=== PATIENT | female | born 1995 | race Caucasian/White ===

== ENCOUNTER 2023-06-14 10:07 | Emergency (ER) | payer BC, SELFPAY ==
[2023-06-14 10:12] VITALS: BP 150/89; PULSE 113; RESP 22; TEMP 37.1; O2SAT 98; BMI 34.3
[2023-06-14 10:15] VITALS: BP 150/89; O2SAT 96
--- NOTE | 2023-06-14 10:22 | XR_ITS ---
The [address] [address] Patient Name: FRIEDA SOLIS MRN: [id number] date: 1995 Sex: F Assigned Patient Location: ER Current Patient Location: ED.MAIN Accession/Order Number: [id number] Exam Date: 06/14/2023 10:45 Report Date: 06/14/2023 11:00 At the request of: SAMANTHA GIRALDO Procedure: XR chest 2V EXAM: XR chest 2V HISTORY: . sob . COMPARISON: None. TECHNIQUE: Frontal and lateral chest FINDINGS: Heart and vascularity are unremarkable. Lungs are free of focal infiltrates. No acute bony abnormality is appreciated. XR/XR chest 2V IMPRESSION: No acute heart or lung disease identified. Electronically authenticated by: BROOKS LARSEN Date: 06/14/2023 11:00
--- NOTE | 2023-06-14 10:23 | PC.NURSE ---
bilat upper and lower lobes lung sounds clear with pt coughing with deep breathing and with poor effort.
[2023-06-14 10:24] VITALS: O2SAT 98
[2023-06-14 10:37] VITALS: O2SAT 98
[2023-06-14] MEDS: ALBUTEROL SULFATE 2.5 MG/3 ML VIAL NEB IH (10:37)
--- NOTE | 2023-06-14 10:53 | ED.GENADUL1 ---
HPI - General Adult General Chief complaint: Upper Respiratory Infection Stated complaint: SHORTNESS OF BREATH/ COUGH Time Seen by Provider: 06/14/23 10:22 Source: patient Mode of arrival: walk-in History of Present Illness HPI narrative: Patient is a 27-year-old female who is presenting to the Emergency Room with chief complaint of one week of cough, congestion, flulike symptoms and shortness of breath. Patient will have intermittent episodes where she feels like she cannot catch her breath, some mild anxiety associated with this as well. Patient does have a history of childhood asthma. Patient thought that she outgrew, then several years ago she started having flulike symptoms, upper respiratory symptoms, and felt like it triggered her asthma at that time as well. She has no inhalers at home. Patient has no recent traveling. Patient does have 3 small children at home, Under the age of 4. she is concerned about her being sick and therefore he causing him to be sick. No sinus pressure, no chest pain, abdominal pain, nausea vomiting, no other acute complaints. . All systems are negative except as noted/marked. All systems reviewed and otherwise negative. . Nurses note and vital signs reviewed and patient is not hypoxic. General: The patient appears well and in no apparent distress. Patient is resting comfortably on cart. Patient is not toxic, lethargic, or listless. When patient starts talking, she does slightly get anxious and her heart rate will increase slightly. Skin: Warm, dry, no pallor noted. There is no rash noted. No petechiae, purpura. Head: Normocephalic, atraumatic; No tenderness to palpation to bilateral frontal or maxillary sinuses. Eye: Normal conjunctiva, no drainage, EOMI. PERRL Ears, Nose, Mouth, and Throat: oral mucosa is moist. Nares patent. Mouth without vesicles. Patient's bilateral tympanic membrane shows no erythema, perforation or bulging. Cardiovascular: Regular Rate and Rhythm, no murmur, gallop, rub Respiratory: Patient is in no distress, no accessory muscle use, lungs are clear to auscultation, no wheezing, rales or rhonchi Back: non-tender, no CVA tenderness bilaterally to percussion. No CT LS midline pain GI: soft, no tenderness to palpation, no masses appreciated. No rebound, guarding, or rigidity noted. No flank pain bilateral, No distention Musculoskeletal: Patient has full range of motion of all of the extremities, no motor, sensory, or focal neurological deficits Neurological: A&O x3, normal speech Psychiatric: Cooperative Related Data Previous Rx's Medication Instructions Recorded albuterol sulfate 90 mcg/actuation 2 inh inhalation Q4H PRN shortness 06/14/23 breath activated powder inhaler of breath or wheezing #1 ea yydcfscihyfzegs-lbpzhrmvsbqlojj-FH 10 ml PO Q6H PRN cold symptoms 06/14/23 2 mg-30 mg-10 mg/5 mL oral syrup #200 mL (Bromfed DM) Allergies Allergy/AdvReac Type Severity Reaction Status Date / Time No Known Drug Allergies Allergy Verified 06/14/23 10:16 [facility] Medical History (Updated 06/14/23 @ 10:58 by Wilfrid Cain MD) Asthma ?J45.909 - Unspecified asthma, uncomplicated (ICD-10) Exam Constitutional Vital Signs, click to edit/add: Last Vital Signs Temp 98.8 F 06/14/23 10:12 Pulse 113 H 06/14/23 10:12 Resp 22 06/14/23 10:12 BP 143/84 H 06/14/23 11:08 Pulse Ox 95 06/14/23 11:08 O2 Del Method Room Air 06/14/23 10:37 Course Vital Signs Vital signs: Vital Signs Temperature 98.8 F 06/14/23 10:12 Pulse Rate 113 H 06/14/23 10:12 Respiratory Rate 22 06/14/23 10:12 Blood Pressure 150/89 H 06/14/23 10:12 Pulse Oximetry 98 06/14/23 10:12 Oxygen Delivery Method Room Air 06/14/23 10:12 Temperature 98.8 F 06/14/23 10:12 Pulse Rate 113 H 06/14/23 10:12 Respiratory Rate 22 06/14/23 10:12 Blood Pressure 143/84 H 06/14/23 11:08 Pulse Oximetry 95 06/14/23 11:08 Oxygen Delivery Method Room Air 06/14/23 10:37 Medical Decision Making MDM Narrative Medical decision making narrative: Patient was given one breathing treatment. X-ray ankle and are negative. Patient be sent home with prescription for a bit her inhaler and Bromfed cough medication. Patient needs to start using etgc-vdq-riapbcm medication to help treat her symptoms. Patient is to use DayQuil, NyQuil, Flonase. Patient is to increase fluids. Patient will follow-up with PCP. Patient was given a copy of her x-ray report. No questions at discharge Lab Data Labs: Lab Results 06/14/23 Range/Units 10:42 SARS-CoV-2 (PCR) Negative (NEGATIVE) Discharge Plan Discharge Chief Complaint: Upper Respiratory Infection Clinical Impression: Upper respiratory infection Patient Disposition: Home, Self-Care Condition: Fair Prescriptions / Home Meds: New albuterol sulfate 90 mcg/actuation aerosol powdr breath activated 2 inh inhalation Q4H PRN (Reason: shortness of breath or wheezing) Qty: 1 0RF gxmdxbtzhkyrrnw-phfclcvup-JX [Bromfed DM] 2-30-10 mg/5 mL syrup 10 ml PO Q6H PRN (Reason: cold symptoms) Qty: 200 0RF Instructions: Asthma (ED), Upper Respiratory Infection (ED) Additional Instructions: Using mdfy-pyt-zlwwqgb DayQuil, NyQuil and Flonase. Alternate, Motrin as needed for aches or pains. Increase fluids at home. Uses inhaler as needed every 4 hours to help with shortness of breath or cough and congestion. If you start producing productive sputum, that is good and your inhaler is breaking down some mucous plugs potentially. Stand Alone Forms: Portal Instructions Referrals: Brian Mendoza MD [Primary Care Provider] - 1 week
[2023-06-14 11:08] VITALS: BP 143/84; O2SAT 95
[2023-06-14 11:24] LABS: SARS-CoV-2 Ag NEGATIVE (NEGATIVE)
[2023-06-14 14:23] LABS: SARS-CoV-2 NAA NOT DETECTED (NOT DETECTE)
== END 2023-06-14 11:42 | disposition home or self-care (01) ==
PROVIDERS: Emergency Provider Emergency Medicine; PCP Family Medicine
DX: J06.9 Acute upper respiratory infection, unspecified (principal); Z20.822 Contact with and (suspected) exposure to COVID-19
CPT/HCPCS: 71046; 87635; 87811; 94640; 99284; U0003

== ENCOUNTER 2023-06-24 12:21 | Outpatient (OUT) | payer BC, SELFPAY ==
[2023-06-24 12:51] LABS: Basophils Absolute Auto 0.1 10^3/uL (0.0-0.1); Basophils Percent Auto 0.6 % (0.2-2.0); Eosinophils Absolute Auto 0.6 10^3/uL (0.0-0.7); Hematocrit 42.6 % (36.0-48.0); Hemoglobin 14.2 g/dL (12.0-16.0); Immature Granulocytes Abs Auto 0.03 10^3/uL (0.00-0.03); Immature Granulocytes Pct Auto 0.2 % (0.0-0.5); Lymphocytes Absolute Auto 2.8 10^3/uL (1.2-3.8); Lymphocytes Percent Auto 20.1 % (20.5-60.0); Mean Corpuscular HGB Conc 33.3 g/dL (29.9-35.2); Mean Corpuscular Hemoglobin 28.7 pg (26.7-34.0); Mean Corpuscular Volume 86.2 fL (81.0-99.0); Mean Platelet Volume 8.6 fL (9.5-13.5); Monocytes Absolute Auto 0.6 10^3/uL (0.3-0.8); Neutrophils Percent Auto 71.1 % (43.0-75.0); Platelet Count 453 10^3/uL (150-450); Red Blood Count 4.94 10^6/uL (4.20-5.40); Red Cell Distribution Width 13.4 % (11.0-15.0); White Blood Count 14.1 10^3/uL (4.0-11.0)
[2023-06-24 13:12] LABS: Erythrocyte Sedimentation Rate 51 mm/hr (<=20)
[2023-06-24 13:19] LABS: Alanine Aminotransferase 26 U/L (14-59); Albumin Globulin Ratio 0.8; Albumin Level 3.6 g/dL (3.4-5.0); Alkaline Phosphatase 84 U/L (46-116); Aspartate Amino Transferase 13 U/L (15-37); BUN Creatinine Ratio 12.3; Bilirubin Direct 0.1 mg/dL (0.0-0.2); Bilirubin Total 0.3 mg/dL (0.2-1.0); C Reactive Protein 0.5 mg/dL (<=1.0); Calcium 8.9 mg/dL (8.5-10.1); Carbon Dioxide 28.6 mmol/L (21.0-32.0); Chloride 102 mmol/L (98-107); Estimated GFR (African America >60 (>=60); Estimated GFR (Non-African Ame >60 (>=60); Globulin 4.8 g/dL; Glucose 109 mg/dL (74-106); Potassium 3.6 mmol/L (3.5-5.1); Sodium 140 mmol/L (136-145); Total Protein 8.4 g/dL (6.4-8.2)
== END 2023-06-24 12:22 | disposition home or self-care (01) ==
PROVIDERS: PCP Family Medicine; Visit Provider Family Medicine
DX: R59.0 Localized enlarged lymph nodes (principal)
CPT/HCPCS: 36415; 80048; 80076; 85025; 85652; 86140

== ENCOUNTER 2023-06-28 16:35 | Outpatient (OUT) | payer BC, SELFPAY ==
--- NOTE | 2023-06-28 | US_ITS ---
The [address] [address] Patient Name: FLYNN SOLIS MRN: [id number] date: 1995 Sex: F Assigned Patient Location: US Current Patient Location: US Accession/Order Number: [id number] Exam Date: 06/28/2023 16:45 Report Date: 06/29/2023 07:30 At the request of: VLADIMIR JACOBS Procedure: US soft tissue head and neck EXAM: US soft tissue head and neck HISTORY: CERVICAL LYMPHADENOPATHY R59.0 COMPARISON: None. TECHNIQUE: Grayscale and color ultrasound FINDINGS: 3 oval masses are identified in the left neck corresponding to the patient's palpable abnormalities. All 3 lesions demonstrate peripheral hypoechoic echogenicity with central hyperechogenic hypervascularity. These lesions measure 2.1 x 1.5 x 0.9 cm, 1.4 x 1.0 x 0.5 cm and 0.8 x 0.8 x 0.4 cm. US/US soft tissue head and neck IMPRESSION: 3 focal lesions corresponding to the patient's palpable abnormality which appear to be normal size lymph nodes Electronically authenticated by: BROOKS LO Date: 06/29/2023 07:30
--- NOTE | 2023-06-28 | US_ITS ---
The [place] [id number] Patient Name: FLYNN SOLIS MRN: [facility]:[id number] date: 1995 Sex: F Assigned Patient Location: US Current Patient Location: Accession/Order Number: [id number] Exam Date: 06/28/2023 16:45 Report Date: 06/29/2023 07:19 At the request of: VLADIMIR JACOBS Procedure: US extremity nonvascular RT EXAM: US extremity nonvascular RT HISTORY: AXILLARY LYMPHAENOPATHY R59.0 COMPARISON: None. TECHNIQUE: Grayscale and color ultrasound FINDINGS: Ultrasound of the right axilla demonstrates no focal abnormality Ultrasound of the right proximal forearm demonstrates no focal abnormality Ultrasound of the right posterior mid upper arm demonstrates a focal 0.5 x 0.3 x 0.3 cm area of hyperechogenicity isolated vascular to the surrounding tissues possibly a lipoma US/US extremity nonvascular RT IMPRESSION: 5 mm hyperechogenic lesion right posterior mid upper arm possibly a lipoma Electronically authenticated by: BROOKS LO Date: 06/29/2023 07:19
--- NOTE | 2023-06-28 | US_ITS ---
The [place] [id number] Patient Name: FLYNN SOLIS MRN: [id number] date: 1995 Sex: F Assigned Patient Location: US Current Patient Location: US Accession/Order Number: [id number] Exam Date: 06/28/2023 16:45 Report Date: 06/29/2023 07:23 At the request of: VLADIMIR JACOBS Procedure: US extremity nonvascular LT EXAMINATION: US extremity nonvascular LT HISTORY: AXILLARY LYMPHAENOPATHY R59.0 COMPARISON: No relevant comparison available. FINDINGS: Ultrasound of the left axilla demonstrates a 2.0 x 2.1 x 0.8 cm oval lesion with peripheral hypoechogenicity and central hyperechogenic and hypervascularity consistent with a normal size lymph node On the left posterior mid arm is a hyperechogenic 4 mm lesion. On the left proximal medial forearm hyperechogenic lesion measuring 5 mm. On the left proximal medial forearm is a 4 mm hypoechogenic lesion US/US extremity nonvascular LT IMPRESSION: Stable normal-sized left axillary lymph node 3 focal hyperechogenic lesions of the left arm possibly lipomas Electronically authenticated by: BROOKS LO Date: 06/29/2023 07:23
== END 2023-06-28 16:36 | disposition home or self-care (01) ==
LOC: US 16:35
PROVIDERS: PCP Family Medicine; Visit Provider Family Medicine
DX: R59.0 Localized enlarged lymph nodes (principal)
CPT/HCPCS: 76536; 76882

== ENCOUNTER 2024-06-13 11:27 | Outpatient (OUT) | payer BC, SELFPAY ==
[2024-06-13 12:05] LABS: Basophils Absolute Auto 0.1 10^3/uL (0.0-0.1); Basophils Percent Auto 0.6 % (0.2-2.0); Eosinophils Absolute Auto 0.2 10^3/uL (0.0-0.7); Eosinophils Percent Auto 2.4 % (0.9-7.0); Hematocrit 42.4 % (36.0-48.0); Hemoglobin 14.7 g/dL (12.0-16.0); Immature Granulocytes Abs Auto 0.02 10^3/uL (0.00-0.03); Immature Granulocytes Pct Auto 0.2 % (0.0-0.5); Lymphocytes Absolute Auto 1.8 10^3/uL (1.2-3.8); Lymphocytes Percent Auto 18.2 % (20.5-60.0); Mean Corpuscular HGB Conc 34.7 g/dL (29.9-35.2); Mean Corpuscular Hemoglobin 29.7 pg (26.7-34.0); Mean Corpuscular Volume 85.7 fL (81.0-99.0); Mean Platelet Volume 8.8 fL (9.5-13.5); Monocytes Absolute Auto 0.4 10^3/uL (0.3-0.8); Neutrophils Absolute Auto 7.3 10^3/uL (1.4-6.5); Neutrophils Percent Auto 74.6 % (43.0-75.0); Platelet Count 386 10^3/uL (150-450); Red Blood Count 4.95 10^6/uL (4.20-5.40); Red Cell Distribution Width 13.2 % (11.0-15.0); White Blood Count 9.8 10^3/uL (4.0-11.0)
[2024-06-13 12:18] LABS: Erythrocyte Sedimentation Rate 68 mm/hr (<=20)
[2024-06-13 12:23] LABS: Estimated Average Glucose 97 mg/dL
[2024-06-13 12:39] LABS: Anion Gap 12.9; BUN Creatinine Ratio 11.1; C Reactive Protein 0.85 mg/dL (<=0.50); Calcium 9.3 mg/dL (8.5-10.1); Carbon Dioxide 25.6 mmol/L (21.0-32.0); Chloride 102 mmol/L (98-107); Estimated GFR (African America >60 (>=60); Estimated GFR (Non-African Ame >60 (>=60); Free T3 2.93 pg/mL (2.18-3.98); Glucose 110 mg/dL (74-106); Potassium 3.5 mmol/L (3.5-5.1); Sodium 137 mmol/L (136-145); Thyroid Stimulating Hormone 1.445 uIU/mL (0.358-3.740)
[2024-06-13 12:55] LABS: Free T4 0.97 ng/dL (0.76-1.46)
--- NOTE | 2024-06-13 13:03 | US_ITS ---
[address] [address] Patient Name: FLYNN SOLIS MRN: [id number] date: 1995 Sex: F Assigned Patient Location: LAB Current Patient Location: LAB Accession/Order Number: [id number] Exam Date: 06/13/2024 13:04 Report Date: 06/13/2024 13:49 At the request of: VLADIMIR JACOBS Procedure: US thyroid EXAMINATION: US thyroid HISTORY: Thyromegaly E01.0 COMPARISON: No relevant comparison available. TECHNIQUE: Sonographic images of the thyroid gland were obtained. FINDINGS: The right thyroid lobe is normal in size, contour and homogeneous echotexture measuring 4.7 x 1.5 x 1.4 cm. No focal nodule The thyroid isthmus measures 2 mm. No focal nodule The left thyroid lobe is normal in size, contour and homogeneous echotexture measuring 4.6 x 1.3 x 1.3 cm. No focal nodule US/US thyroid IMPRESSION: Normal thyroid gland TI-RADS: TI-RADS 1: Normal thyroid gland. No focal lesion. Electronically authenticated by: BROOKS LO Date: 06/13/2024 13:49
[2024-06-14 06:10] LABS: Rheumatoid Factor (RF) <10.0 IU/mL (<14.0)
[2024-06-14 08:13] LABS: Insulin 82.5 uIU/mL (2.6-24.9)
[2024-06-14 09:28] LABS: Alanine Aminotransferase 27 U/L (14-59); Albumin Globulin Ratio 0.8; Albumin Level 3.7 g/dL (3.4-5.0); Alkaline Phosphatase 74 U/L (46-116); Aspartate Amino Transferase 14 U/L (15-37); Bilirubin Direct 0.1 mg/dL (0.0-0.2); Bilirubin Total 0.4 mg/dL (0.2-1.0); Globulin 4.5 g/dL; Total Protein 8.2 g/dL (6.4-8.2)
[2024-06-14 16:12] LABS: Thyroglobulin Antibody <1.0 IU/mL (0.0-0.9); Thyroid Peroxidase (TPO) Ab <9 IU/mL (0-34)
[2024-06-15 08:14] LABS: Thyroid Stim Immunoglobulin <0.10 IU/L (0.00-0.55)
== END 2024-06-13 11:28 | disposition home or self-care (01) ==
PROVIDERS: PCP Family Medicine; Visit Provider Family Medicine
DX: R53.83 Other fatigue (principal); L65.9 Nonscarring hair loss, unspecified; E66.9 Obesity, unspecified; M25.50 Pain in unspecified joint; E28.2 Polycystic ovarian syndrome; E01.0 Iodine-deficiency related diffuse (endemic) goiter
CPT/HCPCS: 36415; 76536; 80048; 80076; 83036; 83525; 84439; 84443; 84445; 84481; 85025; 85652; 86140; 86376; 86431; 86800

== ENCOUNTER 2024-06-16 20:46 | Observation (INO) | payer BC, SELFPAY ==
--- OUTSIDE RECORDS SUMMARY | 2024-06-16 20:51 | XMS_ITS | CCD ---
Author Organization [facility] Care Team Providers Care Journeyman Carpenter Name Role Phone GABBIE Lopez Attending Provider REYNALDO, DR BRIAN Akins Primary Care Unavailable GWENDOLYN, SB Tsai Admitting Unavailable GWENDOLYN, SB Tsai Attending Unavailable ALLIE, DR PATRICIA Espinoza Consulting Unavailable HIGHLANDER, SB Tsai Consulting Unavailable NADERER, DR BRIAN Akins Consulting Unavailable NADERER, DR BRIAN Akins Attending Unavailable NADEREAlexis, DR BRIAN Akins Admitting Unavailable NADERER, DR BRIAN Akins Primary Care Unavailable NADERER, DR BRIAN Akins Primary Care Unavailable NADERER, DR BRIAN Akins Consulting Unavailable NADERER, DR BRIAN Akins Attending Unavailable NADERER, DR BRIAN Akins Admitting Unavailable [facility] Consulting Unavailable NADERER, DR BRIAN Akins Primary Care Unavailable GWENDOLYN, SB Tsai Admitting Unavailable GWENDOLYN, SB Tsai Attending Unavailable Brian Jacobs MD Primary Care Provider BRIAN JACOBS Attending Unavailable Problems Active Problems Problem Classification Problem Date Documented Da te Episodic/Chronic Malaise and fatigue (5 sources) Fatigue; Translations: [Other fatigue] Onset: 06-13-2024 06-13-2024 Episodic Neoplasms of unspecified nature or uncertain behavior (3 sources) Thrombocytosis; Translations: [Thrombocythemia] Onset: 06-13-2024 06-13-2024 Episodic Other acquired deformities (1 source) Contracture, left ankle; Translations: [CONTRACTURE LEFT ANKLE] Onset: 04-24-2022 Chronic Other endocrine disorders (5 sources) Polycystic ovary syndrome; Translations: [Polycystic ovarian syndrome] Onset: 06-13-2024 06-13-2024 Chronic Other non-traumatic joint disorders (5 sources) Joint pain; Translations: [Pain in unspecified joint] Onset: 06-13-2024 06-13-2024 Episodic Other nutritional; endocrine; and metabolic disorders (5 sources) Body mass index 30+ - obesity; Translations: [Obesity, unspecified] Onset: 06-13-2024 06-13-2024 Chronic Other skin disorders (5 sources) Loss of hair; Translations: [Nonscarring hair loss, unspecified] Onset: 06-13-2024 06-13-2024 Episodic Thyroid disorders (5 sources) Goiter; Translations: [Iodine-deficiency related diffuse (endemic) goiter] Onset: 06-13-2024 06-13-2024 Chronic Past or Other Problems Problem Classification Problem Date Documented Date Episodic/Chronic Other connective tissue disease (5 sources) Pain in left foot; Translations: [PAIN IN LEFT FOOT] Onset: 03-02-2022 Episodic Other connective tissue disease (4 sources) Plantar fascial fibromatosis; Translations: [PLANTAR FASCIAL FIBROMATOSIS] Onset: 04-20-2022 Episodic Other connective tissue disease (1 source) Peroneal tendinitis, left leg; Translations: [PERONEAL TENDINITIS LEFT LEG] Onset: 04-20-2022 Episodic Other nervous system disorders (1 source) Other abnormalities of gait and mobility; Translations: [OTHER ABNORMALITIES GAIT AND MOBILITY] Onset: 04-24-2022 Episodic Other nervous system disorders (1 source) Unspecified abnormalities of gait and mobility; Translations: [UNS ABNORMALITIES GAIT AND MOBILITY] Onset: 04-24-2022 Episodic Results Test Name Value Interpretation Reference Range Facility ALL CBC WITH AUTO DIFFon BASOPHILS ABSOLUTE AUTO 0.1 [facility] Basophils/100 WBC (Bld) 0.6 % 0.2 - 2.0 % [facility] Eosinophils/100 WBC (Bld) 2.4 % 0.9 - 7.0 % [facility] Erythrocyte distribution width (RBC) [Ratio] 13.2 % 11.0 - 15.0 % [facility] Hematocrit (Bld) [Volume fraction] 42.4 % 36.0 - 48.0 [facility] [Mass/Vol] 14.7 g/dL 12.0 - 16.0 g/dL [facility] IMMATURE GRANULOCYTES ABS AUTO 0.02 [facility] Immature granulocytes/100 WBC (Bld) 0.2 % 0.0 - 0.5 % [facility] Interpretation and review of laboratory results Abnormal [facility] LYMPHOCYTES ABSOLUTE AUTO 1.8 [facility] Lymphocytes/100 WBC (Bld) 18.2 % Low 20.5 - 60.0 % [facility] MCH (RBC) [Entitic mass] 29.7 pg 26.7 - 34.0 pg [facility] MCHC (RBC) [Mass/Vol] 34.7 g/dL 29.9 - 35.2 g/dL [facility] MCV (RBC) [Entitic vol] 85.7 fL 81.0 - 99.0 fL [facility] MONOCYTES ABSOLUTE AUTO 0.4 [facility] Monocytes/100 WBC (Bld) 4.0 % 1.7 - 12.0 % [facility] NEUTROPHILS ABSOLUTE AUTO 7.3 High [facility] Neutrophils/100 WBC (Bld) 74.6 % 43.0 - 75.0 % [facility] Platelet mean volume (Bld) [Entitic vol] 8.8 fL Low 9.5 - 13.5 fL [facility] EO # 0.2 [facility] PLT 386 [facility] RBC 4.95 [facility] WBC 9.8 [facility] XR FOOT GUANAKITO MIN 3 VIEWSon XR FOOT GUANAKITO MIN 3 VIEWS EXAMINATION: XR FOOT GUANAKITO MIN 3 VIEWS HISTORY: Pain in both feet COMPARISON: XR foot left 03/02/2022 FINDINGS: RIGHT FINDINGS: BONES: No significant arthropathy or acute abnormality. SOFT TISSUES: No visible soft tissue swelling. OTHER: Negative. LEFT FINDINGS: BONES: No significant arthropathy or acute abnormality. SOFT TISSUES: No visible soft tissue swelling. OTHER: Negative. IMPRESSION: RIGHT CONCLUSION: Normal examination. LEFT CONCLUSION: Normal examination. Electronically authenticated by: PATRICIA KELLEY Date: 2022-12-15 12:37 Normal [facility] CBC AUTO DIFFon 03-02-2022 BASO # 0.1 103/ul Normal 0.0-0.1 [facility] Comment on above: Performed By: #### C BC #### [facility] [address] [address] [address] Mike Nails Basophils/100 WBC (Bld) 0.7 % Normal 0.2-2.0 [facility] Comment on above: Performed By: #### C BC #### [facility] [address] [place] [address] Dr. Mike Nails EO # 0.6 103/ul Normal 0.0-0.7 [facility] Comment on above: Performed By: #### C BC #### [facility] [address] [place] [address] Dr. Mike Nails Eosinophils/100 WBC (Bld) 5.7 % Normal 0.9-7.0 [facility] Comment on above: Performed By: #### C BC #### [facility] [address] [place] [address] Dr. Mike Nails Erythrocyte distribution width (RBC) [Ratio] 13.2 % Normal 11.0-15.0 [facility] Comment on above: Performed By: #### C BC #### [facility] [address] [place] [address] Dr. Mike Nails Hematocrit (Bld) [Volume fraction] 41.6 % Normal 36.0-48.0 [facility] Comment on above: Performed By: #### C BC #### [facility] [address] [place] [address] Dr. Mike Nails Hemoglobin (Bld) [Mass/Vol] 13.7 g/dL Normal 12.0-16.0 [facility] Comment on above: Performed By: #### C BC #### [facility] [address] [place] [address] Dr. Mike Nails IG # 0.02 10e3/ul Normal 0.00-0.03 [facility] Comment on above: Performed By: #### C BC #### [facility] [address] [place] [address] Dr. Mike Nails IG % 0.2 % Normal 0.0-0.5 [facility] Comment on above: Performed By: #### C BC #### [facility] [address] [place] [address] Dr. Mike Nails LYMPH # 2.6 103/ul Normal 1.2-3.8 [facility] Comment on above: Performed By: #### C BC #### [facility] [address] [place] [address] Dr. Mike Nails Lymphocytes/100 WBC (Bld) 26.3 % Normal 20.5-60.0 [facility] Comment on above: Performed By: #### C BC #### [facility] [address] [place] [address] Dr. Mike Nails MANUAL DIFF REQ NO Normal [facility] Comment on above: Performed By: #### C BC #### [facility] [address] [place] [address] Dr. Mike Nails MCH (RBC) [Entitic mass] 28.7 pg Normal 26.7-34.0 [facility] Comment on above: Performed By: #### C BC #### [facility] [address] [place] [address] Dr. Mike Nails MCHC (RBC) [Mass/Vol] 32.9 g/dL Normal 29.9-35.2 [facility] Comment on above: Performed By: #### C BC #### [facility] [address] [place] [address] Dr. Mike Nails MCV (RBC) [Entitic vol] 87.0 fL Normal 81.0-99.0 [facility] Comment on above: Performed By: #### C BC #### [facility] [address] [place] [address] Dr. Mike Nails MONO # 0.5 103/ul Normal 0.3-0.8 [facility] Comment on above: Performed By: #### C BC #### [facility] [address] [place] [address] Dr. Mike Nails Monocytes/100 WBC (Bld) 5.5 % Normal 1.7-12.0 [facility] Comment on above: Performed By: #### C BC #### [facility] [address] [place] [address] Dr. Mike Nails NEUT # 6.0 103/ul Normal 1.4-6.5 [facility] Comment on above: Performed By: #### C BC #### [facility] [address] [address] [address] Mike Nails Neutrophils/100 WBC (Bld) 61.6 % Normal 43.0-75.0 [facility] Comment on above: Performed By: #### C BC #### [facility] [address] [place] [address] Dr. Mike Nails Platelet mean volume (Bld) [Entitic vol] 8.7 fL Critically low 9.5-13.5 [facility] Comment on above: Performed By: #### C BC #### [facility] [address] [address] [address] Mike Nails PLT 369 103/ul Normal 150-450 [facility] Comment on above: Performed By: #### C BC #### [facility] [address] [place] [address] Dr. Mike Nails RBC 4.78 106/ul Normal 4.20-5.40 [facility] Comment on above: Performed By: #### C BC #### [facility] [address] [address] [address] Mike Nails WBC 9.7 103/ul Normal 4.0-11.0 [facility] Comment on above: Performed By: #### C BC #### [facility] [address] [place] [address] Dr. Mike Nails GLYCOHEMOGLOBIN A1Con 2021 ADA RECOMMENDATION SEE BELOW Normal [facility] Comment on above: Result Comment: ADA RECOMMENDED LIMIT 4.0 - 6.0 ADA THERAPEUTIC TARGET < 7.0 ACTION SUGGESTED > 7.0 Performed By: #### A 1C #### [facility] [address] [place] [address] Dr. Mike Nails Glucose [Mass/Vol] 105 mg/dL Normal [facility] Comment on above: Performed By: #### A 1C #### [facility] [address] [place] [address] Dr. Mike Nails HbA1c (Bld) [Mass fraction] 5.3 % Normal 4.5-6.2 [facility] Comment on above: Performed By: #### A 1C #### [facility] [address] [address] [address] Mike Nails LIPID PROFILEon 03-02-2022 CHOL-HDL RATIO NORM SEE BELOW Normal [place] Comment on above: Result Comment: 3.3 - 4.4 LOW RISK 4.4 - 7.1 AVERAGE RISK 7.1 - 11.0 MODERATE RISK >11.0 HIGH RISK Performed By: #### B MP, LIPID, TSH, LIVER #### [facility] [address] [address] [address] Mike Nails Cholesterol [Mass/Vol] 198 mg/dL Normal <=200 [facility] Comment on above: Performed By: #### B MP, LIPID, TSH, LIVER #### [facility] [address] [address] [address] Mike Nails Cholesterol in HDL [Mass/Vol] 48 mg/dL Normal 40-60 [facility] Comment on above: Performed By: #### B MP, LIPID, TSH, LIVER #### [facility] [address] [address] [address] Mike Nails Cholesterol in LDL [Mass/Vol] 136.6 mg/dL Normal [facility] Comment on above: Performed By: #### B MP, LIPID, TSH, LIVER #### [facility] [address] [address] [address] Mike Nails Cholesterol.total/Cho lesterol in HDL [Mass ratio] 4.1 {ratio} Normal [facility] Comment on above: Performed By: #### B MP, LIPID, TSH, LIVER #### [facility] [address] [place] [address] Dr. Mike Nails HDL NORMAL > or = 60 mg/dl - LOW CARDIOVASCULAR RISK <40 mg/dl - HIGH CARDIOVASCULAR RISK Normal [facility] Comment on above: Performed By: #### B MP, LIPID, TSH, LIVER #### [facility] [address] [place] [address] Dr. Mike Nails LDL CALC NORMAL SEE BELOW Normal [facility] Comment on above: Result Comment: <100 mg/dl OPTIMAL 100 - 129 mg/dl NEAR OR ABOVE OPTIMAL 130 - 159 mg/dl BORDERLINE HIGH 160 - 189 mg/dl HIGH >190 mg/dl VERY HIGH Performed By: #### B MP, LIPID, TSH, LIVER #### [facility] [address] [address] [address] Mike Nails Triglyceride [Mass/Vol] 67 mg/dL Normal <=150 [facility] Comment on above: Performed By: #### B MP, LIPID, TSH, LIVER #### [facility] [address] [address] [address] Mike Nails VLDL CALC 13.4 mg/dL Normal [facility] Comment on above: Performed By: #### B MP, LIPID, TSH, LIVER #### [facility] [address] [place] [address] Dr. Mike Nails LIVER PROFILEon 03-02-2022 Albumin [Mass/Vol] 3.7 g/dL Normal 3.4-5.0 [facility] Comment on above: Performed By: #### B MP, LIPID, TSH, LIVER #### [facility] [address] [place] [address] Dr. Mike Nails Albumin/Globulin [Mass ratio] 0.8 {ratio} Normal [facility] Comment on above: Performed By: #### B MP, LIPID, TSH, LIVER #### [facility] [address] [place] [address] Dr. Mike Nails ALP [Catalytic activity/Vol] 87 U/L Normal 46-116 [facility] Comment on above: Performed By: #### B MP, LIPID, TSH, LIVER #### [facility] [address] [place] [address] Dr. Mike Nails ALT [Catalytic activity/Vol] 9 U/L Critically low 14-59 [facility] Comment on above: Performed By: #### B MP, LIPID, TSH, LIVER #### [facility] [address] [place] [address] Dr. Mike Nails AST [Catalytic activity/Vol] 17 U/L Normal 15-37 [facility] Comment on above: Performed By: #### B MP, LIPID, TSH, LIVER #### [facility] [address] [place] [address] Dr. Mike Nails BILI, CONJUGATED 0.1 mg/dL Normal 0.0-0.2 [facility] Comment on above: Performed By: #### B MP, LIPID, TSH, LIVER #### [facility] [address] [place] [address] Dr. Mike Nails Bilirubin [Mass/Vol] 0.4 mg/dL Normal 0.2-1.0 [facility] Comment on above: Performed By: #### B MP, LIPID, TSH, LIVER #### [facility] [address] [place] [address] Dr. Mike Nails Globulin (S) [Mass/Vol] 4.9 g/dL Normal [facility] Comment on above: Performed By: #### B MP, LIPID, TSH, LIVER #### [facility] [address] [place] [address] Dr. Mike Nails Protein [Mass/Vol] 8.6 g/dL Critically high 6.4-8.2 [facility] Comment on above: Performed By: #### B MP, LIPID, TSH, LIVER #### [facility] [address] [place] [address] Dr. Mike Nails PROF CHEM 8 (BAS METB)on Anion gap [Moles/Vol] 11.4 mmol/L [facility] Comment on above: Performed By: #### B MP, LIPID, TSH, LIVER #### [facility] [address] [place] [address] Dr. Mike Nails Calcium [Mass/Vol] 9.2 mg/dL Normal 8.5-10.1 [facility] Comment on above: Performed By: #### B MP, LIPID, TSH, LIVER #### [facility] [address] [place] [address] Dr. Mike Nails Chloride [Moles/Vol] 104 mmol/L Normal 98-107 [facility] Comment on above: Performed By: #### B MP, LIPID, TSH, LIVER #### [facility] [address] [place] [address] Dr. Mike Nails CO2 [Moles/Vol] 28.7 mmol/L Normal 21.0-32.0 [facility] Comment on above: Performed By: #### B MP, LIPID, TSH, LIVER #### [facility] [address] [place] [address] Dr. Mike Nails Creatinine [Mass/Vol] 0.80 mg/dL Normal 0.55-1.02 [facility] Comment on above: Performed By: #### B MP, LIPID, TSH, LIVER #### [facility] [address] [address] [address] Mike Nails EGFR-AF TRISTANIAN >60 Normal >=60 [facility] Comment on above: Performed By: #### B MP, LIPID, TSH, LIVER #### [facility] [address] [place] [address] Dr. Mike Nails EGFR-NON AF TRISTANIAN >60 Normal >=60 [facility] Comment on above: Performed By: #### B MP, LIPID, TSH, LIVER #### [facility] [address] [place] [address] Dr. Mike Nails Glucose [Mass/Vol] 88 mg/dL Normal 74-106 [facility] Comment on above: Performed By: #### B MP, LIPID, TSH, LIVER #### [facility] [address] [place] [address] Dr. Mike Nails Potassium [Moles/Vol] 4.1 mmol/L Normal 3.5-5.1 [facility] Comment on above: Performed By: #### B MP, LIPID, TSH, LIVER #### [facility] [address] [place] [address] Dr. Mike Nails Sodium [Moles/Vol] 140 mmol/L Normal 136-145 [facility] Comment on above: Performed By: #### B MP, LIPID, TSH, LIVER #### [facility] [address] [place] [address] Dr. Mike Nails Urea nitrogen [Mass/Vol] 15.0 mg/dL Normal 7.0-18.0 [facility] Comment on above: Performed By: #### B MP, LIPID, TSH, LIVER #### [facility] [address] [place], [place] [address] Dr. Mike Nails Urea nitrogen/Creatinine [Mass ratio] 18.8 mg/mg Normal [facility] Comment on above: Performed By: #### B MP, LIPID, TSH, LIVER #### [facility] [address] [place], [place] [address] Dr. Mike Nails TSHon 03-02-2022 TSH 1.489 uIU/mL Normal 0.358-3.740 [facility] Comment on above: Performed By: #### B MP, LIPID, TSH, LIVER #### [facility] [address] [place], [place] [address] Dr. Mike Nails XR FOOT LT MIN 3 VIEWSon XR FOOT LT MIN 3 VIEWS EXAM: XR FOOT LT MIN 3 VIEWS CLINICAL INDICATION: Pain in left foot; no known injury, swelling started during ; pain and swelling persistent 4 months COMPARISON: None TECHNIQUE: The right foot is imaged in 3 projections. FINDINGS: There is no fracture, malalignment or osseous destruction. Mild joint space narrowing is noted at the first MTP joint. An accessory navicular bone is noted. An additional sub-2 mm body adjacent to the navicular bone appears chronic. Mild soft tissue swelling is noted about the foot. IMPRESSION: No acute osseous abnormality. Early first MTP joint space narrowing. Electronically authenticated by: RHODA CARPENTER Date: 2022-03-02 15:24 Normal [facility] Vital Signs Date Time Vital Sign Value Performing Clinician Faci lity 06-13-2024 [id number] Body height 162.6 cm Brian Jacobs MD Work Phone: [facility] 06-13-2024 10:36-0400 Body mass index (BMI) [Ratio] 33.64 kg/m2 Brian Jacobs MD Work Phone: [facility] 06-13-2024 10:36-040 Body temperature 97.5 [degF] Brian Jacobs MD Work Phone: [facility] 06-13-2024 10:36-040 Body weight 88.91 kg Brian Jacobs MD Work Phone: [facility] 06-13-2024 10:36-0400 Diastolic blood pressure 80 mm[Hg] Brian Jacobs MD Work Phone: [facility] 06-13-2024 10:36-0400 Heart rate 91 /min Brian Jacobs MD Work Phone: [facility] 06-13-2024 10:36-0400 Respiratory rate 20 /min Brian Jacobs MD Work Phone: [facility] 06-13-2024 10:36-0400 SaO2% (BldA) [Mass fraction] 98 % Brian Jacobs MD Work Phone: [facility] 06-13-2024 10:36-0400 Systolic blood pressure 124 mm[Hg] Brian Jacobs MD Work Phone: [facility] Encounters Encounter Date Encounter Type Care Provider Facility Start: 06-13-2024 End: 06-13-2024 Bamboo flowsheet Brian Jacobs MD Work Phone: [facility] Start: 06-13-2024 End: 06-13-2024 Bamboo flowsheet Brian Jacobs MD Work Phone: [facility] Start: 06-13-2024 End: 06-13-2024 [facility] Result Encounter Brian Jacobs MD Work Phone: [facility] External Department Unsolicited Start: 06-13-2024 End: 06-13-2024 Office outpatient visit 25 minutes Brian Jacobs MD Work Phone: [facility] Comment on above: Fatigue, unspecified type (Primary Dx); Hair loss; Arthralgia, unspecified joint; PCOS (polycystic ovarian syndrome); Obesity (BMI 30-39.9); Thyromegaly (CMS/HCC) Start: 06-13-2024 End: 06-13-2024 ambulatory BRIAN JACOBS Not Available Start: 12-15-2022 End: 12-16-[address] BRIAN JACOBS Facility:[facility] Start: 04-20-2022 End: 05-02-[address] BRIAN JACOBS Facility:[facility] Start: 04-07-2022 End: 04-07-2022 Patient encounter procedure DPMark Sb Lopez Work Phone: [facility] [place] [facility] Start: 03-04-2022 Encounter for genera l adult medical examination without abnormal findings DR BRIAN JACOBS [facility] Start: 03-02-2022 End: 03-03-2022 Encounter for general adult medical examination without abnormal findings DR BRIAN JACOBS Facility:[facility] Start: 03-02-2022 End: 03-03-[address] BRIAN JACOBS Facility:[facility] Procedures Date Procedure Procedure Detail Performing Clinician Start: 06-13-2024 ALL CBC WITH AUTO DIFF Brian Jacobs MD Work Phone: Plan of Treatment Date Care Activity Detail Author Start: 06-13-2024 End: 06-13-2025 PEBBLES BY IFA W/REFLEX ([facility]) PEBBLES BY IFA W/REFLEX ([facility]) Lab Routine Arthralgia, unspecified joint Expected: 06/13/2024 (Approximate), Expires: 06/13/2025 [facility] Comment on above: Expected: 06/13/2024 (Approximate), Expires: 06/13/2025 Start: 06-13-2024 End: 06-13-2025 Basic metabolic 1998 panel - Serum or Plasma Basic metabolic panel Lab Routine PCOS (polycystic ovarian syndrome) Expected: 06/13/2024 (Approximate), Expires: 06/13/2025 [facility] Comment on above: Expected: 06/13/2024 (Approximate), Expires: 06/13/2025 Start: 06-13-2024 End: 06-13-2025 C reactive protein [Mass/volume] in Serum or Plasma C-reactive protein Lab Routine Arthralgia, unspecified joint Expected: 06/13/2024 (Approximate), Expires: 06/13/2025 [facility] Comment on above: Expected: 06/13/2024 (Approximate), Expires: 06/13/2025 Start: 06-13-2024 End: 06-13-2025 CBC W Auto Differential panel - Blood CBC and differential Lab Routine Arthralgia, unspecified joint PCOS (polycystic ovarian syndrome) Expected: 06/13/2024 (Approximate), Expires: 06/13/2025 [facility] Comment on above: Expected: 06/13/2024 (Approximate), Expires: 06/13/2025 Start: 06-13-2024 End: 06-13-2025 Erythrocyte sedimentation rate Sedimentation rate, automated Lab Routine Arthralgia, unspecified joint Expected: 06/13/2024 (Approximate), Expires: 06/13/2025 [facility] Comment on above: Expected: 06/13/2024 (Approximate), Expires: 06/13/2025 Start: 06-13-2024 End: 06-13-2025 Hemoglobin A1c/Hemoglobin.total in Blood Hemoglobin A1c Lab Routine PCOS (polycystic ovarian syndrome) Expected: 06/13/2024 (Approximate), Expires: 06/13/2025 [facility] Comment on above: Expected: 06/13/2024 (Approximate), Expires: 06/13/2025 Start: 06-13-2024 End: 06-13-2025 Insulin, fasting Insulin, fasting Lab Routine PCOS (polycystic ovarian syndrome) Expected: 06/13/2024 (Approximate), Expires: 06/13/2025 [facility] Comment on above: Expected: 06/13/2024 (Approximate), Expires: 06/13/2025 Start: 06-13-2024 End: 06-13-2025 Rheumatoid factor [Units/volume] in Serum or Plasma Rheumatoid factor Lab Routine Arthralgia, unspecified joint Expected: 06/13/2024 (Approximate), Expires: 06/13/2025 [facility] Comment on above: Expected: 06/13/2024 (Approximate), Expires: 06/13/2025 Start: 06-13-2024 End: 06-13-2025 Thyroglobulin Thyroglobulin Lab Routine Fatigue, unspecified type Hair loss Expected: 06/13/2024 (Approximate), Expires: 06/13/2025 [facility] Comment on above: Expected: 06/13/2024 (Approximate), Expires: 06/13/2025 Start: 06-13-2024 End: 06-13-2025 Thyroid peroxidase antibody Thyroid peroxidase antibody Lab Routine Fatigue, unspecified type Hair loss Expected: 06/13/2024 (Approximate), Expires: 06/13/2025 [facility] Comment on above: Expected: 06/13/2024 (Approximate), Expires: 06/13/2025 Start: 06-13-2024 End: 06-13-2025 Thyroid stimulating immunoglobulin Thyroid stimulating immunoglobulin Lab Routine Fatigue, unspecified type Hair loss Expected: 06/13/2024 (Approximate), Expires: 06/13/2025 [facility] Comment on above: Expected: 06/13/2024 (Approximate), Expires: 06/13/2025 Start: 06-13-2024 End: 06-13-2025 Thyrotropin [Units/volume] in Serum or Plasma TSH Lab Routine Fatigue, unspecified type Hair loss Obesity (BMI 30-39.9) Expected: 06/13/2024 (Approximate), Expires: 06/13/2025 [facility] Work Phone: Comment on above: Expected: 06/13/2024 (Approximate), Expires: 06/13/2025 Start: 06-13-2024 End: 06-13-2025 Thyroxine (T4) free [Mass/volume] in Serum or Plasma T4, free Lab Routine Fatigue, unspecified type Hair loss Expected: 06/13/2024 (Approximate), Expires: 06/13/2025 [facility] Comment on above: Expected: 06/13/2024 (Approximate), Expires: 06/13/2025 Start: 06-13-2024 End: 06-13-2025 Triiodothyronine (T3) Free [Mass/volume] in Serum or Plasma T3, free Lab Routine Fatigue, unspecified type Hair loss Expected: 06/13/2024 (Approximate), Expires: 06/13/2025 [facility] Comment on above: Expected: 06/13/2024 (Approximate), Expires: 06/13/2025 Start: 06-13-2024 End: 06-13-2025 US Thyroid gland US thyroid Imaging Routine Thyromegaly (CMS/HCC) Expected: 06/13/2024, Expires: 06/13/2025 [facility] Comment on above: Expected: 06/13/2024 , Expires: 06/13/2025 Start: 06-13-2024 End: 06-13-2024 Patient encounter procedure 06/13/2024 10:30 AM EDT Office Visit [facility] [address] [place] [id number] Brian Jacobs MD [address] [place] [address] Arrived [facility] Comment on above: Arrived Payers Date Payer Category Payer Unknown BCBS BCBS [id number] 2020-Present [phone] [address] [place] [address] [id number] 1994 Unknown [id number] 1994 Unknown [id number] 1994 Unknown [id number] 1994 Unknown [id number] 1994 Unknown [id number] 1959 Unknown [id number] Social History Date Type Detail Facility Tobacco smoking status NHIS Unknown if ever smoked [facility] Work Phone: Start: 1995 Sex Assigned At Female [facility] Tobacco smoking status NHIS Tobacco smoking consumption unknown [facility] Start: 1995 Sex assigned at Not on file [facility] Start: 06-13-2024 Gender identity Not on file [facility] Start: 06-13-2024 Tobacco smoking status NHIS Never smoked tobacco [facility] Start: 06-13-2024 Tobacco use and exposure Smokeless tobacco non-user [facility] Start: 06-13-2024 History of Social function [facility] History of Present illness Narrative 06-13-2024 Brian Jacobs MD - 06/13/2024 11:13 AM Willian Jacobs MD - 06/13/2024 11:13 AM Willian Jacobs MD - 06/13/2024 11:12 AM Willian Jacobs MD - 06/13/2024 10:30 AM EDT Note Date & Type Note Facility 06-13-2024 History of Presen t illness Narrative Associated Problem(s): Arthralgia Pain in multiple joints and check labs for autoimmune disease. Associated Problem(s): Thyromegaly (CMS/HCC) Thyroid feels enlarged on left and check US. Associated Problem(s): Fatigue Signs of low thyroid and check labs and antibodies. Images from the original note were not included. Subjective Patient ID: Samantha Malhotra is a 28 y.o. female who presents for Follow-up (Would like to be tested for hoshimoto's and possible for RA) and Back Pain. Concerned of Ifeanyi's disease or problems with thyroid. History of PCOS and periods very irregular. Noticed hair loss and thinning. Severe fatigue and no energy. At times feels like thyroid too low and other times feels overactive. Weight down 21 pounds in past year but exercising and trying to lose weight. Concerned of stiffness and joint pain. Pain in neck, back, hips, and shoulders. Very stiff and sore in am and if sit prolonged. Symptoms worse with activity. Goes to chiropractor few days a week which helps but then pain returns. Concerned of autoimmune disease. Review of Systems Respiratory: Negative for cough, shortness of breath and wheezing. Cardiovascular: Negative for chest pain and palpitations. Gastrointestinal: Negative for abdominal pain, diarrhea, nausea and vomiting. Genitourinary: Negative for dysuria. Objective Physical Exam Constitutional: General: She is not in acute distress. Appearance: Normal appearance. HENT: Head: Normocephalic. Right Ear: Tympanic membrane normal. Left Ear: Tympanic membrane normal. Eyes: Extraocular Movements: Extraocular movements intact. Pupils: Pupils are equal, round, and reactive to light. Neck: Comments: Left thyromegaly Cardiovascular: Rate and Rhythm: Normal rate and regular rhythm. Heart sounds: No murmur heard. No friction rub. No gallop. Pulmonary: Effort: Pulmonary effort is normal. Breath sounds: Normal breath sounds. No wheezing, rhonchi or rales. Abdominal: General: Bowel sounds are normal. There is no distension. Palpations: Abdomen is soft. Tenderness: There is no abdominal tenderness. There is no guarding or rebound. Musculoskeletal: Cervical back: Neck supple. Right lower leg: No edema. Left lower leg: No edema. Neurological: Mental Status: She is alert. Assessment/Plan Problem List Items Addressed This Visit PCOS (polycystic ovarian syndrome) Relevant Orders CBC and differential Basic metabolic panel Insulin, fasting Hemoglobin A1c Obesity (BMI 30-39.9) Relevant Orders TSH Hair loss Relevant Orders TSH T4, free T3, free Thyroglobulin Thyroid peroxidase antibody Thyroid stimulating immunoglobulin Fatigue - Primary Signs of low thyroid and check labs and antibodies. Relevant Orders TSH T4, free T3, free Thyroglobulin Thyroid peroxidase antibody Thyroid stimulating immunoglobulin Arthralgia Pain in multiple joints and check labs for autoimmune disease. Relevant Orders Sedimentation rate, automated C-reactive protein PEBBLES BY IFA W/REFLEX ([place]) Rheumatoid factor CBC and differential Thyromegaly (CMS/HCC) Thyroid feels enlarged on left and check US. Relevant Orders US thyroid documented in this encounter [facility] Evaluation note Note Date & Type Note Facility [facility] Evaluation note Note Date & Type Note Facility Evaluation note Diagnosis Fatigue, unspecified type- Primary Hair loss Unspecified alopecia Arthralgia, unspecified joint PCOS (polycystic ovarian syndrome) Polycystic ovaries Obesity (BMI 30-39.9) Thyromegaly (CMS/HCC) Goiter, unspecified documented in this encounter [facility] Chief Complaint and Reason for Visit Chief Complaint M79.672 Advance Directives No Advanced Directives Records Found Advance Directive Response Recorded Date/ Time Advance Directives No April 13 5:13pm Summary Purpose Family History No Family History Records FoundNo Family History Records Found Additional Source Comments Care Teams (unrecognized sec tion and content) Team Status: Inactive Member Role Status Dates Sb Lopez DPM MS Attending Provider Active Journeyman Carpenter Relationship Specialty Start Date End Date Brian Jacobs MD [address] [place] [id number] PCP - General Family Medicine 06/13/24 Journeyman Carpenter Relationship Specialty Start Date End Date Brian Jacobs MD [address] [place] [address] PCP - General Family Medicine 06/13/24 Journeyman Carpenter Relationship Specialty Start Date End Date Brian Jacobs MD [address] [place] [address] PCP - General Family Medicine 06/13/24 Goals (unrecognized section and content) Goals may be documented in a n alternate section INFORMATION SOURCE (unrecogn ized section and content) DATE CREATED AUTHOR 12/17/2022 [facility] DATE CREATED AUTHOR AUTHOR'S ORGANIZ ATION 06/14/2024 [facility] Reason for Visit (unrecogniz ed section and content) Reason Comments Follow-up Would like to be jasmin al for hoshimoto's and possible for RA Back Pain FOR RECORDS PERTAINING TO PATIENTS WHO ARE OR HAVE BEEN ENROLLED IN A CHEMICAL DEPENDENCY/SUBSTANCEABUSE PROGRAM, SOME INFORMATION MAY BE OMITTED. This clinical summary was aggregated from multiple sources. Caution should be exercised in using it in the provision of clinical care. This summary normalizes information from multiple sources, and as a consequence, information in this document may materially change the coding, format and clinical context of patient data. In addition, data may be omitted in some cases. CLINICAL DECISIONS SHOULD BE BASED ON THE PRIMARY CLINICAL RECORDS. [facility] [email or web address] [facility]. provides no warranty or guarantee of the accuracy or completeness of information in this document.
[2024-06-16 20:57] VITALS: BP 133/96; PULSE 77; TEMP 36.8; O2SAT 100; BMI 33.1
--- NOTE | 2024-06-16 21:16 | ED.ABDPAIN1 ---
Documented by User: Patenriqueta Birdon 06/16/24 21:57 HPI - Abdominal Pain General Chief Complaint: Abdominal Pain Stated Complaint: abdominal pain, vomiting, chills, not Time Seen by Provider: 06/16/24 21:08 Source: patient and family Mode of arrival: Wheelchair Limitations: no limitations History of Present Illness HPI narrative: 28 year old female presents to the ED for low abd pain, N/V. Onset was early this morning. Denies fever, chills, diarrhea, urinary sx. Denies flank pain. States her last 2-3 menses have been very light, irregular. Denies previous abd surgery. States she last had something to eat/drink around 1400 today. Related Data Previous Rx's ?Medication ?Instructions ?Recorded albuterol sulfate 90 mcg/actuation 2 inh inhalation Q4H PRN shortness 06/14/23 breath activated powder inhaler of breath or wheezing #1 ea oiccajdltpqlelu-wijjbxrnogwbqll-QA 10 ml PO Q6H PRN cold symptoms 06/14/23 2 mg-30 mg-10 mg/5 mL oral syrup #200 mL (Bromfed DM) Allergies Allergy/AdvReac Type Severity Reaction Status Date / Time No Known Drug Allergies Allergy Verified 06/16/24 20:57 Review of Systems ROS Constitutional Denies: fever or chills Ears, nose, mouth, and throat Denies: throat pain Cardiovascular Denies: chest pain Respiratory Denies: shortness of breath or cough Gastrointestinal Reports: abdominal pain, nausea and vomiting; Denies: diarrhea Genitourinary Denies: painful urination, urinary frequency or urinary urgency Musculoskeletal Denies: back pain or neck pain Integumentary/Breast Denies: rash Neurological Denies: headache PFSH PFSH Medical History (Updated 06/16/24 @ 23:54 by Edin Kaplan MD) Asthma ?J45.909 - Unspecified asthma, uncomplicated (ICD-10) Exam Constitutional Vital Signs, click to edit/add: Last Vital Signs Temp 98.3 F 06/16/24 20:57 Pulse 77 06/16/24 20:57 Resp 16 06/16/24 20:57 BP 133/96 H 06/16/24 20:57 Pulse Ox 100 06/16/24 20:57 O2 Del Method Room Air 06/16/24 20:57 Common normals: oriented x3 General appearance: cooperative HENMT Throat: posterior oropharynx normal Eye Common normals: conjunctivae normal and no scleral icterus Neck & C-Spine Common normals: supple GI Common normals: Normal to inspection, nondistended, normoactive bowel sounds present and soft to palpation Palpation: tender Details: LLQ, RLQ, LUQ and RUQ Neuro Common normals: oriented x3 Sensorium/orientation: awake and alert Speech: speech normal Course Vital Signs Vital signs: Vital Signs Temperature 98.3 F 06/16/24 20:57 Pulse Rate 77 06/16/24 20:57 Respiratory Rate 16 06/16/24 20:57 Blood Pressure 133/96 H 06/16/24 20:57 Pulse Oximetry 100 06/16/24 20:57 Oxygen Delivery Method Room Air 06/16/24 20:57 Temperature 98.3 F 06/16/24 20:57 Pulse Rate 77 06/16/24 20:57 Respiratory Rate 16 06/16/24 20:57 Blood Pressure 133/96 H 06/16/24 20:57 Pulse Oximetry 100 06/16/24 20:57 Oxygen Delivery Method Room Air 06/16/24 20:57 MDM - Abdominal Pain MDM Narrative Medical decision making narrative: WBC count was 28.6. Imaging and additional laboratory studies were pending. Care was resumed to Dr. Kaplan. See his dictation for further evaluation and treatment. Differential Diagnosis Differential diagnosis: Likely abdominal pain, acute appendicitis, diverticulitis and small bowel obstruction Medical Records Attestation: I reviewed the patient's medical records. Lab Data Attestation: I reviewed the patient's lab results. Labs: Lab Results 06/16/24 06/16/24 06/16/24 Range/Units 21:35 22:30 23:04 WBC 28.6 H (4.0-11.0) 10^3/uL RBC 5.17 (4.20-5.40) 10^6/uL Hgb 15.3 (12.0-16.0) g/dL Hct 44.4 (36.0-48.0) % MCV 85.9 (81.0-99.0) fL MCH 29.6 (26.7-34.0) pg MCHC 34.5 (29.9-35.2) g/dL RDW 13.0 (11.0-15.0) % Plt Count 400 (150-450) 10^3/uL MPV 9.0 L (9.5-13.5) fL Seg Neuts % (Manual) 94.0 H (43.0-75.0) Band Neutrophils % 2.0 (0-5) % Lymphocytes % (Manual) 1.0 L (20.5-60.0) % Atypical Lymphs % (Man) 2.0 % Monocytes % (Manual) 2.0 (1.7-12.0) % Eosinophils % (Manual) 0.0 L (0.9-7.0) % Basophils % (Manual) 0.0 L (0.2-2.0) % Neutrophils # (Manual) 26.88 H (1.4-6.5) 10^3/uL Band Neutrophils # 0.6 H (0.0-0.3) 10^3/uL Lymphocytes # (Manual) 0.28 L (1.20-3.80) 10^3/uL Abs Atypical Lymphs Man 0.57 Monocytes # (Manual) 0.57 (0.30-0.80) 10^3/uL Eosinophils # (Manual) 0.00 (0.00-0.70) 10^3/uL Basophils # (Manual) 0.00 (0.00-0.10) 10^3/uL Sodium 131 L (136-145) mmol/L Potassium 4.0 (3.5-5.1) mmol/L Chloride 97 L (98-107) mmol/L Carbon Dioxide 22.1 (21.0-32.0) mmol/L Anion Gap 15.9 BUN 11.0 (7.0-18.0) mg/dL Creatinine 0.77 (0.55-1.02) mg/dL Est GFR ( Amer) >60 (>=60 mL/min/1.73m^2) Est GFR (Non-Af Amer) >60 (>=60 mL/min/1.73m^2) BUN/Creatinine Ratio 14.3 Glucose 131 H (74-106) mg/dL Lactate 0.8 (0.4-2.0) mmol/L Calcium 9.9 (8.5-10.1) mg/dL Total Bilirubin 0.6 (0.2-1.0) mg/dL AST 14 L (15-37) U/L ALT 21 (14-59) U/L Alkaline Phosphatase 81 (46-116) U/L Total Protein 9.1 H (6.4-8.2) g/dL Albumin 4.1 (3.4-5.0) g/dL Globulin 5.0 g/dL Albumin/Globulin Ratio 0.8 Lipase 22.0 (16.0-77.0) U/L HCG, Quant <1 mIU/mL Urine Color Yellow (YELLOW) Urine Clarity Clear (CLEAR) Urine pH 7.0 (5.0-9.0) Ur Specific [place] 1.015 (1.005-1.025) Urine Protein 30 A (NEG/TRACE) mg/dL Urine Glucose (UA) Negative (NEGATIVE) mg/dL Urine Ketones >=80 A (NEGATIVE) mg/dL Urine Occult Blood Negative (NEGATIVE) Urine Nitrite Negative (NEGATIVE) Urine Bilirubin Negative (NEGATIVE) Urine Urobilinogen 0.2 (0.2-1.0) EU/dL Ur Leukocyte Esterase Negative (NEGATIVE) Urine RBC 0-2 (0-2) #/HPF Urine WBC 2-5 A (NONE SEEN) #/HPF Ur Squamous Epith Cells Moderate A (NONE/RARE) #/LPF Urine Crystals None seen (None Seen) #/HPF Urine Bacteria Moderate A (NONE SEEN) #/HPF Urine Casts None seen (NONE SEEN) #/LPF Urine Mucus None seen (NONE SEEN) Ur Culture Indicated? Yes Imaging Data CT scan - abdomen: Radiologist's impression: ITS Impressions Abdomen/Pelvis CT 06/16/24 21:42 IMPRESSION: CT OF THE ABDOMEN AND PELVIS WITH CONTRAST: 06/16/2024 10:45 PM EDT CLINICAL HISTORY: Abdominal pain. COMPARISONS: None. TECHNIQUE: Thin section axial CT images were obtained from the lung bases to the pubis symphysis. This CT exam was performed using one or more of the following dose reduction techniques: Automated exposure control, adjustment of the mA and/or kV according to patient size, or use of iterative reconstruction technique. Thin section coronal and sagittal images were reconstructed from the axial data set. All images were reviewed and interpreted. CONTRAST: Intravenous contrast was administered. Type and amount is documented at the local institution. FINDINGS: LUNG BASES: No consolidation or pleural fluid. LIVER: Normal. GALLBLADDER: Lithiasis with multiple dependent small layering calcified gallstones. No CT evidence of cholecystitis. BILIARY TREE: No ductal dilatation. PANCREAS: Normal. SPLEEN: Normal. ADRENALS: Normal. KIDNEYS: Normal, without urolithiasis or hydronephrosis. URINARY BLADDER: Grossly unremarkable. PELVIC STRUCTURES: Unremarkable for age. Simple appearing right ovarian follicles largest 2.5 cm. These are pathologic in simple, largest with attenuation values less than 20 Hounsfield units concordant with simple follicular cyst.. BOWEL: No evidence of obstruction, gross mass, or inflammatory change. There is no significant diverticulosis. There is no evidence of diverticulitis. APPENDIX: Acute nonruptured appendicitis. There is an obstructing appendicolith at origin of appendix from cecum measuring 7 mm causing obstruction at the orifice with dilated fluid filled distal appendix with some wall thickening and trace periappendiceal stranding. Appendix dilated up to 11 mm with uniform wall thickening and enhancement. No evidence of rupture this time. No free air or abscess or adjacent ascites. Recommend surgical assessment. LYMPH NODES: No pathologically enlarged lymph nodes identified. PERITONEUM: No intraperitoneal free air. No free intraperitoneal fluid. MESENTERY: Unremarkable. RETROPERITONEUM: The retroperitoneum is unremarkable. AORTA: Normal in caliber. BODY WALL: No body wall mass. OSSEOUS STRUCTURES: No destructive osseous lesion or displaced fracture. IMPRESSION: 1. ACUTE NONRUPTURED APPENDICITIS at this time, with associated 7 mm obstructing appendicolith at its origin from cecum. Recommend surgical assessment. 2. Incidental cholelithiasis. Electronically authenticated by: BRUNO ORTA Date: 06/16/2024 23:18 Discharge Plan Discharge Chief Complaint: Abdominal Pain Clinical Impression: Abdominal pain, Acute appendicitis Patient Disposition: Admitted as Observation Prescriptions / Home Meds: No Action albuterol sulfate 90 mcg/actuation aerosol powdr breath activated 2 inh inhalation Q4H PRN (Reason: shortness of breath or wheezing) Qty: 1 0RF wdhdrebwimnrfyx-oegrsikzw-EZ [Bromfed DM] 2-30-10 mg/5 mL syrup 10 ml PO Q6H PRN (Reason: cold symptoms) Qty: 200 0RF Print Language: Trinidadian Referrals: Brian Mendoza MD [Primary Care Provider] - 1 week Documented by User: Edin Kaplan MD 06/16/24 23:54 HPI - Abdominal Pain General Chief Complaint: Abdominal Pain Stated Complaint: abdominal pain, vomiting, chills, not Time Seen by Provider: 06/16/24 21:08 Related Data Previous Rx's ?Medication ?Instructions ?Recorded albuterol sulfate 90 mcg/actuation 2 inh inhalation Q4H PRN shortness 06/14/23 breath activated powder inhaler of breath or wheezing #1 ea tthgtcrusmtgvgh-iircvkjgetqmrni-SK 10 ml PO Q6H PRN cold symptoms 06/14/23 2 mg-30 mg-10 mg/5 mL oral syrup #200 mL (Bromfed DM) Allergies Allergy/AdvReac Type Severity Reaction Status Date / Time No Known Drug Allergies Allergy Verified 06/16/24 20:57 PFSH PFSH Medical History (Updated 06/16/24 @ 23:54 by Edin Kaplan MD) Asthma ?J45.909 - Unspecified asthma, uncomplicated (ICD-10) Exam Constitutional Vital Signs, click to edit/add: Last Vital Signs Temp 98.3 F 06/16/24 20:57 Pulse 77 06/16/24 20:57 Resp 16 06/16/24 20:57 BP 133/96 H 06/16/24 20:57 Pulse Ox 100 06/16/24 20:57 O2 Del Method Room Air 06/16/24 20:57 Course Vital Signs Vital signs: Vital Signs Temperature 98.3 F 06/16/24 20:57 Pulse Rate 77 06/16/24 20:57 Respiratory Rate 16 06/16/24 20:57 Blood Pressure 133/96 H 06/16/24 20:57 Pulse Oximetry 100 06/16/24 20:57 Oxygen Delivery Method Room Air 06/16/24 20:57 Temperature 98.3 F 06/16/24 20:57 Pulse Rate 77 06/16/24 20:57 Respiratory Rate 16 06/16/24 20:57 Blood Pressure 133/96 H 06/16/24 20:57 Pulse Oximetry 100 06/16/24 20:57 Oxygen Delivery Method Room Air 06/16/24 20:57 MDM - Abdominal Pain MDM Narrative Medical decision making narrative: WBC count was 28.6. Imaging and additional laboratory studies were pending. Care was resumed to Dr. Kaplan. See his dictation for further evaluation and treatment. CT demonstrates acute appendicitis . Discussed with Dr Lemus and he would like her admitted to hospitalist service for surgery in AM zosyn ordered. Hospitalist paged. Lab Data Labs: Lab Results 06/16/24 06/16/24 06/16/24 Range/Units 21:35 22:30 23:04 WBC 28.6 H (4.0-11.0) 10^3/uL RBC 5.17 (4.20-5.40) 10^6/uL Hgb 15.3 (12.0-16.0) g/dL Hct 44.4 (36.0-48.0) % MCV 85.9 (81.0-99.0) fL MCH 29.6 (26.7-34.0) pg MCHC 34.5 (29.9-35.2) g/dL RDW 13.0 (11.0-15.0) % Plt Count 400 (150-450) 10^3/uL MPV 9.0 L (9.5-13.5) fL Seg Neuts % (Manual) 94.0 H (43.0-75.0) Band Neutrophils % 2.0 (0-5) % Lymphocytes % (Manual) 1.0 L (20.5-60.0) % Atypical Lymphs % (Man) 2.0 % Monocytes % (Manual) 2.0 (1.7-12.0) % Eosinophils % (Manual) 0.0 L (0.9-7.0) % Basophils % (Manual) 0.0 L (0.2-2.0) % Neutrophils # (Manual) 26.88 H (1.4-6.5) 10^3/uL Band Neutrophils # 0.6 H (0.0-0.3) 10^3/uL Lymphocytes # (Manual) 0.28 L (1.20-3.80) 10^3/uL Abs Atypical Lymphs Man 0.57 Monocytes # (Manual) 0.57 (0.30-0.80) 10^3/uL Eosinophils # (Manual) 0.00 (0.00-0.70) 10^3/uL Basophils # (Manual) 0.00 (0.00-0.10) 10^3/uL Sodium 131 L (136-145) mmol/L Potassium 4.0 (3.5-5.1) mmol/L Chloride 97 L (98-107) mmol/L Carbon Dioxide 22.1 (21.0-32.0) mmol/L Anion Gap 15.9 BUN 11.0 (7.0-18.0) mg/dL Creatinine 0.77 (0.55-1.02) mg/dL Est GFR ( Amer) >60 (>=60 mL/min/1.73m^2) Est GFR (Non-Af Amer) >60 (>=60 mL/min/1.73m^2) BUN/Creatinine Ratio 14.3 Glucose 131 H (74-106) mg/dL Lactate 0.8 (0.4-2.0) mmol/L Calcium 9.9 (8.5-10.1) mg/dL Total Bilirubin 0.6 (0.2-1.0) mg/dL AST 14 L (15-37) U/L ALT 21 (14-59) U/L Alkaline Phosphatase 81 (46-116) U/L Total Protein 9.1 H (6.4-8.2) g/dL Albumin 4.1 (3.4-5.0) g/dL Globulin 5.0 g/dL Albumin/Globulin Ratio 0.8 Lipase 22.0 (16.0-77.0) U/L HCG, Quant <1 mIU/mL Urine Color Yellow (YELLOW) Urine Clarity Clear (CLEAR) Urine pH 7.0 (5.0-9.0) Ur Specific [place] 1.015 (1.005-1.025) Urine Protein 30 A (NEG/TRACE) mg/dL Urine Glucose (UA) Negative (NEGATIVE) mg/dL Urine Ketones >=80 A (NEGATIVE) mg/dL Urine Occult Blood Negative (NEGATIVE) Urine Nitrite Negative (NEGATIVE) Urine Bilirubin Negative (NEGATIVE) Urine Urobilinogen 0.2 (0.2-1.0) EU/dL Ur Leukocyte Esterase Negative (NEGATIVE) Urine RBC 0-2 (0-2) #/HPF Urine WBC 2-5 A (NONE SEEN) #/HPF Ur Squamous Epith Cells Moderate A (NONE/RARE) #/LPF Urine Crystals None seen (None Seen) #/HPF Urine Bacteria Moderate A (NONE SEEN) #/HPF Urine Casts None seen (NONE SEEN) #/LPF Urine Mucus None seen (NONE SEEN) Ur Culture Indicated? Yes Imaging Data CT scan - abdomen: Radiologist's impression: ITS Impressions Abdomen/Pelvis CT 06/16/24 21:42 IMPRESSION: CT OF THE ABDOMEN AND PELVIS WITH CONTRAST: 06/16/2024 10:45 PM EDT CLINICAL HISTORY: Abdominal pain. COMPARISONS: None. TECHNIQUE: Thin section axial CT images were obtained from the lung bases to the pubis symphysis. This CT exam was performed using one or more of the following dose reduction techniques: Automated exposure control, adjustment of the mA and/or kV according to patient size, or use of iterative reconstruction technique. Thin section coronal and sagittal images were reconstructed from the axial data set. All images were reviewed and interpreted. CONTRAST: Intravenous contrast was administered. Type and amount is documented at the local institution. FINDINGS: LUNG BASES: No consolidation or pleural fluid. LIVER: Normal. GALLBLADDER: Lithiasis with multiple dependent small layering calcified gallstones. No CT evidence of cholecystitis. BILIARY TREE: No ductal dilatation. PANCREAS: Normal. SPLEEN: Normal. ADRENALS: Normal. KIDNEYS: Normal, without urolithiasis or hydronephrosis. URINARY BLADDER: Grossly unremarkable. PELVIC STRUCTURES: Unremarkable for age. Simple appearing right ovarian follicles largest 2.5 cm. These are pathologic in simple, largest with attenuation values less than 20 Hounsfield units concordant with simple follicular cyst.. BOWEL: No evidence of obstruction, gross mass, or inflammatory change. There is no significant diverticulosis. There is no evidence of diverticulitis. APPENDIX: Acute nonruptured appendicitis. There is an obstructing appendicolith at origin of appendix from cecum measuring 7 mm causing obstruction at the orifice with dilated fluid filled distal appendix with some wall thickening and trace periappendiceal stranding. Appendix dilated up to 11 mm with uniform wall thickening and enhancement. No evidence of rupture this time. No free air or abscess or adjacent ascites. Recommend surgical assessment. LYMPH NODES: No pathologically enlarged lymph nodes identified. PERITONEUM: No intraperitoneal free air. No free intraperitoneal fluid. MESENTERY: Unremarkable. RETROPERITONEUM: The retroperitoneum is unremarkable. AORTA: Normal in caliber. BODY WALL: No body wall mass. OSSEOUS STRUCTURES: No destructive osseous lesion or displaced fracture. IMPRESSION: 1. ACUTE NONRUPTURED APPENDICITIS at this time, with associated 7 mm obstructing appendicolith at its origin from cecum. Recommend surgical assessment. 2. Incidental cholelithiasis. Electronically authenticated by: BRUNO ORTA Date: 06/16/2024 23:18 Discharge Plan Discharge Chief Complaint: Abdominal Pain Clinical Impression: Abdominal pain, Acute appendicitis Patient Disposition: Admitted as Observation Prescriptions / Home Meds: No Action albuterol sulfate 90 mcg/actuation aerosol powdr breath activated 2 inh inhalation Q4H PRN (Reason: shortness of breath or wheezing) Qty: 1 0RF uchuosoxvonpxtj-rvjwyzwdm-TR [Bromfed DM] 2-30-10 mg/5 mL syrup 10 ml PO Q6H PRN (Reason: cold symptoms) Qty: 200 0RF Print Language: Trinidadian Referrals: Brian Mendoza MD [Primary Care Provider] - 1 week
[2024-06-16 21:41] LABS: Hematocrit 44.4 % (36.0-48.0); Hemoglobin 15.3 g/dL (12.0-16.0); Mean Corpuscular HGB Conc 34.5 g/dL (29.9-35.2); Mean Corpuscular Hemoglobin 29.6 pg (26.7-34.0); Mean Corpuscular Volume 85.9 fL (81.0-99.0); Platelet Count 400 10^3/uL (150-450); Red Blood Count 5.17 10^6/uL (4.20-5.40); White Blood Count 28.6 10^3/uL (4.0-11.0)
--- NOTE | 2024-06-16 21:42 | CT_ITS ---
The [address] [address] Patient Name: FLYNN SOLIS MRN: [facility] [place]:[id number] date: 1995 Sex: F Assigned Patient Location: ER Current Patient Location: ER Accession/Order Number: [id number] Exam Date: 06/16/2024 22:45 Report Date: 06/16/2024 23:18 At the request of: TROY CIFUENTES Procedure: CT abdomen pelvis w con EXAM: CT abdomen pelvis w con HISTORY: Low abd pain COMPARISON: None. TECHNIQUE: FINDINGS: CT/CT abdomen pelvis w con IMPRESSION: CT OF THE ABDOMEN AND PELVIS WITH CONTRAST: 06/16/2024 10:45 PM EDT CLINICAL HISTORY: Abdominal pain. COMPARISONS: None. TECHNIQUE: Thin section axial CT images were obtained from the lung bases to the pubis symphysis. This CT exam was performed using one or more of the following dose reduction techniques: Automated exposure control, adjustment of the mA and/or kV according to patient size, or use of iterative reconstruction technique. Thin section coronal and sagittal images were reconstructed from the axial data set. All images were reviewed and interpreted. CONTRAST: Intravenous contrast was administered. Type and amount is documented at the local institution. FINDINGS: LUNG BASES: No consolidation or pleural fluid. LIVER: Normal. GALLBLADDER: Lithiasis with multiple dependent small layering calcified gallstones. No CT evidence of cholecystitis. BILIARY TREE: No ductal dilatation. PANCREAS: Normal. SPLEEN: Normal. ADRENALS: Normal. KIDNEYS: Normal, without urolithiasis or hydronephrosis. URINARY BLADDER: Grossly unremarkable. PELVIC STRUCTURES: Unremarkable for age. Simple appearing right ovarian follicles largest 2.5 cm. These are pathologic in simple, largest with attenuation values less than 20 Hounsfield units concordant with simple follicular cyst.. BOWEL: No evidence of obstruction, gross mass, or inflammatory change. There is no significant diverticulosis. There is no evidence of diverticulitis. APPENDIX: Acute nonruptured appendicitis. There is an obstructing appendicolith at origin of appendix from cecum measuring 7 mm causing obstruction at the orifice with dilated fluid filled distal appendix with some wall thickening and trace periappendiceal stranding. Appendix dilated up to 11 mm with uniform wall thickening and enhancement. No evidence of rupture this time. No free air or abscess or adjacent ascites. Recommend surgical assessment. LYMPH NODES: No pathologically enlarged lymph nodes identified. PERITONEUM: No intraperitoneal free air. No free intraperitoneal fluid. MESENTERY: Unremarkable. RETROPERITONEUM: The retroperitoneum is unremarkable. AORTA: Normal in caliber. BODY WALL: No body wall mass. OSSEOUS STRUCTURES: No destructive osseous lesion or displaced fracture. IMPRESSION: 1. ACUTE NONRUPTURED APPENDICITIS at this time, with associated 7 mm obstructing appendicolith at its origin from cecum. Recommend surgical assessment. 2. Incidental cholelithiasis. Electronically authenticated by: BRUNO ORTA Date: 06/16/2024 23:18
[2024-06-16 22:00] LABS: Alanine Aminotransferase 21 U/L (14-59); Albumin Globulin Ratio 0.8; Albumin Level 4.1 g/dL (3.4-5.0); Alkaline Phosphatase 81 U/L (46-116); Anion Gap 15.9; Aspartate Amino Transferase 14 U/L (15-37); BUN Creatinine Ratio 14.3; Bilirubin Total 0.6 mg/dL (0.2-1.0); Calcium 9.9 mg/dL (8.5-10.1); Carbon Dioxide 22.1 mmol/L (21.0-32.0); Chloride 97 mmol/L (98-107); Estimated GFR (African America >60 (>=60 mL/min/1.73m^2); Estimated GFR (Non-African Ame >60 (>=60 mL/min/1.73m^2); Glucose 131 mg/dL (74-106); Sodium 131 mmol/L (136-145); Total Protein 9.1 g/dL (6.4-8.2)
[2024-06-16] MEDS: 0.9 % SODIUM CHLORIDE 1,000 ML 1000 ML IV (22:01)
[2024-06-16 22:07] LABS: HCG Quantitative <1 mIU/mL
[2024-06-16 22:15] LABS: Atypical Lymphocytes Abs Man 0.57; Band Neutrophils Absolute 0.6 10^3/uL (0.0-0.3); Lymphocytes Absolute Manual 0.28 10^3/uL (1.20-3.80); Monocytes Absolute Manual 0.57 10^3/uL (0.30-0.80); Segmented Neut Absolute Manual 26.88 10^3/uL (1.4-6.5)
[2024-06-16 22:52] LABS: Lactate/Lactic Acid 0.8 mmol/L (0.4-2.0)
[2024-06-16] MEDS: ONDANSETRON PF 4 MG/2 ML VIAL IV (22:55)
[2024-06-16 23:09] LABS: Bilirubin Urine NEGATIVE (NEGATIVE); Blood Urine NEGATIVE (NEGATIVE); Clarity Urine CLEAR (CLEAR); Color Urine YELLOW (YELLOW); Glucose Urine UA NEGATIVE (NEGATIVE); Ketones Urine >=80 mg/dL (NEGATIVE); Leukocyte Esterase Urine NEGATIVE (NEGATIVE); Nitrite Urine NEGATIVE (NEGATIVE); Protein Urine 30 mg/dL (NEG/TRACE); Specific Gravity Urine 1.015 (1.005-1.025); Urobilinogen Urine 0.2 EU/dL (0.2-1.0)
[2024-06-16 23:11] LABS: Urine Microscopic Indicated YES
[2024-06-16 23:19] LABS: Bacteria Urine MODERATE #/HPF (NONE SEEN); Cast Seen? NONE SEEN #/LPF (NONE SEEN); Crystals Seen? None Seen #/HPF (None Seen); Mucus Urine NONE SEEN (NONE SEEN); RBC Urine 0-2 #/HPF (0-2); Squamous Epithelial Cell Urine MODERATE #/LPF (NONE/RARE); Urine Culture Indicated YES
[2024-06-16] MEDS: MORPHINE SULFATE 4 MG/ML VIAL IV (23:38)
[2024-06-16] MEDS: PIPERACILLIN SODIUM/TAZOBACTAM 3.375 GM in 0.9 % SODIUM CHLORIDE 50 ML IV (23:38)
[2024-06-17] VITALS (21 sets, daily range): BP systolic 120–146; BP diastolic 55–95; PULSE 80–118; TEMP 36.4–36.9; O2SAT 93–98; BMI 35.5
--- OUTSIDE RECORDS SUMMARY | 2024-06-17 00:43 | XMS_ITS | CCD ---
Author Organization [facility] Care Team Providers Care Occupational Health Technician Name Role Phone GABBIE Lopez Attending Provider [...] Unavailable Brian Jacobs MD Primary Care Provider [phone] BRIAN JACOBS Attending Unavailable Problems Active Problems [...] WITH AUTO DIFFon BASOPHILS ABSOLUTE AUTO 0.1 [facility] Basophils/100 WBC (Bld) 0.6 % 0.2 - 2.0 % [facility] Eosinophils/100 WBC (Bld) 2.4 % 0.9 - 7.0 % [facility] Erythrocyte distribution width (RBC) [Ratio] 13.2 % 11.0 - 15.0 % [facility] Hematocrit (Bld) [Volume fraction] 42.4 % 36.0 - 48.0 % [facility] Hemoglobin (Bld) [Mass/Vol] 14.7 g/dL 12.0 - 16.0 g/dL [facility] IMMATURE GRANULOCYTES ABS AUTO 0.02 [facility] Immature granulocytes/100 WBC (Bld) 0.2 % 0.0 - 0.5 % [facility] Interpretation and review of laboratory results Abnormal [facility] LYMPHOCYTES ABSOLUTE AUTO 1.8 [facility] Lymphocytes/100 WBC (Bld) 18.2 % Low 20.5 - 60.0 % [facility] MCH (RBC) [Entitic mass] 29.7 pg 26.7 - 34.0 pg [facility] MCHC (RBC) [Mass/Vol] 34.7 g/dL 29.9 - 35.2 g/dL [facility] MCV (RBC) [Entitic vol] 85.7 fL 81.0 - 99.0 fL [facility] MONOCYTES ABSOLUTE AUTO 0.4 [facility] Monocytes/100 WBC (Bld) 4.0 % 1.7 - 12.0 % [facility] NEUTROPHILS ABSOLUTE AUTO 7.3 High [facility] Neutrophils/100 WBC (Bld) 74.6 % 43.0 - 75.0 % [facility] Platelet mean volume (Bld) [Entitic vol] 8.8 fL Low 9.5 - 13.5 fL [facility] EO # 0.2 [facility] PLT 386 [facility] RBC 4.95 [facility] WBC 9.8 [facility] XR [...] PATRICIA KELLEY Date: 2022-12-15 12:37 Normal [facility] CBC AUTO DIFFon 03-02-2022 BASO # 0.1 103/ul Normal 0.0-0.1 [facility] Comment on above: Performed By: #### C BC #### [facility] [address] [address] [address] Mike Nails Basophils/100 WBC (Bld) 0.7 % Normal 0.2-2.0 [facility] Comment on above: Performed By: #### C BC #### [facility] [address] [place] [address] Dr. Mike Nails EO # 0.6 103/ul Normal 0.0-0.7 [facility] Comment on above: Performed By: #### C BC #### [facility] [address] [place] [address] Dr. Mike Nails Eosinophils/100 WBC (Bld) 5.7 % Normal 0.9-7.0 [facility] Comment on above: Performed By: #### C BC #### [facility] [address] [place] [address] Dr. Mike Nails Erythrocyte distribution width (RBC) [Ratio] 13.2 % Normal 11.0-15.0 [facility] Comment on above: Performed By: #### C BC #### [facility] [address] [place] [address] Dr. Mike Nails Hematocrit (Bld) [Volume fraction] 41.6 % Normal 36.0-48.0 [facility] Comment on above: Performed By: #### C BC #### [facility] [address] [place] [address] Dr. Mike Nails Hemoglobin (Bld) [Mass/Vol] 13.7 g/dL Normal 12.0-16.0 [facility] Comment on above: Performed By: #### C BC #### [facility] [address] [place] [address] Dr. Mike Nails IG # 0.02 10e3/ul Normal 0.00-0.03 [facility] Comment on above: Performed By: #### C BC #### [facility] [address] [place] [address] Dr. Mike Nails IG % 0.2 % Normal 0.0-0.5 [facility] Comment on above: Performed By: #### C BC #### [facility] [address] [place] [address] Dr. Mike Nails LYMPH # 2.6 103/ul Normal 1.2-3.8 [facility] Comment on above: Performed By: #### C BC #### [facility] [address] [place] [address] Dr. Mike Nails Lymphocytes/100 WBC (Bld) 26.3 % Normal 20.5-60.0 [facility] Comment on above: Performed By: #### C BC #### [facility] [address] [place] [address] Dr. Mike Nails MANUAL DIFF REQ NO Normal [facility] Comment on above: Performed By: #### C BC #### [facility] [address] [place] [address] Dr. Mike Nails MCH (RBC) [Entitic mass] 28.7 pg Normal 26.7-34.0 [facility] Comment on above: Performed By: #### C BC #### [facility] [address] [place] [address] Dr. Mike Nails MCHC (RBC) [Mass/Vol] 32.9 g/dL Normal 29.9-35.2 [facility] Comment on above: Performed By: #### C BC #### [facility] [address] [place] [address] Dr. Mike Nails MCV (RBC) [Entitic vol] 87.0 fL Normal 81.0-99.0 [facility] Comment on above: Performed By: #### C BC #### [facility] [address] [place] [address] Dr. Mike Nails MONO # 0.5 103/ul Normal 0.3-0.8 [facility] Comment on above: Performed By: #### C BC #### [facility] [address] [place] [address] Dr. Mike Nails Monocytes/100 WBC (Bld) 5.5 % Normal 1.7-12.0 [facility] Comment on above: Performed By: #### C BC #### [facility] [address] [place] [address] Dr. Mike Nails NEUT # 6.0 103/ul Normal 1.4-6.5 [facility] Comment on above: Performed By: #### C BC #### [facility] [address] [address] [address] Mike Nails Neutrophils/100 WBC (Bld) 61.6 % Normal 43.0-75.0 [facility] Comment on above: Performed By: #### C BC #### [facility] [address] [place] [address] Dr. Mike Nails Platelet mean volume (Bld) [Entitic vol] 8.7 fL Critically low 9.5-13.5 [facility] Comment on above: Performed By: #### C BC #### [facility] [address] [address] [address] Mike Nails PLT 369 103/ul Normal 150-450 [facility] Comment on above: Performed By: #### C BC #### [facility] [address] [place] [address] Dr. Mike Nails RBC 4.78 106/ul Normal 4.20-5.40 [facility] Comment on above: Performed By: #### C BC #### [facility] [address] [address] [address] Mike Nails WBC 9.7 103/ul Normal 4.0-11.0 [facility] Comment on above: Performed By: #### C BC #### [facility] [address] [place] [address] Dr. Mike Nails GLYCOHEMOGLOBIN A1Con 2021 ADA RECOMMENDATION SEE BELOW Normal [facility] [place] [facility] Comment on above: Result Comment: ADA RECOMMENDED LIMIT 4.0 - 6.0 ADA THERAPEUTIC TARGET < 7.0 ACTION SUGGESTED > 7.0 Performed By: #### A 1C #### [facility] [address] [place] [address] Dr. Mike Nails Glucose [Mass/Vol] 105 mg/dL Normal [facility] Comment on above: Performed By: #### A 1C #### [facility] [address] [place] [address] Dr. Mike Nails HbA1c (Bld) [Mass fraction] 5.3 % Normal 4.5-6.2 [facility] Comment on above: Performed By: #### A 1C #### [facility] [address] [address] [address] Mike Nails LIPID PROFILEon 03-02-2022 CHOL-HDL RATIO NORM SEE BELOW Normal [facility] Comment on above: Result Comment: 3.3 - 4.4 LOW RISK 4.4 - 7.1 AVERAGE RISK 7.1 - 11.0 MODERATE RISK >11.0 HIGH RISK Performed By: #### B MP, LIPID, TSH, LIVER #### [facility] [address] [address] [address] Mike Nails Cholesterol [Mass/Vol] 198 mg/dL Normal <=200 [facility] Comment on above: Performed By: #### B MP, LIPID, TSH, LIVER #### [facility] [address] [address] [address] Mike Nails Cholesterol in HDL [Mass/Vol] 48 mg/dL Normal 40-60 [facility] Comment on above: Performed By: #### B MP, LIPID, TSH, LIVER #### [facility] [address] [address] [address] Mike Nails Cholesterol in LDL [Mass/Vol] 136.6 mg/dL Normal [facility] Comment on above: Performed By: #### B MP, LIPID, TSH, LIVER #### [facility] [address] [address] [address] Mkie Nails Cholesterol.total/Cho lesterol in HDL [Mass ratio] 4.1 {ratio} Normal [facility] Comment on above: Performed By: #### B MP, LIPID, TSH, LIVER #### [facility] [address] [place] [address] Dr. Mike Nails HDL NORMAL > or = 60 mg/dl - LOW CARDIOVASCULAR RISK <40 mg/dl - HIGH CARDIOVASCULAR RISK Normal [facility] Comment on above: Performed By: #### B MP, LIPID, TSH, LIVER #### [facility] [address] [place] [address] Dr. Mike Nails LDL CALC NORMAL SEE BELOW Normal [facility] Comment on above: Result Comment: <100 mg/dl OPTIMAL 100 - 129 mg/dl NEAR OR ABOVE OPTIMAL 130 - 159 mg/dl BORDERLINE HIGH 160 - 189 mg/dl HIGH >190 mg/dl VERY HIGH Performed By: #### B MP, LIPID, TSH, LIVER #### [facility] [address] [address] [address] Mike Nails Triglyceride [Mass/Vol] 67 mg/dL Normal <=150 [facility] Comment on above: Performed By: #### B MP, LIPID, TSH, LIVER #### [facility] [address] [address] [address] Mike Nails VLDL CALC 13.4 mg/dL Normal [facility] Comment on above: Performed By: #### B MP, LIPID, TSH, LIVER #### [facility] [address] [place] [address] Dr. Mike Nails LIVER PROFILEon 03-02-2022 Albumin [Mass/Vol] 3.7 g/dL Normal 3.4-5.0 [facility] [place] [facility] Comment on above: Performed By: #### B MP, LIPID, TSH, LIVER #### [facility] [address] [place] [address] Dr. Mike Nails Albumin/Globulin [Mass ratio] 0.8 {ratio} Normal [facility] Comment on above: Performed By: #### B MP, LIPID, TSH, LIVER #### [facility] [address] [place] [address] Dr. Mike Nails ALP [Catalytic activity/Vol] 87 U/L Normal 46-116 [facility] Comment on above: Performed By: #### B MP, LIPID, TSH, LIVER #### [facility] [address] [place] [address] Dr. Mike Nails ALT [Catalytic activity/Vol] 9 U/L Critically low 14-59 [facility] Comment on above: Performed By: #### B MP, LIPID, TSH, LIVER #### [facility] [address] [place] [address] Dr. Mike Nails AST [Catalytic activity/Vol] 17 U/L Normal 15-37 [facility] Comment on above: Performed By: #### B MP, LIPID, TSH, LIVER #### [facility] [address] [place] [address] Dr. Mike Nails BILI, CONJUGATED 0.1 mg/dL Normal 0.0-0.2 [facility] Comment on above: Performed By: #### B MP, LIPID, TSH, LIVER #### [facility] [address] [place] [address] Dr. Mike Nails Bilirubin [Mass/Vol] 0.4 mg/dL Normal 0.2-1.0 [facility] Comment on above: Performed By: #### B MP, LIPID, TSH, LIVER #### [facility] [address] [place] [address] Dr. Mike Nails Globulin (S) [Mass/Vol] 4.9 g/dL Normal [facility] Comment on above: Performed By: #### B MP, LIPID, TSH, LIVER #### [facility] [address] [place] [address] Dr. Mike Nails Protein [Mass/Vol] 8.6 g/dL Critically high 6.4-8.2 [facility] Comment on above: Performed By: #### B MP, LIPID, TSH, LIVER #### [facility] [address] [place] [address] Dr. Mike Nails PROF CHEM 8 (BAS METB)on Anion gap [Moles/Vol] 11.4 mmol/L Normal [facility] Comment on above: Performed By: #### B MP, LIPID, TSH, LIVER #### [facility] [address] [place] [address] Dr. Mike Nails Calcium [Mass/Vol] 9.2 mg/dL Normal 8.5-10.1 [facility] [place] [facility] Comment on above: Performed By: #### B MP, LIPID, TSH, LIVER #### [facility] [address] [place] [address] Dr. Mike Nails Chloride [Moles/Vol] 104 mmol/L Normal 98-107 [facility] Comment on above: Performed By: #### B MP, LIPID, TSH, LIVER #### [facility] [address] [place] [address] Dr. Mike Nails CO2 [Moles/Vol] 28.7 mmol/L Normal 21.0-32.0 [facility] Comment on above: Performed By: #### B MP, LIPID, TSH, LIVER #### [facility] [address] [place] [address] Dr. Mike Nails Creatinine [Mass/Vol] 0.80 mg/dL Normal 0.55-1.02 [facility] Comment on above: Performed By: #### B MP, LIPID, TSH, LIVER #### [facility] [address] [address] [address] Mike Nails EGFR-AF INDONESIAN >60 Normal >=[address] [facility] Comment on above: Performed By: #### B MP, LIPID, TSH, LIVER #### [facility] [address] [place] [address] Dr. Mike Nails EGFR-NON AF INDONESIAN >60 Normal >=60 [facility] Comment on above: Performed By: #### B MP, LIPID, TSH, LIVER #### [facility] [address] [place] [address] Dr. Mike Nails Glucose [Mass/Vol] 88 mg/dL Normal 74-106 [facility] [place] [facility] Comment on above: Performed By: #### B MP, LIPID, TSH, LIVER #### [facility] [address] [place] [address] Dr. Mike Nails Potassium [Moles/Vol] 4.1 mmol/L Normal 3.5-5.1 [facility] Comment on above: Performed By: #### B MP, LIPID, TSH, LIVER #### [facility] [address] [place] [address] Dr. Mike Nails Sodium [Moles/Vol] 140 mmol/L Normal 136-145 [facility] Comment on above: Performed By: #### B MP, LIPID, TSH, LIVER #### [facility] [address] [place] [address] Dr. Mike Nails Urea nitrogen [Mass/Vol] 15.0 mg/dL Normal 7.0-18.0 [facility] Comment on above: Performed By: #### B MP, LIPID, TSH, LIVER #### [facility] [address] [place], [place] [address] Dr. Mike Nails Urea nitrogen/Creatinine [Mass ratio] 18.8 mg/mg Normal [facility] Comment on above: Performed By: #### B MP, LIPID, TSH, LIVER #### [facility] [address] [place], [place] [address] Dr. Mike Nails TSHon 03-02-2022 TSH 1.489 uIU/mL Normal 0.358-3.740 [facility] Comment on above: Performed By: #### B MP, LIPID, TSH, LIVER #### [facility] [address] [place], [place] [address] Dr. Mike Nails XR FOOT LT MIN [...] by: RHODA CARPENTER Date: 2022-03-02 15:24 Normal [facility] Vital Signs Date Time Vital Sign Value Performing Clinician Faci lity 06-13-2024 10:36040 Body height 162.6 cm Brian Jacobs MD Work Phone: [facility] 06-13-2024 10:36-0400 Body mass index (BMI) [Ratio] 33.64 kg/m2 Brian Jacobs MD Work Phone: [facility] 06-13-2024 10:36-040 Body temperature 97.5 [degF] Brian Jacobs MD Work Phone: [facility] 06-13-2024 10:36-040 Body weight 88.91 kg Brian Jacobs MD Work Phone: [facility] 06-13-2024 10:36-0400 Diastolic blood pressure 80 mm[Hg] Brian Jacobs MD Work Phone: [facility] 06-13-2024 10:36-0400 Heart rate 91 /min Brian Jacobs MD Work Phone: [facility] 06-13-2024 10:36-0400 Respiratory rate 20 /min Brian Jacobs MD Work Phone: [facility] 06-13-2024 10:36-0400 SaO2% (BldA) [Mass fraction] 98 % Brian Jacobs MD Work Phone: [facility] 06-13-2024 10:36-0400 Systolic blood pressure 124 mm[Hg] Brian Jacobs MD Work Phone: [facility] Encounters Encounter Date Encounter Type Care Provider Facility Start: 06-13-2024 End: 06-13-2024 Bamboo flowsheet Brian Jacobs MD Work Phone: [facility] Start: 06-13-2024 End: 06-13-2024 Bamboo flowsheet Brian Jacobs MD Work Phone: [facility] Start: 06-13-2024 End: 06-13-2024 [facility] Result Encounter Brian Jacobs MD Work Phone: [facility] External Department Unsolicited Start: 06-13-2024 End: 06-13-2024 [...] encounter procedure DPMark Sb Lopez Work Phone: [facility] Start: 03-04-2022 Encounter for genera l adult medical examination without abnormal findings DR BRIAN JACOBS [facility] Start: 03-02-2022 End: 03-03-2022 Encounter for general [...] unspecified joint Expected: 06/13/2024 (Approximate), Expires: 06/13/2025 [facility] Comment on above: Expected: 06/13/2024 (Approximate), Expires: 06/13/2025 Start: 06-13-2024 End: 06-13-2025 Basic metabolic 1998 panel - Serum or Plasma Basic metabolic panel Lab Routine PCOS (polycystic ovarian syndrome) Expected: 06/13/2024 (Approximate), Expires: 06/13/2025 [facility] Comment on above: Expected: 06/13/2024 (Approximate), Expires: 06/13/2025 Start: 06-13-2024 End: 06-13-2025 C reactive protein [Mass/volume] in Serum or Plasma C-reactive protein Lab Routine Arthralgia, unspecified joint Expected: 06/13/2024 (Approximate), Expires: 06/13/2025 [facility] Comment on above: Expected: 06/13/2024 (Approximate), Expires: 06/13/2025 Start: 06-13-2024 End: 06-13-2025 CBC W Auto Differential panel - Blood CBC and differential Lab Routine Arthralgia, unspecified joint PCOS (polycystic ovarian syndrome) Expected: 06/13/2024 (Approximate), Expires: 06/13/2025 [facility] Comment on above: Expected: 06/13/2024 (Approximate), Expires: 06/13/2025 Start: 06-13-2024 End: 06-13-2025 Erythrocyte sedimentation rate Sedimentation rate, automated Lab Routine Arthralgia, unspecified joint Expected: 06/13/2024 (Approximate), Expires: 06/13/2025 [facility] Comment on above: Expected: 06/13/2024 (Approximate), Expires: 06/13/2025 Start: 06-13-2024 End: 06-13-2025 Hemoglobin A1c/Hemoglobin.total in Blood Hemoglobin A1c Lab Routine PCOS (polycystic ovarian syndrome) Expected: 06/13/2024 (Approximate), Expires: 06/13/2025 [facility] Comment on above: Expected: 06/13/2024 (Approximate), Expires: 06/13/2025 Start: 06-13-2024 End: 06-13-2025 Insulin, fasting Insulin, fasting Lab Routine PCOS (polycystic ovarian syndrome) Expected: 06/13/2024 (Approximate), Expires: 06/13/2025 [facility] Comment on above: Expected: 06/13/2024 (Approximate), Expires: 06/13/2025 Start: 06-13-2024 End: 06-13-2025 Rheumatoid factor [Units/volume] in Serum or Plasma Rheumatoid factor Lab Routine Arthralgia, unspecified joint Expected: 06/13/2024 (Approximate), Expires: 06/13/2025 [facility] Comment on above: Expected: 06/13/2024 (Approximate), Expires: 06/13/2025 Start: 06-13-2024 End: 06-13-2025 Thyroglobulin Thyroglobulin Lab Routine Fatigue, unspecified type Hair loss Expected: 06/13/2024 (Approximate), Expires: 06/13/2025 [facility] Comment on above: Expected: 06/13/2024 (Approximate), Expires: 06/13/2025 Start: 06-13-2024 End: 06-13-2025 Thyroid peroxidase antibody Thyroid peroxidase antibody Lab Routine Fatigue, unspecified type Hair loss Expected: 06/13/2024 (Approximate), Expires: 06/13/2025 [facility] Comment on above: Expected: 06/13/2024 (Approximate), Expires: 06/13/2025 Start: 06-13-2024 End: 06-13-2025 Thyroid stimulating immunoglobulin Thyroid stimulating immunoglobulin Lab Routine Fatigue, unspecified type Hair loss Expected: 06/13/2024 (Approximate), Expires: 06/13/2025 [facility] Comment on above: Expected: 06/13/2024 (Approximate), Expires: 06/13/2025 Start: 06-13-2024 End: 06-13-2025 Thyrotropin [Units/volume] in Serum or Plasma TSH Lab Routine Fatigue, unspecified type Hair loss Obesity (BMI 30-39.9) Expected: 06/13/2024 (Approximate), Expires: 06/13/2025 [facility] Work Phone: Comment on above: Expected: 06/13/2024 (Approximate), Expires: 06/13/2025 Start: 06-13-2024 End: 06-13-2025 Thyroxine (T4) free [Mass/volume] in Serum or Plasma T4, free Lab Routine Fatigue, unspecified type Hair loss Expected: 06/13/2024 (Approximate), Expires: 06/13/2025 [facility] Comment on above: Expected: 06/13/2024 (Approximate), Expires: 06/13/2025 Start: 06-13-2024 End: 06-13-2025 Triiodothyronine (T3) Free [Mass/volume] in Serum or Plasma T3, free Lab Routine Fatigue, unspecified type Hair loss Expected: 06/13/2024 (Approximate), Expires: 06/13/2025 [facility] Comment on above: Expected: 06/13/2024 (Approximate), Expires: 06/13/2025 Start: 06-13-2024 End: 06-13-2025 US Thyroid gland US thyroid Imaging Routine Thyromegaly (CMS/HCC) Expected: 06/13/2024, Expires: 06/13/2025 [facility] Comment on above: Expected: 06/13/2024 , Expires: 06/13/2025 Start: 06-13-2024 End: 06-13-2024 Patient encounter procedure 06/13/2024 10:30 AM EDT Office Visit [facility] [address] [place] [id number] Brian Jacobs MD [address] [place] [address] Arrived [facility] Comment on above: Arrived Payers Date Payer Category Payer Unknown BCBS BCBS [id number] [id number] 2020-Present [phone] [address] [place] [address] [id number] 1994 Unknown [id number] 1994 Unknown [id number] 1994 Unknown [id number] 1994 Unknown [id number] 1994 Unknown [id number] 1959 Unknown [id number] Social History Date Type Detail Facility Tobacco smoking status NHIS Unknown if ever smoked [facility] Work Phone: Start: 1995 Sex Assigned At Female F [facility] Tobacco smoking status NHIS Tobacco smoking consumption [...] Note Facility Evaluation note [facility]: Evaluation note Note Date [...] Sb Lopez DPM MS Attending Provider Active Occupational Health Technician Relationship Specialty Start Date End Date Brian Jacobs MD [address] [place] [phone] PCP - General Family Medicine 06/13/24 Occupational Health Technician Relationship Specialty Start Date End Date Brian Jacobs MD [address] [place] [address] PCP - General Family Medicine 06/13/24 Occupational Health Technician Relationship Specialty Start Date End Date Brian Jacobs MD [address] [place] [address] PCP - General Family Medicine 06/13/24 Goals (unrecognized section and content) Goals may be documented in a n alternate section INFORMATION SOURCE (unrecogn ized section and content) DATE CREATED AUTHOR 12/17/2022 [facility] DATE CREATED AUTHOR AUTHOR'S ORGANIZ ATION 06/14/2024 [facility] EPIC Reason for Visit [...] BE BASED ON THE PRIMARY CLINICAL RECORDS. [facility] [employer] [facility]. provides no warranty or guarantee of the accuracy or completeness of information in this document.
[2024-06-17] MEDS: 0.9 % SODIUM CHLORIDE 1,000 ML 125 ML IV (01:00)
[2024-06-17] MEDS: ONDANSETRON PF 4 MG/2 ML VIAL IV ×2 (01:02→05:20)
[2024-06-17] MEDS: ACETAMINOPHEN 1,000 MG/100 ML PREMIX 400 MG IV (01:39)
[2024-06-17] MEDS: MORPHINE SULFATE 4 MG/ML VIAL IV ×2 (04:50→08:50)
[2024-06-17] MEDS: PIPERACILLIN SODIUM/TAZOBACTAM 3.375 GM in 0.9 % SODIUM CHLORIDE 50 ML IV (06:20)
[2024-06-17 06:42] LABS: Basophils Percent Auto 0.2 % (0.2-2.0); Hematocrit 39.5 % (36.0-48.0); Hemoglobin 13.7 g/dL (12.0-16.0); Immature Granulocytes Abs Auto 0.11 10^3/uL (0.00-0.03); Immature Granulocytes Pct Auto 0.5 % (0.0-0.5); Lymphocytes Absolute Auto 1.5 10^3/uL (1.2-3.8); Lymphocytes Percent Auto 6.3 % (20.5-60.0); Mean Corpuscular HGB Conc 34.7 g/dL (29.9-35.2); Mean Corpuscular Hemoglobin 29.8 pg (26.7-34.0); Mean Corpuscular Volume 85.9 fL (81.0-99.0); Mean Platelet Volume 9.3 fL (9.5-13.5); Monocytes Absolute Auto 0.9 10^3/uL (0.3-0.8); Monocytes Percent Auto 3.9 % (1.7-12.0); Neutrophils Absolute Auto 21.6 10^3/uL (1.4-6.5); Neutrophils Percent Auto 89.1 % (43.0-75.0); Platelet Count 360 10^3/uL (150-450); Red Cell Distribution Width 13.2 % (11.0-15.0); White Blood Count 24.2 10^3/uL (4.0-11.0)
--- NOTE | 2024-06-17 06:51 | PC.NURSE ---
Nursing note for shift: 0043-patient arrived to room from ER. Admission completed. 0102-patient given zofran at this time for nausea. 0115-Vera Barros updated on increased pain. new orders received. 0450-morphine given to patient for pain as ordered. 0455-Vera Barros notified that patient has increased nausea. new order received. 0625-Dr. Lemus called in to discuss time for surgeery. 0630-patient prepped for surgery
[2024-06-17 06:55] LABS: Alanine Aminotransferase 18 U/L (14-59); Albumin Globulin Ratio 0.7; Albumin Level 3.1 g/dL (3.4-5.0); Alkaline Phosphatase 66 U/L (46-116); Anion Gap 16.2; Aspartate Amino Transferase 11 U/L (15-37); BUN Creatinine Ratio 10.8; Bilirubin Total 0.6 mg/dL (0.2-1.0); Calcium 8.1 mg/dL (8.5-10.1); Carbon Dioxide 22.1 mmol/L (21.0-32.0); Chloride 100 mmol/L (98-107); Estimated GFR (African America >60 (>=60 mL/min/1.73m^2); Estimated GFR (Non-African Ame >60 (>=60 mL/min/1.73m^2); Globulin 4.2 g/dL; Glucose 117 mg/dL (74-106); Potassium 3.3 mmol/L (3.5-5.1); Sodium 135 mmol/L (136-145); Total Protein 7.3 g/dL (6.4-8.2)
--- NOTE | 2024-06-17 07:19 | P.GSHP_ITS ---
History of Present Illness History of Present Illness Chief complaint: appendicitis Narrative: 28yo F presented with 1 day onset abdominal pain associated with nausea and decreased appetite. Pain predominately in RLQ area. Some fevers, denies chills. Denies SOB or chest pain. Denies having pain like this before. Denies any previous abdominal surgery. Discussed plan of laparoscopic appendectomy and associated risks. Pt agreed to proceed. at bedside and questions answered. Review of Systems ROS Status of ROS 10 or more systems reviewed and unremark able except as noted in history and below [facility] Medical History (Updated 06/17/24 @ 00:50 by Allison Cope) History of ovarian cyst ?Z87.42 - Personal history of other diseases of the female genital tract (ICD-10) Asthma ?J45.909 - Unspecified asthma, uncomplicated (ICD-10) Family History (Updated 06/17/24 @ 00:53 by Allison Cope) Other Family history of CHF (congestive heart failure) Family history of cancer Family history of diabetes mellitus Family history of hypertension Social History (Updated 06/17/24 @ 00:52 by Allison Cope) Within the past year, how often did you have a drink containing alcohol: never Within the past year, how many standard drinks containing alcohol did you have on a typical day: 1 or 2 Within the past year, how often did you have six or more drinks on one occasion: never Total score: 0 Score interpretation: A score less than 3 is consistent with normal alcohol consumption. 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 Highest level of school completed/degree received: high school graduate Are you now , , , , never or living with a partner: In a typical week, how many times do you talk on the telephone with family, friends, or neighbors: 3 or more times per week How often do you get together with friends or relatives: 3 or more times per w [place] How often do you attend congregational or confucianism services: never Little interest or pleasure in doing things: not at all Feeling down, depressed, or hopeless: not at all Feel stressed/tense/nervous/anxious/difficulty sleeping: not at all Do you think of yourself as: straight/heterosexual Gender Identity: female Meds Home Medications and Allergies Home Medications ?Medication ?Instructions ?Recorded ?Confirmed ?Type albuterol sulfate 90 mcg/actuation 2 inh inhalation Q4H PRN shortness 06/14/23 Rx breath activated powder inhaler of breath or wheezing #1 ea gefmlahewlylwdm-gaqdudkaajsgewo-RQ 10 ml PO Q6H PRN cold symptoms 06/14/23 Rx 2 mg-30 mg-10 mg/5 mL oral syrup #200 mL (Bromfed DM) Allergies Allergy/AdvReac Type Severity Reaction Status Date / Time No Known Drug Allergies Allergy Verified 06/16/24 20:57 Exam Narrative Exam Narrative: General: awake, alert, mild distress Head: normocephalic, atraumatic Neck: supple, no tracheal deviation Heart: RRR Lungs: equal chest rise and fall, non labored breathing Abdomen: soft, + rlq tenderness, no rebound, mild guarding Extremities: no lesions, grossly normal Skin: intact, no cyanosis Psychological: no apparent speech or mood disorder, appropriate for encounter Constitutional Vital Signs, click to edit/add: Last Vital Signs Temp 98.1 F 06/17/24 04:00 Pulse 97 H 06/17/24 04:00 Resp 20 06/17/24 04:00 BP 138/94 H 06/17/24 04:00 Pulse Ox 98 06/17/24 04:00 O2 Del Method Room Air 06/17/24 04:00 Assessment and Plan Assessment and Plan (1) Acute appendicitis: Assessment and Plan: 1. Plan for laparoscopic appendectomy, consent obtained, RN witnessed 2. Cont IV abx and IVF 3. Post op recs to follow
--- NOTE | 2024-06-17 07:24 | W.PM.PROCNOT ---
Date of procedure: 06/17/24 Pre-op diagnosis: acute appendicitis Post-op diagnosis: other (acute appendicitis with purulent fluid/ abscess at time of surgery ) Procedure: Procedure laparoscopic Appendectomy The patient was taken to Operating Room, identified as the correct patient and the procedure verified as Appendectomy. A Time Out was held and the above information confirmed. The patient was placed in the supine position and general anesthesia was induced, along with placement of EPC cuffs, and a Lucio catheter. The abdomen was prepped and draped in a sterile fashion. One centimeter left of the umbilicus an incision was made and the peritoneal cavity was accessed using the optiview technique via a 5mm port. The pneumoperitoneum was then established to steady pressure of 15 mmHg. Upon entrance with camera, no bowel injury was noted.? An additional 5 mm cannula was then placed in the supra pubic region of the abdomen and a 12 mm port in the LLQ under direct vision. A careful evaluation of the entire abdomen was carried out. The patient was placed in Trendelenburg and left lateral rotation. The small intestines were retracted in the cephalad and left lateral direction away from the pelvis and right lower quadrant. The patient was found to have an enlarged and inflamed appendix that was extending into the pelvis with associated opaque fluid/ abscess consistent with wound class 4. The appendix was carefully dissected. A window was made in the mesoappendix at the base of the appendix. A endo ligasure device was used to divide mesoappendix. The appendix was divided at its base using an endo-HIGINIO stapler. Minimal to no appendiceal stump was left in place. There was no evidence of bleeding, leakage, or complication after division of the appendix. Suction was also performed of the abdominal opaque fluid.?The appendix was placed in an endocatch bag and removed via the 12mm port site. The 12mm port site was closed using 0 Vicryl at the level of the fascia using a suture passer technique. All trocars were removed under direct vision while evacuating the pneumoperitoneum. No bleeding was noted. The port skin sites were closed using 4-0 monocryl followed by skin glue. Instrument, sponge, and needle counts were correct at the conclusion of the case. Patient tolerated the procedure well without any complications.? Patient was extubated and was transferred to PACU in stable condition.? Anesthesia: GETA Surgeon: Trevor Lemus Estimated blood loss (mL): 3 Pathology: other (appendix ) Condition: stable Disposition: PACU
[2024-06-17] MEDS: BUPIVACAINE HCL 0.5% PF 50 MG/10 ML VIAL 20 ML INJ (07:55)
[2024-06-17] MEDS: LACTATED RINGER'S SOLUTION 1,000 ML 50 ML IV (08:27)
--- NOTE | 2024-06-17 08:28 | P.PN_ITS ---
Exam Constitutional Vital Signs, click to edit/add: Last Vital Signs Temp 98.1 F 06/17/24 04:00 Pulse 97 H 06/17/24 04:00 Resp 20 06/17/24 04:00 BP 138/94 H 06/17/24 04:00 Pulse Ox 98 06/17/24 04:00 O2 Del Method Room Air 06/17/24 04:00 Progress Note: Objective Labs Labs: Short CBC 06/16/24 06/17/24 Range/Units 21:35 06:07 WBC 28.6 H 24.2 H (4.0-11.0) 10^3/uL Hgb 15.3 13.7 (12.0-16.0) g/dL Hct 44.4 39.5 (36.0-48.0) % Plt Count 400 360 (150-450) 10^3/uL BMP 06/16/24 06/17/24 21:35 06:07 Sodium 131 L 135 L Potassium 4.0 3.3 L Chloride 97 L 100 Carbon Dioxide 22.1 22.1 BUN 11.0 7.0 Creatinine 0.77 0.65 Glucose 131 H 117 H Calcium 9.9 8.1 L Liver Function 06/16/24 06/17/24 Range/Units 21:35 06:07 Total Bilirubin 0.6 0.6 (0.2-1.0) mg/dL AST 14 L 11 L (15-37) U/L ALT 21 18 (14-59) U/L Alkaline Phosphatase 81 66 (46-116) U/L Albumin 4.1 3.1 L (3.4-5.0) g/dL Urine 06/16/24 Range/Units 23:04 Urine Color Yellow (YELLOW) Urine Clarity Clear (CLEAR) Urine pH 7.0 (5.0-9.0) Ur Specific [place] 1.015 (1.005-1.025) Urine Protein 30 A (NEG/TRACE) mg/dL Urine Glucose (UA) Negative (NEGATIVE) mg/dL Progress Note: A&P Assessment and Plan (1) Acute appendicitis: Assessment and Plan: Ok for patient to be discharged later today 06/17 if tolerating PO intake and pain controlled. Updated patient's Discharge scripts for patient have been sent and on file Follow up in office in 10-14 days
[2024-06-17] MEDS: OXYCODONE HCL/ACETAMINOPHEN 5MG/325MG 1 TAB PO (13:26)
--- NOTE | 2024-06-17 16:09 | P.HP_ITS ---
HPI H&P: HPI History of Present Illness Chief complaint: appendicitis Narrative: 28 y/o female to ER with abdominal pain. Sudden onset earlier in day and across lower abdomen. Pain intensified and difficult to function. Developed nausea and emesis and to ER. WBC 28.6 and recently was normal on 06/13. CT showed acute appendicitis and admitted. General surgery consulted and started zosyn. To OR for lap appy this am and doing well postoperatively. Mild postop pain but tolerable with medication. No nausea and able to advance diet. Afebrile. Opioid HPI Opioid Management Most Recent Pain and Opioid Data: Last Pain Scale 5 06/17/24 13:41 Last Pain Assessment 06/17/24 13:41 Last MAR Pain Assessment 06/17/24 13:26 Last ORT Total Score 1 06/17/24 00:50 Last ORT Risk Category Low Risk 06/17/24 00:50 Review of Systems ROS Constitutional Denies: fever, chills or fatigue Cardiovascular Denies: chest pain, palpitations or edema Respiratory Denies: shortness of breath, cough or wheezing Gastrointestinal Reports: abdominal pain, nausea and vomiting; Denies: diarrhea Genitourinary Denies: painful urination [facility] Medical History (Updated 06/17/24 @ 10:16 by Brian Mendoza MD) Insulin resistance ?E88.819 - Insulin resistance, unspecified (ICD-10) Upper respiratory infection ?J06.9 - Acute upper respiratory infection, unspecified (ICD-10) History of ovarian cyst ?Z87.42 - Personal history of other diseases of the female genital tract (ICD-10) Asthma ?J45.909 - Unspecified asthma, uncomplicated (ICD-10) Family History (Updated 06/17/24 @ 00:53 by Allison Cope) Other Family history of CHF (congestive heart failure) Family history of cancer Family history of diabetes mellitus Family history of hypertension Social History (Updated 06/17/24 @ 00:52 by Allison Cope) Within the past year, how often did you have a drink containing alcohol: never Within the past year, how many standard drinks containing alcohol did you have on a typical day: 1 or 2 Within the past year, how often did you have six or more drinks on one occasion: never Total score: 0 Score interpretation: A score less than 3 is consistent with normal alcohol consumption. 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 Highest level of school completed/degree received: high school graduate Are you now , , , , never or living with a partner: In a typical week, how many times do you talk on the telephone with family, fri ends, or neighbors: 3 or more times per week How often do you get together with friends or relatives: 3 or more times per week How often do you attend yarsanism or latter day services: never Little interest or pleasure in doing things: not at all Feeling down, depressed, or hopeless: not at all Feel stressed/tense/nervous/anxious/difficulty sleeping: not at all Do you think of yourself as: straight/heterosexual Gender Identity: female Meds Home Medications and Allergies Home Medications ?Medication ?Instructions ?Recorded ?Confirmed ?Type cyclobenzaprine 10 mg tablet 10 mg PO TID muscle tightness #20 06/17/24 Rx tabs docusate sodium 100 mg capsule 100 mg PO BID 10 days #20 caps 06/17/24 Rx (Colace) ondansetron 4 mg disintegrating 4 mg PO Q8H 5 days #15 tabs 06/17/24 Rx tablet oxycodone-acetaminophen 5 mg-325 1 tab PO Q4H PRN abd pain 3 days 06/17/24 Rx mg tablet (Percocet) #10 tabs Allergies Allergy/AdvReac Type Severity Reaction Status Date / Time No Known Drug Allergies Allergy Verified 06/16/24 20:57 Exam Constitutional Vital Signs, click to edit/add: Last Vital Signs Temp 98.2 F 06/17/24 13:41 Pulse 109 H 06/17/24 13:41 Resp 18 06/17/24 13:41 BP 146/63 H 06/17/24 10:18 Pulse Ox 95 06/17/24 13:41 O2 Del Method Room Air 06/17/24 13:41 Documenting provider has reviewed patient's vital signs: yes Common normals: no apparent distress, oriented x3 and alert HENMT Common normals: normocephalic Eye Common normals: PERRL and EOMs intact bilaterally Respiratory Common normals: normal respiratory effort and clear to auscultation bilaterally Cardio Common normals: regular rate, regular rhythm, no gallops, no murmurs and no rub GI Auscultation: normoactive bowel sounds Palpation: soft and tender (Appropriately tender); no guarding Extremity Common normals: no pedal edema Results Labs Labs: Short CBC 06/16/24 06/17/24 Range/Units 21:35 06:07 WBC 28.6 H 24.2 H (4.0-11.0) 10^3/uL Hgb 15.3 13.7 (12.0-16.0) g/dL Hct 44.4 39.5 (36.0-48.0) % Plt Count 400 360 (150-450) 10^3/uL BMP 06/16/24 06/17/24 21:35 06:07 Sodium 131 L 135 L Potassium 4.0 3.3 L Chloride 97 L 100 Carbon Dioxide 22.1 22.1 BUN 11.0 7.0 Creatinine 0.77 0.65 Glucose 131 H 117 H Calcium 9.9 8.1 L Liver Function 06/16/24 06/17/24 Range/Units 21:35 06:07 Total Bilirubin 0.6 0.6 (0.2-1.0) mg/dL AST 14 L 11 L (15-37) U/L ALT 21 18 (14-59) U/L Alkaline Phosphatase 81 66 (46-116) U/L Albumin 4.1 3.1 L (3.4-5.0) g/dL Urine 06/16/24 Range/Units 23:04 Urine Color Yellow (YELLOW) Urine Clarity Clear (CLEAR) Urine pH 7.0 (5.0-9.0) Ur Specific [place] 1.015 (1.005-1.025) Urine Protein 30 A (NEG/TRACE) mg/dL Urine Glucose (UA) Negative (NEGATIVE) mg/dL Assessment and Plan Assessment and Plan (1) Acute appendicitis: (2) Abdominal pain: Plan Doing well after surgery and pain controlled. Able to advance diet and tolerated well. Discharge home. Follow up with surgeon in 1-2 weeks.
--- NOTE | 2024-06-19 14:50 | CM.DCFOLLOWU ---
1st attempt 06/19/24, no answer
--- NOTE | 2024-06-20 14:10 | CM.DCFOLLOWU ---
2nd attempt 06/20/24, no answer
--- NOTE | 2024-06-21 10:49 | CM.DCFOLLOWU ---
Person spoke with:patient How are you feeling?well How is your pain?still some pain, but is manageable Did you understand your discharge instructions?yes Do you have any questions about your discharge instructions?no Were you given any prescriptions at discharge? yes Were you able to get your prescriptions filled?yes Do you understand how to take your medications as ordered?yes Do you have any questions about your follow up appointment and do you plan to keep your follow up appointment? no questions, follow up scheduled for 06/26/24 Is there anything else that you would like to discuss?no Questions/Comments/Concerns/Other:none
== END 2024-06-17 15:10 | disposition home or self-care (01) ==
LOC: ER 23:54 → MS 06-17 00:41
PROVIDERS: Nurse Practitioner Family; Registered Nurse; Surgery; Admitting Provider Internal Medicine; Emergency Provider Internal Medicine; PCP Family Medicine; Visit Provider Internal Medicine
PROC: (CPT 840; principal; 2024-06-17 07:15)
DX: K35.80 Unspecified acute appendicitis (principal); R10.9 Unspecified abdominal pain
CPT/HCPCS: 44970; 36415; 74177; 80053; 81001; 83605; 83690; 84702; 85007; 85025; 85027; 87086; 88304; 96361; 96365; 96367; 96375; 96376; 99285; G0378; J0131; J0330; J0665; J1100; J2270; J2405; J2543; J2704; J3010; Q9967

== ENCOUNTER 2024-07-10 10:57 | Outpatient (OUT) | payer BC, SELFPAY ==
--- NOTE | 2024-07-10 11:00 | US_ITS ---
The [address] [address] Patient Name: FLYNN SOLIS MRN: [id number] date: 1995 Sex: F Assigned Patient Location: [place] Current Patient Location: [place] Accession/Order Number: [id number] Exam Date: 07/10/2024 11:01 Report Date: 07/11/2024 13:34 At the request of: VLADIMIR JACOBS Procedure: US pelvis w/ transvaginal EXAMINATION: US pelvis w/ transvaginal HISTORY: Polycystic Ovarian Syndrome E28.2 COMPARISON: No relevant comparison available. TECHNIQUE: Transabdominal and/or transvaginal sonographic examination was performed as indicated by examination type. FINDINGS: UTERUS: Normal size and appearance. Uterus size: 9.7 x 4.2 x 5.4 cm ENDOMETRIUM: Normal homogeneous appearance. Endometrial thickness: 11 mm RIGHT OVARY: Resolution of previously seen large cyst. Duplex Doppler demonstrates normal waveform and flow; resistive index 0.6. Ovary size: 4.1 x 3.2 x 1.9 cm LEFT OVARY: Contains several benign-appearing cysts/follicles, largest is 2.0 cm. Duplex Doppler demonstrates normal waveform and flow; resistive index 0.4. Ovary size: 2.2 x 1.7 x 2.1 cm CUL-DE-SAC: Unremarkable. No significant free fluid. BLADDER: Unremarkable. OTHER: None. US/US pelvis w/ transvaginal IMPRESSION: 1. No findings to suggest polycystic ovarian syndrome. Electronically authenticated by: PATRICIA KELLEY Date: 07/11/2024 13:34
--- OUTSIDE RECORDS SUMMARY | 2024-07-10 11:06 | XMS_ITS | CCD ---
Author Organization [facility] Care Team Providers Care Special Librarian Name Role Phone GABBIE Lopez Attending Provider [phone] REYNALDO, DR BRIAN Akins Primary Care Unavailable GWENDOLYN, SB Tsai Admitting Unavailable GWENDOLYN, SB Tsai Attending Unavailable ALLIE, DR PATRICIA Espinoza Consulting Unavailable GAELANDER, SB Tsai Consulting Unavailable ANIKETERER, DR BRIAN Akins Consulting Unavailable ANIKETEREAlexis, DR BRIAN Akins Attending Unavailable REYNALDO, DR BRIAN Akins Admitting Unavailable ANIKETERER, DR BRIAN Akins Primary Care Unavailable ANIKETERER, DR BRIAN Akins Primary Care Unavailable NADERER, DR BRIAN Akins Consulting Unavailable NADERER, DR BRIAN Akins Attending Unavailable NADERER, DR BRIAN Akins Admitting Unavailable Schnexavier, Rhoda Consulting Unavailable ANIKETEREAlexis, DR BRIAN Akins Primary Care Unavailable GWENDOLYN, SB Tsai Admitting Unavailable GWENDOLYN, SB Tsai Attending Unavailable Brian Jacobs MD Primary Care Provider [phone] Shaikh Greene Attending Unavailable Shaikh Greene Admitting Unavailable MD Donovan Greene Attending Provider BRIAN JACOBS Attending Unavailable HOLLI LEMUS Attending Unavailable Medications Current Medications Medication Drug Class(es) Dates Sig (Normalized) Sig (Original) aspirin 81 mg delayed release oral tablet (2 sources) Platelet Aggregation Inhibitor, Nonsteroidal Anti-inflammatory Drug take 1 tablet by mouth once daily aspirin 81 MG EC tablet Take 81 mg by mouth Daily Active 24 hr metFORMIN hydrochloride 500 mg extended release oral tablet (2 sources) Biguanide Start: 07-06-2024 take 1 tablet by mouth every twenty-four hours at mealtime metFORMIN XR (Glucophage-XR) 500 MG 24 hr tablet Indications: Insulin resistance , PCOS (polycystic ovarian syndrome) Take 1 tablet (500 mg) by mouth in the evening. Take with meals Do not crush, chew, or split. 30 tablet 5 07/06/2024 Active Start: 07-06-2024 take 1 tablet by tootie th every twenty-four hours at mealtime metFORMIN XR (Glucophage-XR) 500 MG 24 hr tablet Indications: Insulin resistance , PCOS (polycystic ovarian syndrome) Take 1 tablet (500 mg) by mouth in the evening. Take with meals Do not crush, chew, or split. 30 tablet 5 07/06/2024 Active Problems Active Problems Problem Classification Problem Date Documented Da te Episodic/Chronic Malaise and fatigue (12 sources) Fatigue; Translations: [Other fatigue] Onset: 06-13-2024 06-13-2024 Episodic Other acquired deformities (1 source) Contracture, left ankle; Translations: [CONTRACTURE LEFT ANKLE] Onset: 04-24-2022 Chronic Other endocrine disorders (14 sources) Polycystic ovary syndrome; Translations: [Polycystic ovarian syndrome] Onset: 06-13-2024 06-13-2024 Chronic Other non-traumatic joint disorders (12 sources) Joint pain; Translations: [Pain in unspecified joint] Onset: 06-13-2024 06-13-2024 Episodic Other nutritional; endocrine; and metabolic disorders (12 sources) Body mass index 30+ - obesity; Translations: [Obesity, unspecified] Onset: 06-13-2024 06-13-2024 Chronic Other nutritional; endocrine; and metabolic disorders (9 sources) Insulin resistance; Translations: [Insulin resistance] Onset: 06-15-2024 06-15-2024 Chronic Other skin disorders (12 sources) Loss of hair; Translations: [Nonscarring hair loss, unspecified] Onset: 06-13-2024 06-13-2024 Episodic Past or Other Problems Problem Classification Problem Date Documented Date Episodic/Chronic Neoplasms of unspecified nature or uncertain behavior (10 sources) Thrombocytosis; Translations: [Thrombocythemia] Onset: 06-13-2024 Resolved: 07-06-2024 06-13-2024 Episodic Other connective tissue disease (5 sources) Pain [...] ABNORMALITIES GAIT AND MOBILITY] Onset: 04-24-2022 Episodic Thyroid disorders (12 sources) Goiter; Translations: [Iodine-deficiency related diffuse (endemic) goiter] Onset: 06-13-2024 Resolved: 07-06-2024 06-13-2024 Chronic Results Test Name Value Interpretation Reference Range Facility URINE CULTURE, ROUTINEon Bacteria identified [facility] (U) Urine Culture, Routine [facility] Bacteria identified [facility] (U) Mixed urogenital cynthia [facility] Bacteria identified [facility] (U) Less than 10,000 colonies/mL [facility] Bacteria identified [facility] (U) Performed at: [facility] Bacteria identified [facility] (U) [address] [place] [address] [id number] [facility] Bacteria identified [facility] (U) Parcel Post Weigher: David Dietz PhD, Phone: [phone] [facility] Jose Raul 06-17-2024 L Specimen: [id number] Received: 06/19/24 Status: DELROY Gray Num: [id number] Spec Type: Surgical Subm Dr: Holli Lemus DO Tissues: A Appendix - Other than Incidental (APPENDIX) Procedures: HE/2, Gross/Micro L3 Age/ Patient Sex Location Account Attending Physician Samantha Solis Y 28/ LABELL [id number] Shaikh Jc MD SPEC NUM: [id number] RECD: 06/19/24 STATUS: DELROY GRAY NUM: [id number] KATE: 06/17/[address]: Holli Lemus DO ENTERED: 06/19/[address]: Gaby Aponte MD SPEC TYPE: Surgical DEPT: [facility] ENTERED BY: [id number] RECV BY: [id number] ORDERED: HE/2, Gross/Micro L3 ORDERED: ROBB, Gross/Micro L3 Pathological Diagnosis Appendix, appendectomy: Acute appendicitis. Clinical Information Appendicitis Gross Description The specimen is received in formalin with the patient's name and appendix and consists of a gardiner-brown vermiform appendix measuring 10.5 x 1.2 x 1.2 cm. There is a staple line across the proximal margin. The proximal margin is inked black. The serosal surface is covered with purulent debris and a mesoappendix measuring 5.0 x 1.5 x 1.0 cm. Specimen is serially sectioned revealing a lumen measuring 1.1 cm in diameter. The lumen is filled with purulent debris. Commercial Loan Administrator sections are submitted as follows: A1 proximal margin and cross-section A2 distal tip bisected CPT Codes 95949 Specimen: [id number] Received: 06/19/24 Status: DELROY Gray Num: [id number] Spec Type: Surgical Subm Dr: Holli Lemus, DO Tissues: A Appendix - Other than Incidental (APPENDIX) Procedures: ROBB/Marla, Gross/Micro L3 Patient: Samantha Solis [id number] (Continued) Signed (signatur e on file) Dario Alejo MD 06/20/24 1517 Normal [facility] ALL CBC WITH AUTO DIFFon BASOPHILS ABSOLUTE AUTO 0.1 [facility] Basophils/100 WBC (Bld) 0.6 % 0.2 - 2.0 % [facility] Eosinophils/100 WBC (Bld) 2.4 % 0.9 - 7.0 % [facility] Erythrocyte distribution width (RBC) [Ratio] 13.2 % 11.0 - 15.0 % [facility] Hematocrit (Bld) [Volume fraction] 42.4 % 36.0 - 48.0 % [facility] ([facility] [Mass/Vol] 14.7 g/dL 12.0 - 16.0 g/dL [facility] IMMATURE GRANULOCYTES ABS AUTO 0.02 [facility] Immature granulocytes/100 WBC (Bld) 0.2 % 0.0 - 0.5 % [facility] Interpretation and review of laboratory results Abnormal [facility] LYMPHOCYTES ABSOLUTE AUTO 1.8 [facility] Lymphocytes/100 WBC (Bld) 18.2 % Low 20.5 - 60.0 % [facility] MCH (RBC) [Entitic mass] 29.7 pg 26.7 - 34.0 pg [facility] MCHC (RBC) [Mass/Vol] 34.7 g/dL 29.9 - 35.2 g/dL [facility] MCV (RBC) [Entitic vol] 85.7 fL 81.0 - 99.0 fL [facility] MONOCYTES ABSOLUTE AUTO 0.4 [facility] Monocytes/100 WBC (Bld) 4.0 % 1.7 - 12.0 % [facility] NEUTROPHILS ABSOLUTE AUTO 7.3 High [facility] Neutrophils/100 WBC (Bld) 74.6 % 43.0 - 75.0 % [facility] Platelet mean volume (Bld) [Entitic vol] 8.8 fL Low 9.5 - 13.5 fL [facility] EO # 0.2 [facility] PLT 386 [facility] RBC 4.95 [facility] WBC 9.8 [facility] XR FOOT [place] MIN 3 [...] PATRICIA KELLEY Date: 2022-12-15 12:37 Normal [facility] CBC AUTO DIFFon 03-02-2022 BASO # 0.1 103/ul Normal 0.0-0.1 [facility] Comment on above: Performed By: #### C BC #### [facility] [address] [place] [address] Dr. Mike Nails Basophils/100 WBC (Bld) 0.7 % Normal 0.2-2.0 [facility] Comment on above: Performed By: #### C BC #### [facility] [address] [place] [address] Dr. Mike Nails EO # 0.6 103/ul Normal 0.0-0.7 [facility] Comment on above: Performed By: #### C BC #### [facility] [address] [address] [address] Mike Nails Eosinophils/100 WBC (Bld) 5.7 % Normal 0.9-7.0 [facility] Comment on above: Performed By: #### C BC #### [facility] [address] [address] [address] Mike Nails Erythrocyte distribution width (RBC) [Ratio] 13.2 % Normal 11.0-15.0 [facility] Comment on above: Performed By: #### C BC #### [facility] [address] [place] [address] Dr. Mike Nails Hematocrit (Bld) [Volume fraction] 41.6 % Normal 36.0-48.0 [facility] Comment on above: Performed By: #### C BC #### [facility] [address] [place] [address] Dr. Mike Nails Hemoglobin (Bld) [Mass/Vol] 13.7 g/dL Normal 12.0-16.0 [facility] Comment on above: Performed By: #### C BC #### [facility] [address] [place] [address] Dr. Mike Nails IG # 0.02 10e3/ul Normal 0.00-0.03 [facility] Comment on above: Performed By: #### C BC #### [facility] [address] [place] [address] Dr. Mike Nails IG % 0.2 % Normal 0.0-0.5 [facility] Comment on above: Performed By: #### C BC #### [facility] [address] [place] [address] Dr. Mike Nails LYMPH # 2.6 103/ul Normal 1.2-3.8 [facility] Comment on above: Performed By: #### C BC #### [facility] [address] [place] [address] Dr. Mike Nails Lymphocytes/100 WBC (Bld) 26.3 % Normal 20.5-60.0 [facility] Comment on above: Performed By: #### C BC #### [facility] [address] [place] [address] Dr. Mike Nails MANUAL DIFF REQ NO Normal [facility] Comment on above: Performed By: #### C BC #### [facility] [address] [place] [address] Dr. Mike Nails MCH (RBC) [Entitic mass] 28.7 pg Normal 26.7-34.0 [facility] Comment on above: Performed By: #### C BC #### [facility] [address] [place] [address] Dr. Mike Nails MCHC (RBC) [Mass/Vol] 32.9 g/dL Normal 29.9-35.2 [facility] Comment on above: Performed By: #### C BC #### [facility] [address] [place] [address] Dr. Mike Nails MCV (RBC) [Entitic vol] 87.0 fL Normal 81.0-99.0 [facility] Comment on above: Performed By: #### C BC #### [facility] [address] [place] [address] Dr. Mike Nails MONO # 0.5 103/ul Normal 0.3-0.8 [facility] Comment on above: Performed By: #### C BC #### [facility] [address] [place] [address] Dr. Mike Nails Monocytes/100 WBC (Bld) 5.5 % Normal 1.7-12.0 [facility] Comment on above: Performed By: #### C BC #### [facility] [address] [place] [address] Dr. Mike Nails NEUT # 6.0 103/ul Normal 1.4-6.5 [facility] Comment on above: Performed By: #### C BC #### [facility] [address] [place] [address] Dr. Mike Nails Neutrophils/100 WBC (Bld) 61.6 % Normal 43.0-75.0 [facility] Comment on above: Performed By: #### C BC #### [facility] [address] [place] [address] Dr. Mike Nails Platelet mean volume (Bld) [Entitic vol] 8.7 fL Critically low 9.5-13.5 [facility] Comment on above: Performed By: #### C BC #### [facility] [address] [place] [address] Dr. Mike Nails PLT 369 103/ul Normal 150-450 [facility] Comment on above: Performed By: #### C BC #### [facility] [address] [place] [address] Dr. Mike Nails RBC 4.78 106/ul Normal 4.20-5.40 [facility] Comment on above: Performed By: #### C BC #### [facility] [address] [place] [address] Dr. Mike Nails WBC 9.7 103/ul Normal 4.0-11.0 [facility] Comment on above: Performed By: #### C BC #### [facility] [address] [place] [address] Dr. Mike Nails GLYCOHEMOGLOBIN A1Con 2021 ADA RECOMMENDATION SEE BELOW Normal [facility] Comment on above: Result Comment: ADA RECOMMENDED LIMIT 4.0 - 6.0 ADA THERAPEUTIC TARGET < 7.0 ACTION SUGGESTED > 7.0 Performed By: #### A 1C #### [facility] [address] [place] [address] Dr. Mike Nails Glucose [Mass/Vol] 105 mg/dL Normal [facility] Comment on above: Performed By: #### A 1C #### [facility] [address] [place] [address] Dr. Mike Nails HbA1c (Bld) [Mass fraction] 5.3 % Normal 4.5-6.2 [facility] Comment on above: Performed By: #### A 1C #### [facility] [address] [place] [address] Dr. Mike Nails LIPID PROFILEon 03-02-2022 CHOL-HDL RATIO NORM SEE BELOW Normal [facility] Comment on above: Result Comment: 3.3 - 4.4 LOW RISK 4.4 - 7.1 AVERAGE RISK 7.1 - 11.0 MODERATE RISK >11.0 HIGH RISK Performed By: #### B MP, LIPID, TSH, LIVER #### [facility] [address] [place] [address] Dr. Mike Nails Cholesterol [Mass/Vol] 198 mg/dL Normal <=200 [facility] Comment on above: Performed By: #### B MP, LIPID, TSH, LIVER #### [facility] [address] [address] [address] Mike Nails Cholesterol in HDL [Mass/Vol] 48 mg/dL Normal 40-60 [facility] Comment on above: Performed By: #### B MP, LIPID, TSH, LIVER #### [facility] [address] [address] [address] Mike Nails Cholesterol in LDL [Mass/Vol] 136.6 mg/dL Normal [facility] Comment on above: Performed By: #### B MP, LIPID, TSH, LIVER #### [facility] [address] [address] [address] Mike Nails Cholesterol.total/Cho lesterol in HDL [Mass ratio] 4.1 {ratio} Normal [facility] Comment on above: Performed By: #### B MP, LIPID, TSH, LIVER #### [facility] [address] [address] [address] Mike Nails HDL NORMAL > or = 60 mg/dl - LOW CARDIOVASCULAR RISK <40 mg/dl - HIGH CARDIOVASCULAR RISK Normal [facility] Comment on above: Performed By: #### B MP, LIPID, TSH, LIVER #### [facility] [address] [address] [address] Mike Nails LDL CALC NORMAL SEE BELOW Normal [facility] Comment on above: Result Comment: <100 mg/dl OPTIMAL 100 - 129 mg/dl NEAR OR ABOVE OPTIMAL 130 - 159 mg/dl BORDERLINE HIGH 160 - 189 mg/dl HIGH >190 mg/dl VERY HIGH Performed By: #### B MP, LIPID, TSH, LIVER #### [facility] [address] [address] [address] Mike Nails Triglyceride [Mass/Vol] 67 mg/dL Normal <=150 [facility] Comment on above: Performed By: #### B MP, LIPID, TSH, LIVER #### [facility] [address] [address] [address] Mike Nails VLDL CALC 13.4 mg/dL Normal [facility] Comment on above: Performed By: #### B MP, LIPID, TSH, LIVER #### [facility] [address] [address] [address] Mike Nails LIVER PROFILEon 03-02-2022 Albumin [Mass/Vol] 3.7 g/dL Normal 3.4-5.0 [facility] Comment on above: Performed By: #### B MP, LIPID, TSH, LIVER #### [facility] [address] [place] [address] Dr. Mike Nails Albumin/Globulin [Mass ratio] 0.8 {ratio} Normal [facility] Comment on above: Performed By: #### B MP, LIPID, TSH, LIVER #### [facility] [address] [place] [address] Dr. Mike Nails ALP [Catalytic activity/Vol] 87 U/L Normal 46-116 [facility] Comment on above: Performed By: #### B MP, LIPID, TSH, LIVER #### [facility] [address] [place] [address] Dr. Mike Nails ALT [Catalytic activity/Vol] 9 U/L Critically low 14-59 [facility] Comment on above: Performed By: #### B MP, LIPID, TSH, LIVER #### [facility] [address] [place] [address] Dr. Mike Nails AST [Catalytic activity/Vol] 17 U/L Normal 15-37 [facility] Comment on above: Performed By: #### B MP, LIPID, TSH, LIVER #### [facility] [address] [place] [address] Dr. Mike Nails BILI, CONJUGATED 0.1 mg/dL Normal 0.0-0.2 [facility] Comment on above: Performed By: #### B MP, LIPID, TSH, LIVER #### [facility] [address] [place] [address] Dr. Mike Nails Bilirubin [Mass/Vol] 0.4 mg/dL Normal 0.2-1.0 [facility] Comment on above: Performed By: #### B MP, LIPID, TSH, LIVER #### [facility] [address] [place] [address] Dr. Mike Nails Globulin (S) [Mass/Vol] 4.9 g/dL Normal [facility] Comment on above: Performed By: #### B MP, LIPID, TSH, LIVER #### [facility] [address] [place] [address] Dr. Mike Nails Protein [Mass/Vol] 8.6 g/dL Critically high 6.4-8.2 [facility] Comment on above: Performed By: #### B MP, LIPID, TSH, LIVER #### [facility] [address] [place] [address] Dr. Mike Nails PROF CHEM 8 (BAS METB)on Anion gap [Moles/Vol] 11.4 mmol/L Normal [facility] Comment on above: Performed By: #### B MP, LIPID, TSH, LIVER #### [facility] [address] [place] [address] Dr. Mike Nails Calcium [Mass/Vol] 9.2 mg/dL Normal 8.5-10.1 [facility] Comment on above: Performed By: #### B MP, LIPID, TSH, LIVER #### [facility] [address] [place] [address] Dr. Mike Nails Chloride [Moles/Vol] 104 mmol/L Normal 98-107 [facility] Comment on above: Performed By: #### B MP, LIPID, TSH, LIVER #### [facility] [address] [place] [address] Dr. Mike Nails CO2 [Moles/Vol] 28.7 mmol/L Normal 21.0-32.0 [facility] Comment on above: Performed By: #### B MP, LIPID, TSH, LIVER #### [facility] [address] [place] [address] Dr. Mike Nails Creatinine [Mass/Vol] 0.80 mg/dL Normal 0.55-1.02 [facility] Comment on above: Performed By: #### B MP, LIPID, TSH, LIVER #### [facility] [address] [place] [address] Dr. Mike Nails EGFR-AF SPANISH >60 Normal >=60 [facility] Comment on above: Performed By: #### B MP, LIPID, TSH, LIVER #### [facility] [address] [address] [address] Mike Nails EGFR-NON AF SPANISH >60 Normal >=60 [facility] Comment on above: Performed By: #### B MP, LIPID, TSH, LIVER #### [facility] [address] [place] [address] Dr. Mike Nails Glucose [Mass/Vol] 88 mg/dL Normal 74-106 [facility] Comment on above: Performed By: #### B MP, LIPID, TSH, LIVER #### [facility] [address] [place] [address] Dr. Mike Nails Potassium [Moles/Vol] 4.1 mmol/L Normal 3.5-5.1 [facility] Comment on above: Performed By: #### B MP, LIPID, TSH, LIVER #### [facility] [address] [place] [address] Dr. Mike Nails Sodium [Moles/Vol] 140 mmol/L Normal 136-145 [facility] Comment on above: Performed By: #### B MP, LIPID, TSH, LIVER #### [facility] [address] [place] [address] Dr. Mike Nails Urea nitrogen [Mass/Vol] 15.0 mg/dL Normal 7.0-18.0 [facility] Comment on above: Performed By: #### B MP, LIPID, TSH, LIVER #### [facility] [address] [place] [address] Dr. Mike Nails Urea nitrogen/Creatinine [Mass ratio] 18.8 mg/mg Normal [facility] Comment on above: Performed By: #### B MP, LIPID, TSH, LIVER #### [facility] [address] [place] [address] Dr. Mike Nails TSHon 03-02-2022 TSH 1.489 uIU/mL Normal 0.358-3.740 [facility] Comment on above: Performed By: #### B MP, LIPID, TSH, LIVER #### [facility] [address] [address] [address] Mike Nails XR FOOT LT MIN [...] by: RHODA CARPENTER Date: 2022-03-02 15:24 Normal [facility] Vital Signs Date Time Vital Sign Value Performing Clinician Faci akilay 07-06-2024 11:22-0400 Body height 162.6 cm Brian Jacobs MD Work Phone: [facility] 07-06-2024 11:22-0400 Body mass index (BMI) [Ratio] 33.3 kg/m2 Brian Jacobs MD Work Phone: [facility] 07-06-2024 11:22-0400 Body temperature 96.4 [degF] Brian Jacobs MD Work Phone: [facility] 07-06-2024 11:22-0400 Body weight 88 kg Brian Jacobs MD Work Phone: [facility] 07-06-2024 11:22-0400 Diastolic blood pressure 76 mm[Hg] Brian Jacobs MD Work Phone: [facility] 07-06-2024 11:22-0400 Heart rate 96 /min Brian Jacobs MD Work Phone: [facility] 07-06-2024 11:22-0400 Respiratory rate 20 /min Brian Jacobs MD Work Phone: [facility] 07-06-2024 11:22-0400 SaO2% (BldA) [Mass fraction] 98 % Brian Jacobs MD Work Phone: [facility] 07-06-2024 11:22-0400 Systolic blood pressure 130 mm[Hg] Brian Jacobs MD Work Phone: [facility] 06-26-2024 10:06-0400 Diastolic blood pressure 72 mm[Hg] Holli Lemus DO Work Phone: [facility] 06-26-2024 10:06-0400 Systolic blood pressure 108 mm[Hg] Holli Lemus DO Work Phone: [facility] 06-13-2024 10:36-0400 Body height 162.6 cm Brian Jacobs MD Work Phone: [facility] 06-13-2024 10:36-0400 Body mass index (BMI) [Ratio] 33.64 kg/m2 Brian Jacobs MD Work Phone: [facility] 06-13-2024 10:36-0400 Body temperature 97.5 [degF] Brian Jacobs MD Work Phone: [facility] 06-13-2024 10:36-0400 Body weight 88.91 kg Brian Jacobs MD Work Phone: [facility] 06-13-2024 10:36-0400 Diastolic blood pressure 80 mm[Hg] Brian Jacobs MD Work Phone: [facility] 06-13-2024 10:36-0400 Heart rate 91 /min Brian Jacobs MD Work Phone: [facility] 06-13-2024 10:36-0400 Respiratory rate 20 /min Brian Jacobs MD Work Phone: [facility] 06-13-2024 10:36-0400 SaO2% (BldA) [Mass fraction] 98 % Brian Jacobs MD Work Phone: [facility] 06-13-2024 10:36-0400 Systolic blood pressure 124 mm[Hg] Brian Jacobs MD Work Phone: [facility] Encounters Encounter Date Encounter Type Care Provider Facility Start: 07-06-2024 End: 07-06-2024 Bamboo flowsheet Brian Jacobs MD Work Phone: [facility] Start: 07-06-2024 End: 07-06-2024 Bamboo flowsheet Brian Jacobs MD Work Phone: [facility] Start: 07-06-2024 End: 07-06-2024 Office outpatient visit 25 minutes Brian Jacobs MD Work Phone: [facility] Comment on above: Insulin resistance ( Primary Dx); PCOS (polycystic ovarian syndrome) Start: 06-26-2024 End: 06-26-2024 Bamboo flowsheet Holli Lemus DO Work Phone: [facility] Start: 06-26-2024 End: 06-26-2024 Bamboo flowsheet Holli Lemus DO Work Phone: [facility] Start: 06-26-2024 End: 06-26-2024 Postop follow up visit related to original px Holli Lemus DO Work Phone: [facility] Comment on above: S/P appendectomy (Pr imary Dx) Start: 06-26-2024 End: 06-26-2024 ambulatory HOLLI LEMUS Not Available Start: 06-17-2024 End: 06-17-2024 ambulatory Shaikh Jc Facility:[facility] Start: 06-17-2024 End: 06-17-2024 Departed Referred MD Shaikh Greene Work Phone: [facility] Start: 06-16-2024 End: 06-19-2024 Clinis[facility] Result Encounter Generic External Data Provider [facility] Unsolicited Start: 06-16-2024 End: 06-19-2024 Clinisync Result Encounter Generic External Data Provider [facility] Unsolicited Start: 06-13-2024 End: 06-13-2024 Bamboo flowsheet Brian Jacobs MD Work Phone: [facility] Start: 06-13-2024 End: 06-13-2024 Bamboo flowsheet Brian Jacobs MD Work Phone: [facility] Start: 06-13-2024 End: 06-13-2024 Clinisync Result Encounter Brian Jacobs MD Work Phone: [facility] Unsolicited Start: 06-13-2024 End: 06-13-2024 [...] Start: 04-07-2022 End: 04-07-2022 Patient encounter procedure DPM Sb Lopez Work Phone: [facility] Start: 03-04-2022 Encounter for genera l adult medical examination without abnormal findings DR BRIAN JACOBS [facility] Start: 03-02-2022 End: 03-03-2022 Encounter for general adult medical examination without abnormal findings DR BRIAN JACOBS Facility:[facility] Start: 03-02-2022 End: 03-03-[address] BRIAN JACOBS Facility:[facility] Procedures Date Procedure Procedure Detail Performing Clinician Start: 06-16-2024 Bacteria identified in Urine by Culture Generic External Data Provider Start: 06-13-2024 ALL CBC WITH AUTO DIFF Brian Jacobs MD Work Phone: History of appendectomy S/P appendectomy Holli Lemus DO Work Phone: Plan of Treatment Date Care Activity Detail Author Start: 07-06-2024 End: 07-06-2025 US Pelvis US Pelvis w/ TV Imaging Routine PCOS (polycystic ovarian syndrome) Expected: 07/06/2024, Expires: 07/06/2025 [facility] Work Phone: Comment on above: Expected: 07/06/2024 , Expires: 07/06/2025 Start: 07-06-2024 End: 07-06-2024 Patient encounter procedure 07/06/2024 11:15 AM EDT Office Visit [facility] [address] [place] [phone] Brian Jacobs MD [address] [place] [phone] Arrived [facility] Comment on above: Arrived Start: 06-26-2024 End: 06-26-2024 Patient encounter procedure 06/26/2024 10:00 AM EDT Office Visit [facility] [address] [place] [phone] Holli Lemus DO [address] [place] [address] Arrived [facility] Comment on above: Arrived Start: 06-13-2024 End: 06-13-2025 PEBBLES BY IFA W/REFLEX ([facility]) PEBBLES BY IFA W/REFLEX ([facility]) Lab Routine Arthralgia, unspecified joint Expected: 06/13/2024 (Approximate), Expires: 06/13/2025 [facility] Comment on above: Expected: 06/13/2024 (Approximate), Expires: 06/13/2025 Start: 06-13-2024 End: 06-13-2025 Basic metabolic 1998 panel - Serum or Plasma Basic metabolic panel Lab Routine PCOS (polycystic ovarian syndrome) Expected: 06/13/2024 (Approximate), Expires: 06/13/2025 [facility] Comment on above: Expected: 06/13/2024 (Approximate), Expires: 06/13/2025 Start: 06-13-2024 End: 06-13-2025 C reactive protein [Mass/volume] in Serum or Plasma C-reactive protein Lab Routine Arthralgia, unspecified joint Expected: 06/13/2024 (Approximate), Expires: 06/13/2025 [facility] Comment on above: Expected: 06/13/2024 (Approximate), Expires: 06/13/2025 Start: 06-13-2024 End: 06-13-2025 CBC W Auto Differential panel - Blood CBC and differential Lab Routine Arthralgia, unspecified joint PCOS (polycystic ovarian syndrome) Expected: 06/13/2024 (Approximate), Expires: 06/13/2025 [facility] Comment on above: Expected: 06/13/2024 (Approximate), Expires: 06/13/2025 Start: 06-13-2024 End: 06-13-2025 Erythrocyte sedimentation rate Sedimentation rate, automated Lab Routine Arthralgia, unspecified joint Expected: 06/13/2024 (Approximate), Expires: 06/13/2025 [facility] Comment on above: Expected: 06/13/2024 (Approximate), Expires: 06/13/2025 Start: 06-13-2024 End: 06-13-2025 Hemoglobin A1c/Hemoglobin.total in Blood Hemoglobin A1c Lab Routine PCOS (polycystic ovarian syndrome) Expected: 06/13/2024 (Approximate), Expires: 06/13/2025 [facility] Comment on above: Expected: 06/13/2024 (Approximate), Expires: 06/13/2025 Start: 06-13-2024 End: 06-13-2025 Insulin, fasting Insulin, fasting Lab Routine PCOS (polycystic ovarian syndrome) Expected: 06/13/2024 (Approximate), Expires: 06/13/2025 [facility] Comment on above: Expected: 06/13/2024 (Approximate), Expires: 06/13/2025 Start: 06-13-2024 End: 06-13-2025 Rheumatoid factor [Units/volume] in Serum or Plasma Rheumatoid factor Lab Routine Arthralgia, unspecified joint Expected: 06/13/2024 (Approximate), Expires: 06/13/2025 [facility] Comment on above: Expected: 06/13/2024 (Approximate), Expires: 06/13/2025 Start: 06-13-2024 End: 06-13-2025 Thyroglobulin Thyroglobulin Lab Routine Fatigue, unspecified type Hair loss Expected: 06/13/2024 (Approximate), Expires: 06/13/2025 [facility] Comment on above: Expected: 06/13/2024 (Approximate), Expires: 06/13/2025 Start: 06-13-2024 End: 06-13-2025 Thyroid peroxidase antibody Thyroid peroxidase antibody Lab Routine Fatigue, unspecified type Hair loss Expected: 06/13/2024 (Approximate), Expires: 06/13/2025 [facility] Comment on above: Expected: 06/13/2024 (Approximate), Expires: 06/13/2025 Start: 06-13-2024 End: 06-13-2025 Thyroid stimulating immunoglobulin Thyroid stimulating immunoglobulin Lab Routine Fatigue, unspecified type Hair loss Expected: 06/13/2024 (Approximate), Expires: 06/13/2025 [facility] Comment on above: Expected: 06/13/2024 (Approximate), Expires: 06/13/2025 Start: 06-13-2024 End: 06-13-2025 Thyrotropin [Units/volume] in Serum or Plasma TSH Lab Routine Fatigue, unspecified type Hair loss Obesity (BMI 30-39.9) Expected: 06/13/2024 (Approximate), Expires: 06/13/2025 [facility] Work Phone: Comment on above: Expected: 06/13/2024 (Approximate), Expires: 06/13/2025 Start: 06-13-2024 End: 06-13-2025 Thyroxine (T4) free [Mass/volume] in Serum or Plasma T4, free Lab Routine Fatigue, unspecified type Hair loss Expected: 06/13/2024 (Approximate), Expires: 06/13/2025 [facility] Comment on above: Expected: 06/13/2024 (Approximate), Expires: 06/13/2025 Start: 06-13-2024 End: 06-13-2025 Triiodothyronine (T3) Free [Mass/volume] in Serum or Plasma T3, free Lab Routine Fatigue, unspecified type Hair loss Expected: 06/13/2024 (Approximate), Expires: 06/13/2025 [facility] Comment on above: Expected: 06/13/2024 (Approximate), Expires: 06/13/2025 Start: 06-13-2024 End: 06-13-2025 US Thyroid gland US thyroid Imaging Routine Thyromegaly ([facility]/H[facility]) Expected: 06/13/2024, Expires: 06/13/2025 [facility] Comment on above: Expected: 06/13/2024 , Expires: 06/13/2025 Start: 06-13-2024 End: 06-13-2024 Patient encounter procedure 06/13/2024 10:30 AM EDT [facility] [address] [place] [address] Brian Jacobs MD [address] [place] [phone] Arrived [facility] Comment on above: Arrived Start: 05-14-2024 Influenza vaccination Influenza Vacc ine (#1) [facility] Payers Date Payer Category Payer Self-pay 2020 [employer]BS [id number] 2020 Unknown BCBS BCBS [id number] 2020-Present [phone] [address] [place] [address] [id number] 1994 Unknown [id number] [id number] 1994 Unknown [id number] [id number] 1994 Unknown [id number] [id number] 1994 Unknown [id number] [id number] 1994 Unknown [id number] [id number] 1994 Unknown [id number] [id number] 1959 Unknown [id number] Unknown [id number] Social History Date Type Detail Facility Tobacco smoking status AZIS Unknown if ever smoked [facility] Work Phone: Start: 1995 Sex Assigned At Female F [facility] Tobacco smoking status AZIS Tobacco smoking consumption unknown [facility] Start: 1995 Sex assigned at Not on file [facility] Start: 06-13-2024 End: 07-06-2024 Gender identity Not on file [facility] Start: 06-13-2024 Tobacco smoking status NHIS Never smoked tobacco [facility] Start: 06-13-2024 Tobacco use and exposure Smokeless tobacco non-user [facility] Start: 06-13-2024 End: 07-06-2024 History of Social function [facility] Start: 06-26-2024 Gender identity Identifies as female gender (finding) [facility] History of Present illness Narrative 07-06-2024 Brian Jacobs MD - 07/06/2024 12:31 PM Willian Jacobs MD - 07/06/2024 12:31 PM EDTMchip Jacobs MD - 07/06/2024 11:15 AM EDT Note Date & Type Note Facility 07-06-2024 History of Presen t illness Narrative Associated Problem(s): PCOS (polycystic ovarian syndrome) Start metformin and check US. Associated Problem(s): Insulin resistance Labs showed insulin resistance and start metformin. Repeat labs next visit. Images from the original note were not included. Subjective Patient ID: Samantha Solis is a 28 y.o. female who presents for Follow-up ([facility] ). Follow up labs. Last visit patient concerned of abnormal thyroid. Labs for thyroid function and antibodies normal. US thyroid normal. Labs showed elevated insulin level and insulin resistance. Reports history of PCOS and prior metformin before getting . Notice if fast for long periods will feel shaky. Trying to eat healthy. Remains active and exercises several days a week. Review of Systems Respiratory: Negative for cough, [...] are equal, round, and reactive to light. Cardiovascular: Rate and Rhythm: Normal rate and [...] Addressed This Visit PCOS (polycystic ovarian syndrome) Start metformin and check US. Relevant Medications metFORMIN XR (Glucophage-XR) 500 MG 24 hr tablet Other Relevant Orders US Pelvis w/ TV Insulin resistance - Primary Labs showed insulin resistance and start metformin. Repeat labs next visit. Relevant Medications metFORMIN XR (Glucophage-XR) 500 MG 24 hr tablet documented in this encounter [facility] History of Present illness Narrative 06-26-2024 Holliolga Lemus, DO - 06/26/2024 10:00 AM EDT Note Date & Type Note Facility 06-26-2024 History of Presen t illness Narrative General Surgery H&P Samantha Solis 1995 Samantha Solis is a 28 y.o. female presents with chief complaint of Post-op (Patient presents post op lap appy 06/17/24 . Patients pain is mostly subsided . She feels jittery and has labored breathing at times. Also has brain fog, stumbling over words. Lowest incision is tender. Little oozing of lowest incision which is clear. Path benign. Doing ok postoperatively. Denies fevers, chills, or sweats. Denies nausea or vomiting. Tolerating diet and having regular bowel function. Minimal to No pain currently. She had an US of her thyroid shortly before her appendicitis and was told it was inflamed. She plans to follow up with her PCP on this. SUBJECTIVE: MEDICATIONS: ALLERGIES No current outpatient medications No Known Allergies PAST MEDICAL HISTORY: SOCIAL HISTORY SURGICAL HISTORY: No past medical history on file. Social History Tobacco Use Smoking status: Never Smokeless tobacco: Never Past Surgical History: Procedure Laterality Date APPENDECTOMY 06/17/2024 No family history on file. No Known Allergies Past Surgical History: Procedure Laterality Date APPENDECTOMY 06/17/2024 Tobacco Use: Low Risk (06/13/2024) Patient History Smoking Tobacco Use: Never Smokeless Tobacco Use: Never Passive Exposure: Not on file Alcohol Use: Not on file Depression: Not on file Physical Activity: Not on file REVIEW OF SYMPTOMS: Review of Systems All other systems reviewed and are negative. 10 systems were reviewed. Positives noted above. Remainder are negative per CMS guidelines OBJECTIVE: Visit Vitals Smoking Status Never Physical Exam Vitals reviewed. General: AAOx3, NAD Head: atraumatic normocephalic Neck: trachea midline. No masses or lymphadenopathy Heart: Regular rate and rhythm Lungs: equal chest rise and fall, non labored breathing Abdomen: soft, nontender, and non distended, incisions c/d/i Ext: motor 5/5 all extremities with no gross deformities Psych: alert and oriented, behavior appropriate ASSESSMENT AND PLAN: Assessment/Plan Diagnoses and all orders for this visit: S/P appendectomy Path benign Patient doing relatively well. Encouraged her to follow up with her PCP for the breathing concerns and the jitters, given she had an abnormal thyroid scan recently. Instructed to continue daily washing of incisions and no swimming/bathing until 14 days past procedure or until incisions fully healed. No lifting more then 12-15lbs until 21 days after procedure. Ok to return to work with lifting restrictions mentioned above. Follow up as needed. Thank you, K Abrahan Lemus DO documented in this encounter [facility] History of Present illness Narrative [...] were not included. Subjective Patient ID: Samantha Solis is a 28 y.o. female who presents [...] Note Facility Evaluation note [facility]: Evaluation note Note Date & Type Note Facility Evaluation note Diagnosis Fatigue, unspecified type- Primary Hair loss Unspecified alopecia Arthralgia, unspecified joint PCOS (polycystic ovarian syndrome) Polycystic ovaries Obesity (BMI 30-39.9) Thyromegaly (CMS/HCC) Goiter, unspecified documented in this encounter [facility] Evaluation note Note Date & Type Note Facility Evaluation note Diagnosis Fatigue, unspecified type- Primary Hair loss Unspecified alopecia Arthralgia, unspecified joint PCOS (polycystic ovarian syndrome) Polycystic ovaries Obesity (BMI 30-39.9) Thyromegaly (CMS/HCC) Goiter, unspecified S/P appendectomy- Primary Other postprocedural status documented in this encounter [facility] Evaluation note Note Date & Type Note Facility Evaluation note Diagnosis Fatigue, unspecified type- Primary Hair loss Unspecified alopecia Arthralgia, unspecified joint PCOS (polycystic ovarian syndrome) Polycystic ovaries Obesity (BMI 30-39.9) Thyromegaly (CMS/HCC) Goiter, unspecified Insulin resistance- Primary Other abnormal glucose PCOS (polycystic ovarian syndrome) Polycystic ovaries documented in this encounter [facility] Chief Complaint and Reason for Visit Chief Complaint M79.672 Chief Complaint Unknown Advance Directives Advance Directive Response Recorded Date/ Time Advance Directives No April 13 5:13pm Summary Purpose Family History No Family History Records FoundNo Family History Records FoundNo Family History Records Found Additional Source Comments Care Teams (unrecognized sec tion and content) Team Status: Inactive Member Role Status Dates Sb Lopez DPM MS Attending Provider Active Special Librarian Relationship Specialty Start Date End Date Brian Jacobs MD [address] [place] [phone] PCP - General Family Medicine 06/13/24 Special Librarian Relationship Specialty Start Date End Date Brian Jacobs MD [address] [place] [phone] PCP - General Family Medicine 06/13/24 Special Librarian Relationship Specialty Start Date End Date Brian Jacobs MD [address] [place] [phone] PCP - General Family Medicine 06/13/24 Special Librarian Relationship Specialty Start Date End Date Brian Jacobs MD [address] [place] [phone] PCP - General Family Medicine 06/13/24 Team Status: Inactive Member Role Status Dates Shaikh Jc MD Attending Provider Active Sta rt: June 17, 2024 End: June 17, 2024 Special Librarian Relationship Specialty Start Date End Date Brian Jacobs MD [address] [place] [phone] PCP - General Family Medicine 06/13/24 Special Librarian Relationship Specialty Start Date End Date Brian Jacobs MD [address] [place] [phone] PCP - General Family Medicine 06/13/24 Special Librarian Relationship Specialty Start Date End Date Brian Jacobs MD [address] [place] [phone] PCP - General Family Medicine 06/13/24 Goals (unrecognized section and content) Goals may be documented in a n alternate sectionGoals may be documented in an alternate section INFORMATION SOURCE (unrecogn ized section and content) DATE CREATED AUTHOR 12/17/2022 [facility] DATE CREATED AUTHOR AUTHOR'S ORGANIZ ATION 06/22/2024 [facility] DATE CREATED AUTHOR AUTHOR'S ORGANIZ ATION 06/27/2024 [facility] EPIC Reason for Visit (unrecogniz ed section and content) Reason Comments Follow-up Would like to be jasmin al for hoshimoto's and possible for RA Back Pain Reason Comments Post-op Patient presents pos t op lap appy 06/17/24 . Patients pain is mostly subsided . She feels jittery and has labored breathing. Also has brain fog, stumbling over words. Lowest incision is tender. Little oozing of lowest incision which is clear. Reason Comments Follow-up [facility] FOR RECORDS PERTAINING TO PATIENTS WHO ARE [...] BE BASED ON THE PRIMARY CLINICAL RECORDS. [employer] provides no warranty or guarantee of the accuracy or completeness of information in this document.
== END 2024-07-10 10:58 | disposition home or self-care (01) ==
LOC: US 10:57
PROVIDERS: PCP Family Medicine; Visit Provider Family Medicine
DX: E28.2 Polycystic ovarian syndrome (principal); M25.50 Pain in unspecified joint
CPT/HCPCS: 36415; 76830; 76856; 86038

== ENCOUNTER 2024-07-10 12:05 | Outpatient (OUT) | payer BC, SELFPAY ==
--- OUTSIDE RECORDS SUMMARY | 2024-07-10 12:24 | XMS_ITS | CCD ---
Author Organization [facility] Care Team Providers Care Robotics Application Engineer Name Role Phone GABBIE Lopez Attending Provider [phone] REYNALDO, DR BRIAN Akins Primary Care Unavailable [...] Unavailable Brian Jacobs MD Primary Care Provider Shaikh Greene Attending Unavailable Shaikh Greene Admitting [...] Bacteria identified Cx Nom (U) Mixed urogenital cnythia [facility] Bacteria identified Cx Nom (U) Less than 10,000 colonies/mL [facility] Bacteria identified Cx Nom (U) Performed at: [facility] Bacteria identified Cx Nom (U) [address] [place] [address] [phone] [facility] Bacteria identified Cx Nom (U) Chief Telephone Operator: David Dietz PhD, Phone: [phone] [facility] Healthcar e Jose Raul 06-17-2024 L Specimen: [id number] Received: 06/19/24 Status: DELROY Gray Num: [id number] Spec Type: Surgical Subm Dr: Holli Lemus DO Tissues: A Appendix - Other than Incidental (APPENDIX) Procedures: HE/2, Gross/Micro L3 Age/ Patient Sex Location Account Attending Physician Samantha Solis Y 28/ LABELL [id number] Shaikh Jc MD SPEC NUM: [id number] RECD: 06/19/24 STATUS: DELROY GRAY NUM: [id number] KATE: 06/17/[address]: Holli Lemus DO ENTERED: 06/19/[address]: Gaby Aponte MD SPEC TYPE: Surgical DEPT: [facility] ENTERED BY: [id number] RECV BY: [id number] ORDERED: HE/2, Gross/Micro L3 ORDERED: ROBB, Gross/Micro [...] The lumen is filled with purulent debris. [facility] Worker sections are submitted as follows: A1 proximal margin and cross-section A2 distal tip bisected CPT Codes 11048 Specimen: [id number] Received: 06/19/24 Status: DELROY Gray Num: [id number] Spec Type: Surgical Subm Dr: Holli Lemus, DO Tissues: A Appendix - Other than Incidental (APPENDIX) Procedures: ROBB/Marla, Gross/Micro L3 Patient: Samantha Solis [id number] (Continued) Signed (signatur e on file) Dario Alejo MD 06/20/24 1517 Normal [facility] ALL CBC WITH AUTO DIFFon BASOPHILS ABSOLUTE AUTO 0.1 [facility] Basophils/100 WBC (Bld) 0.6 % 0.2 - 2.0 % [facility] Eosinophils/100 WBC (Bld) 2.4 % 0.9 - 7.0 % [facility] Erythrocyte distribution width (RBC) [Ratio] 13.2 % 11.0 - 15.0 % [facility] Hematocrit (Bld) [Volume fraction] 42.4 % 36.0 - 48.0 % [facility] [Mass/Vol] 14.7 g/dL 12.0 - 16.0 g/dL [facility] IMMATURE GRANULOCYTES ABS AUTO 0.02 [facility] Immature granulocytes/100 WBC (Bld) 0.2 % 0.0 - 0.5 % [facility] Interpretation and review of laboratory results Abnormal [facility] LYMPHOCYTES ABSOLUTE AUTO 1.8 [facility] Lymphocytes/100 WBC (Bld) 18.2 % Low 20.5 - 60.0 % [facility] MCH (RBC) [Entitic mass] 29.7 pg 26.7 - 34.0 pg [facility] MCHC (RBC) [Mass/Vol] 34.7 g/dL 29.9 - 35.2 g/dL [facility] MCV (RBC) [Entitic vol] 85.7 fL 81.0 - 99.0 fL [facility] MONOCYTES ABSOLUTE AUTO 0.4 [facility] Monocytes/100 WBC (Bld) 4.0 % 1.7 - [...] PATRICIA KELLEY Date: 2022-12-15 12:37 Normal [facility] CBC AUTO DIFFon 03-02-2022 BASO # 0.1 103/ul Normal 0.0-0.1 [facility] Comment on above: Performed By: #### C BC #### [facility] [address] [place] [address] Dr. Mike Nails Basophils/100 WBC (Bld) 0.7 % Normal 0.2-2.0 [facility] Comment on above: Performed By: #### C BC #### [facility] [address] [place] [address] Dr. Mike Nails EO # 0.6 103/ul Normal 0.0-0.7 [facility] Comment on above: Performed By: #### C BC #### [facility] [address] [address] [address] Mike Nails Eosinophils/100 WBC (Bld) 5.7 % Normal 0.9-7.0 [facility] Comment on above: Performed By: #### C BC #### [facility] [address] [address] [address] Mike Nails Erythrocyte distribution width (RBC) [Ratio] 13.2 % Normal 11.0-15.0 [facility] Comment on above: Performed By: #### C BC #### [facility] [address] [place] [address] Dr. Mike Nails Hematocrit (Bld) [Volume fraction] 41.6 % Normal 36.0-48.0 [facility] Comment on above: Performed By: #### C BC #### [facility] [address] [place] [address] Dr. Mike Nails Hemoglobin (Bld) [Mass/Vol] 13.7 g/dL Normal 12.0-16.0 [facility] Comment on above: Performed By: #### C BC #### [facility] [address] [place] [address] Dr. Mike Nails IG # 0.02 10e3/ul Normal 0.00-0.03 [facility] Comment on above: Performed By: #### C BC #### [facility] [address] [place] [address] Dr. Mike Nails IG % 0.2 % Normal 0.0-0.5 [facility] Comment on above: Performed By: #### C BC #### [facility] [address] [place] [address] Dr. Mike Nails LYMPH # 2.6 103/ul Normal 1.2-3.8 [facility] Comment on above: Performed By: #### C BC #### [facility] [address] [place] [address] Dr. Mike Nails Lymphocytes/100 WBC (Bld) 26.3 % Normal 20.5-60.0 [facility] Comment on above: Performed By: #### C BC #### [facility] [address] [place] [address] Dr. Mike Nails MANUAL DIFF REQ NO Normal [facility] Comment on above: Performed By: #### C BC #### [facility] [address] [place] [address] Dr. Mike Nails MCH (RBC) [Entitic mass] 28.7 pg Normal 26.7-34.0 [facility] Comment on above: Performed By: #### C BC #### [facility] [address] [place] [address] Dr. Mike Nails MCHC (RBC) [Mass/Vol] 32.9 g/dL Normal 29.9-35.2 [facility] Comment on above: Performed By: #### C BC #### [facility] [address] [place] [address] Dr. Mike Nails MCV (RBC) [Entitic vol] 87.0 fL Normal 81.0-99.0 [facility] Comment on above: Performed By: #### C BC #### [facility] [address] [place] [address] Dr. Mike Nails MONO # 0.5 103/ul Normal 0.3-0.8 [facility] Comment on above: Performed By: #### C BC #### [facility] [address] [place] [address] Dr. Mike Nails Monocytes/100 WBC (Bld) 5.5 % Normal 1.7-12.0 [facility] Comment on above: Performed By: #### C BC #### [facility] [address] [place] [address] Dr. Mike Nails NEUT # 6.0 103/ul Normal 1.4-6.5 [facility] Comment on above: Performed By: #### C BC #### [facility] [address] [place] [address] Dr. Mike Nails Neutrophils/100 WBC (Bld) 61.6 % Normal 43.0-75.0 [facility] Comment on above: Performed By: #### C BC #### [facility] [address] [place] [address] Dr. Mike Nails Platelet mean volume (Bld) [Entitic vol] 8.7 fL Critically low 9.5-13.5 [facility] Comment on above: Performed By: #### C BC #### [facility] [address] [place] [address] Dr. Mike Nails PLT 369 103/ul Normal 150-450 [facility] Comment on above: Performed By: #### C BC #### [facility] [address] [place] [address] Dr. Mike Nails RBC 4.78 106/ul Normal 4.20-5.40 [facility] Comment on above: Performed By: #### C BC #### [facility] [address] [place] [address] Dr. Mike Nails WBC 9.7 103/ul Normal 4.0-11.0 [facility] Comment on above: Performed By: #### C BC #### [facility] [address] [place] [address] Dr. Mike Nails GLYCOHEMOGLOBIN A1Con 2021 ADA RECOMMENDATION SEE BELOW Normal [facility] Comment on above: Result Comment: ADA RECOMMENDED LIMIT 4.0 - 6.0 ADA THERAPEUTIC TARGET < 7.0 ACTION SUGGESTED > 7.0 Performed By: #### A 1C #### [facility] [address] [place] [address] Dr. Mike Nails Glucose [Mass/Vol] 105 mg/dL Normal [facility] Comment on above: Performed By: #### A 1C #### [facility] [address] [place] [address] Dr. Mike Nails HbA1c (Bld) [Mass fraction] 5.3 % Normal 4.5-6.2 [facility] Comment on above: Performed By: #### A 1C #### [facility] [address] [place] [address] Dr. Mike Nails LIPID PROFILEon 03-02-2022 CHOL-HDL RATIO NORM SEE BELOW Normal [facility] Comment on above: Result Comment: 3.3 - 4.4 LOW RISK 4.4 - 7.1 AVERAGE RISK 7.1 - 11.0 MODERATE RISK >11.0 HIGH RISK Performed By: #### B MP, LIPID, TSH, LIVER #### [facility] [address] [place] [address] Dr. Mike Nails Cholesterol [Mass/Vol] 198 mg/dL Normal <=200 [facility] Comment on above: Performed By: #### B MP, LIPID, TSH, LIVER #### [facility] [address] [address] [address] Mike Nails Cholesterol in HDL [Mass/Vol] 48 mg/dL Normal 40-60 [facility] Comment on above: Performed By: #### B MP, LIPID, TSH, LIVER #### [facility] [address] [address] [address] Mike Nails Cholesterol in LDL [Mass/Vol] 136.6 mg/dL Normal [facility] Comment on above: Performed By: #### B MP, LIPID, TSH, LIVER #### [facility] [address] [address] [address] Mike Nails Cholesterol.total/Cho lesterol in HDL [Mass ratio] 4.1 {ratio} Normal [facility] Comment on above: Performed By: #### B MP, LIPID, TSH, LIVER #### [facility] [address] [address] [address] Mike Nails HDL NORMAL > or = 60 mg/dl - LOW CARDIOVASCULAR RISK <40 mg/dl - HIGH CARDIOVASCULAR RISK Normal [facility] Comment on above: Performed By: #### B MP, LIPID, TSH, LIVER #### [facility] [address] [address] [address] Mike Nails LDL CALC NORMAL SEE BELOW Normal [facility] Comment on above: Result Comment: <100 mg/dl OPTIMAL 100 - 129 mg/dl NEAR OR ABOVE OPTIMAL 130 - 159 mg/dl BORDERLINE HIGH 160 - 189 mg/dl HIGH >190 mg/dl VERY HIGH Performed By: #### B MP, LIPID, TSH, LIVER #### [facility] [address] [address] [address] Mike Nails Triglyceride [Mass/Vol] 67 mg/dL Normal <=150 [facility] Comment on above: Performed By: #### B MP, LIPID, TSH, LIVER #### [facility] [address] [address] [address] Mike Nails VLDL CALC 13.4 mg/dL Normal [facility] Comment on above: Performed By: #### B MP, LIPID, TSH, LIVER #### [facility] [address] [address] [address] Mike Nails LIVER PROFILEon 03-02-2022 Albumin [Mass/Vol] 3.7 g/dL Normal 3.4-5.0 [facility] Comment on above: Performed By: #### B MP, LIPID, TSH, LIVER #### [facility] [address] [place] [address] Dr. Mike Nails Albumin/Globulin [Mass ratio] 0.8 {ratio} Normal [facility] Comment on above: Performed By: #### B MP, LIPID, TSH, LIVER #### [facility] [address] [place] [address] Dr. Mike Nails ALP [Catalytic activity/Vol] 87 U/L Normal 46-116 [facility] Comment on above: Performed By: #### B MP, LIPID, TSH, LIVER #### [facility] [address] [place] [address] Dr. Mike Nails ALT [Catalytic activity/Vol] 9 U/L Critically low 14-59 [facility] Comment on above: Performed By: #### B MP, LIPID, TSH, LIVER #### [facility] [address] [place] [address] Dr. Mike Nails AST [Catalytic activity/Vol] 17 U/L Normal 15-37 [facility] Comment on above: Performed By: #### B MP, LIPID, TSH, LIVER #### [facility] [address] [place] [address] Dr. Mike Nails BILI, CONJUGATED 0.1 mg/dL Normal 0.0-0.2 [facility] Comment on above: Performed By: #### B MP, LIPID, TSH, LIVER #### [facility] [address] [place] [address] Dr. Mike aNils Bilirubin [Mass/Vol] 0.4 mg/dL Normal 0.2-1.0 [facility] Comment on above: Performed By: #### B MP, LIPID, TSH, LIVER #### [facility] [address] [place] [address] Dr. Mike Nails Globulin (S) [Mass/Vol] 4.9 g/dL Normal [facility] Comment on above: Performed By: #### B MP, LIPID, TSH, LIVER #### [facility] [address] [place] [address] Dr. Mike Nails Protein [Mass/Vol] 8.6 g/dL Critically high 6.4-8.2 [facility] Comment on above: Performed By: #### B MP, LIPID, TSH, LIVER #### [facility] [address] [place] [address] Dr. Mike Nails PROF CHEM 8 (BAS METB)on Anion gap [Moles/Vol] 11.4 mmol/L Normal [facility] Comment on above: Performed By: #### B MP, LIPID, TSH, LIVER #### [facility] [address] [place] [address] Dr. Mike Nails Calcium [Mass/Vol] 9.2 mg/dL Normal 8.5-10.1 [facility] Comment on above: Performed By: #### B MP, LIPID, TSH, LIVER #### [facility] [address] [place] [address] Dr. Mike Nails Chloride [Moles/Vol] 104 mmol/L Normal 98-107 [facility] Comment on above: Performed By: #### B MP, LIPID, TSH, LIVER #### [facility] [address] [place] [address] Dr. Mike Nails CO2 [Moles/Vol] 28.7 mmol/L Normal 21.0-32.0 [facility] Comment on above: Performed By: #### B MP, LIPID, TSH, LIVER #### [facility] [address] [place] [address] Dr. Mike Nails Creatinine [Mass/Vol] 0.80 mg/dL Normal 0.55-1.02 [facility] Comment on above: Performed By: #### B MP, LIPID, TSH, LIVER #### [facility] [address] [place] [address] Dr. Mike Nails EGFR-AF MONGOLIAN >60 Normal >=60 [facility] Comment on above: Performed By: #### B MP, LIPID, TSH, LIVER #### [facility] [address] [address] [address] Mike Nails EGFR-NON AF MONGOLIAN >60 Normal >=60 [facility] Comment on above: Performed By: #### B MP, LIPID, TSH, LIVER #### [facility] [address] [place] [address] Dr. Mike Nails Glucose [Mass/Vol] 88 mg/dL Normal 74-106 [facility] Comment on above: Performed By: #### B MP, LIPID, TSH, LIVER #### [facility] [address] [place] [address] Dr. Mike Nails Potassium [Moles/Vol] 4.1 mmol/L Normal 3.5-5.1 [facility] Comment on above: Performed By: #### B MP, LIPID, TSH, LIVER #### [facility] [address] [place] [address] Dr. Mike Nails Sodium [Moles/Vol] 140 mmol/L Normal 136-145 [facility] Comment on above: Performed By: #### B MP, LIPID, TSH, LIVER #### [facility] [address] [place] [address] Dr. Mike Nails Urea nitrogen [Mass/Vol] 15.0 mg/dL Normal 7.0-18.0 [facility] Comment on above: Performed By: #### B MP, LIPID, TSH, LIVER #### [facility] [address] [place] [address] Dr. Mike Nails Urea nitrogen/Creatinine [Mass ratio] 18.8 mg/mg Normal [facility] Comment on above: Performed By: #### B MP, LIPID, TSH, LIVER #### [facility] [address] [place] [address] Dr. Mike Nails TSHon 03-02-2022 TSH 1.489 uIU/mL Normal 0.358-3.740 [facility] Comment on above: Performed By: #### B MP, LIPID, TSH, LIVER #### [facility] [address] [address] [address] Mike Nails XR FOOT LT MIN [...] by: RHODA CARPENTER Date: 2022-03-02 15:24 Normal [facility] Vital Signs Date Time Vital Sign Value Performing Clinician Faci [facility] 07-06-2024 11:22-0400 Body height 162.6 cm Brian Jacobs MD Work Phone: [facility] 07-06-2024 11:22-0400 Body mass index (BMI) [Ratio] 33.3 kg/m2 Brian Jacobs MD Work Phone: [facility] 07-06-2024 11:22-0400 Body temperature 96.4 [degF] Brian Jacobs MD Work Phone: [facility] 07-06-2024 11:22-0400 Body weight 88 kg Brian Jacobs MD Work Phone: [facility] 07-06-2024 11:22-0400 Diastolic blood pressure 76 mm[Hg] Brian Jacobs MD Work Phone: [facility] 07-06-2024 11:22-0400 Heart rate 96 /min Brian Jacobs MD Work Phone: [facility] 07-06-2024 11:22-0400 Respiratory rate 20 /min Brian Jacobs MD Work Phone: [facility] 07-06-2024 11:22-0400 SaO2% (BldA) [Mass fraction] 98 % Brian Jacobs MD Work Phone: [facility] 07-06-2024 11:22-0400 Systolic blood pressure 130 mm[Hg] Brian Jacobs MD Work Phone: [facility] 06-26-2024 10:06-0400 Diastolic blood pressure 72 mm[Hg] Holli Lemus DO Work Phone: [facility] 06-26-2024 10:06-0400 Systolic blood pressure 108 mm[Hg] Holli Lemus DO Work Phone: [facility] 06-13-2024 10:36-0400 Body height 162.6 cm Brian Jacobs MD Work Phone: [facility] 06-13-2024 10:36-0400 Body mass index (BMI) [Ratio] 33.64 kg/m2 Brian Jacobs MD Work Phone: [facility] 06-13-2024 10:36-0400 Body temperature 97.5 [degF] Brian Jacobs MD Work Phone: [facility] 06-13-2024 10:36-0400 Body weight 88.91 kg Brian Jacobs MD Work Phone: [facility] 06-13-2024 10:36-0400 Diastolic blood pressure 80 mm[Hg] Brian Jacobs MD Work Phone: [facility] 06-13-2024 10:36-0400 Heart rate 91 /min Brian Jacobs MD Work Phone: [facility] 06-13-2024 10:36-0400 Respiratory rate 20 /min Brian Jacobs MD Work Phone: [facility] 06-13-2024 10:36-0400 SaO2% (BldA) [Mass fraction] 98 % Brian Jacobs MD Work Phone: [facility] 06-13-2024 10:36-0400 Systolic blood pressure 124 mm[Hg] Brian Jacobs MD Work Phone: [facility] Encounters Encounter Date Encounter Type Care Provider [...] Start: 06-17-2024 End: 06-17-2024 ambulatory Shaikh Jc Facility:[facility] Start: 06-17-2024 End: 06-17-2024 Departed Referred MD Shaikh Greene Work Phone: [facility] Start: 06-16-2024 End: 06-19-2024 Clinisync Result [...] encounter procedure DPM Sb Lopez Work Phone: [facility] Start: 03-04-2022 Encounter for genera l adult medical examination without abnormal findings DR BRIAN JACOBS [facility] Start: 03-02-2022 End: 03-03-2022 Encounter for [...] Visit [facility] [address] [place] [id number] Brian Jacobs MD [address] [place] [phone] Arrived [facility] Comment on above: Arrived Start: 06-26-2024 End: 06-26-2024 Patient encounter procedure 06/26/2024 10:00 AM EDT Office Visit [facility] [address] [place] [phone] Holli Lemus DO [address] [place] [address] Arrived [facility] Comment on [...] unspecified joint Expected: 06/13/2024 (Approximate), Expires: 06/13/2025 [facility] Comment on above: Expected: 06/13/2024 (Approximate), Expires: 06/13/2025 Start: 06-13-2024 End: 06-13-2025 CBC W Auto Differential panel - Blood CBC and differential Lab Routine Arthralgia, unspecified joint PCOS (polycystic ovarian syndrome) Expected: 06/13/2024 (Approximate), Expires: 06/13/2025 [facility] Comment on above: Expected: 06/13/2024 (Approximate), Expires: 06/13/2025 Start: 06-13-2024 End: 06-13-2025 Erythrocyte sedimentation rate Sedimentation rate, automated Lab Routine Arthralgia, unspecified joint Expected: 06/13/2024 (Approximate), Expires: 06/13/2025 [facility] Comment on above: Expected: 06/13/2024 (Approximate), Expires: 06/13/2025 Start: 06-13-2024 End: 06-13-2025 Hemoglobin A1c/Hemoglobin.total in Blood Hemoglobin A1c Lab Routine PCOS (polycystic ovarian syndrome) Expected: 06/13/2024 (Approximate), Expires: 06/13/2025 [facility] Comment on above: Expected: 06/13/2024 (Approximate), Expires: 06/13/2025 Start: 06-13-2024 End: 06-13-2025 Insulin, fasting Insulin, fasting Lab Routine PCOS (polycystic ovarian syndrome) Expected: 06/13/2024 (Approximate), Expires: 06/13/2025 [facility] Comment on above: Expected: 06/13/2024 (Approximate), Expires: 06/13/2025 Start: 06-13-2024 End: 06-13-2025 Rheumatoid factor [Units/volume] in Serum or Plasma Rheumatoid factor Lab Routine Arthralgia, unspecified joint Expected: 06/13/2024 (Approximate), Expires: 06/13/2025 [facility] Comment on above: Expected: 06/13/2024 (Approximate), Expires: 06/13/2025 Start: 06-13-2024 End: 06-13-2025 Thyroglobulin Thyroglobulin Lab Routine Fatigue, unspecified type Hair loss Expected: 06/13/2024 (Approximate), Expires: 06/13/2025 [facility] Comment on above: Expected: 06/13/2024 (Approximate), Expires: 06/13/2025 Start: 06-13-2024 End: 06-13-2025 Thyroid peroxidase antibody Thyroid peroxidase antibody Lab Routine Fatigue, unspecified type Hair loss Expected: 06/13/2024 (Approximate), Expires: 06/13/2025 [facility] Comment on above: Expected: 06/13/2024 (Approximate), Expires: 06/13/2025 Start: 06-13-2024 End: 06-13-2025 Thyroid stimulating immunoglobulin Thyroid stimulating immunoglobulin Lab Routine Fatigue, unspecified type Hair loss Expected: 06/13/2024 (Approximate), Expires: 06/13/2025 [facility] Comment on above: Expected: 06/13/2024 (Approximate), Expires: 06/13/2025 Start: 06-13-2024 End: 06-13-2025 Thyrotropin [Units/volume] in Serum or Plasma TSH Lab Routine Fatigue, unspecified type Hair loss Obesity (BMI 30-39.9) Expected: 06/13/2024 (Approximate), Expires: 06/13/2025 [facility] Work Phone: Comment on above: Expected: 06/13/2024 (Approximate), Expires: 06/13/2025 Start: 06-13-2024 End: 06-13-2025 Thyroxine (T4) free [Mass/volume] in Serum or Plasma T4, free Lab Routine Fatigue, unspecified type Hair loss Expected: 06/13/2024 (Approximate), Expires: 06/13/2025 [facility] Comment on above: Expected: 06/13/2024 (Approximate), Expires: 06/13/2025 Start: 06-13-2024 End: 06-13-2025 Triiodothyronine (T3) Free [Mass/volume] in Serum or Plasma T3, free Lab Routine Fatigue, unspecified type Hair loss Expected: 06/13/2024 (Approximate), Expires: 06/13/2025 [facility] Comment on above: Expected: 06/13/2024 (Approximate), Expires: 06/13/2025 Start: 06-13-2024 End: 06-13-2025 US Thyroid gland US thyroid Imaging Routine Thyromegaly ([facility]) Expected: 06/13/2024, Expires: 06/13/2025 [facility] Comment on above: Expected: 06/13/2024 , Expires: 06/13/2025 Start: 06-13-2024 End: 06-13-2024 Patient encounter procedure 06/13/2024 10:30 AM EDT [facility] [address] [place] [address] Brian Jacobs MD [address] [place] [phone] Arrived [facility] Comment on above: Arrived Start: 05-14-2024 Influenza vaccination Influenza Vacc ine (#1) [facility] Payers Date Payer Category Payer Self-pay 2020 [employer] [id number] 2020 Unknown [employer]BS BCBS xxxxxx [id number] 2020-Present [phone] [address] [place] [address] [id number] 1994 Unknown [id number] 1994 Unknown [id number] 1994 Unknown [id number] 1994 Unknown [id number] 1994 Unknown [id number] 1994 Unknown [id number] 1959 Unknown [id number] Unknown [id number] Social History Date Type Detail Facility Tobacco smoking status PAIS Unknown if ever smoked [facility] Work Phone: Start: 1995 Sex Assigned At Female [facility] Tobacco smoking status PAIS Tobacco smoking consumption unknown [facility] Start: [...] Note Facility Evaluation note [facility]: Evaluation note Note Date [...] Sb Lopez DPM MS Attending Provider Active Robotics Application Engineer Relationship Specialty Start Date End Date Brian Jacobs MD [address] [place] [phone] PCP - General Family Medicine 06/13/24 Robotics Application Engineer Relationship Specialty Start Date End Date Brian Jacobs MD [address] [place] [phone] PCP - General Family Medicine 06/13/24 Robotics Application Engineer Relationship Specialty Start Date End Date Brian Jacobs MD [address] [place] [phone] PCP - General Family Medicine 06/13/24 Robotics Application Engineer Relationship Specialty Start Date End Date Brian Jacobs MD [address] [place] [phone] PCP - General Family Medicine 06/13/24 Team Status: Inactive Member Role Status Dates Shaikh Jc MD Attending Provider Active Sta rt: June 17, 2024 End: June 17, 2024 Robotics Application Engineer Relationship Specialty Start Date End Date Brian Jacobs MD [address] [place] [phone] PCP - General Family Medicine 06/13/24 [employer]otics Application Engineer Relationship Specialty Start Date End Date Brian Jacobs MD [address] [place] [phone] PCP - General Family Medicine 06/13/24 Robotics Application Engineer Relationship Specialty Start Date End Date Brian Jacobs MD [address] [place] [phone] PCP - General Family Medicine 06/13/24 Goals (unrecognized section and content) Goals may be documented in a n alternate sectionGoals may be documented in an alternate section INFORMATION SOURCE (unrecogn ized section and content) DATE CREATED AUTHOR 12/17/2022 [facility] DATE CREATED AUTHOR AUTHOR'S ORGANIZ ATION 06/22/2024 [facility] DATE CREATED AUTHOR AUTHOR'S ORGANIZ ATION 06/27/2024 [facility] EPIC Reason for Visit [...] BE BASED ON THE PRIMARY CLINICAL RECORDS. [employer] provides no warranty or guarantee of the accuracy or completeness of information in this document.
== END 2024-07-10 12:06 | disposition home or self-care (01) ==
LOC: LAB 12:06
PROVIDERS: PCP Family Medicine; Visit Provider Family Medicine
DX: M25.50 Pain in unspecified joint (principal)
CPT/HCPCS: 36415; 86038

== ENCOUNTER 2024-08-04 20:37 | Emergency (ER) | payer BC, SELFPAY ==
[2024-08-04 20:40] VITALS: BP 148/90; PULSE 88; TEMP 36.9; O2SAT 99; BMI 33.5
--- OUTSIDE RECORDS SUMMARY | 2024-08-04 20:41 | XMS_ITS | CCD ---
Author Organization [facility] Care Team Providers Care Medical Representative Name Role Phone GABBIE Lopez Attending Provider [...] BRIAN Akins Primary Care Unavailable NADERER, DR BRAIN Akins Consulting Unavailable NADERER, DR BRIAN Akins [...] aspirin 81 mg delayed release oral tablet (4 sources) Platelet Aggregation Inhibitor, Nonsteroidal Anti-inflammatory Drug take 1 tablet by mouth once daily aspirin 81 MG EC tablet Take 81 mg by mouth Daily Active 24 hr metFORMIN hydrochloride 500 mg extended release oral tablet (4 sources) Biguanide Start: 07-06-2024 take 1 tablet by mouth every twenty-four hours at mealtime metFORMIN XR (Glucophage-XR) 500 MG 24 hr tablet Indications: Insulin resistance , PCOS (polycystic ovarian syndrome) Take 1 tablet (500 mg) by mouth in the evening. Take with meals Do not crush, chew, or split. 30 tablet 5 07/06/2024 Active Problems Active Problems Problem Classification Problem Date Documented Date Episodic/Chronic Immunizations and screening for infectious disease (3 sources) Anti-nuclear factor positive; Translations: [Other specified abnormal immunological findings in serum] Onset: 07-12-2024 07-12-2024 Episodic Malaise and fatigue (14 sources) Fatigue; Translations: [Other fatigue] Onset: 06-13-2024 06-13-2024 Episodic Other acquired deformities (1 source) Contracture, left ankle; Translations: [CONTRACTURE LEFT ANKLE] Onset: 04-24-2022 Chronic Other endocrine disorders (16 sources) Polycystic ovary syndrome; Translations: [Polycystic ovarian syndrome] Onset: 06-13-2024 06-13-2024 Chronic Other non-traumatic joint disorders (16 sources) Joint pain; Translations: [Pain in unspecified joint] Onset: 06-13-2024 06-13-2024 Episodic Other nutritional; endocrine; and metabolic disorders (14 sources) Body mass index 30+ - obesity; Translations: [Obesity, unspecified] Onset: 06-13-2024 06-13-2024 Chronic Other nutritional; endocrine; and metabolic disorders (11 sources) Insulin resistance; Translations: [Insulin resistance] Onset: 06-15-2024 06-15-2024 Chronic Other skin disorders (14 sources) Loss of hair; Translations: [Nonscarring hair loss, unspecified] Onset: 06-13-2024 06-13-2024 Episodic Past or Other Problems Problem Classification Problem Date Documented Date Episodic/Chronic Neoplasms of unspecified nature or uncertain behavior (12 sources) Thrombocytosis; Translations: [Thrombocythemia] Onset: 06-13-2024 Resolved: [...] AND MOBILITY] Onset: 04-24-2022 Episodic Thyroid disorders (14 sources) Goiter; Translations: [Iodine-deficiency related diffuse (endemic) goiter] Onset: 06-13-2024 Resolved: 07-06-2024 06-13-2024 Chronic Results Test Name Value Interpretation Reference Range Facility ANTINUCLEAR ANTIBODIES, IFAo n 07-12-2024 ANTINUCLEAR ANTIBODIES, IFA Positive Abnormal . [facility] Comment on above: Negative <1:80 Borderline 1:80 Positive >1:80 CENTRIOLE PATTERN TNP . [facility] CENTROMERE PATTERN TNP . [facility] HOMOGENEOUS PATTERN TNP . [facility] Interpretation and review of laboratory results Abnormal [facility] MIDBODY PATTERN TNP . [facility] NOTE: Comment . [facility] Comment on above: Pattern Potential Di sease Association Homogeneous Systemic Lupus Erythematosus, Drug Induced Systemic Lupus Erythematosus, Chronic Autoimmune hepatitis, Juvenile Idiopathic Arthritis Speckled Sjogren Syndrome, Systemic Lupus Erythematosus, Subacute Cutaneous Lupus, Lupus, Congenital Heart Block, Mixed Connective Tissue Disease, Scleroderma-diffuse, Scleroderma-Autoimmune Myositis Overlap Syndrome, Systemic Lupus Heydsevogvjno-Csofvqgtitd-Qqdomgrvvi Myositis Overlap Syndrome, Systemic Autoimmune Rheumatic Disease, Undifferentiated Connective Tissue Disease Nucleolar Systemic Sclerosis, Scleroderma-Autoimmune Myositis Overlap Syndrome, Sjogren Syndrome, Raynaud phenomenon, Pulmonary Arterial Hypertension, Systemic Autoimmune Rheumatic Disease, Cancer Centromere Scleroderma-CREST, Limited Cutaneous SSc, Raynaud's Phenomenon, Primary Biliary Cholangitis Nuclear Dot Primary Biliary Cholangitis Nuclear Primary Biliary Cholangitis, Autoimmune Membrane Hepatitis/Liver disease, Systemic Autoimmune Rheumatic Disease, Autoimmune Cytopenias, Linear Scleroderma, Antiphospholipid Syndrome Performed at: [address] [id number] Waterproof Bag Sewer: David Dietz PhD, Phone: [phone] NUCLEAR DOT PATTERN TNP . [facility] NUCLEAR MEMBRANE PATTERN TNP . [facility] NUCLEOLAR PATTERN TNP . [facility] PCNA PATTERN TNP . [facility] SPECKLED PATTERN >1:1280 Abnormal . [facility] Comment on above: ICAP nomenclature: A C-2,4,5,29 SPINDLE APPARATUS PATTERN TNP . [facility] URINE CULTURE, ROUTINEon Bacteria identified Cx Nom (U) Urine Culture, Routine [facility] Bacteria identified Cx Nom (U) Mixed urogenital cynthia [facility] Bacteria identified Cx Nom (U) Less than 10,000 colonies/mL [facility] Bacteria identified Cx Nom (U) Performed at: [facility] Bacteria identified Cx Nom (U) [address], [place] [id number] [facility] Bacteria identified Cx Nom (U) Waterproof Bag Sewer: David Dietz PhD, Phone: [phone] [facility] L Specimen: [id number] Received: 06/19/24 Status: DELROY Gray Num: [id number] Spec Type: Surgical Subm Dr: Holli Lemus DO Tissues: A Appendix - Other than Incidental (APPENDIX) Procedures: HE/2, Gross/Micro L3 Age/ Patient Sex Location Account Attending Physician RoscoeSamantha Y 28/F LABELL [id number] Shaikh Jc MD SPEC NUM: [id number] RECD: 06/19/24 STATUS: DELROY GRAY NUM: [id number] KATE: 06/17/[address]: Holli Lemus DO ENTERED: 06/19/[address]: Gaby Aponte MD SPEC TYPE: Surgical DEPT: [facility] ENTERED BY: [id number] RECV BY: [id number] ORDERED: HE/2, Gross/Micro L3 ORDERED: HE/2, Gross/Micro L3 Pathological Diagnosis Appendix, appendectomy: Acute [...] The lumen is filled with purulent debris. 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 sections are submitted as follows: A1 proximal margin and cross-section A2 distal tip bisected CPT Codes 53905 -------- -------- Specimen: [id number] Received: 06/19/24 Status: DELROY Gray Num: [id number] Spec Type: Surgical Subm Dr: Holli Lemus DO Tissues: A Appendix - Other than Incidental (APPENDIX) Procedures: HE/2, Gross/Micro L3 -------- Patient: Samantha Solis [id number] (Continued) -------- Signed (signature on file) Dario Alejo MD 06/20/24 1905 Normal [facility] ALL CBC WITH AUTO DIFFon BASOPHILS ABSOLUTE AUTO 0.1 [facility] Basophils/100 WBC (Bld) 0.6 % 0.2 - 2.0 % [facility] Eosinophils/100 WBC (Bld) 2.4 % 0.9 - 7.0 % [facility] Erythrocyte distribution width (RBC) [Ratio] 13.2 % 11.0 - 15.0 % [facility] Hematocrit (Bld) [Volume fraction] 42.4 % 36.0 - 48.0 % [facility] Hemoglobin (Bld) [Mass/Vol] 14.7 g/dL 12.0 - 16.0 g/dL [facility] IMMATURE GRANULOCYTES ABS AUTO 0.02 [facility] Immature granulocytes/100 WBC (Bld) 0.2 % 0.0 - 0.5 % [facility] Interpretation and review of laboratory results Abnormal [facility] LYMPHOCYTES ABSOLUTE AUTO 1.8 [facility] Lymphocytes/100 WBC (Bld) 18.2 % Low 20.5 - 60.0 % [facility] MCH (RBC) [Entitic mass] 29.7 pg 26.7 - 34.0 pg [facility] MCHC (RBC) [Mass/Vol] 34.7 g/dL 29.9 - 35.2 g/dL [facility] MCV (RBC) [Entitic vol] 85.7 fL 81.0 - 99.0 fL [facility] MONOCYTES ABSOLUTE AUTO 0.4 [facility] Monocytes/100 WBC (Bld) 4.0 % 1.7 - 12.0 % [facility] NEUTROPHILS ABSOLUTE AUTO 7.3 High [facility] Neutrophils/100 WBC (Bld) 74.6 % 43.0 - 75.0 % [facility] Platelet mean volume (Bld) [Entitic vol] 8.8 fL Low 9.5 - 13.5 fL [facility] EO # 0.2 [facility] TB PLT 386 [facility] RBC 4.95 [facility] WBC 9.8 [facility] XR FOOT GUAANKITO MIN 3 VIEWSon XR FOOT GUANAKITO MIN [...] by: PATRICIA KELLEY Date: 2022-12-15 12:37 Normal [facility] CBC AUTO DIFFon 03-02-2022 BASO # 0.1 103/ul Normal 0.0-0.1 [facility] Comment on above: Performed By: #### C BC #### [facility] [address] [place] [address] Dr. Mike Nails Basophils/100 WBC (Bld) 0.7 % Normal 0.2-2.0 [facility] Comment on above: Performed By: #### C BC #### [facility] [address] [place] [address] Dr. Mike Nails EO # 0.6 103/ul Normal 0.0-0.7 [facility] Comment on above: Performed By: #### C BC #### [facility] [address] [place] [address] Dr. Mike Nails Eosinophils/100 WBC (Bld) 5.7 % Normal 0.9-7.0 [facility] Comment on above: Performed By: #### C BC #### [facility] [address] [place] [address] Dr. Mike Nails Erythrocyte distribution width (RBC) [Ratio] 13.2 % Normal 11.0-15.0 [facility] Comment on above: Performed By: #### C BC #### [facility] [address] [place] [address] Dr. Mike Nails Hematocrit (Bld) [Volume fraction] 41.6 % Normal 36.0-48.0 [facility] Comment on above: Performed By: #### C BC #### [facility] [address] [place] [address] Dr. Mike Nails Hemoglobin (Bld) [Mass/Vol] 13.7 g/dL Normal 12.0-16.0 [facility] Comment on above: Performed By: #### C BC #### [facility] [address] [place] [address] Dr. Mike Nails IG # 0.02 10e3/ul Normal 0.00-0.03 [facility] Comment on above: Performed By: #### C BC #### [facility] [address] [place] [address] Dr. Mike Nails IG % 0.2 % Normal 0.0-0.5 [facility] Comment on above: Performed By: #### C BC #### [facility] [address] [place] [address] Dr. Mike Nalis LYMPH # 2.6 103/ul Normal 1.2-3.8 [facility] Comment on above: Performed By: #### C BC #### [facility] [address] [place] [address] Dr. Mike Nails Lymphocytes/100 WBC (Bld) 26.3 % Normal 20.5-60.0 [facility] Comment on above: Performed By: #### C BC #### [facility] [address] [place] [address] Dr. Mike Nails MANUAL DIFF REQ NO Normal [facility] Comment on above: Performed By: #### C BC #### [facility] [address] [place] [address] Dr. Mike Nails MCH (RBC) [Entitic mass] 28.7 pg Normal 26.7-34.0 [facility] Comment on above: Performed By: #### C BC #### [facility] [address] [place] [address] Dr. Mike Nails MCHC (RBC) [Mass/Vol] 32.9 g/dL Normal 29.9-35.2 [facility] Comment on above: Performed By: #### C BC #### [facility] [address] [place] [address] Dr. Mike Nails MCV (RBC) [Entitic vol] 87.0 fL Normal 81.0-99.0 [facility] Comment on above: Performed By: #### C BC #### [facility] [address] [place] [address] Dr. Mike Nails MONO # 0.5 103/ul Normal 0.3-0.8 [facility] Comment on above: Performed By: #### C BC #### [facility] [address] [place] [address] Dr. Mike Nails Monocytes/100 WBC (Bld) 5.5 % Normal 1.7-12.0 [facility] Comment on above: Performed By: #### C BC #### [facility] [address] [place] [address] Dr. Mike Nails NEUT # 6.0 103/ul Normal 1.4-6.5 [facility] Comment on above: Performed By: #### C BC #### [facility] [address] [place] [address] Dr. Mike Nails Neutrophils/100 WBC (Bld) 61.6 % Normal 43.0-75.0 [facility] Comment on above: Performed By: #### C BC #### [facility] [address] [place] [address] Dr. Mike Nails Platelet mean volume (Bld) [Entitic vol] 8.7 fL Critically low 9.5-13.5 [facility] Comment on above: Performed By: #### C BC #### [facility] [address] [place] [address] Dr. Mike Nails PLT 369 103/ul Normal 150-450 [facility] Comment on above: Performed By: #### C BC #### [facility] [address] [place] [address] Dr. Mike Nails RBC 4.78 106/ul Normal 4.20-5.40 [facility] Comment on above: Performed By: #### C BC #### [facility] [address] [place] [address] Dr. Mike Nails WBC 9.7 103/ul Normal 4.0-11.0 [facility] Comment on above: Performed By: #### C BC #### [facility] [address] [place] [address] Dr. Mike Nails GLYCOHEMOGLOBIN A1Con 2021 ADA RECOMMENDATION SEE BELOW Normal [facility] Comment on above: Result Comment: ADA RECOMMENDED LIMIT 4.0 - 6.0 ADA THERAPEUTIC TARGET < 7.0 ACTION SUGGESTED > 7.0 Performed By: #### A 1C #### [facility] [address] [place] [address] Dr. Mike Nails Glucose [Mass/Vol] 105 mg/dL Normal [facility] Comment on above: Performed By: #### A 1C #### [facility] [address] [address] [address] Mike Nails HbA1c (Bld) [Mass fraction] 5.3 % Normal 4.5-6.2 [facility] Comment on above: Performed By: #### A 1C #### [facility] [address] [place] [address] Dr. Mike Nails LIPID PROFILEon 03-02-2022 CHOL-HDL RATIO NORM SEE BELOW Normal [facility] Comment on above: Result Comment: 3.3 - 4.4 LOW RISK 4.4 - 7.1 AVERAGE RISK 7.1 - 11.0 MODERATE RISK >11.0 HIGH RISK Performed By: #### B MP, LIPID, TSH, LIVER #### [facility] [address] [place] [address] Dr. Mike Nails Cholesterol [Mass/Vol] 198 mg/dL Normal <=200 [facility] Comment on above: Performed By: #### B MP, LIPID, TSH, LIVER #### [facility] [address] [address] [address] Mike Nails Cholesterol in HDL [Mass/Vol] 48 mg/dL Normal 40-60 [facility] Comment on above: Performed By: #### B MP, LIPID, TSH, LIVER #### [facility] [address] [place] [address] Dr. Mike Nails Cholesterol in LDL [Mass/Vol] 136.6 mg/dL Normal [facility] Comment on above: Performed By: #### B MP, LIPID, TSH, LIVER #### [facility] [address] [address] [address] Mike Nails Cholesterol.total/Ch olesterol in HDL [Mass ratio] 4.1 {ratio} Normal [facility] Comment on above: Performed By: #### B MP, LIPID, TSH, LIVER #### [facility] [address] [address] [address] Mike Nails HDL NORMAL > or = 60 mg/dl - LO W CARDIOVASCULAR RISK <40 mg/dl - HIGH CARDIOVASCULAR RISK Normal [facility] Comment on above: Performed By: #### B MP, LIPID, TSH, LIVER #### [facility] [address] [address] [address] Mike Nails LDL CALC NORMAL SEE BELOW Normal [facility] Comment on above: Result Comment: <100 mg/dl OPTIMAL 100 - 129 mg/dl NEAR OR ABOVE OPTIMAL 130 - 159 mg/dl BORDERLINE HIGH 160 - 189 mg/dl HIGH >190 mg/dl VERY HIGH Performed By: #### B MP, LIPID, TSH, LIVER #### [facility] [address] [address] [address] Mike Nails Triglyceride [Mass/Vol] 67 mg/dL Normal <=150 [facility] Comment on above: Performed By: #### B MP, LIPID, TSH, LIVER #### [facility] [address] [address] [address] Mike Nails VLDL CALC 13.4 mg/dL Normal [facility] Comment on above: Performed By: #### B MP, LIPID, TSH, LIVER #### [facility] [address] [address] [address] Mike Nails LIVER PROFILEon 03-02-2022 Albumin [Mass/Vol] 3.7 g/dL Normal 3.4-5.0 [facility] Comment on above: Performed By: #### B MP, LIPID, TSH, LIVER #### [facility] [address] [address] [address] Mike Nails Albumin/Globulin [Mass ratio] 0.8 {ratio} Normal [facility] Comment on above: Performed By: #### B MP, LIPID, TSH, LIVER #### [facility] [address] [address] [address] Mike Nails ALP [Catalytic activity/Vol] 87 U/L Normal 46-116 [facility] Comment on above: Performed By: #### B MP, LIPID, TSH, LIVER #### [facility] [address] [address] [address] Mike Nails ALT [Catalytic activity/Vol] 9 U/L Critically low 14-59 [facility] Comment on above: Performed By: #### B MP, LIPID, TSH, LIVER #### [facility] [address] [place] [address] Dr. Mike Nails AST [Catalytic activity/Vol] 17 U/L Normal 15-37 [facility] Comment on above: Performed By: #### B MP, LIPID, TSH, LIVER #### [facility] [address] [place] [address] Dr. Mike Nails BILI, CONJUGATED 0.1 mg/dL Normal 0.0-0.2 [facility] Comment on above: Performed By: #### B MP, LIPID, TSH, LIVER #### [facility] [address] [place] [address] Dr. Mike Nails Bilirubin [Mass/Vol] 0.4 mg/dL Normal 0.2-1.0 [facility] Comment on above: Performed By: #### B MP, LIPID, TSH, LIVER #### [facility] [address] [place] [address] Dr. Mike Nails Globulin (S) [Mass/Vol] 4.9 g/dL Normal [facility] Comment on above: Performed By: #### B MP, LIPID, TSH, LIVER #### [facility] [address] [place] [address] Dr. Mike Nails Protein [Mass/Vol] 8.6 g/dL Critically high 6.4-8.2 [facility] Comment on above: Performed By: #### B MP, LIPID, TSH, LIVER #### [facility] [address] [place] [address] Dr. Mike Nails PROF CHEM 8 (BAS METB)on Anion gap [Moles/Vol] 11.4 mmol/L Normal [facility] Comment on above: Performed By: #### B MP, LIPID, TSH, LIVER #### [facility] [address] [place] [address] Dr. Mike Nails Calcium [Mass/Vol] 9.2 mg/dL Normal 8.5-10.1 [facility] Comment on above: Performed By: #### B MP, LIPID, TSH, LIVER #### [facility] [address] [address] [address] Mike Nails Chloride [Moles/Vol] 104 mmol/L Normal 98-107 [facility] Comment on above: Performed By: #### B MP, LIPID, TSH, LIVER #### [facility] [address] [address] [address] Mike Nails CO2 [Moles/Vol] 28.7 mmol/L Normal 21.0-32.0 [facility] Comment on above: Performed By: #### B MP, LIPID, TSH, LIVER #### [facility] [address] [address] [address] Mike Nails Creatinine [Mass/Vol] 0.80 mg/dL Normal 0.55-1.02 [facility] Comment on above: Performed By: #### B MP, LIPID, TSH, LIVER #### [facility] [address] [place] [address] Dr. Mike Nails EGFR-AF NIUEAN >60 Normal >=60 [facility] Comment on above: Performed By: #### B MP, LIPID, TSH, LIVER #### [facility] [address] [address] [address] Mike Nails EGFR-NON AF NIUEAN >60 Normal >=60 [facility] Comment on above: Performed By: #### B MP, LIPID, TSH, LIVER #### [facility] [address] [address] [address] Mike Nails Glucose [Mass/Vol] 88 mg/dL Normal 74-[address] [facility] Comment on above: Performed By: #### B MP, LIPID, TSH, LIVER #### [facility] [address] [address] [address] Mike Nails Potassium [Moles/Vol] 4.1 mmol/L Normal 3.5-5.1 [facility] Comment on above: Performed By: #### B MP, LIPID, TSH, LIVER #### [facility] [address] [address] [address] Mike Nails Sodium [Moles/Vol] 140 mmol/L Normal 136-[address] [facility] Comment on above: Performed By: #### B MP, LIPID, TSH, LIVER #### [facility] [address] [place], [place] [address] Dr. Mike Nails Urea nitrogen [Mass/Vol] 15.0 mg/dL Normal 7.0-18.0 [facility] Comment on above: Performed By: #### B MP, LIPID, TSH, LIVER #### [facility] [address] [id number] [address] Mike Nails Urea nitrogen/Creatinine [Mass ratio] 18.8 mg/mg Normal [facility] Comment on above: Performed By: #### B MP, LIPID, TSH, LIVER #### [facility] [address] [place], [place] [id number] Dr. Mike Nails TSHon 03-02-2022 TSH 1.489 uIU/mL Normal 0.358-3.740 [facility] Comment on above: Performed By: #### B MP, LIPID, TSH, LIVER #### [facility] [address] [place] [address] Dr. Mike Nails XR FOOT LT MIN [...] Date Time Vital Sign Value Performing Clinician Jaja wolff 07-06-2024 11:22-0400 Body height 162.6 cm Brian Jacobs MD Work Phone: [facility] 07-06-2024 11:22-0400 Body mass index (BMI) [Ratio] 33.3 kg/m2 Brian Jacobs MD Work Phone: [facility] 07-06-2024 11:22-0400 Body temperature 96.4 [degF] Brian Jacobs MD Work Phone: [facility] 07-06-2024 11:22-0400 Body weight 88 kg Brian Jacobs MD Work Phone: [facility] 07-06-2024 11:22-0400 Diastolic blood pressure 76 mm[Hg] Brian Jacobs MD Work Phone: [facility] 07-06-2024 11:22-0400 Heart rate 96 /min Brian Jacobs MD Work Phone: [facility] 07-06-2024 11:22-0400 Respiratory rate 20 /min Brian Jacobs MD Work Phone: [facility] 07-06-2024 11:22-0400 SaO2% (BldA) [Mass fraction] 98 % Brian Jacobs MD Work Phone: [facility] 07-06-2024 11:22-0400 Systolic blood pressure 130 mm[Hg] Brian Jacobs MD Work Phone: [facility] 06-26-2024 10:06-0400 Diastolic blood pressure 72 mm[Hg] Holliolga Lemus DO Work Phone: [facility] 06-26-2024 10:06-0400 Systolic blood pressure 108 mm[Hg] Holli Allan DO Work Phone: [facility] 06-13-2024 10:36-0400 Body height 162.6 cm Brian Jacobs MD Work Phone: [facility] 06-13-2024 10:36-0400 Body mass index (BMI) [Ratio] 33.64 kg/m2 Brian Jacobs MD Work Phone: [facility] 06-13-2024 10:36-0400 Body temperature 97.5 [degF] Brian Jacobs MD Work Phone: [facility] 06-13-2024 10:36-0400 Body weight 88.91 kg Brian Jacobs MD Work Phone: [facility] 06-13-2024 10:36-0400 Diastolic blood pressure 80 mm[Hg] Brian Jacobs MD Work Phone: [facility] 06-13-2024 10:36-0400 Heart rate 91 /min Brian Jacobs MD Work Phone: [facility] 06-13-2024 10:36-0400 Respiratory rate 20 /min Brian Jacobs MD Work Phone: [facility] 06-13-2024 10:36-0400 SaO2% (BldA) [Mass fraction] 98 % Brian Jacobs MD Work Phone: [facility] 06-13-2024 10:36-0400 Systolic blood pressure 124 mm[Hg] Brian Jacobs MD Work Phone: [facility] Healthcare Encounters Encounter Date Encounter Type Care Provider Facility Start: 07-12-2024 End: 07-12-2024 Orders Only Brian Jacobs MD Work Phone: [facility] Comment on above: Positive PEBBLES (antinu clear antibody) (Primary Dx); Arthralgia, unspecified joint Start: 07-10-2024 End: 07-12-2024 Clinisync Result Encounter Brian Jacobs MD Work Phone: [facility] External Department Unsolicited Start: 07-10-2024 End: 07-12-2024 Clinisync Result Encounter Brian Jacobs MD Work Phone: [facility] External Department Unsolicited Start: 07-06-2024 End: 07-06-2024 Bamboo flowsheet Brian [...] Start: 06-17-2024 End: 06-17-2024 ambulatory Shaikh Jc Facility:[facility] Start: 06-17-2024 End: 06-17-2024 Departed Referred MD Shaikh Greene Work Phone: [facility] Start: 06-16-2024 End: 06-19-2024 Clinisync Result [...] 25 minutes Brian Jacobs MD Work Phone: [facility] Comment on above: Fatigue, unspecified type (Primary Dx); Hair loss; Arthralgia, unspecified joint; PCOS (polycystic ovarian syndrome); Obesity (BMI 30-39.9); Thyromegaly (CMS/HCC) Start: 06-13-2024 End: 06-13-2024 ambulatory BRIAN JACOBS Not Available Start: 12-15-2022 End: 12-16-[address] BRIAN JACBOS Facility:[facility] Start: 04-20-2022 End: 05-02-[address] BRIAN JACOBS Facility:[facility] Start: 04-07-2022 End: 04-07-2022 Patient encounter procedure DPM Sb Lopez Work Phone: [facility] Start: 03-04-2022 Encounter for genera l adult medical examination without abnormal findings DR BRIAN JACOBS [facility] Start: 03-02-2022 End: 03-03-2022 Encounter for general adult medical examination without abnormal findings DR BRIAN JACOBS Facility:[facility] Start: 03-02-2022 End: 03-03-[address] BRIAN JACOBS Facility:[facility] Procedures Date Procedure Procedure Detail Performing Clinician Start: 07-10-2024 ANTINUCLEAR ANTIBODI ES, IFA Brian Jacobs MD Work Phone: Start: 06-16-2024 Bacteria identified in Urine by Culture Generic External Data Provider Start: 06-13-2024 ALL CBC WITH AUTO DIFF Brian Jacobs MD Work Phone: History of appendectomy S/P appendectomy Holli Lemus DO Work Phone: Plan of Treatment Date Care Activity Detail Author Start: 07-06-2024 End: 07-06-2025 US Pelvis US Pelvis w/ TV Imaging Routine PCOS (polycystic ovarian syndrome) Expected: 07/06/2024, Expires: 07/06/2025 [facility] Healthcare Work Phone: Comment on above: Expected: 07/06/2024 , Expires: 07/06/2025 Start: 07-06-2024 End: 07-06-2024 Patient encounter procedure 07/06/2024 11:15 AM EDT Office Visit [facility] [address] [place] [address] Brian Jacobs MD [address] [place] [address] Arrived [facility] Comment on above: Arrived Start: 06-26-2024 End: 06-26-2024 Patient encounter procedure 06/26/2024 10:00 AM EDT Office Visit [facility] [address] [place] [phone] Holli Lemus DO [address] [place] [address] Arrived [facility] Comment on [...] ovarian syndrome) Expected: 06/13/2024 (Approximate), Expires: 06/13/2025 [facility] Healthcare Comment on above: Expected: 06/13/2024 (Approximate), Expires: 06/13/2025 Start: 06-13-2024 End: 06-13-2025 Erythrocyte sedimentation rate Sedimentation rate, automated Lab Routine Arthralgia, unspecified joint Expected: 06/13/2024 (Approximate), Expires: 06/13/2025 [facility] Healthcare Comment on above: Expected: 06/13/2024 (Approximate), Expires: 06/13/2025 Start: 06-13-2024 End: 06-13-2025 Hemoglobin A1c/Hemoglobin.total in Blood Hemoglobin A1c Lab Routine PCOS (polycystic ovarian syndrome) Expected: 06/13/2024 (Approximate), Expires: 06/13/2025 [facility] Healthcare Comment on above: Expected: 06/13/2024 (Approximate), Expires: 06/13/2025 Start: 06-13-2024 End: 06-13-2025 Insulin, fasting Insulin, fasting Lab Routine PCOS (polycystic ovarian syndrome) Expected: 06/13/2024 (Approximate), Expires: 06/13/2025 [facility] Healthcare Comment on above: Expected: 06/13/2024 (Approximate), Expires: 06/13/2025 Start: 06-13-2024 End: 06-13-2025 Rheumatoid factor [Units/volume] in Serum or Plasma Rheumatoid factor Lab Routine Arthralgia, unspecified joint Expected: 06/13/2024 (Approximate), Expires: 06/13/2025 [facility] Healthcare Comment on above: Expected: 06/13/2024 (Approximate), Expires: 06/13/2025 Start: 06-13-2024 End: 06-13-2025 Thyroglobulin Thyroglobulin Lab Routine Fatigue, unspecified type Hair loss Expected: 06/13/2024 (Approximate), Expires: 06/13/2025 [facility] Comment on above: Expected: 06/13/2024 (Approximate), Expires: 06/13/2025 Start: 06-13-2024 End: 06-13-2025 Thyroid peroxidase antibody Thyroid peroxidase antibody Lab Routine Fatigue, unspecified type Hair loss Expected: 06/13/2024 (Approximate), Expires: 06/13/2025 [facility] Comment on above: Expected: 06/13/2024 (Approximate), Expires: 06/13/2025 Start: 06-13-2024 End: 06-13-2025 Thyroid stimulating immunoglobulin Thyroid stimulating immunoglobulin Lab Routine Fatigue, unspecified type Hair loss Expected: 06/13/2024 (Approximate), Expires: 06/13/2025 [facility] Comment on above: Expected: 06/13/2024 (Approximate), Expires: 06/13/2025 Start: 06-13-2024 End: 06-13-2025 Thyrotropin [Units/volume] in Serum or Plasma TSH Lab Routine Fatigue, unspecified type Hair loss Obesity (BMI 30-39.9) Expected: 06/13/2024 (Approximate), Expires: 06/13/2025 [facility] Work Phone: Comment on above: Expected: 06/13/2024 (Approximate), Expires: 06/13/2025 Start: 06-13-2024 End: 06-13-2025 Thyroxine (T4) free [Mass/volume] in Serum or Plasma T4, free Lab Routine Fatigue, unspecified type Hair loss Expected: 06/13/2024 (Approximate), Expires: 06/13/2025 [facility] Comment on above: Expected: 06/13/2024 (Approximate), Expires: 06/13/2025 Start: 06-13-2024 End: 06-13-2025 Triiodothyronine (T3) Free [Mass/volume] in Serum or Plasma T3, free Lab Routine Fatigue, unspecified type Hair loss Expected: 06/13/2024 (Approximate), Expires: 06/13/2025 [facility] Comment on above: Expected: 06/13/2024 (Approximate), Expires: 06/13/2025 Start: 06-13-2024 End: 06-13-2025 US Thyroid gland US thyroid Imaging Routine Thyromegaly (CMS/HCC) Expected: 06/13/2024, Expires: 06/13/2025 [facility] Comment on above: Expected: 06/13/2024 , Expires: 06/13/2025 Start: 06-13-2024 End: 06-13-2024 Patient encounter procedure 06/13/2024 10:30 AM EDT Office Visit [facility] [address] [place] [address] Brian Jacobs MD [address] [place] [phone] Arrived [facility] Comment on above: Arrived Start: 05-14-2024 Influenza vaccination Influenza Vacc ine (#1) [facility] Payers Date Payer Category Payer Self-pay 2020 [facility] [employer] [id number] 2020 Unknown [employer] BCBS xxxxxx [id number] 2020-Present [phone] [address] [place] [address] [id number] 1994 Unknown [id number] [id number] 1994 Unknown [id number] [id number] 1994 Unknown [id number] [id number] 1994 Unknown [id number] [id number] 1994 Unknown [id number] [id number] 1994 Unknown [id number] [id number] 1959 Unknown [id number] Unknown [id number] [id number] Social History Date Type Detail Facility Tobacco smoking status IDIS Unknown if ever smoked [facility] Work Phone: Start: 1995 Sex Assigned At Female F [facility] Tobacco smoking status IDIS Tobacco smoking consumption unknown [facility] Start: 1995 Sex assigned at Not on file [facility] Start: 06-13-2024 End: 07-06-2024 Gender identity Not on file [facility] Start: 06-13-2024 Tobacco smoking status IDIS Never smoked tobacco [facility] Start: 06-13-2024 Tobacco use and exposure Smokeless tobacco non-user [facility] Start: 06-13-2024 End: 07-06-2024 History of Social function [facility] Start: 06-26-2024 Gender identity Identifies as female gender (finding) [facility] History of Present illness Narrative 07-06-2024 Brian Jacobs MD - 07/06/2024 12:31 PM Willian Jacobs MD - 07/06/2024 12:31 PM Willian Jacobs MD - 07/06/2024 11:15 AM EDT [...] Healthcare History of Present illness Narrative 06-26-2024 Holli Lemus DO - 06/26/2024 10:00 AM EDT Note [...] above. Follow up as needed. Thank you, Bea Lemus DO documented in this encounter [facility] [...] Facility Evaluation [facility] Work Phone: Evaluation note Note Date [...] ovaries documented in this encounter [facility] Evaluation note Note Date & Type Note Facility Evaluation note Diagnosis Fatigue, unspecified type- Primary Hair loss Unspecified alopecia Arthralgia, unspecified joint PCOS (polycystic ovarian syndrome) Polycystic ovaries Obesity (BMI 30-39.9) Thyromegaly (CMS/HCC) Goiter, unspecified Insulin resistance- Primary Other abnormal glucose PCOS (polycystic ovarian syndrome) Polycystic ovaries Positive PEBBLES (antinuclear antibody)- Primary Other and unspecified nonspecific immunological findings Arthralgia, unspecified joint documented in this encounter [facility] Chief Complaint and Reason for Visit Chief Complaint M79.672 Chief Complaint Unknown Advance Directives Advance Directive Response Recorded Date/ Time Advance Directives No April 13, 5:13pm Summary Purpose Family History No Family History Records FoundNo Family History Records FoundNo Family History Records Found Additional Source Comments Care Teams (unrecognized sec tion and content) Team Status: Inactive Member Role Status Dates Sb Lopez DPM MS Attending Provider Active Medical Representative Relationship Specialty Start Date End Date Brian Jacobs MD [address] [place] [phone] PCP - General Family Medicine 06/13/24 Medical Representative Relationship Specialty Start Date End Date Brian Jacobs MD [address] [place] [address] PCP - General Family Medicine 06/13/24 Medical Representative Relationship Specialty Start Date End Date Brian Jacobs MD [address] [place] [address] PCP - General Family Medicine 06/13/24 Medical Representative Relationship Specialty Start Date End Date Brian Jacobs MD [address] [place] [phone] PCP - General Family Medicine 06/13/24 Team Status: Inactive Member Role Status Dates Shaikh Jc MD Attending Provider Active Sta rt: June 17, 2024 End: June 17, 2024 Medical Representative Relationship Specialty Start Date End Date Brian Jacobs MD [address] [place] [phone] PCP - General Family Medicine 06/13/24 Medical Representative Relationship Specialty Start Date End Date Brian Jacobs MD [address] [place] [phone] PCP - General Family Medicine 06/13/24 Medical Representative Relationship Specialty Start Date End Date Brian Jacobs MD [address] [place] [phone] PCP - General [facility] Medicine 06/13/24 Medical Representative Relationship Specialty Start Date End Date Brian Jacobs MD [address] [place] [address] PCP - General [facility] Medicine 06/13/24 Medical Representative Relationship Specialty Start Date End Date Brian Jacobs MD [address] [place] [address] PCP - General [facility] 06/13/24 Goals (unrecognized section and content) Goals may be documented in a n alternate sectionGoals may be documented in an alternate section INFORMATION SOURCE (unrecogn ized section and content) DATE CREATED AUTHOR 12/17/2022 [facility] DATE CREATED AUTHOR AUTHOR'S ORGANIZ ATION 06/22/2024 [facility] DATE CREATED AUTHOR AUTHOR'S ORGANIZ ATION 06/27/2024 [facility] EPIC Reason for Visit [...] BE BASED ON THE PRIMARY CLINICAL RECORDS. [facility] provides no warranty or guarantee of the accuracy or completeness of information in this document.
--- NOTE | 2024-08-04 20:51 | XR_ITS ---
[address] [address] Patient Name: FLYNN SOLIS MRN: [id number] date: 1995 Sex: F Assigned Patient Location: ER Current Patient Location: ER Accession/Order Number: [id number] Exam Date: 08/04/2024 21:30 Report Date: 08/04/2024 23:26 At the request of: RILEY CANO Procedure: XR chest 1V PORTABLE CHEST X-RAY. INDICATION: Right upper quadrant pain. COMPARISON: None. TECHNIQUE: Single AP portable chest radiograph. FINDINGS: TUBES AND LINES: None. LUNGS: Lungs are clear. PLEURA: No effusions or pneumothorax. HEART AND MEDIASTINUM: Within normal limits for portable technique. OSSEOUS STRUCTURES: No acute abnormality. XR/XR chest 1V IMPRESSION: No acute findings. Electronically authenticated by: HILLARY AGUIRRE Date: 08/04/2024 23:26
--- NOTE | 2024-08-04 20:52 | ED_ITS ---
Documented by User: UGO Weber 08/04/24 21:30 HPI HPI - General Adult General Chief complaint: Abdominal Pain Stated complaint: ABDOMINAL PAIN/RIB PAIN R SIDE Time Seen by Provider: 08/04/24 20:39 Source: patient Mode of arrival: walk-in History of Present Illness HPI narrative: 28-year-old female presents to the ER for evaluation of recurrent abdominal pain. Patient feels she may have a problem with her gallbladder. States for the past month after she eats foods she has been getting pain in her abdomen, nausea and radiation of symptoms to her right scapular region. She denies any fevers or chills. She has been very picky recently on what she eats to try and avoid symptoms and had some cheese cake 2 bites around 230 today with onset of pain shortly after. Patient states pain was 10 out of 10 at home and is now down to about a 3. Mild nausea. Patient notes today was one of the worst episodes of the symptoms but they have been happening on and off for the past several weeks. Pertinent history was recent appendectomy last month. patient had CT of the abdomen performed on 06/16/2024 noted for acute appendicitis. Incidentally there was gallstones noted as well on that study. She also recently underwent a ultrasound of her pelvis on 07/10/2024 No findings to suggest polycystic ovarian syndrome. Patient had resolution of previous large cyst on the right ovary that was noted on CAT scan. Location: Reports abdomen Radiation: Reports back Severity: moderate Quality: Reports aching Pain Consistency: Reports colicky Exacerbating factors: Reports eating Associated symptoms: Reports denies other symptoms; Denies cough, diaphoresis, fever/chills, loss of appetite or rash Related Data Home Medications ?Medication ?Instructions ?Recorded ?Confirmed metformin 500 mg tablet,extended 500 mg PO DAILY 08/04/24 08/04/24 release 24 hr Allergies Allergy/AdvReac Type Severity Reaction Status Date / Time No Known Drug Allergies Allergy Verified 06/16/24 20:57 Opioid HPI Opioid Management Most Recent Opioid Data: Last Pain Scale 0 08/04/24 23:05 08/04/24 Last ED Pain Assessment 08/04/24 23:05 Last ORT Total Score 1 06/17/24 00:50 06/17/24 Last ORT Risk Category Low Risk 06/17/24 00:50 06/17/24 Review of Systems ROS Constitutional Denies: fever or chills Eyes Denies: change in vision or blurry vision Ears, nose, mouth, and throat Denies: throat pain, neck pain or throat swelling Cardiovascular Denies: chest pain or palpitations Gastrointestinal Reports: abdominal pain and nausea; Denies: vomiting, coffee grounds in vomit or diarrhea Genitourinary Denies: painful urination, urinary frequency or urinary urgency Musculoskeletal Reports: back pain (Back when abdominal pain symptoms start) Integumentary/Breast Denies: rash, itching, redness or skin pain Neurological Denies: headache or numbness in extremities Psychiatric Denies: anxiety, mood swings or panic attacks Hematologic/Lymphatic Denies: easy bruising PFSH [facility] Medical History (Updated 08/05/24 @ 00:02 by Edin Kaplan MD) Insulin resistance ?E88.819 - Insulin resistance, unspecified (ICD-10) Upper respiratory infection ?J06.9 - Acute upper respiratory infection, unspecified (ICD-10) History of ovarian cyst ?Z87.42 - Personal history of other diseases of the female genital tract ( ICD-10) Asthma ?J45.909 - Unspecified asthma, uncomplicated (ICD-10) Surgical History (Updated 08/04/24 @ 20:46 by Nadja Garcia) Hx of appendectomy ?Z90.49 - Acquired absence of other specified parts of digestive tract (ICD- 10) Family History (Updated 06/17/24 @ 00:53 by Allison Cope) Other Family history of CHF (congestive heart failure) Family history of cancer Family history of diabetes mellitus Family history of hypertension Social History (Updated 06/17/24 @ 00:52 by Allison Cope) Within the past year, how often did you have a drink containing alcohol: never Within the past year, how many standard drinks containing alcohol did you have on a typical day: 1 or 2 Within the past year, how often did you have six or more drinks on one occasion: never Total score: 0 Score interpretation: A score less than 3 is consistent with normal alcohol consumption. 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 Highest level of school completed/degree received: high school graduate Are you now , , , , never or living with a partner: In a typical week, how many times do you talk on the telephone with family, friends, or neighbors: 3 or more times per week How often do you get together with friends or relatives: 3 or more times per week How often do you attend roman catholic or sikhism services: never Little interest or pleasure in doing things: not at all Feeling down, depressed, or hopeless: not at all Feel stressed/tense/nervous/anxious/difficulty sleeping: not at all Do you think of yourself as: straight/heterosexual Gender Identity: female Exam Narrative Exam Narrative: Nurses notes and vital signs reviewed and patient is not hypoxic. General: The patient appears well and in no apparent distress. Patient is resting comfortably on cart. Skin: Warm, dry, no pallor noted.no evidence of zoster like rash. Head: Normocephalic, atraumatic Neck: Supple, trachea mid-line, no tenderness, no lymphadenopathy Eye: Pupils are equal, round and reactive to light, EOMI Ears, Nose, Mouth, and Throat: external Exam is unremarkable Cardiovascular: Regular Rate and Rhythm Respiratory: Patient is in no distress, no accessory muscle use, lungs are clear to auscultation, no wheezing, rales or rhonchi. Chest Wall: no tenderness Back: non-tender, no CVA tenderness Musculoskeletal: normal ROM, no tenderness, no swelling GI: Normal bowel sounds, tenderness noted in the right upper quadrant and right lower quadrant or equal pain. Prior portal scars appear well-healed without palpable hernia., no masses appreciated. No rebound, guarding, or rigidity noted, mild [place], but equally tender at mcburney's Neurological: A&O x4 Psychiatric: Cooperative Constitutional Vital Signs, click to edit/add: Last Vital Signs Temp 98.4 F 08/04/24 20:40 Pulse 88 08/04/24 20:40 Resp 18 08/04/24 20:40 BP 148/90 H 08/04/24 20:40 Pulse Ox 99 08/04/24 20:40 O2 Del Method Room Air 08/04/24 20:40 Course Vital Signs Vital signs: Vital Signs Temperature 98.4 F 08/04/24 20:40 Pulse Rate 88 08/04/24 20:40 Respiratory Rate 18 08/04/24 20:40 Blood Pressure 148/90 H 08/04/24 20:40 Pulse Oximetry 99 08/04/24 20:40 Oxygen Delivery Method Room Air 08/04/24 20:40 Temperature 98.4 F 08/04/24 20:40 Pulse Rate 88 08/04/24 20:40 Respiratory Rate 18 08/04/24 20:40 Blood Pressure 148/90 H 08/04/24 20:40 Pulse Oximetry 99 08/04/24 20:40 Oxygen Delivery Method Room Air 08/04/24 20:40 Medical Decision Making MDM Narrative Medical decision making narrative: Reviewed previous CT of the abdomen and pelvis along with ultrasound performed in the month of June. Discussed clinical exam and symptoms concerning for biliary colic. Labs will be performed as ultrasound is not readily available in house. She has had no fever. Medicated with 30 mg IV Toradol and 4 mg IV Zofran. Discussed slightly elevated white blood cell count, patient's abdominal pain, favors biliary colic but she has equally tender right lower quadrant abdominal tenderness. Patient notes symptoms over the past 3 weeks and she is a little bit over a month and a half out from her appendectomy. Patient agreeable to CT of the abdomen and pelvis with risks and benefits discussed given pain location in her abdomen. r/o cholecysitis, as this was worse pain to date since surgery and eval for possible complication with appendectomy which seems less likely. She is aware that she may need an ultrasound at a later date for further evaluation but that the ultrasound would not evaluate the pain in the right lower quadrant as readily. Patient agreeable to CT study with radiation risk discussed. case discussed with Dr. Kaplan at sign out Lab Data Labs: Lab Results 08/04/24 08/04/24 Range/Units 21:00 21:15 WBC 11.5 H (4.0-11.0) 10^3/uL RBC 4.69 (4.20-5.40) 10^6/uL Hgb 14.1 (12.0-16.0) g/dL Hct 40.5 (36.0-48.0) % MCV 86.4 (81.0-99.0) fL MCH 30.1 (26.7-34.0) pg MCHC 34.8 (29.9-35.2) g/dL RDW 12.6 (11.0-15.0) % Plt Count 395 (150-450) 10^3/uL MPV 9.1 L (9.5-13.5) fL Neut % (Auto) 68.1 (43.0-75.0) % Lymph % (Auto) 22.4 (20.5-60.0) % [place] % (Auto) 5.1 (1.7-12.0) % Eos % (Auto) 3.4 (0.9-7.0) % Baso % (Auto) 0.7 (0.2-2.0) % Neut # (Auto) 7.9 H (1.4-6.5) 10^3/uL Lymph # (Auto) 2.6 (1.2-3.8) 10^3/uL [place] # (Auto) 0.6 (0.3-0.8) 10^3/uL Eos # (Auto) 0.4 (0.0-0.7) 10^3/uL Baso # (Auto) 0.1 (0.0-0.1) 10^3/uL Abs Immat Gran (auto) 0.03 (0.00-0.03) 10^3/uL Imm/Tot Granulo (auto) 0.3 (0.0-0.5) % Sodium 138 (136-145) mmol/L Potassium 3.9 (3.5-5.1) mmol/L Chloride 102 (98-107) mmol/L Carbon Dioxide 25.0 (21.0-32.0) mmol/L Anion Gap 14.9 BUN 12.0 (7.0-18.0) mg/dL Creatinine 0.80 (0.55-1.02) mg/dL Est GFR ( Amer) >60 (>=60 mL/min/1.73m^2) Est GFR (Non-Af Amer) >60 (>=60 mL/min/1.73m^2) BUN/Creatinine Ratio 15.0 Glucose 93 (74-106) mg/dL Calcium 9.2 (8.5-10.1) mg/dL Total Bilirubin 0.2 (0.2-1.0) mg/dL AST 49 H (15-37) U/L ALT 44 (14-59) U/L Alkaline Phosphatase 93 (46-116) U/L Total Protein 7.9 (6.4-8.2) g/dL Albumin 3.4 (3.4-5.0) g/dL Globulin 4.5 g/dL Albumin/Globulin Ratio 0.8 Amylase 74 (25-115) U/L Lipase 32.0 (16.0-77.0) U/L Serum HCG, Qual Negative (NEGATIVE) Urine Color Lt. yellow (YELLOW) Urine Clarity Clear (CLEAR) Urine pH 6.0 (5.0-9.0) Ur Specific [place] 1.015 (1.005-1.025) Urine Protein Negative (NEG/TRACE) mg/dL Urine Glucose (UA) Negative (NEGATIVE) mg/dL Urine Ketones Negative (NEGATIVE) mg/dL Urine Occult Blood Negative (NEGATIVE) Urine Nitrite Negative (NEGATIVE) Urine Bilirubin Negative (NEGATIVE) Urine Urobilinogen 0.2 (0.2-1.0) EU/dL Ur Leukocyte Esterase Negative (NEGATIVE) Imaging Data Abdominal x-ray: Radiologist's impression: ITS Impressions Chest X-Ray 08/04/24 20:51 IMPRESSION: No acute findings. Electronically authenticated by: HILLARY AGUIRRE Date: 08/04/2024 23:26 Abdomen/Pelvis CT 08/04/24 21:19 IMPRESSION: 1. Cholelithiasis and choledocholithiasis. Consider further evaluation with a right upper quadrant ultrasound examination as clinically indicated. 2. Stable enlarged portacaval lymph node. 3. The appendix is not seen and could be surgically absent. Electronically authenticated by: Bea MAX Date: 08/04/2024 23:47 Discharge Plan Discharge Chief Complaint: Abdominal Pain Clinical Impression: Right upper quadrant abdominal pain, Choledocholithiasis Patient Disposition: Home, Self-Care Prescriptions / Home Meds: No Action metformin 500 mg tablet extended release 24 hr 500 mg PO DAILY Print Language: Bahraini Instructions: Biliary Colic (ED), Gallstones (ED) Additional Instructions: bland diet. contact Dr Andrade as discussed. return if pain recurs Referrals: Brian Mendoza MD [Primary Care Provider] - 1 week Documented by User: Edin Kaplan MD 08/05/24 00:04 HPI HPI - General Adult General Chief complaint: Abdominal Pain Stated complaint: ABDOMINAL PAIN/RIB PAIN R SIDE Time Seen by Provider: 08/04/24 20:39 Related Data Home Medications ?Medication ?Instructions ?Recorded ?Confirmed metformin 500 mg tablet,extended 500 mg PO DAILY 08/04/24 08/04/24 release 24 hr Allergies Allergy/AdvReac Type Severity Reaction Status Date / Time No Known Drug Allergies Allergy Verified 06/16/24 20:57 Opioid HPI Opioid Management Most Recent Opioid Data: Last Pain Scale 0 08/04/24 23:05 08/04/24 Last ED Pain Assessment 08/04/24 23:05 Last ORT Total Score 1 06/17/24 00:50 06/17/24 Last ORT Risk Category Low Risk 06/17/24 00:50 06/17/24 PFSH PFSH Medical History (Updated 08/05/24 @ 00:02 by Edin Kaplan MD) Insulin resistance ?E88.819 - Insulin resistance, unspecified (ICD-10) Upper respiratory infection ?J06.9 - Acute upper respiratory infection, unspecified (ICD-10) History of ovarian cyst ?Z87.42 - Personal history of other diseases of the female genital tract (ICD-10) Asthma ?J45.909 - Unspecified asthma, uncomplicated (ICD-10) Surgical History (Updated 08/04/24 @ 20:46 by Nadja Garcia) Hx of appendectomy ?Z90.49 - Acquired absence of other specified parts of digestive tract (ICD-1 0) Family History (Updated 06/17/24 @ 00:53 by Allison Cope) Other Family history of CHF (congestive heart failure) Family history of cancer Family history of diabetes mellitus Family history of hypertension Social History (Updated 06/17/24 @ 00:52 by Allison Cope) Within the past year, how often did you have a drink containing alcohol: never Within the past year, how many standard drinks containing alcohol did you have on a typical day: 1 or 2 Within the past year, how often did you have six or more drinks on one occasion: never Total score: 0 Score interpretation: A score less than 3 is consistent with normal alcohol consumption. 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 Highest level of school completed/degree received: high school graduate Are you now , , , , never or living with a partner: In a typical week, how many times do you talk on the telephone with family, friends, or neighbors: 3 or more times per week How often do you get together with friends or relatives: 3 or more times per week How often do you attend roman catholic or sikhism services: never Little interest or pleasure in doing things: not at all Feeling down, depressed, or hopeless: not at all Feel stressed/tense/nervous/anxious/difficulty sleeping: not at all Do you think of yourself as: straight/heterosexual Gender Identity: female Exam Constitutional Vital Signs, click to edit/add: Last Vital Signs Temp 98.4 F 08/04/24 20:40 Pulse 88 08/04/24 20:40 Resp 18 08/04/24 20:40 BP 148/90 H 08/04/24 20:40 Pulse Ox 99 08/04/24 20:40 O2 Del Method Room Air 08/04/24 20:40 Course Vital Signs Vital signs: Vital Signs Temperature 98.4 F 08/04/24 20:40 Pulse Rate 88 08/04/24 20:40 Respiratory Rate 18 08/04/24 20:40 Blood Pressure 148/90 H 08/04/24 20:40 Pulse Oximetry 99 08/04/24 20:40 Oxygen Delivery Method Room Air 08/04/24 20:40 Temperature 98.4 F 08/04/24 20:40 Pulse Rate 88 08/04/24 20:40 Respiratory Rate 18 08/04/24 20:40 Blood Pressure 148/90 H 08/04/24 20:40 Pulse Oximetry 99 08/04/24 20:40 Oxygen Delivery Method Room Air 08/04/24 20:40 Medical Decision Making MDM Narrative Medical decision making narrative: Reviewed previous CT of the abdomen and pelvis along with ultrasound performed in the month of June. Discussed clinical exam and symptoms concerning for biliary colic. Labs will be performed as ultrasound is not readily available in house. She has had no fever. Medicated with 30 mg IV Toradol and 4 mg IV Zofran. Discussed slightly elevated white blood cell count, patient's abdominal pain, favors biliary colic but she has equally tender right lower quadrant abdominal tenderness. Patient notes symptoms over the past 3 weeks and she is a little bit over a month and a half out from her appendectomy. Patient agreeable to CT of the abdomen and pelvis with risks and benefits discussed given pain location in her abdomen. r/o cholecysitis, as this was worse pain to date since surgery and eval for possible complication with appendectomy which seems less likely. She is aware that she may need an ultrasound at a later date for further evaluation but that the ultrasound would not evaluate the pain in the right lower quadrant as readily. Patient agreeable to CT study with radiation risk discussed. case discussed with Dr. Kaplan at sign out care transferred at change of shift. CT results with cholelithiasis and choledocholithiasis. LFTs normal except for mild elevation of AST. T. bili normal. WBC WNL and patient is afebrile. Currently pain free. Advised of the diagnosis and referred to her surgeon Dr Andrade who recently removed her appendix Lab Data Labs: Lab Results 08/04/24 08/04/24 Range/Units 21:00 21:15 WBC 11.5 H (4.0-11.0) 10^3/uL RBC 4.69 (4.20-5.40) 10^6/uL Hgb 14.1 (12.0-16.0) g/dL Hct 40.5 (36.0-48.0) % MCV 86.4 (81.0-99.0) fL MCH 30.1 (26.7-34.0) pg MCHC 34.8 (29.9-35.2) g/dL RDW 12.6 (11.0-15.0) % Plt Count 395 (150-450) 10^3/uL MPV 9.1 L (9.5-13.5) fL Neut % (Auto) 68.1 (43.0-75.0) % Lymph % (Auto) 22.4 (20.5-60.0) % [place] % (Auto) 5.1 (1.7-12.0) % Eos % (Auto) 3.4 (0.9-7.0) % Baso % (Auto) 0.7 (0.2-2.0) % Neut # (Auto) 7.9 H (1.4-6.5) 10^3/uL Lymph # (Auto) 2.6 (1.2-3.8) 10^3/uL [place] # (Auto) 0.6 (0.3-0.8) 10^3/uL Eos # (Auto) 0.4 (0.0-0.7) 10^3/uL Baso # (Auto) 0.1 (0.0-0.1) 10^3/uL Abs Immat Gran (auto) 0.03 (0.00-0.03) 10^3/uL Imm/Tot Granulo (auto) 0.3 (0.0-0.5) % Sodium 138 (136-145) mmol/L Potassium 3.9 (3.5-5.1) mmol/L Chloride 102 (98-107) mmol/L Carbon Dioxide 25.0 (21.0-32.0) mmol/L Anion Gap 14.9 BUN 12.0 (7.0-18.0) mg/dL Creatinine 0.80 (0.55-1.02) mg/dL Est GFR ( Amer) >60 (>=60 mL/min/1.73m^2) Est GFR (Non-Af Amer) >60 (>=60 mL/min/1.73m^2) BUN/Creatinine Ratio 15.0 Glucose 93 (74-106) mg/dL Calcium 9.2 (8.5-10.1) mg/dL Total Bilirubin 0.2 (0.2-1.0) mg/dL AST 49 H (15-37) U/L ALT 44 (14-59) U/L Alkaline Phosphatase 93 (46-116) U/L Total Protein 7.9 (6.4-8.2) g/dL Albumin 3.4 (3.4-5.0) g/dL Globulin 4.5 g/dL Albumin/Globulin Ratio 0.8 Amylase 74 (25-115) U/L Lipase 32.0 (16.0-77.0) U/L Serum HCG, Qual Negative (NEGATIVE) Urine Color Lt. yellow (YELLOW) Urine Clarity Clear (CLEAR) Urine pH 6.0 (5.0-9.0) Ur Specific [place] 1.015 (1.005-1.025) Urine Protein Negative (NEG/TRACE) mg/dL Urine Glucose (UA) Negative (NEGATIVE) mg/dL Urine Ketones Negative (NEGATIVE) mg/dL Urine Occult Blood Negative (NEGATIVE) Urine Nitrite Negative (NEGATIVE) Urine Bilirubin Negative (NEGATIVE) Urine Urobilinogen 0.2 (0.2-1.0) EU/dL Ur Leukocyte Esterase Negative (NEGATIVE) Imaging Data Abdominal x-ray: Radiologist's impression: ITS Impressions Chest X-Ray 08/04/24 20:51 IMPRESSION: No acute findings. Electronically authenticated by: HILLARY AGUIRRE Date: 08/04/2024 23:26 Abdomen/Pelvis CT 08/04/24 21:19
[2024-08-04] MEDS: KETOROLAC TROMETHAMINE 30 MG/ML VIAL IVP (21:08)
[2024-08-04] MEDS: ONDANSETRON PF 4 MG/2 ML VIAL IV (21:08)
[2024-08-04 21:12] LABS: Basophils Absolute Auto 0.1 10^3/uL (0.0-0.1); Basophils Percent Auto 0.7 % (0.2-2.0); Eosinophils Absolute Auto 0.4 10^3/uL (0.0-0.7); Eosinophils Percent Auto 3.4 % (0.9-7.0); Hematocrit 40.5 % (36.0-48.0); Hemoglobin 14.1 g/dL (12.0-16.0); Immature Granulocytes Abs Auto 0.03 10^3/uL (0.00-0.03); Immature Granulocytes Pct Auto 0.3 % (0.0-0.5); Lymphocytes Absolute Auto 2.6 10^3/uL (1.2-3.8); Lymphocytes Percent Auto 22.4 % (20.5-60.0); Mean Corpuscular HGB Conc 34.8 g/dL (29.9-35.2); Mean Corpuscular Hemoglobin 30.1 pg (26.7-34.0); Mean Corpuscular Volume 86.4 fL (81.0-99.0); Mean Platelet Volume 9.1 fL (9.5-13.5); Monocytes Absolute Auto 0.6 10^3/uL (0.3-0.8); Monocytes Percent Auto 5.1 % (1.7-12.0); Neutrophils Absolute Auto 7.9 10^3/uL (1.4-6.5); Neutrophils Percent Auto 68.1 % (43.0-75.0); Platelet Count 395 10^3/uL (150-450); Red Blood Count 4.69 10^6/uL (4.20-5.40); Red Cell Distribution Width 12.6 % (11.0-15.0); White Blood Count 11.5 10^3/uL (4.0-11.0)
--- NOTE | 2024-08-04 21:19 | CT_ITS ---
The [address] [address] Patient Name: FLYNN SOLIS MRN: [facility]:[id number] date: 1995 Sex: F Assigned Patient Location: ER Current Patient Location: ER Accession/Order Number: [id number] Exam Date: 08/04/2024 21:30 Report Date: 08/04/2024 23:47 At the request of: RILEY CANO Procedure: CT abdomen pelvis w con EXAM: CT abdomen pelvis w con HISTORY: right upper and lower abdominal pain, COMPARISON: CT abdomen and pelvis examination dated 06/16/2024. TECHNIQUE: Axial CT images through the abdomen and pelvis were obtained after the intravenous administration of the contrast. Coronal and sagittal reformats were obtained. Dose reduction techniques were achieved by using automated exposure control and/or adjustment of mA and/or kV according to patient size and/or use of iterative reconstruction technique. FINDINGS: There is mild bibasilar atelectasis. Abdomen: The liver and spleen enhance homogeneously without focal lesion. There is no intra or extrahepatic biliary duct dilatation. There is cholelithiasis without evidence of acute inflammation. There is choledocholithiasis with a 0.3 cm gallstone in the region of the distal common bile duct. The pancreas, adrenal glands, kidneys, and bowel loops are unremarkable. There is a stable enlarged portal caval lymph node measuring up to 1.5 cm in short axis diameter (series 3, image 44). The appendix is not seen. There is scarring within the ventral abdominal subcutaneous tissues. Pelvis: The bladder and rectum are unremarkable. There is no iliac or inguinal lymphadenopathy. The uterus is present. The ovaries appear within normal limits by CT. Bone windows show no aggressive osseous lesions. CT/CT abdomen pelvis w con IMPRESSION: 1. Cholelithiasis and choledocholithiasis. Consider further evaluation with a right upper quadrant ultrasound examination as clinically indicated. 2. Stable enlarged portacaval lymph node. 3. The appendix is not seen and could be surgically absent. Electronically authenticated by: Bea MAX Date: 08/04/2024 23:47
[2024-08-04 21:20] LABS: Bilirubin Urine NEGATIVE (NEGATIVE); Blood Urine NEGATIVE (NEGATIVE); Clarity Urine CLEAR (CLEAR); Color Urine LT. YELLOW (YELLOW); Glucose Urine UA NEGATIVE (NEGATIVE); Ketones Urine NEGATIVE (NEGATIVE); Leukocyte Esterase Urine NEGATIVE (NEGATIVE); Nitrite Urine NEGATIVE (NEGATIVE); Protein Urine NEGATIVE (NEG/TRACE); Specific Gravity Urine 1.015 (1.005-1.025); Urine Microscopic Indicated NO; Urobilinogen Urine 0.2 EU/dL (0.2-1.0)
[2024-08-04 21:21] LABS: HCG Qualitative NEGATIVE (NEGATIVE); Internal Control Within Normal Limits
[2024-08-04 21:23] LABS: Alanine Aminotransferase 44 U/L (14-59); Albumin Globulin Ratio 0.8; Albumin Level 3.4 g/dL (3.4-5.0); Alkaline Phosphatase 93 U/L (46-116); Amylase 74 U/L (25-115); Anion Gap 14.9; Aspartate Amino Transferase 49 U/L (15-37); Bilirubin Total 0.2 mg/dL (0.2-1.0); Calcium 9.2 mg/dL (8.5-10.1); Chloride 102 mmol/L (98-107); Estimated GFR (African America >60 (>=60 mL/min/1.73m^2); Estimated GFR (Non-African Ame >60 (>=60 mL/min/1.73m^2); Globulin 4.5 g/dL; Glucose 93 mg/dL (74-106); Potassium 3.9 mmol/L (3.5-5.1); Sodium 138 mmol/L (136-145); Total Protein 7.9 g/dL (6.4-8.2)
== END 2024-08-05 00:15 | disposition home or self-care (01) ==
PROVIDERS: Personal Emergency Response Attendant; Emergency Provider Internal Medicine; PCP Family Medicine
DX: K80.50 Calculus of bile duct without cholangitis or cholecystitis without obstruction (principal); R10.11 Right upper quadrant pain
CPT/HCPCS: 36415; 71045; 74177; 80053; 81003; 82150; 83690; 84703; 85025; 96374; 96375; 99285; J1885; J2405; Q9967

== ENCOUNTER 2024-08-10 20:15 | Emergency (ER) | payer BC, SELFPAY ==
[2024-08-10 20:20] VITALS: BP 145/93; PULSE 95; TEMP 37.3; O2SAT 98; BMI 33.1
--- OUTSIDE RECORDS SUMMARY | 2024-08-10 20:24 | XMS_ITS | CCD ---
Author Organization [facility] Care Team Providers Care 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 Name Role Phone GABBIE Lopez Attending Provider [...] 07-12-2024 ANTINUCLEAR ANTIBODIES, IFA Positive Abnormal . [facility] Comment on above: Negative <1:80 Borderline 1:80 Positive >1:80 CENTRIOLE PATTERN TNP . [facility] CENTROMERE PATTERN TNP . [facility] HOMOGENEOUS PATTERN TNP . [facility] Interpretation and review of laboratory results Abnormal [facility] MIDBODY PATTERN TNP . [facility] NOTE: Comment . [facility] Comment on above: Pattern Potential Di sease Association Homogeneous Systemic Lupus Erythematosus, Drug Induced Systemic Lupus Erythematosus, Chronic Autoimmune hepatitis, Juvenile Idiopathic Arthritis Speckled Sjogren Syndrome, Systemic Lupus Erythematosus, Subacute Cutaneous Lupus, Lupus, Congenital Heart Block, Mixed Connective Tissue Disease, Scleroderma-diffuse, Scleroderma-Autoimmune Myositis Overlap Syndrome, Systemic Lupus Eeervhlayyttv-Qiqxasvizkz-Xdznfdibfs Myositis Overlap Syndrome, Systemic Autoimmune Rheumatic Disease, [...] Cytopenias, Linear Scleroderma, Antiphospholipid Syndrome Performed at: [address] [id number] Engineering Secretary: David Dietz PhD, Phone: [phone] NUCLEAR DOT PATTERN TNP . [facility] NUCLEAR MEMBRANE PATTERN TNP . [facility] NUCLEOLAR PATTERN TNP . [facility] PCNA PATTERN TNP . [facility] SPECKLED PATTERN >1:1280 Abnormal . [facility] Comment on above: ICAP nomenclature: A C-2,4,5,29 SPINDLE APPARATUS PATTERN TNP . [facility] URINE CULTURE, ROUTINEon Bacteria identified Cx Nom (U) Urine Culture, Routine [facility] Bacteria identified Cx Nom (U) Mixed urogenital cynthia [facility] Bacteria identified Cx Nom (U) Less than 10,000 colonies/mL [facility] Bacteria identified Cx Nom (U) Performed at: [facility] Bacteria identified Cx Nom (U) [address] [place], [place] [id number] [facility] Bacteria identified Cx Nom (U) Engineering Secretary: Daivd Dietz PhD, Phone: [phone] [facility]ul [facility] L Specimen: [id number] Received: 06/19/24 Status: DELROY Gray Num: [id number] Spec Type: Surgical Subm Dr: Holli Lemus DO Tissues: A Appendix - Other than Incidental (APPENDIX) Procedures: HE/2, Gross/Micro L3 Age/ Patient Sex Location Account Attending Physician RoscoeSamantha Y 28/F [place] [id number] Shaikh Jc MD SPEC NUM: [id number] RECD: 06/19/24 STATUS: DELROY GRAY NUM: [id number] KATE: 06/17/[address]: Holli Lemus DO ENTERED: 06/19/[address]: Gaby Aponte MD SPEC TYPE: Surgical DEPT: [facility] ENTERED BY: [id number] RECV BY: [id number] ORDERED: HE/2, Gross/Micro L3 ORDERED: HE/2, Gross/Micro [...] The lumen is filled with purulent debris. Supervisor Riprap Placing sections are submitted as follows: A1 proximal margin and cross-section A2 distal tip bisected CPT Codes 64753 -------- -------- Specimen: [id number] Received: 06/19/24 Status: DELROY Gray Num: [id number] Spec Type: Surgical Subm Dr: Holli Lemus DO Tissues: A Appendix - Other than Incidental (APPENDIX) Procedures: HE/2, Gross/Micro L3 -------- Patient: Samantha Solis [id number] (Continued) -------- Signed (signature on file) Dario Alejo MD 06/20/24 4523 Normal [facility] ALL CBC WITH AUTO DIFFon BASOPHILS ABSOLUTE AUTO 0.1 [facility] Basophils/100 WBC (Bld) 0.6 % 0.2 - 2.0 % [facility] Eosinophils/100 WBC (Bld) 2.4 % 0.9 - 7.0 % [facility] Erythrocyte distribution width (RBC) [Ratio] 13.2 % 11.0 - 15.0 % [facility] Hematocrit (Bld) [Volume fraction] 42.4 % 36.0 - 48.0 % [facility] Hemoglobin (Bld) [Mass/Vol] 14.7 g/dL 12.0 - 16.0 g/dL [facility] IMMATURE GRANULOCYTES ABS AUTO 0.02 [facility] Immature granulocytes/100 WBC (Bld) 0.2 % 0.0 - 0.5 % [facility] Interpretation and review of laboratory results Abnormal [facility] LYMPHOCYTES ABSOLUTE AUTO 1.8 [facility] Lymphocytes/100 WBC (Bld) 18.2 % Low 20.5 - 60.0 % [facility] MCH (RBC) [Entitic mass] 29.7 pg 26.7 - 34.0 pg [facility] MCHC (RBC) [Mass/Vol] 34.7 g/dL 29.9 - 35.2 g/dL [facility] MCV (RBC) [Entitic vol] 85.7 fL 81.0 - 99.0 fL [facility] MONOCYTES ABSOLUTE AUTO 0.4 [facility] Monocytes/100 WBC (Bld) 4.0 % 1.7 - 12.0 % [facility] NEUTROPHILS ABSOLUTE AUTO 7.3 High [facility] Neutrophils/100 WBC (Bld) 74.6 % 43.0 - 75.0 % [facility] Platelet mean volume (Bld) [Entitic vol] 8.8 fL Low 9.5 - 13.5 fL [facility] EO # 0.2 [facility] TB PLT 386 [facility] RBC 4.95 [facility] WBC 9.8 [facility] XR FOOT GUANAKITO MIN 3 VIEWSon XR [...] by: PATRICIA KELLEY Date: 2022-12-15 12:37 Normal [facility] CBC AUTO DIFFon 03-02-2022 BASO # 0.1 103/ul Normal 0.0-0.1 [facility] Comment on above: Performed By: #### C BC #### [facility] [address] [place] [address] Dr. Mike Nails Basophils/100 WBC (Bld) 0.7 % Normal 0.2-2.0 [facility] Comment on above: Performed By: #### C BC #### [facility] [address] [place] [address] Dr. Mike Nails EO # 0.6 103/ul Normal 0.0-0.7 [facility] Comment on above: Performed By: #### C BC #### [facility] [address] [place] [address] Dr. Mike Nails Eosinophils/100 WBC (Bld) 5.7 % Normal 0.9-7.0 [facility] Comment on above: Performed By: #### C BC #### [facility] [address] [place] [address] Dr. Mike Nails Erythrocyte distribution width (RBC) [Ratio] 13.2 % Normal 11.0-15.0 [facility] Comment on above: Performed By: #### C BC #### [facility] [address] [place] [address] Dr. Mike Nails Hematocrit (Bld) [Volume fraction] 41.6 % Normal 36.0-48.0 [facility] Comment on above: Performed By: #### C BC #### [facility] [address] [place] [address] Dr. Mike Nails Hemoglobin (Bld) [Mass/Vol] 13.7 g/dL Normal 12.0-16.0 [facility] Comment on above: Performed By: #### C BC #### [facility] [address] [place] [address] Dr. Mike Nails IG # 0.02 10e3/ul Normal 0.00-0.03 [facility] Comment on above: Performed By: #### C BC #### [facility] [address] [place] [address] Dr. Mike Nails IG % 0.2 % Normal 0.0-0.5 [facility] Comment on above: Performed By: #### C BC #### [facility] [address] [place] [address] Dr. Mike Nails LYMPH # 2.6 103/ul Normal 1.2-3.8 [facility] Comment on above: Performed By: #### C BC #### [facility] [address] [place] [address] Dr. Mike Nails Lymphocytes/100 WBC (Bld) 26.3 % Normal 20.5-60.0 [facility] Comment on above: Performed By: #### C BC #### [facility] [address] [place] [address] Dr. Mike Nails MANUAL DIFF REQ NO Normal [facility] Comment on above: Performed By: #### C BC #### [facility] [address] [place] [address] Dr. Mike Nails MCH (RBC) [Entitic mass] 28.7 pg Normal 26.7-34.0 [facility] Comment on above: Performed By: #### C BC #### [facility] [address] [place] [address] Dr. Mike Nails MCHC (RBC) [Mass/Vol] 32.9 g/dL Normal 29.9-35.2 [facility] Comment on above: Performed By: #### C BC #### [facility] [address] [place] [address] Dr. Mike Nails MCV (RBC) [Entitic vol] 87.0 fL Normal 81.0-99.0 [facility] Comment on above: Performed By: #### C BC #### [facility] [address] [place] [address] Dr. Mike Nails MONO # 0.5 103/ul Normal 0.3-0.8 [facility] Comment on above: Performed By: #### C BC #### [facility] [address] [place] [address] Dr. Mike Nails Monocytes/100 WBC (Bld) 5.5 % Normal 1.7-12.0 [facility] Comment on above: Performed By: #### C BC #### [facility] [address] [place] [address] Dr. Mike Nails NEUT # 6.0 103/ul Normal 1.4-6.5 [facility] Comment on above: Performed By: #### C BC #### [facility] [address] [place] [address] Dr. Mike Nails Neutrophils/100 WBC (Bld) 61.6 % Normal 43.0-75.0 [facility] Comment on above: Performed By: #### C BC #### [facility] [address] [place] [address] Dr. Mike Nails Platelet mean volume (Bld) [Entitic vol] 8.7 fL Critically low 9.5-13.5 [facility] Comment on above: Performed By: #### C BC #### [facility] [address] [place] [address] Dr. Mike Nails PLT 369 103/ul Normal 150-450 [facility] Comment on above: Performed By: #### C BC #### [facility] [address] [place] [address] Dr. Mike Nails RBC 4.78 106/ul Normal 4.20-5.40 [facility] Comment on above: Performed By: #### C BC #### [facility] [address] [place] [address] Dr. Mike Nails WBC 9.7 103/ul Normal 4.0-11.0 [facility] Comment on above: Performed By: #### C BC #### [facility] [address] [place] [address] Dr. Mike Nails GLYCOHEMOGLOBIN A1Con 2021 ADA RECOMMENDATION SEE BELOW Normal [facility] Comment on above: Result Comment: ADA RECOMMENDED LIMIT 4.0 - 6.0 ADA THERAPEUTIC TARGET < 7.0 ACTION SUGGESTED > 7.0 Performed By: #### A 1C #### [facility] [address] [place] [address] Dr. Mike Nails Glucose [Mass/Vol] 105 mg/dL Normal [facility] Comment on above: Performed By: #### A 1C #### [facility] [address] [address] [address] Mike Nails HbA1c (Bld) [Mass fraction] 5.3 % Normal 4.5-6.2 [facility] Comment on above: Performed By: #### A 1C #### [facility] [address] [place] [address] Dr. Mike Nails LIPID PROFILEon 03-02-2022 CHOL-HDL RATIO NORM SEE BELOW Normal [facility] Comment on above: Result Comment: 3.3 - 4.4 LOW RISK 4.4 - 7.1 AVERAGE RISK 7.1 - 11.0 MODERATE RISK >11.0 HIGH RISK Performed By: #### B MP, LIPID, TSH, LIVER #### [facility] [address] [place] [address] Dr. Mike Nails Cholesterol [Mass/Vol] 198 mg/dL Normal <=200 [facility] Comment on above: Performed By: #### B MP, LIPID, TSH, LIVER #### [facility] [address] [address] [address] Mike Nails Cholesterol in HDL [Mass/Vol] 48 mg/dL Normal 40-60 [facility] Comment on above: Performed By: #### B MP, LIPID, TSH, LIVER #### [facility] [address] [place] [address] Dr. Mike Nails Cholesterol in LDL [Mass/Vol] 136.6 mg/dL Normal [facility] Comment on above: Performed By: #### B MP, LIPID, TSH, LIVER #### [facility] [address] [address] [address] Mike Nails Cholesterol.total/Ch olesterol in HDL [Mass ratio] 4.1 {ratio} Normal [facility] Comment on above: Performed By: #### B MP, LIPID, TSH, LIVER #### [facility] [address] [address] [address] Mike Nails HDL NORMAL > or = 60 mg/dl - LO W CARDIOVASCULAR RISK <40 mg/dl - HIGH CARDIOVASCULAR RISK Normal [facility] Comment on above: Performed By: #### B MP, LIPID, TSH, LIVER #### [facility] [address] [address] [address] Mike Nails LDL CALC NORMAL SEE BELOW Normal [facility] Comment on above: Result Comment: <100 mg/dl OPTIMAL 100 - 129 mg/dl NEAR OR ABOVE OPTIMAL 130 - 159 mg/dl BORDERLINE HIGH 160 - 189 mg/dl HIGH >190 mg/dl VERY HIGH Performed By: #### B MP, LIPID, TSH, LIVER #### [facility] [address] [address] [address] Mike Nails Triglyceride [Mass/Vol] 67 mg/dL Normal <=150 [facility] Comment on above: Performed By: #### B MP, LIPID, TSH, LIVER #### [facility] [address] [address] [address] Mike Nails VLDL CALC 13.4 mg/dL Normal [facility] Comment on above: Performed By: #### B MP, LIPID, TSH, LIVER #### [facility] [address] [address] [address] Mike Nails LIVER PROFILEon 03-02-2022 Albumin [Mass/Vol] 3.7 g/dL Normal 3.4-5.0 [facility] Comment on above: Performed By: #### B MP, LIPID, TSH, LIVER #### [facility] [address] [address] [address] Mike Nails Albumin/Globulin [Mass ratio] 0.8 {ratio} Normal [facility] Comment on above: Performed By: #### B MP, LIPID, TSH, LIVER #### [facility] [address] [address] [address] Mike Nails ALP [Catalytic activity/Vol] 87 U/L Normal 46-116 [facility] Comment on above: Performed By: #### B MP, LIPID, TSH, LIVER #### [facility] [address] [address] [address] Mike Nails ALT [Catalytic activity/Vol] 9 U/L Critically low 14-59 [facility] Comment on above: Performed By: #### B MP, LIPID, TSH, LIVER #### [facility] [address] [place] [address] Dr. Mike Nails AST [Catalytic activity/Vol] 17 U/L Normal 15-37 [facility] Comment on above: Performed By: #### B MP, LIPID, TSH, LIVER #### [facility] [address] [place] [address] Dr. Mike Nails BILI, CONJUGATED 0.1 mg/dL Normal 0.0-0.2 [facility] Comment on above: Performed By: #### B MP, LIPID, TSH, LIVER #### [facility] [address] [place] [address] Dr. Mike Nails Bilirubin [Mass/Vol] 0.4 mg/dL Normal 0.2-1.0 [facility] Comment on above: Performed By: #### B MP, LIPID, TSH, LIVER #### [facility] [address] [place] [address] Dr. Mike Nails Globulin (S) [Mass/Vol] 4.9 g/dL Normal [facility] Comment on above: Performed By: #### B MP, LIPID, TSH, LIVER #### [facility] [address] [place] [address] Dr. Mike Nails Protein [Mass/Vol] 8.6 g/dL Critically high 6.4-8.2 [facility] Comment on above: Performed By: #### B MP, LIPID, TSH, LIVER #### [facility] [address] [place] [address] Dr. Mike Nails PROF CHEM 8 (BAS METB)on Anion gap [Moles/Vol] 11.4 mmol/L Normal [facility] Comment on above: Performed By: #### B MP, LIPID, TSH, LIVER #### [facility] [address] [place] [address] Dr. Mike Nails Calcium [Mass/Vol] 9.2 mg/dL Normal 8.5-10.1 [facility] Comment on above: Performed By: #### B MP, LIPID, TSH, LIVER #### [facility] [address] [address] [address] Mike Nails Chloride [Moles/Vol] 104 mmol/L Normal 98-107 [facility] Comment on above: Performed By: #### B MP, LIPID, TSH, LIVER #### [facility] [address] [address] [address] Mike Nails CO2 [Moles/Vol] 28.7 mmol/L Normal 21.0-32.0 [facility] Comment on above: Performed By: #### B MP, LIPID, TSH, LIVER #### [facility] [address] [address] [address] Mike Nails Creatinine [Mass/Vol] 0.80 mg/dL Normal 0.55-1.02 [facility] Comment on above: Performed By: #### B MP, LIPID, TSH, LIVER #### [facility] [address] [place] [address] Dr. Mike Nails EGFR-AF CZECH >60 Normal >=[address] [facility] Comment on above: Performed By: #### B MP, LIPID, TSH, LIVER #### [facility] [address] [address] [address] Mike Nails EGFR-NON AF CZECH >60 Normal >=60 [facility] Comment on above: Performed By: #### B MP, LIPID, TSH, LIVER #### [facility] [address] [address] [address] Mike Nails Glucose [Mass/Vol] 88 mg/dL Normal 74-106 [facility] Comment on above: Performed By: #### B MP, LIPID, TSH, LIVER #### [facility] [address] [address] [address] Mike Nails Potassium [Moles/Vol] 4.1 mmol/L Normal 3.5-5.1 [facility] Comment on above: Performed By: #### B MP, LIPID, TSH, LIVER #### [facility] [address] [address] [address] Mike Nails Sodium [Moles/Vol] 140 mmol/L Normal 136-145 [facility] Comment on above: Performed By: #### B MP, LIPID, TSH, LIVER #### [facility] [address] [place], [place] [address] Dr. Mike Nails Urea nitrogen [Mass/Vol] 15.0 mg/dL Normal 7.0-18.0 [facility] Comment on above: Performed By: #### B MP, LIPID, TSH, LIVER #### [facility] [address] [id number] [address] Mike Nails Urea nitrogen/Creatinine [Mass ratio] 18.8 mg/mg Normal [facility] Comment on above: Performed By: #### B MP, LIPID, TSH, LIVER #### [facility] [address] [place], [place] [id number] Dr. Miek Nails TSHon 03-02-2022 TSH 1.489 uIU/mL Normal 0.358-3.740 [facility] Comment on above: Performed By: #### B MP, LIPID, TSH, LIVER #### [facility] [address] [place] [address] Dr. Mike Nails XR FOOT LT MIN [...] by: RHODA CARPENTER Date: 2022-03-02 15:24 Normal [facility] Vital Signs Date Time Vital Sign Value Performing Clinician Jaja wolff 07-06-2024 11:22-0400 Body height 162.6 cm Brian Jacobs MD Work Phone: [facility] 07-06-2024 11:22-0400 Body mass index (BMI) [Ratio] 33.3 kg/m2 Brian Jacobs MD Work Phone: [facility] 07-06-2024 11:22-0400 Body temperature 96.4 [degF] Brian Jacobs MD Work Phone: [facility] 07-06-2024 11:22-0400 Body weight 88 kg Brian Jacobs MD Work Phone: [facility] 07-06-2024 11:22-0400 Diastolic blood pressure 76 mm[Hg] Brian Jacobs MD Work Phone: [facility] 07-06-2024 11:22-0400 Heart rate 96 /min Brian Jacobs MD Work Phone: [facility] 07-06-2024 11:22-0400 Respiratory rate 20 /min Brian Jacobs MD Work Phone: [facility] 07-06-2024 11:22-0400 SaO2% (BldA) [Mass fraction] 98 % Brian Jacobs MD Work Phone: [facility] 07-06-2024 11:22-0400 Systolic blood pressure 130 mm[Hg] Brian Jacobs MD Work Phone: [facility] 06-26-2024 10:06-0400 Diastolic blood pressure 72 mm[Hg] Holliolga Lemus DO Work Phone: [facility] 06-26-2024 10:06-0400 Systolic blood pressure 108 mm[Hg] Holli Allan DO Work Phone: [facility] 06-13-2024 10:36-0400 Body height 162.6 cm Brian Jacobs MD Work Phone: [facility] 06-13-2024 10:36-0400 Body mass index (BMI) [Ratio] 33.64 kg/m2 Brian Jacobs MD Work Phone: [facility] 06-13-2024 10:36-0400 Body temperature 97.5 [degF] Brian Jacobs MD Work Phone: [facility] 06-13-2024 10:36-0400 Body weight 88.91 kg Brian Jacobs MD Work Phone: [facility] 06-13-2024 10:36-0400 Diastolic blood pressure 80 mm[Hg] Brian Jacobs MD Work Phone: [facility] 06-13-2024 10:36-0400 Heart rate 91 /min Brian Jacobs MD Work Phone: [facility] 06-13-2024 10:36-0400 Respiratory rate 20 /min Brian Jacobs MD Work Phone: [facility] 06-13-2024 10:36-0400 SaO2% (BldA) [Mass fraction] 98 % Brian Jacobs MD Work Phone: [facility] 06-13-2024 10:36-0400 Systolic blood pressure 124 mm[Hg] Brian Jacobs MD Work Phone: [facility] Encounters Encounter Date Encounter Type Care Provider Facility Start: 07-12-2024 End: 07-12-2024 Orders Only Brian Jacobs MD Work Phone: [facility] Comment on above: Positive PEBBLES (antinu clear antibody) (Primary Dx); Arthralgia, unspecified joint Start: 07-10-2024 End: 07-12-2024 [facility] Result Encounter Brian Jacobs MD Work Phone: [facility] External Department Unsolicited Start: 07-10-2024 End: 07-12-2024 [facility] Result Encounter Brian Jacobs MD Work Phone: [facility] External Department Unsolicited Start: 07-06-2024 End: 07-06-2024 [...] Start: 06-17-2024 End: 06-17-2024 ambulatory Shaikh Jc Facility:[facility] Start: 06-17-2024 End: 06-17-2024 Departed Referred MD Shaikh Greene Work Phone: [facility] Start: [...] 25 minutes Brian Jacobs MD Work Phone: [facility] Comment on above: Fatigue, unspecified type (Primary Dx); Hair loss; Arthralgia, unspecified joint; PCOS (polycystic ovarian syndrome); Obesity (BMI 30-39.9); Thyromegaly (CMS/HCC) Start: 06-13-2024 End: 06-13-2024 ambulatory BRIAN JACOBS Not Available Start: 12-15-2022 End: 12-16-[address] BRIAN JACOBS Facility:[facility] Start: 04-20-2022 End: 05-02-[address] BRIAN JACOBS Facility:[facility] Start: 04-07-2022 End: 04-07-2022 Patient encounter procedure DPM Sb Lopez Work Phone: [facility] Start: 03-04-2022 Encounter for genera l adult medical examination without abnormal findings DR BRIAN JACOBS [facility] Start: 03-02-2022 End: 03-03-2022 Encounter for general [...] (polycystic ovarian syndrome) Expected: 07/06/2024, Expires: 07/06/2025 [facility] Work Phone: Comment on above: Expected: 07/06/2024 , Expires: 07/06/2025 Start: 07-06-2024 End: 07-06-2024 Patient encounter procedure 07/06/2024 11:15 AM EDT Office Visit [facility] [address] [place] [address] Brian Jacobs MD [address] [place] [address] Arrived [facility] Comment on above: Arrived Start: 06-26-2024 End: 06-26-2024 Patient encounter procedure 06/26/2024 10:00 AM EDT Office Visit [facility] [address] [place] [id number] Holli Lemus DO [address] [place] [address] Arrived [facility] Comment on [...] ovarian syndrome) Expected: 06/13/2024 (Approximate), Expires: 06/13/2025 [facility] Comment on above: Expected: 06/13/2024 (Approximate), Expires: 06/13/2025 Start: 06-13-2024 End: 06-13-2025 Erythrocyte sedimentation rate Sedimentation rate, automated Lab Routine Arthralgia, unspecified joint Expected: 06/13/2024 (Approximate), Expires: 06/13/2025 [facility] Comment on above: Expected: 06/13/2024 (Approximate), Expires: 06/13/2025 Start: 06-13-2024 End: 06-13-2025 Hemoglobin A1c/Hemoglobin.total in Blood Hemoglobin A1c Lab Routine PCOS (polycystic ovarian syndrome) Expected: 06/13/2024 (Approximate), Expires: 06/13/2025 [facility] Comment on above: Expected: 06/13/2024 (Approximate), Expires: 06/13/2025 Start: 06-13-2024 End: 06-13-2025 Insulin, fasting Insulin, fasting Lab Routine PCOS (polycystic ovarian syndrome) Expected: 06/13/2024 (Approximate), Expires: 06/13/2025 [facility] Comment on above: Expected: 06/13/2024 (Approximate), Expires: 06/13/2025 Start: 06-13-2024 End: 06-13-2025 Rheumatoid factor [Units/volume] in Serum or Plasma Rheumatoid factor Lab Routine Arthralgia, unspecified joint Expected: 06/13/2024 (Approximate), Expires: 06/13/2025 [facility] Comment on above: Expected: 06/13/2024 (Approximate), Expires: 06/13/2025 Start: 06-13-2024 End: 06-13-2025 Thyroglobulin Thyroglobulin Lab Routine Fatigue, unspecified type Hair loss Expected: 06/13/2024 (Approximate), Expires: 06/13/2025 [facility] Comment on above: Expected: 06/13/2024 (Approximate), Expires: 06/13/2025 Start: 06-13-2024 End: 06-13-2025 Thyroid peroxidase antibody Thyroid peroxidase antibody Lab Routine Fatigue, unspecified type Hair loss Expected: 06/13/2024 (Approximate), Expires: 06/13/2025 [facility] Comment on above: Expected: 06/13/2024 (Approximate), Expires: 06/13/2025 Start: 06-13-2024 End: 06-13-2025 Thyroid stimulating immunoglobulin Thyroid stimulating immunoglobulin Lab Routine Fatigue, unspecified type Hair loss Expected: 06/13/2024 (Approximate), Expires: 06/13/2025 [facility] Comment on above: Expected: 06/13/2024 (Approximate), Expires: 06/13/2025 Start: 06-13-2024 End: 06-13-2025 Thyrotropin [Units/volume] in Serum or Plasma TSH Lab Routine Fatigue, unspecified type Hair loss Obesity (BMI 30-39.9) Expected: 06/13/2024 (Approximate), Expires: 06/13/2025 [facility] Work Phone: Comment on above: Expected: 06/13/2024 (Approximate), Expires: 06/13/2025 Start: 06-13-2024 End: 06-13-2025 Thyroxine (T4) free [Mass/volume] in Serum or Plasma T4, free Lab Routine Fatigue, unspecified type Hair loss Expected: 06/13/2024 (Approximate), Expires: 06/13/2025 [facility] Comment on above: Expected: 06/13/2024 (Approximate), Expires: 06/13/2025 Start: 06-13-2024 End: 06-13-2025 Triiodothyronine (T3) Free [Mass/volume] in Serum or Plasma T3, free Lab Routine Fatigue, unspecified type Hair loss Expected: 06/13/2024 (Approximate), Expires: 06/13/2025 [facility] Comment on above: Expected: 06/13/2024 (Approximate), Expires: 06/13/2025 Start: 06-13-2024 End: 06-13-2025 US Thyroid gland US thyroid Imaging Routine Thyromegaly (CMS/HCC) Expected: 06/13/2024, Expires: 06/13/2025 [facility] Comment on above: Expected: 06/13/2024 , Expires: 06/13/2025 Start: 06-13-2024 End: 06-13-2024 Patient encounter procedure 06/13/2024 10:30 AM EDT Office Visit [facility] [address] [place] [address] Brian Jacobs MD [address] [place] [id number] Arrived [facility] Comment on above: Arrived Start: 05-14-2024 Influenza vaccination Influenza Vacc ine (#1) [facility] Payers Date Payer Category Payer Self-pay 2020 [facility] [employer] [id number] 2020 Unknown BCBS BCBS [id number] 2020-Present [phone] [address] [place] [address] [id number] 1994 Unknown [id number] [id number] 1994 Unknown [id number] [id number] 1994 Unknown [id number] [id number] 1994 Unknown [id number]. [id number] 1994 Unknown [id number]. [id number] 1994 Unknown [id number] [id number] 1959 Unknown [id number] Unknown [id number] [id number] Social History Date Type Detail Facility Tobacco smoking status DCIS Unknown if ever smoked [facility] Work Phone: Start: 1995 Sex Assigned At Female F [facility] Tobacco smoking status DCIS Tobacco smoking consumption unknown [facility] Start: 1995 Sex assigned at Not on file [facility] Start: 06-13-2024 End: 07-06-2024 Gender identity Not on file [facility] Start: 06-13-2024 Tobacco smoking status DCIS Never smoked tobacco [facility] Start: 06-13-2024 Tobacco use and exposure Smokeless tobacco non-user [facility] Start: 06-13-2024 End: 07-06-2024 History of Social function [facility] Start: 06-26-2024 Gender identity Identifies as female gender (finding) [facility] History of Present illness Narrative 07-06-2024 [...] Note Facility Evaluation note [facility]: Evaluation note Note [...] Sb Lopez DPM MS Attending Provider Active 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 Start Date End Date Brian Jacobs MD [address] [place] [phone] PCP - General Family Medicine 06/13/24 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 Start Date End Date Brian Jacobs MD [address] [place] [phone] PCP - General Family Medicine 06/13/24 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 Start Date End Date Brian Jacobs MD [address] [place] [phone] PCP - General Family Medicine 06/13/24 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 Start Date End Date Brian Jacobs MD [address] [place] [phone] PCP - General Family Medicine 06/13/24 Team Status: Inactive Member Role Status Dates Shaikh Jc MD Attending Provider Active Sta rt: June 17, 2024 End: June 17, 2024 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 Start Date End Date Brian Jacobs MD [address] [place] [phone] PCP - General Family Medicine 06/13/24 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 Start Date End Date Brian Jacobs MD [address] [place] [phone] PCP - General Family Medicine 06/13/24 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 Start Date End Date Brian Jacobs MD [address] [place] [phone] PCP - General [facility] Medicine 06/13/24 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 Start Date End Date Brian Jacobs MD [address] [place] [address] PCP - General [facility] Medicine 06/13/24 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.] BE BASED ON THE PRIMARY CLINICAL RECORDS. [facility]. provides no warranty or guarantee of the accuracy or completeness of information in this document.
[2024-08-10 20:49] LABS: Basophils Absolute Auto 0.1 10^3/uL (0.0-0.1); Basophils Percent Auto 0.7 % (0.2-2.0); Eosinophils Absolute Auto 0.3 10^3/uL (0.0-0.7); Hemoglobin 15.3 g/dL (12.0-16.0); Immature Granulocytes Abs Auto 0.02 10^3/uL (0.00-0.03); Immature Granulocytes Pct Auto 0.2 % (0.0-0.5); Lymphocytes Absolute Auto 2.4 10^3/uL (1.2-3.8); Lymphocytes Percent Auto 25.2 % (20.5-60.0); Mean Corpuscular Hemoglobin 29.7 pg (26.7-34.0); Mean Corpuscular Volume 87.4 fL (81.0-99.0); Mean Platelet Volume 9.1 fL (9.5-13.5); Monocytes Absolute Auto 0.5 10^3/uL (0.3-0.8); Neutrophils Absolute Auto 6.2 10^3/uL (1.4-6.5); Neutrophils Percent Auto 65.9 % (43.0-75.0); Platelet Count 439 10^3/uL (150-450); Red Blood Count 5.15 10^6/uL (4.20-5.40); White Blood Count 9.4 10^3/uL (4.0-11.0)
--- NOTE | 2024-08-10 20:57 | ED_ITS ---
HPI - Abdominal Pain General Chief Complaint: Abdominal Pain Stated Complaint: gallbladder/rib pain w/ swelling Time Seen by Provider: 08/10/24 20:29 Source: patient Mode of arrival: walk-in Limitations: no limitations History of Present Illness HPI narrative: This 28-year-old female presents for evaluation of severe right upper quadrant abdominal pain that radiates into her back. It is associated with nausea. She has had some degree of chills. The patient was seen here on August 04 and diagnosed with cholelithiasis with choledocholithiasis. CT scan at that time showed a stone in her distal common bile duct. The patient states she has not really been eating but had some food today after not eating for approximately 30 hours at which time she started having severe abdominal pain. She cannot get comfortable. She has not had any fever but states she has been having chills. She recently had her appendix out. She denies the possibility of . She states her abdomen feels distended like there is a bubble in her right upper quadrant. Related Data Home Medications ?Medication ?Instructions ?Recorded ?Confirmed metformin 500 mg tablet,extended 500 mg PO DAILY 08/04/24 08/04/24 release 24 hr Allergies Allergy/AdvReac Type Severity Reaction Status Date / Time No Known Drug Allergies Allergy Verified 08/10/24 20:26 Review of Systems ROS Status of ROS 10 or more systems reviewed and unremark able except as noted in history and below [facility] Medical History (Updated 08/11/24 @ 00:55 by Gena Pena MD) Insulin resistance ?E88.819 - Insulin resistance, unspecified (ICD-10) Upper respiratory infection ?J06.9 - Acute upper respiratory infection, unspecified (ICD-10) History of ovarian cyst ?Z87.42 - Personal history of other diseases of the female genital tract (ICD-10) Asthma ?J45.909 - Unspecified asthma, uncomplicated (ICD-10) Surgical History (Updated 08/04/24 @ 20:46 by Nadja Garcia) Hx of appendectomy ?Z90.49 - Acquired absence of other specified parts of digestive tract (ICD- 10) Family History (Updated 06/17/24 @ 00:53 by Allison Cope) Other Family history of CHF (congestive heart failure) Family history of cancer Family history of diabetes mellitus Family history of hypertension Social History (Updated 10/05/24 @ 00:52 by Allison Cope) Within the past year, how often did you have a drink containing alcohol: never Within the past year, how many standard drinks containing alcohol did you have on a typical day: 1 or 2 Within the past year, how often did you have six or more drinks on one occasion: never Total score: 0 Score interpretation: A score less than 3 is consistent with normal alcohol consumption. 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 Highest level of school completed/degree received: high school graduate Are you now , , , , never or living with a partner: In a typical week, how many times do you talk on the telephone with family, friends, or neighbors: 3 or more times per week How often do you get together with friends or relatives: 3 or more times per week How often do you attend anglican or restoration services: never Little interest or pleasure in doing things: not at all Feeling down, depressed, or hopeless: not at all Feel stressed/tense/nervous/anxious/difficulty sleeping: not at all Do you think of yourself as: straight/heterosexual Gender Identity: female Exam Narrative Exam Narrative: Vital signs and Nursing Notes reviewed: Patient's temperature is 99.2. Pulse is elevated at 95, blood pressure is elevated 145/93, she has not hypoxic with pulse ox of 98% on room air General: Awake, alert, oriented, extremely uncomfortable appearing female, she is arching her back, pacing around the room and has a hard time laying back on the stretcher due to abdominal pain HEENT: Normocephalic atraumatic, mucous membranes are moist and pink, eyes are clear, normal conjunctiva, vision is grossly intact, no scleral icterus Chest: Lungs are clear to auscultation with good air entry, there is no wheezing rhonchi or rales appreciated no accessory muscle use, patient is speaking in complete sentences-no chest wall tenderness to palpation CVS: Regular rate and rhythm S1-S2, no murmurs rubs or gallops, pulses are brisk and equal bilaterally ABD: Soft, distended with fullness in the right upper quadrant and tenderness in the right upper quadrant, bowel sounds are normal Extremities: Moving all extremities, no lower extremity tenderness or swelling noted, negative Homans' sign, pulses are brisk and equal bilaterally Skin: Normal in appearance without rash,pallor, petechiae or purpura Neuro: No focal deficits Constitutional Vital Signs, click to edit/add: Last Vital Signs Temp 99.2 F 08/10/24 20:20 Pulse 87 08/10/24 23:48 Resp 16 08/10/24 23:48 BP 115/80 08/10/24 23:48 Pulse Ox 97 08/10/24 23:48 O2 Del Method Room Air 08/10/24 23:48 Course Vital Signs Vital signs: Vital Signs Temperature 99.2 F 08/10/24 20:20 Pulse Rate 95 H 08/10/24 20:20 Respiratory Rate 16 08/10/24 20:20 Blood Pressure 145/93 H 08/10/24 20:20 Pulse Oximetry 98 08/10/24 20:20 Oxygen Delivery Method Room Air 08/10/24 20:20 Temperature 99.2 F 08/10/24 20:20 Pulse Rate 87 08/10/24 23:48 Respiratory Rate 16 08/10/24 23:48 Blood Pressure 115/80 08/10/24 23:48 Pulse Oximetry 97 08/10/24 23:48 Oxygen Delivery Method Room Air 08/10/24 23:48 MDM - Abdominal Pain MDM Narrative Medical decision making narrative: This 28-year-old female who was recently diagnosed with gallstones and choledocholithiasis presents for evaluation of severe abdominal pain with nausea. She has also had some degree of chills. She has barely been eating since being diagnosed with the gallstones but did have a small meal earlier today which caused her to have severe right upper quadrant abdominal pain radiating into her back with nausea. Upon arrival she was in distress, unable to get comfortable or lie down due to the pain in her abdomen. She is tender in the right upper quadrant. Her temperature was 99.2. An IV was placed and she was medicated with IV fluids, Zofran, Toradol and Dilaudid with clinical improv ement. Routine labs are reviewed. She has a normal white count and hemoglobin. She has elevated liver function test today including a total bilirubin of 2.5 which was 0.2 a week ago, her ALT AST and alkaline phosphatase are also elevated. Lipase and lactic acid were normal. Blood cultures were ordered due to her complaint of chills and temperature of 99.2. She was empirically treated with 3.375gm of Zosyn. Due to the stone in her common bile duct that was noted on the previous CT scan she will likely require an ERCP. The case was discussed with DARIEL Reis at [facility] who has agreed to see her in consult. Case was subsequently discussed with the hospitalist and she is excepted for admission. N.p.o. status was discussed with her. Case was discussed with Dr Fountain and she is accepted for admission to [facility]. Medical Records Attestation: I reviewed the patient's medical records. Medical records narrative: [address] [place] [id number] Patient Name: FLYNN SOLIS MRN: [facility]:[id number] date: 1995 Sex: F Assigned Patient Location: ER Current Patient Location: Accession/Order Number: [id number] Exam Date: 08/04/2024 21:30 Report Date: 08/04/2024 23:47 At the request of: RILEY CANO Procedure: CT abdomen pelvis w con EXAM: CT abdomen pelvis w con HISTORY: right upper and lower abdominal pain, COMPARISON: CT abdomen and pelvis examination dated 06/16/2024. TECHNIQUE: Axial CT images through the abdomen and pelvis were obtained after the intravenous administration of the contrast. Coronal and sagittal reformats were obtained. Dose reduction techniques were achieved by using automated exposure control and/or adjustment of mA and/or kV according to patient size and/or use of iterative reconstruction technique. FINDINGS: There is mild bibasilar atelectasis. Abdomen: The liver and spleen enhance homogeneously without focal lesion. There is no intra or extrahepatic biliary duct dilatation. There is cholelithiasis without evidence of acute inflammation. There is choledocholithiasis with a 0.3 cm gallstone in the region of the distal common bile duct. The pancreas, adrenal glands, kidneys, and bowel loops are unremarkable. There is a stable enlarged portal caval lymph node measuring up to 1.5 cm in short axis diameter (series 3, image 44). The appendix is not seen. There is scarring within the ventral abdominal subcutaneous tissues. Pelvis: The bladder and rectum are unremarkable. There is no iliac or inguinal lymphadenopathy. The uterus is present. The ovaries appear within normal limits by CT. Bone windows show no aggressive osseous lesions. IMPRESSION: 1. Cholelithiasis and choledocholithiasis. Consider further evaluation with a right upper quadrant ultrasound examination as clinically indicated. 2. Stable enlarged portacaval lymph node. 3. The appendix is not seen and could be surgically absent. Lab Data Labs: Lab Results 08/10/24 Range/Units 20:31 WBC 9.4 (4.0-11.0) 10^3/uL RBC 5.15 (4.20-5.40) 10^6/uL Hgb 15.3 (12.0-16.0) g/dL Hct 45.0 (36.0-48.0) % MCV 87.4 (81.0-99.0) fL MCH 29.7 (26.7-34.0) pg MCHC 34.0 (29.9-35.2) g/dL RDW 13.0 (11.0-15.0) % Plt Count 439 (150-450) 10^3/uL MPV 9.1 L (9.5-13.5) fL Neut % (Auto) 65.9 (43.0-75.0) % Lymph % (Auto) 25.2 (20.5-60.0) % [place] % (Auto) 5.0 (1.7-12.0) % Eos % (Auto) 3.0 (0.9-7.0) % Baso % (Auto) 0.7 (0.2-2.0) % Neut # (Auto) 6.2 (1.4-6.5) 10^3/uL Lymph # (Auto) 2.4 (1.2-3.8) 10^3/uL [place] # (Auto) 0.5 (0.3-0.8) 10^3/uL Eos # (Auto) 0.3 (0.0-0.7) 10^3/uL Baso # (Auto) 0.1 (0.0-0.1) 10^3/uL Abs Immat Gran (auto) 0.02 (0.00-0.03) 10^3/uL Imm/Tot Granulo (auto) 0.2 (0.0-0.5) % Sodium 138 (136-145) mmol/L Potassium 3.3 L (3.5-5.1) mmol/L Chloride 102 (98-107) mmol/L Carbon Dioxide 26.7 (21.0-32.0) mmol/L Anion Gap 12.6 BUN 9.0 (7.0-18.0) mg/dL Creatinine 0.79 (0.55-1.02) mg/dL Est GFR ( Amer) >60 (>=60 mL/min/1.73m^2) Est GFR (Non-Af Amer) >60 (>=60 mL/min/1.73m^2) BUN/Creatinine Ratio 11.4 Glucose 97 (74-106) mg/dL Lactate 1.3 (0.4-2.0) mmol/L Calcium 9.5 (8.5-10.1) mg/dL Total Bilirubin 2.5 H (0.2-1.0) mg/dL AST 165 H (15-37) U/L ALT 515 H* (14-59) U/L Alkaline Phosphatase 327 H (46-116) U/L Total Protein 8.6 H (6.4-8.2) g/dL Albumin 3.7 (3.4-5.0) g/dL Globulin 4.9 g/dL Albumin/Globulin Ratio 0.8 Lipase 37.0 (16.0-77.0) U/L Discharge Plan Discharge Chief Complaint: Abdominal Pain Clinical Impression: Choledocholithiasis, Right upper quadrant abdominal pain Patient Disposition: [facility] Time of Disposition Decision: 00:55 Discharge Location: [facility] Med Condition: Fair Prescriptions / Home Meds: No Action metformin 500 mg tablet extended release 24 hr 500 mg PO DAILY Print Language: Portuguese Referrals: Brian Mendoza MD [Primary Care Provider] - 1 week
[2024-08-10 21:04] LABS: Albumin Globulin Ratio 0.8; Albumin Level 3.7 g/dL (3.4-5.0); Alkaline Phosphatase 327 U/L (46-116); Anion Gap 12.6; Aspartate Amino Transferase 165 U/L (15-37); BUN Creatinine Ratio 11.4; Bilirubin Total 2.5 mg/dL (0.2-1.0); Calcium 9.5 mg/dL (8.5-10.1); Carbon Dioxide 26.7 mmol/L (21.0-32.0); Chloride 102 mmol/L (98-107); Estimated GFR (African America >60 (>=60 mL/min/1.73m^2); Estimated GFR (Non-African Ame >60 (>=60 mL/min/1.73m^2); Globulin 4.9 g/dL; Glucose 97 mg/dL (74-106); Potassium 3.3 mmol/L (3.5-5.1); Sodium 138 mmol/L (136-145); Total Protein 8.6 g/dL (6.4-8.2)
[2024-08-10 21:05] LABS: Alanine Aminotransferase 515 U/L (14-59)
[2024-08-10] MEDS: 0.9 % SODIUM CHLORIDE 1,000 ML 1000 ML IV (21:05)
[2024-08-10] MEDS: ONDANSETRON PF 4 MG/2 ML VIAL IV (21:06)
[2024-08-10] MEDS: HYDROMORPHONE HCL 1 MG/ML CARTRIDGE IV ×2 (21:07→23:34)
[2024-08-10 21:09] LABS: Lactate/Lactic Acid 1.3 mmol/L (0.4-2.0)
[2024-08-10] MEDS: FAMOTIDINE/PF 20 MG/2 ML VIAL IV (21:10)
[2024-08-10] MEDS: KETOROLAC TROMETHAMINE 30 MG/ML VIAL IVP (21:12)
[2024-08-10] MEDS: PIPERACILLIN SODIUM/TAZOBACTAM 3.375 GM in 0.9 % SODIUM CHLORIDE 50 ML IV (21:32)
[2024-08-10 23:48] VITALS: BP 115/80; PULSE 87; O2SAT 97
[2024-08-11] MEDS: 0.9 % SODIUM CHLORIDE 1,000 ML 125 ML IV (01:43)
[2024-08-11] MEDS: ONDANSETRON PF 4 MG/2 ML VIAL IV (02:01)
== END 2024-08-11 02:15 | disposition short-term general hospital (02) ==
PROVIDERS: Emergency Provider Emergency Medicine; PCP Family Medicine
DX: K80.50 Calculus of bile duct without cholangitis or cholecystitis without obstruction (principal); Z90.49 Acquired absence of other specified parts of digestive tract; R50.9 Fever, unspecified; R10.11 Right upper quadrant pain
CPT/HCPCS: 36415; 80053; 83605; 83690; 85025; 87040; 96365; 96375; 96376; 99285; J1171; J1885; J2405; J2543

== ENCOUNTER 2024-09-14 13:54 | Outpatient (OUT) | payer BC, SELFPAY ==
--- OUTSIDE RECORDS SUMMARY | 2024-09-14 13:59 | XMS_ITS | CCD ---
Author Organization [facility] Care Team Providers Care Special Diet Cook Name Role Phone GABBIE Lopez Attending Provider REYNALDO, DR BRIAN Akins Primary Care Unavailable GAELANDER, SB Tsai Admitting Unavailable GAELANDER, SB Tsai Attending Unavailable ZIEBER, DR PATRICIA Espinoza Consulting Unavailable HIGHLANDER, SB Tsai Consulting Unavailable NADERER, DR BRIAN Akins Consulting Unavailable NADERER, DR BRIAN Akins Attending Unavailable NADERER, DR BRIAN Akins Admitting Unavailable NADERER, DR BRIAN Akins Primary Care Unavailable NADERER, DR BRIAN Akins Primary Care Unavailable NADERER, DR BRIAN Akins Consulting Unavailable NADERER, DR BRIAN Akins Attending Unavailable NADERER, DR BRIAN Akins Admitting Unavailable SchnebleRhoda Consulting Unavailable NADERER, DR BRIAN Akins Primary Care Unavailable HIGHLANDER, SB Tsai Admitting Unavailable HIGHLANDER, SB Tsai Attending Unavailable Brian Jacobs MD Primary Care Provider [phone] MD Donvoan Greene Attending Provider [phone] BRIAN JACOBS Attending Unavailable HOLLI LEMUS Attending Unavailable JOSE FRANCISCO MEYERS Referring Unavailable HORANIKARMA Admitting Unavailable AYLAJOYCE Attending Unavailable NAWRAS, ALI Referring Unavailable AYLA, JOYCE Referring Unavailable NAWRAS, ALI Referring Unavailable NAWRAS, JULIO Referring Unavailable Shaikh Greene Attending Unavailable Shaikh Greene Admitting Unavailable Jairo Mccrary Attending Unavailable Jairo Mccrary Admitting Unavailable Medications Current Medications Medication Drug Class(es) Dates Sig (Normalized) Sig (Original) aspirin 81 mg delayed release oral tablet (4 sources) Platelet Aggregation Inhibitor, Nonsteroidal Anti-inflammatory Drug take 1 tablet by mouth once daily aspirin 81 MG EC tablet Take 81 mg by mouth Daily Active Blood Glucose Monitoring Suppl (Blood Glucose Monitor System) w/Device kit (4 sources) Start: 07-26-2024 Blood Glucose Monitoring Suppl (Blood Glucose Monitor System) w/Device kit Indications: Insulin resistance 1 each Daily 1 kit 07/26/2024 Active 24 hr metFORMIN hydrochloride 500 mg extended release oral tablet (8 sources) Biguanide Start: 07-06-2024 take 1 tablet [...] Problem Classification Problem Date Documented Date Episodic/Chronic Abdominal pain (2 sources) Unspecified abdominal pain; Translations: [Unspecified abdominal pain] Onset: 08-11-2024 Episodic Biliary tract disease (10 sources) Common bile duct calculus; Translations: [Calculus of bile duct without cholangitis or cholecystitis without obstruction] Onset: 08-11-2024 08-16-2024 Episodic Immunizations and screening for infectious disease (8 sources) Anti-nuclear factor positive; Translations: [Other specified abnormal immunological findings in serum] Onset: 07-12-2024 07-12-2024 Episodic Malaise and fatigue (18 sources) Fatigue; Translations: [Other fatigue] Onset: 06-13-2024 06-13-2024 Episodic Other acquired deformities (1 source) Contracture, left ankle; Translations: [CONTRACTURE LEFT ANKLE] Onset: 04-24-2022 Chronic Other endocrine disorders (20 sources) Polycystic ovary syndrome; Translations: [Polycystic ovarian syndrome] Onset: 06-13-2024 06-13-2024 Chronic Other non-traumatic joint disorders (20 sources) Joint pain; Translations: [Pain in unspecified joint] Onset: 06-13-2024 06-13-2024 Episodic Other nutritional; endocrine; and metabolic disorders (18 sources) Body mass index 30+ - obesity; Translations: [Obesity, unspecified] Onset: 06-13-2024 06-13-2024 Chronic Other nutritional; endocrine; and metabolic disorders (15 sources) Insulin resistance; Translations: [Insulin resistance] Onset: 06-15-2024 06-15-2024 Chronic Other skin disorders (18 sources) Loss of hair; Translations: [Nonscarring hair loss, unspecified] Onset: 06-13-2024 06-13-2024 Episodic Past or Other Problems Problem Classification Problem Date Documented Date Episodic/Chronic Neoplasms of unspecified nature or uncertain behavior (16 sources) Thrombocytosis; Translations: [Thrombocythemia] Onset: 06-13-2024 Resolved: [...] AND MOBILITY] Onset: 04-24-2022 Episodic Thyroid disorders (18 sources) Goiter; Translations: [Iodine-deficiency related diffuse (endemic) goiter] Onset: 06-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 [facility] Comment on above: Result Comment: Nega tive <1:80 Borderline 1:80 Positive >1:80 Speckled cytoplasmic fluorescence is present. The antibodies noted in this pattern may be associated with, but not restricted to, primary biliary cirrhosis (PBC), polymyositis and dermatomyositis (PM/DM), and/or systemic lupus erythematosus (SLE). Performed By: #### M ITOM2, CH50, PEBBLES, THYGLOB AB, C4, CHROMATIN, C3, TPO, SMAB #### [facility] , Note 1 Comment Normal . [facility] Comment on above: Result Comment: Hailey an Potential Disease Association Homogeneous Systemic Lupus Erythematosus, Drug Induced Systemic Lupus Erythematosus, Chronic Autoimmune hepatitis, Juvenile Idiopathic Arthritis Speckled Sjogren Syndrome, Systemic Lupus Erythematosus, Subacute Cutaneous Lupus, Lupus, Congenital Heart Block, Mixed Connective Tissue Disease, Scleroderma-diffuse, Scleroderma-Autoimmune Myositis Overlap Syndrome, Systemic Lupus Gdnsnpjcuivtr-Mqtoqgxikhw-Pbazzeotxq Myositis Overlap Syndrome, Systemic Autoimmune Rheumatic Disease, [...] Cytopenias, Linear Scleroderma, Antiphospholipid Syndrome Performed at: [facility] [employer] [id number] Fastener Sewing Machine Operator: David Dietz PhD, Phone: [phone] Performed By: #### M ITOM2, CH50, PEBBLES, THYGLOB AB, C4, CHROMATIN, C3, TPO, SMAB #### [facility] , Speckled Pattern 1 High . [facility] Comment on above: Result Comment: ICAP nomenclature: [id number] Performed By: #### M ITOM2, CH50, PEBBLES, THYGLOB AB, C4, CHROMATIN, C3, TPO, SMAB #### [facility] , Aldolaseon 08-30-2024 Aldolase 3.4 U/L Normal 3.3-10.3 [facility] Comment on above: Result Comment: Perf ormed at: [address] [id number] Fastener Sewing Machine Operator: David Dietz PhD, Phone: [phone] PERFORMED BY: [place] [address] [place] [address] [address] ENGINEERING TECHNICIAN DARIO ALEJO M.D. Performed By: #### M ITOM2, CH50, PEBBLES, THYGLOB AB, C4, CHROMATIN, C3, TPO, SMAB #### [facility] , Antithyroglobulin Abon 08-30 Antithyroglobulin Ab <1.0 Normal 0.0-0.9 [facility] Comment on above: Result Comment: Thyr oglobulin Antibody measured by [facility] Methodology It should be noted that the presence of thyroglobulin antibodies may not be pathogenic nor diagnostic, especially at very low levels. The assay dust control engineer has found that four percent of individuals without evidence of thyroid disease or autoimmunity will have positive TgAb levels up to 4 IU/mL. Performed By: #### M ITOM2, CH50, PEBBLES, THYGLOB AB, C4, CHROMATIN, C3, TPO, SMAB #### [facility] , C-Reactive Proteinon 024 C-Reactive Protein 0.6 mg/dL High 0.0-0.5 [facility] Comment on above: Performed By: #### M ITOM2, CH50, PEBBLES, THYGLOB AB, C4, CHROMATIN, C3, TPO, SMAB #### [facility] , Chromatin Antibodyon 024 Chromatin Antibody <0.2 Normal 0.0-0.9 [facility] Comment on above: Result Comment: Perf ormed at: [address] [id number] Fastener Sewing Machine Operator: David Dietz PhD, Phone: [phone] PERFORMED BY: [address] [place] [id number] PATHOLOGIST HIGHWAY ENGINEERING TECHNICIAN DARIO ALEJO M.D. Performed By: #### M ITOM2, CH50, PEBBLES, THYGLOB AB, C4, CHROMATIN, C3, TPO, SMAB #### [facility] , Coagulation Profileon 2023 aPTT Coag (Bld) [Time] 32.5 s Normal 25.1-36.5 [facility] Comment on above: Result Comment: A he matocrit value greater than 55% may lead to inaccurate results in coagulation testing. Patients having hematocrit values >55% require a special collection tube for coagulation studies. Please contact the laboratory at [phone] for redraw instructions. PERFORMED BY: [address] [place] [address] [address] ENGINEERING TECHNICIAN DARIO ALEJO M.D. Performed By: #### M ITOM2, CH50, PEBBLES, THYGLOB AB, C4, CHROMATIN, C3, TPO, SMAB #### [facility] , INR Coag (PPP) [Relative time] 1.0 {INR} Normal [facility] Comment on above: Result Comment: INR Therapeutic Range A) Pre- and Peroperative OAT started two weeks before surgery. NOT HIP SURGERY: 1.5 - 2.5 HIP SURGERY: 2 - 3 B) Primary and secondary prevention of venous THROMBOSIS: 2 - 3 C) Active venous thrombosis, pulmonary embolism and prevention of recurrent venous thrombosis: 2 - 3 D) Prevention of arterial thromboembolism including patients with mechanical heart valves: 3 - 4.5 Performed By: #### M ITOM2, CH50, PEBBLES, THYGLOB AB, C4, CHROMATIN, C3, TPO, SMAB #### [facility] , PT Coag (PPP) [Time] 11.7 s Normal 9.0-12.9 [facility] Comment on above: Result Comment: A he matocrit value greater than 55% may lead to inaccurate results in coagulation testing. Patients having hematocrit values >55% require a special collection tube for coagulation studies. Please contact the laboratory at [phone] for redraw instructions. Performed By: #### M ITOM2, CH50, PEBBLES, THYGLOB AB, C4, CHROMATIN, C3, TPO, SMAB #### [facility] , Complement C3on 08-30-2024 Complement C3 181 mg/dL High 82-167 [facility] Comment on above: Result Comment: Perf ormed at: [address] [id number] Fastener Sewing Machine Operator: David Dietz PhD, Phone: [phone] Performed By: #### M ITOM2, CH50, PEBBLES, THYGLOB AB, C4, CHROMATIN, C3, TPO, SMAB #### [facility] , Complement C4on 08-30-2024 Complement C4 34 mg/dL Normal 12-38 [facility] Comment on above: Performed By: #### M ITOM2, CH50, PEBBLES, THYGLOB AB, C4, CHROMATIN, C3, TPO, SMAB #### [facility] , Complement Total (CH50)on Complement Total (CH50) >60 Normal >41 [facility] Comment on above: Result Comment: Age Male Female 1 - 30 days Not Estab. Not Estab. 31 days - 6 months >32 >20 7 months - 17 years >39 >39 >17 years >41 >41 NOTE: The adult ( >17 years ) reference interval range is used to flag abnormals on this report. If the patient is 17 years old or younger, use the table above to determine out of range values. Performed at: - [facility] [id number] Fastener Sewing Machine Operator: David Dietz PhD, Phone: [phone] PERFORMED BY: [facility] [address] [place] [address] ENGINEERING TECHNICIAN DARIO ALEJO M.D. Performed By: #### M ITOM2, CH50, PEBBLES, THYGLOB AB, C4, CHROMATIN, C3, TPO, SMAB #### [facility] , Complete Blood Count Auto Di ffon 08-30-2024 Basophils (Bld) [#/Vol] 0.1 10*3/uL Normal 0.0-0.2 [facility] Comment on above: Performed By: #### M ITOM2, CH50, PEBBLES, THYGLOB AB, C4, CHROMATIN, C3, TPO, SMAB #### [facility] , Basophils/100 WBC (Bld) 1.1 % Normal . [facility] Comment on above: Performed By: #### M ITOM2, CH50, PEBBLES, THYGLOB AB, C4, CHROMATIN, C3, TPO, SMAB #### [facility] , Eosinophils (Bld) [#/Vol] 0.2 10*3/uL Normal 0.0-0.45 [facility] Comment on above: Performed By: #### M ITOM2, CH50, PEBBLES, THYGLOB AB, C4, CHROMATIN, C3, TPO, SMAB #### [facility] , Eosinophils/100 WBC (Bld) 2.0 % Normal . [facility] Comment on above: Performed By: #### M ITOM2, CH50, PEBBLES, THYGLOB AB, C4, CHROMATIN, C3, TPO, SMAB #### [facility] , Erythrocyte distribution width (RBC) [Ratio] 13.2 % Normal 11.9-15.3 [facility] Comment on above: Performed By: #### M ITOM2, CH50, PEBBLES, THYGLOB AB, C4, CHROMATIN, C3, TPO, SMAB #### [facility] , Hematocrit (Bld) [Volume fraction] 39.5 % Normal 34.0-46.4 [facility] Comment on above: Performed By: #### M ITOM2, CH50, PEBBLES, THYGLOB AB, C4, CHROMATIN, C3, TPO, SMAB #### [facility] , Hemoglobin (Bld) [Mass/Vol] 13.6 g/dL Normal 11.8-15.4 [facility] Comment on above: Performed By: #### M ITOM2, CH50, PEBBLES, THYGLOB AB, C4, CHROMATIN, C3, TPO, SMAB #### [facility] , Lymphocytes (Bld) [#/Vol] 2.4 10*3/uL Normal 1.00-4.8 [facility] Comment on above: Performed By: #### M ITOM2, CH50, PEBBLES, THYGLOB AB, C4, CHROMATIN, C3, TPO, SMAB #### [facility] , Lymphocytes/100 WBC (Bld) 19.1 % Normal . [facility] Comment on above: Performed By: #### M ITOM2, CH50, PEBBLES, THYGLOB AB, C4, CHROMATIN, C3, TPO, SMAB #### [facility] , MCH (RBC) [Entitic mass] 30.1 pg Normal 24.7-34.3 [facility] Comment on above: Performed By: #### M ITOM2, CH50, PEBBLES, THYGLOB AB, C4, CHROMATIN, C3, TPO, SMAB #### [facility] , MCV (RBC) [Entitic vol] 87.7 fL Normal 80-100 [facility] Comment on above: Performed By: #### M ITOM2, CH50, PEBBLES, THYGLOB AB, C4, CHROMATIN, C3, TPO, SMAB #### [facility] , Mean Corpuscular HGB Conc 34.3 g/dL Normal 32.0-35.0 [facility] Comment on above: Performed By: #### M ITOM2, CH50, PEBBLES, THYGLOB AB, C4, CHROMATIN, C3, TPO, SMAB #### [facility] , Monocytes (Bld) [#/Vol] 0.4 10*3/uL Normal 0.0-0.8 [facility] Comment on above: Performed By: #### M ITOM2, CH50, PEBBLES, THYGLOB AB, C4, CHROMATIN, C3, TPO, SMAB #### [facility] , Monocytes/100 WBC (Bld) 2.8 % Normal . [facility] Comment on above: Performed By: #### M ITOM2, CH50, PEBBLES, THYGLOB AB, C4, CHROMATIN, C3, TPO, SMAB #### [facility] , Neutrophils (Bld) [#/Vol] 9.5 10*3/uL High 1.8-7.7 [facility] Comment on above: Performed By: #### M ITOM2, CH50, PEBBLES, THYGLOB AB, C4, CHROMATIN, C3, TPO, SMAB #### [facility] , Neutrophils/100 WBC (Bld) 75.0 % Normal . [facility] Comment on above: Performed By: #### M ITOM2, CH50, PEBBLES, THYGLOB AB, C4, CHROMATIN, C3, TPO, SMAB #### [facility] , NRBC% 0.1 /100{WBC} Normal 0-0.5 [facility] Comment on above: Performed By: #### M ITOM2, CH50, PEBBLES, THYGLOB AB, C4, CHROMATIN, C3, TPO, SMAB #### [facility] , Platelet mean volume (Bld) [Entitic vol] 7.9 fL Normal 6.3-10.7 [facility] Comment on above: Performed By: #### M ITOM2, CH50, PEBBLES, THYGLOB AB, C4, CHROMATIN, C3, TPO, SMAB #### [facility] , Platelets (Bld) [#/Vol] 435 10*3/uL Normal 150-450 [facility] Comment on above: Performed By: #### M ITOM2, CH50, PEBBLES, THYGLOB AB, C4, CHROMATIN, C3, TPO, SMAB #### [facility] , RBC (Bld) [#/Vol] 4.51 10*6/uL Normal 3.60-5.00 [facility] Comment on above: Performed By: #### M ITOM2, CH50, PEBBLES, THYGLOB AB, C4, CHROMATIN, C3, TPO, SMAB #### [facility] , WBC (Bld) [#/Vol] 12.7 10*3/uL High 3.8-11.6 [facility] Comment on above: Performed By: #### M ITOM2, CH50, PEBBLES, THYGLOB AB, C4, CHROMATIN, C3, TPO, SMAB #### [facility] , Comprehensive Metabolic Pane jose raul 08-30-2024 Albumin [Mass/Vol] 4.5 g/dL Normal 3.5-5.7 [facility] Comment on above: Performed By: #### M ITOM2, CH50, PEBBLES, THYGLOB AB, C4, CHROMATIN, C3, TPO, SMAB #### [facility] , Albumin/Globulin [Mass ratio] 1.3 {ratio} Normal [facility] Comment on above: Performed By: #### M ITOM2, CH50, PEBBLES, THYGLOB AB, C4, CHROMATIN, C3, TPO, SMAB #### [facility] , ALP [Catalytic activity/Vol] 91 U/L Normal 34-104 [facility] Comment on above: Performed By: #### M ITOM2, CH50, PEBBLES, THYGLOB AB, C4, CHROMATIN, C3, TPO, SMAB #### [facility] , ALT [Catalytic activity/Vol] 20 U/L Normal 7-52 [facility] Comment on above: Performed By: #### M ITOM2, CH50, PEBBLES, THYGLOB AB, C4, CHROMATIN, C3, TPO, SMAB #### [facility] , Anion gap [Moles/Vol] 12.7 mmol/L Normal 6.0-15.0 [facility] Comment on above: Performed By: #### M ITOM2, CH50, PEBBLES, THYGLOB AB, C4, CHROMATIN, C3, TPO, SMAB #### [facility] , AST [Catalytic activity/Vol] 15 U/L Normal 13-39 [facility] Comment on above: Performed By: #### M ITOM2, CH50, PEBBLES, THYGLOB AB, C4, CHROMATIN, C3, TPO, SMAB #### [facility] , Bilirubin [Mass/Vol] 0.6 mg/dL Normal 0.3-1.0 [facility] Comment on above: Performed By: #### M ITOM2, CH50, PEBBLES, THYGLOB AB, C4, CHROMATIN, C3, TPO, SMAB #### [facility] , Calcium [Mass/Vol] 9.6 mg/dL Normal 8.6-10.3 [facility] Comment on above: Performed By: #### M ITOM2, CH50, PEBBLES, THYGLOB AB, C4, CHROMATIN, C3, TPO, SMAB #### [facility] , Chloride [Moles/Vol] 102 mmol/L Normal 98-107 [facility] Comment on above: Performed By: #### M ITOM2, CH50, PEBBLES, THYGLOB AB, C4, CHROMATIN, C3, TPO, SMAB #### [facility] , CO2 [Moles/Vol] 27.1 mmol/L Normal 21.0-31.0 [facility] Comment on above: Performed By: #### M ITOM2, CH50, PEBBLES, THYGLOB AB, C4, CHROMATIN, C3, TPO, SMAB #### [facility] , Creatinine [Mass/Vol] 0.61 mg/dL Normal 0.60-1.20 [facility] Comment on above: Performed By: #### M ITOM2, CH50, PEBBLES, THYGLOB AB, C4, CHROMATIN, C3, TPO, SMAB #### [facility] , GFR/1.73 sq M.predicted MDRD (S/P/Bld) [Vol rate/Area] mL/min/{1.73_m2} Normal [facility] Comment on above: Performed By: #### M ITOM2, CH50, PEBBLES, THYGLOB AB, C4, CHROMATIN, C3, TPO, SMAB #### [facility] , Globulin (S) [Mass/Vol] 3.5 g/dL Normal [facility] Comment on above: Performed By: #### M ITOM2, CH50, PEBBLES, THYGLOB AB, C4, CHROMATIN, C3, TPO, SMAB #### [facility] , Glucose [Mass/Vol] 102 mg/dL High 70-100 [facility] Comment on above: Result Comment: [place] Glucose Reference Range is dependent on time and content of last meal. Glucose of more than 200 mg/dL in a nonstressed, ambulatory subject supports the diagnosis of Diabetes Mellitus. ADA recommended reference range Performed By: #### M ITOM2, CH50, PEBBLES, THYGLOB AB, C4, CHROMATIN, C3, TPO, SMAB #### [facility] , Potassium [Moles/Vol] 3.8 mmol/L Normal 3.5-5.1 [facility] Comment on above: Performed By: #### M ITOM2, CH50, PEBBLES, THYGLOB AB, C4, CHROMATIN, C3, TPO, SMAB #### [facility] , Protein [Mass/Vol] 8.0 g/dL Normal 6.4-8.9 [facility] Comment on above: Performed By: #### M ITOM2, CH50, PEBBLES, THYGLOB AB, C4, CHROMATIN, C3, TPO, SMAB #### [facility] , Sodium [Moles/Vol] 138 mmol/L Normal 136-145 [facility] Comment on above: Performed By: #### M ITOM2, CH50, PEBBLES, THYGLOB AB, C4, CHROMATIN, C3, TPO, SMAB #### [facility] , Urea nitrogen [Mass/Vol] 9 mg/dL Normal 7-25 [facility] Comment on above: Performed By: #### M ITOM2, CH50, PEBBLES, THYGLOB AB, C4, CHROMATIN, C3, TPO, SMAB #### [facility] , Creatine Kinaseon 08-30-2024 CK [Catalytic activity/Vol] 40 U/L Normal 30-223 [facility] Comment on above: Result Comment: PERF ORMED BY: [place] [address] ENGINEERING TECHNICIAN DARIO ALEJO M.D. Performed By: #### I FE,URINE, SPE, RPR W RFX, KAJAL SERUM, UPE RAND, ALDOLASE #### [facility] , #### T4F, CK, CRP, CBC, TSH3, ADDONUAPLUS, CMP, ESR #### [place] [address] [place] [employer] 1 10-31-2023 Appearance (U) Clear Normal Clear [facility] Comment on above: Order Comment: Name Collection Type:: Clean-Voided Midstream Performed By: #### M ITOM2, CH50, PEBBLES, THYGLOB AB, C4, CHROMATIN, C3, TPO, SMAB #### [facility] , Bacteria,Urine None Seen Normal None Seen [facility] Comment on above: Order Comment: Name Collection Type:: Clean-Voided Midstream Result Comment: PERF ORMED BY: [place] [address] ENGINEERING TECHNICIAN DARIO ALEJO M.D. Performed By: #### M ITOM2, CH50, PEBBLES, THYGLOB AB, C4, CHROMATIN, C3, TPO, SMAB #### [facility] , Bilirubin,Urine Negative Normal Negative [facility] Comment on above: Order Comment: Name Collection Type:: Clean-Voided Midstream Performed By: #### M ITOM2, CH50, PEBBLES, THYGLOB AB, C4, CHROMATIN, C3, TPO, SMAB #### [facility] , Color (U) Light-Yellow Normal Yellow [facility] Comment on above: Order Comment: Name Collection Type:: Clean-Voided Midstream Performed By: #### M ITOM2, CH50, PEBBLES, THYGLOB AB, C4, CHROMATIN, C3, TPO, SMAB #### [facility] , Glucose Ql (U) Normal Normal Normal [facility] Comment on above: Order Comment: Name Collection Type:: Clean-Voided Midstream Performed By: #### M ITOM2, CH50, PEBBLES, THYGLOB AB, C4, CHROMATIN, C3, TPO, SMAB #### [facility] , Ketones Ql (U) Negative Normal Negative [facility] Comment on above: Order Comment: Name Collection Type:: Clean-Voided Midstream Performed By: #### M ITOM2, CH50, PEBBLES, THYGLOB AB, C4, CHROMATIN, C3, TPO, SMAB #### [facility] , Leukocyte esterase Test strip Ql (U) Negative Normal Negative [facility] Comment on above: Order Comment: Name Collection Type:: Clean-Voided Midstream Performed By: #### M ITOM2, CH50, PEBBLES, THYGLOB AB, C4, CHROMATIN, C3, TPO, SMAB #### [facility] , Nitrite,Urine Negative Normal Negative [facility] Comment on above: Order Comment: Name Collection Type:: Clean-Voided Midstream Performed By: #### M ITOM2, CH50, PEBBLES, THYGLOB AB, C4, CHROMATIN, C3, TPO, SMAB #### [facility] , Occult Blood,Urine Negative Normal Negative [facility] Comment on above: Order Comment: Name Collection Type:: Clean-Voided Midstream Performed By: #### M ITOM2, CH50, PEBBLES, THYGLOB AB, C4, CHROMATIN, C3, TPO, SMAB #### [facility] , pH (U) 5.5 [pH] Normal 5.0-9.0 [facility] Comment on above: Order Comment: Name Collection Type:: Clean-Voided Midstream Performed By: #### M ITOM2, CH50, PEBBLES, THYGLOB AB, C4, CHROMATIN, C3, TPO, SMAB #### [facility] , Protein,Urine Negative Normal Negative [facility] Comment on above: Order Comment: Name Collection Type:: Clean-Voided Midstream Performed By: #### M ITOM2, CH50, PEBBLES, THYGLOB AB, C4, CHROMATIN, C3, TPO, SMAB #### [facility] , RBC,Urine 0 [HPF] Normal 0-4 [facility] Comment on above: Order Comment: Name Collection Type:: Clean-Voided Midstream Performed By: #### M ITOM2, CH50, PEBBLES, THYGLOB AB, C4, CHROMATIN, C3, TPO, SMAB #### [facility] , Specificy [place],Urine 1.014 Normal 1.001-1.030 [facility] Comment on above: Order Comment: Name Collection Type:: Clean-Voided Midstream Performed By: #### M ITOM2, CH50, PEBBLES, THYGLOB AB, C4, CHROMATIN, C3, TPO, SMAB #### [facility] , Squamous Epithelial Cell,Urine 1 [HPF] Normal 0-2 [facility] Comment on above: Order Comment: Name Collection Type:: Clean-Voided Midstream Performed By: #### M ITOM2, CH50, PEBBLES, THYGLOB AB, C4, CHROMATIN, C3, TPO, SMAB #### [facility] , Urobilinogen,Urine Normal Normal Normal [facility] Comment on above: Order Comment: Name Collection Type:: Clean-Voided Midstream Performed By: #### M ITOM2, CH50, PEBBLES, THYGLOB AB, C4, CHROMATIN, C3, TPO, SMAB #### [facility] , WBC,Urine 3 [HPF] Normal 0-4 [facility] Comment on above: Order Comment: Name Collection Type:: Clean-Voided Midstream Performed By: #### M ITOM2, CH50, PEBBLES, THYGLOB AB, C4, CHROMATIN, C3, TPO, SMAB #### [facility] , Erythrocyte Sedimentation Ra joy 08-30-2024 ESR (Bld) [Velocity] 34 mm/h High 0-19 [facility] Comment on above: Result Comment: PERF ORMED BY: [address] [place] [address] ENGINEERING TECHNICIAN DARIO ALEJO M.D. Performed By: #### M ITOM2, CH50, PEBBLES, THYGLOB AB, C4, CHROMATIN, C3, TPO, SMAB #### [facility] , Free T4 (Free Thyroxine)on 1 10-31-2023 Free T4 [Mass/Vol] 0.88 ng/dL Normal 0.61-1.12 [facility] Comment on above: Performed By: #### M ITOM2, CH50, PEBBLES, THYGLOB AB, C4, CHROMATIN, C3, TPO, SMAB #### [facility] , Immunofixation, (KAJAL), Urine on 08-30-2024 Immunofixation, (KAJAL), Urine Comment Normal . [facility] Comment on above: Result Comment: No m onoclonality detected. Performed at: [address] [id number] Fastener Sewing Machine Operator: David Dietz PhD, Phone: [phone] Performed By: #### M ITOM2, CH50, PEBBLES, THYGLOB AB, C4, CHROMATIN, C3, TPO, SMAB #### [facility] , Immunofixation,Serumon 08-30 Immunofixation, Serum Comment Normal . [facility] Comment on above: Result Comment: No m onoclonality detected. Performed By: #### M ITOM2, CH50, PEBBLES, THYGLOB AB, C4, CHROMATIN, C3, TPO, SMAB #### [facility] , Immunoglobulin A, Serum 159 mg/dL Normal 87-352 [facility] Comment on above: Performed By: #### M ITOM2, CH50, PEBBLES, THYGLOB AB, C4, CHROMATIN, C3, TPO, SMAB #### [facility] , Immunoglobulin G 1829 mg/dL High [phone] [facility] Comment on above: Performed By: #### M ITOM2, CH50, PEBBLES, THYGLOB AB, C4, CHROMATIN, C3, TPO, SMAB #### [facility] , Immunoglobulin M, Serum 115 mg/dL Normal 26-217 [facility] Comment on above: Result Comment: Perf ormed at: - [address] [id number] Fastener Sewing Machine Operator: David Dietz PhD, Phone: [phone] Performed By: #### M ITOM2, CH50, PEBBLES, THYGLOB AB, C4, CHROMATIN, C3, TPO, SMAB #### [facility] , Lupus Anticoagulant Compon 1 10-31-2023 Dilute Prothrombin Time (dPt) 31.9 Normal 0.0-47.6 [facility] Comment on above: Performed By: #### M ITOM2, CH50, PEBBLES, THYGLOB AB, C4, CHROMATIN, C3, TPO, SMAB #### [facility] , dPT Confirm Ratio 1.04 Normal 0.00-1.34 [facility] Comment on above: Performed By: #### M ITOM2, CH50, PEBBLES, THYGLOB AB, C4, CHROMATIN, C3, TPO, SMAB #### [facility] , DRVVT Lupus 30.0 Normal 0.0-47.0 [facility] Comment on above: Performed By: #### M ITOM2, CH50, PEBBLES, THYGLOB AB, C4, CHROMATIN, C3, TPO, SMAB #### [facility] , Interpretation Comment: Normal . [facility] Comment on above: Result Comment: No l upus anticoagulant was detected. Performed at: - [address] [id number] Fastener Sewing Machine Operator: Tirso Cummings MD, Phone: [phone] PERFORMED BY: [address] [place] [address] ENGINEERING TECHNICIAN DARIO ALEJO M.D. Performed By: #### M ITOM2, CH50, PEBBLES, THYGLOB AB, C4, CHROMATIN, C3, TPO, SMAB #### [facility] , PTT-LA 33.6 Normal 0.0-43.5 [facility] Comment on above: Performed By: #### M ITOM2, CH50, PEBBLES, THYGLOB AB, C4, CHROMATIN, C3, TPO, SMAB #### [facility] , Thrombin Time 18.1 Normal 0.0-23.0 [facility] Comment on above: Performed By: #### M ITOM2, CH50, PEBBLES, THYGLOB AB, C4, CHROMATIN, C3, TPO, SMAB #### [facility] , Mitochondrial (M2) Antibodyo n 08-30-2024 Mitochondrial (M2) Antibody 122.2 High 0.0-20.0 [facility] Comment on above: Result Comment: Nega tive 0.0 - 20.0 Equivocal 20.1 - 24.9 Positive >24.9 Mitochondrial (M2) Antibodies are found in 90-96% of patients with primary biliary cirrhosis. Performed at: - [address] [id number] Fastener Sewing Machine Operator: David Dietz PhD, Phone: [phone] Performed By: #### M ITOM2, CH50, PEBBLES, THYGLOB AB, C4, CHROMATIN, C3, TPO, SMAB #### [facility] , Protein Electro, Random Urin ronda 08-30-2024 Albumin, Urine 58.3 % Normal . [facility] Comment on above: Performed By: #### M ITOM2, CH50, PEBBLES, THYGLOB AB, C4, CHROMATIN, C3, TPO, SMAB #### [facility] , Zxeug-5-Dlbpfmws, Urine 2.0 % Normal . [facility] Comment on above: Performed By: #### M ITOM2, CH50, PEBBLES, THYGLOB AB, C4, CHROMATIN, C3, TPO, SMAB #### [facility] , Trmyw-3-Upkzvpgp, Urine 6.7 % Normal . [facility] Comment on above: Performed By: #### M ITOM2, CH50, PEBBLES, THYGLOB AB, C4, CHROMATIN, C3, TPO, SMAB #### [facility] , Beta Globulin, Urine 16.4 % Normal . [facility] Comment on above: Performed By: #### M ITOM2, CH50, PEBBLES, THYGLOB AB, C4, CHROMATIN, C3, TPO, SMAB #### [facility] , Gamma Globulin, Urine 16.6 % Normal . [facility] Comment on above: Performed By: #### M ITOM2, CH50, PEBBLES, THYGLOB AB, C4, CHROMATIN, C3, TPO, SMAB #### [facility] , M-Vargas % Not Observed Normal Not Observed [facility] Comment on above: Performed By: #### M ITOM2, CH50, PEBBLES, THYGLOB AB, C4, CHROMATIN, C3, TPO, SMAB #### [facility] , Please Note: Comment Normal . [facility] Comment on above: Result Comment: Prot ein electrophoresis scan will follow via computer, mail, or deputy register of deeds delivery. Protein electrophoresis scan will follow via computer, mail, or deputy register of deeds delivery. Performed at: [address] [id number] Fastener Sewing Machine Operator: David Dietz PhD, Phone: [phone] --- 09/04/24 0792 --- Please Note: previously reported as: Comment Protein electrophoresis scan will follow via computer, mail, or deputy register of deeds delivery. PERFORMED BY: [facility] [address] [place] [address] ENGINEERING TECHNICIAN DARIO ALEJO M.D. Performed By: #### M ITOM2, CH50, PEBBLES, THYGLOB AB, C4, CHROMATIN, C3, TPO, SMAB #### [facility] , Protein (U) [Mass/Vol] 5.4 mg/dL Normal Not Estab. [facility] Comment on above: Performed By: #### M ITOM2, CH50, PEBBLES, THYGLOB AB, C4, CHROMATIN, C3, TPO, SMAB #### [facility] , Protein Electrophoresis, Ser umon 08-30-2024 Albumin [Mass/Vol] 3.9 g/dL Normal 2.9-4.4 [facility] Comment on above: Performed By: #### M ITOM2, CH50, PEBBLES, THYGLOB AB, C4, CHROMATIN, C3, TPO, SMAB #### [facility] , Albumin/Globulin [Mass ratio] 0.8 {ratio} Normal 0.7-1.7 [facility] Comment on above: Performed By: #### M ITOM2, CH50, PEBBLES, THYGLOB AB, C4, CHROMATIN, C3, TPO, SMAB #### [facility] , Tpivv-3-Wtxkzfii 0.3 g/dL Normal 0.0-0.4 [facility] Comment on above: Performed By: #### M ITOM2, CH50, PEBBLES, THYGLOB AB, C4, CHROMATIN, C3, TPO, SMAB #### [facility] , Akkll-7-Ipsqynxk 1.0 g/dL Normal 0.4-1.0 [facility] Comment on above: Performed By: #### M ITOM2, CH50, PEBBLES, THYGLOB AB, C4, CHROMATIN, C3, TPO, SMAB #### [facility] , Beta Globulin 1.4 g/dL High 0.7-1.3 [facility] Comment on above: Performed By: #### M ITOM2, CH50, PEBBLES, THYGLOB AB, C4, CHROMATIN, C3, TPO, SMAB #### [facility] , Gamma Globulin 2.0 g/dL High 0.4-1.8 [facility] Comment on above: Performed By: #### M ITOM2, CH50, PEBBLES, THYGLOB AB, C4, CHROMATIN, C3, TPO, SMAB #### [facility] , Globulin (S) [Mass/Vol] 4.7 g/dL High 2.2-3.9 [facility] Comment on above: Performed By: #### M ITOM2, CH50, PEBBLES, THYGLOB AB, C4, CHROMATIN, C3, TPO, SMAB #### [facility] , M-Vargas Not Observed Normal Not Observed [facility] Comment on above: Performed By: #### M ITOM2, CH50, PEBBLES, THYGLOB AB, C4, CHROMATIN, C3, TPO, SMAB #### [facility] , Protein [Mass/Vol] 8.6 g/dL High 6.0-8.5 [facility] Comment on above: Performed By: #### M ITOM2, CH50, PEBBLES, THYGLOB AB, C4, CHROMATIN, C3, TPO, SMAB #### [facility] , SPE-Note Comment Normal . [facility] Comment on above: Result Comment: Prot ein electrophoresis scan will follow via computer, mail, or deputy register of deeds delivery. Performed at: [address] [id number] Fastener Sewing Machine Operator: David Dietz PhD, Phone: [phone] Performed By: #### M ITOM2, CH50, PEBBLES, THYGLOB AB, C4, CHROMATIN, C3, TPO, SMAB #### [facility] , RPR w/rfx to Quant TP Abson 08-30-2024 RPR, Rfx Quant RPR Non-Reactive Normal Non Reactive [facility] Comment on above: Result Comment: Perf ormed at: [address] [id number] Fastener Sewing Machine Operator: David Dietz PhD, Phone: [phone] PERFORMED BY: [place] [address] [place] [address] ENGINEERING TECHNICIAN DARIO ALEJO M.D. Performed By: #### M ITOM2, CH50, PEBBLES, THYGLOB AB, C4, CHROMATIN, C3, TPO, SMAB #### [facility] , Smooth Muscle Antibodyon Smooth Muscle Antibody 10 Normal 0-19 [facility] Comment on above: Result Comment: Nega tive 0 - 19 Weak positive 20 - 30 Moderate to strong positive >30 Actin Antibodies are found in 52-85% of patients with autoimmune hepatitis or chronic active hepatitis and in 22% of patients with primary biliary cirrhosis. Performed By: #### M ITOM2, CH50, PEBBLES, THYGLOB AB, C4, CHROMATIN, C3, TPO, SMAB #### [facility] , Thyroid Peroxidase Antibodie son 08-30-2024 Thyroid Peroxidase Antibodies 11 [IU]/mL Normal 0-34 [facility] Comment on above: Result Comment: Perf ormed at: [address] [id number] Fastener Sewing Machine Operator: David Dietz PhD, Phone: [phone] Performed By: #### M ITOM2, CH50, PEBBLES, THYGLOB AB, C4, CHROMATIN, C3, TPO, SMAB #### [facility] , Thyroid Stimulating Hormoneo n 08-30-2024 TSH Qn 1.37 m[IU]/L Normal 0.45-5.33 [facility] Comment on above: Result Comment: PERF ORMED BY: [facility] [address] [place] [address] ENGINEERING TECHNICIAN DARIO ALEJO M.D. Performed By: #### M ITOM2, CH50, PEBBLES, THYGLOB AB, C4, CHROMATIN, C3, TPO, SMAB #### [facility] , 30on 08-12-2024 30 The patient is Moderately Stable - Low risk of patient condition declining or worsening The patient's goals for the shift include Rest, comfort The clinical goals for the shift include VSS, comfort, safety Problem: Pain - Adult Goal: Verbalizes/displays adequate comfort level or baseline comfort level Outcome: Progressing Problem: Safety - Adult Goal: Free from fall injury Outcome: Progressing Problem: Discharge Planning Goal: Discharge to home or other facility with appropriate resources Outcome: Progressing Normal [facility] COMPREHENSIVE METABOLIC PANE Jose Raul 08-12-2024 Albumin [Mass/Vol] 3.8 g/dL Normal 3.5-5.[address] [facility] Comment on above: Performed By: #### L [id number] ####[facility] ([facility])[address] [place] [address] ALP [Catalytic activity/Vol] 223 U/L High 34-104 [facility] Comment on above: Performed By: #### L [id number] ####[facility] ([facility])[address] [place] [address] ALT [Catalytic activity/Vol] 256 U/L High 7-52 [facility] Comment on above: Performed By: #### L [id number] ####[facility] ([facility])[address] [place] [address] Anion gap [Moles/Vol] 12 mmol/L Normal 7-20 [facility] Comment on above: Performed By: #### L [id number] ####[facility] ([facility])[address] [place] [address] AST [Catalytic activity/Vol] 74 U/L High 13-39 [facility] Comment on above: Performed By: #### L [id number] ####[facility] ([facility])[address] [place] [address] Bilirubin [Mass/Vol] 1.2 mg/dL High 0.3-1.0 [facility] Comment on above: Performed By: #### L [id number] ####[facility] ([facility])[address] [place] [address] Calcium [Mass/Vol] 8.5 mg/dL Low 8.6-10.[address] [facility] Comment on above: Performed By: #### L [id number] ####[facility] ([facility])[address] [place] [address] Chloride [Moles/Vol] 104 mmol/L Normal 98-107 [facility] Comment on above: Performed By: #### L [id number] ####[facility] ([facility])[address] [place] [address] CO2 [Moles/Vol] 22 mmol/L Normal 21-31 [facility] Comment on above: Performed By: #### L [id number] ####[facility] ([facility])[address] [place] [address] Creatinine [Mass/Vol] 0.51 mg/dL Low 0.60-1.20 [facility] Comment on above: Performed By: #### L [id number] ####[facility] ([facility])[address] [place] [address] GLOMERULAR FILTRATION RATE ML/MIN/1.73 SQ M.PREDICTED 129.5 mL/min/1.73m*2 Normal >60.0 [facility] Comment on above: Result Comment: The [facility]???s estimated glomerular filtration rate (eGFR) will no longer include consideration of race in its calculation. The National Kidney Foundation???s eGFR Task Force developed new recommendations for the estimation of the glomerular filtration rate in the [place] They recommend immediate implementation of the new equation refit without the race variable in all laboratories because the calculation does not include race. In addition to not including race in the calculation and reporting, it included diversity in its development, and has acceptable performance characteristics and potential consequences that do not disproportionately affect any one group of individuals. Performed By: #### L [id number] ####[facility] ([facility])[address] [place] [address] Glucose [Mass/Vol] 71 mg/dL Normal 70-[address] [facility] Comment on above: Performed By: #### L [id number] ####[facility] ([facility])[address] [place] [address] Potassium [Moles/Vol] 4.0 mmol/L Normal 3.5-5.1 [facility] Comment on above: Performed By: #### L [id number] ####[facility] ([facility])[address] [place] [address] Protein [Mass/Vol] 7.2 g/dL Normal 6.0-8.[address] [facility] Comment on above: Performed By: #### L [id number] ####[facility] ([facility])[address] [place] [address] Sodium [Moles/Vol] 134 mmol/L Low 136-[address] [facility] Comment on above: Performed By: #### L [id number] ####[facility] ([facility])[address] [place] [address] Urea nitrogen [Mass/Vol] 9 mg/dL Normal 7-25 [facility] Comment on above: Performed By: #### L [id number] ####[facility] ([facility])[address] [place] [address] UREA NITROGEN/CREATININE (MASS RATIO) IN SER/PLAS 17.6 Normal [facility] Comment on above: Performed By: #### L [id number] ####[facility] ([facility])[address] [place] [address] POCT GLUCOSE METER UNSOLICIT ED RESULTSon 08-12-2024 Glucose [Mass/Vol] 128 mg/dL High 70-[address] [facility] Comment on above: Order Comment: Waive d Testing in the ED is performed under the ED CLIA certificate #[id number]. Result Comment: msan Performed By: #### L [id number] #### [facility] ([facility]) [address] [place] [address] Glucose [Mass/Vol] 204 mg/dL High 70-[address] [facility] Comment on above: Order Comment: Waive d Testing in the ED is performed under the ED CLIA certificate #[id number]. Result Comment: elac umsky Performed By: #### L [id number] ####[facility] ([facility])[address] [place] [address] Glucose [Mass/Vol] 70 mg/dL Normal 70-[address] [facility] Comment on above: Order Comment: Waive d Testing in the ED is performed under the ED CLIA certificate #[id number]. Result Comment: [email or web address] [email or web address] Performed By: #### L [id number] #### [facility] ([facility]) [address] [place] [address] 30on 08-11-2024 30 The patient is Moderately Stable - Low risk of patient condition declining or worsening The patient's goals for the shift include Rest, comfort The clinical goals for the shift include VSS, comfort, safety Over the shift, the patient did not make progress toward the following goals. Barriers to progression include pain. Recommendations to address these barriers include frequent pain reassessments, pain medication administration as ordered. Normal [facility] C-REACTIVE PROTEINon 024 C REACTIVE PROTEIN (MG/L) IN SER/PLAS 7.5 mg/L High <=5.0 [facility] Comment on above: Result Comment: Test ing performed using a new methodology, turbidimetry. Normal ranges have been updated. Old normal range was <8 mg/L. Performed By: #### L [id number] #### [facility] ([facility]) [address] [place] [address] CBC WITH AUTO DIFFERENTIALon 08-11-2024 Erythrocyte distribution width (RBC) [Ratio] 13.2 % Normal 11.5-15.0 [facility] Comment on above: Performed By: #### L [id number] #### [facility] ([facility]) [address] [place] [address] ERYTHROCYTE MEAN CORPUSCULAR HEMOGLOBIN CONCENTRATION (G/DL) BY AUTOMATED 33.2 g/dL Normal 32.0-35.0 [facility] Comment on above: Performed By: #### L [id number] #### [facility] ([facility]) [address] [address] Hematocrit (Bld) [Volume fraction] 39.2 % Normal 36.0-48.0 [facility] Comment on above: Performed By: #### L [id number] #### [facility] ([facility]) [address] [place] [address] Hemoglobin (Bld) [Mass/Vol] 13.0 g/dL Normal 12.0-15.0 [facility] Comment on above: Performed By: #### L [id number] #### [facility] ([facility]) [address] [place] [address] IMMATURE PLATELET FRACTION % 6.2 % Normal 0.8-6.3 [facility] Comment on above: Performed By: #### L [id number] #### [facility] ([facility]) [address] [place] [address] MCH (RBC) [Entitic mass] 29.6 pg Normal 27.0-33.0 [facility] Comment on above: Performed By: #### L [id number] #### [facility] ([facility]) [address] [place] [address] MCV (RBC) [Entitic vol] 89.3 fL Normal 82.0-98.0 [facility] Comment on above: Performed By: #### L [id number] #### [facility] ([facility]) [address] [place] [address] NRBC (PER 100 WBCS) BY AUTOMATED COUNT 0.0 % Normal 0 [facility] Comment on above: Performed By: #### L [id number] #### [facility] ([facility]) [address] [place] [address] PLATELETS (10*3/UL) IN BLOOD AUTOMATED COUNT 238 10*3/uL Normal 150-400 [facility] Comment on above: Performed By: #### L [id number] #### [facility] ([facility]) [address] [place] [address] RBC (Bld) [#/Vol] 4.39 10*6/uL Normal 3.80-5.00 [facility] Comment on above: Performed By: #### L [id number] #### [facility] ([facility]) [address] [place] [address] WBC (Bld) [#/Vol] 7.82 10*3/uL Normal 4.00-10.60 [facility] Comment on above: Performed By: #### L [id number] #### [facility] ([facility]) [address] [place] [address] COMPREHENSIVE METABOLIC PANE Jose Raul 08-11-2024 Albumin [Mass/Vol] 3.9 g/dL Normal 3.5-5.[address] [facility] Comment on above: Performed By: #### L [id number] #### [facility] ([facility]) [address] [place] [address] ALP [Catalytic activity/Vol] 246 U/L High 34-104 [facility] Comment on above: Performed By: #### L [id number] #### [facility] ([facility]) [address] [place] [address] ALT [Catalytic activity/Vol] 314 U/L High 7-52 [facility] Comment on above: Performed By: #### L [id number] #### [facility] ([facility]) [address] [place] [address] Anion gap [Moles/Vol] 10 mmol/L Normal 7-20 [facility] Comment on above: Performed By: #### L [id number] #### [facility] ([facility]) [address] [place] [address] AST [Catalytic activity/Vol] 98 U/L High 13-39 [facility] Comment on above: Performed By: #### L [id number] #### [facility] [address] [place] [address] Bilirubin [Mass/Vol] 1.4 mg/dL High 0.3-1.0 [facility] Comment on above: Performed By: #### L [id number] #### [facility] [address] [place] [address] Calcium [Mass/Vol] 8.2 mg/dL Low 8.6-10.[address] [facility] Comment on above: Performed By: #### L [id number] #### [facility] ([facility]) [address] [place] [address] Chloride [Moles/Vol] 108 mmol/L High 98-107 [facility] Comment on above: Performed By: #### L [id number] #### [facility] ([facility]) [address] [place] [address] CO2 [Moles/Vol] 21 mmol/L Normal 21-31 [facility] Comment on above: Performed By: #### L [id number] #### [facility] ([facility]) [address] [place] [address] Creatinine [Mass/Vol] 0.58 mg/dL Low 0.60-1.20 [facility] Comment on above: Performed By: #### L [id number] #### [facility] ([facility]) [address] [place] [address] GLOMERULAR FILTRATION RATE ML/MIN/1.73 SQ M.PREDICTED 125.6 mL/min/1.73m*2 Normal >60.0 [facility] Comment on above: Result Comment: The [facility]???s estimated glomerular filtration rate (eGFR) will no longer include consideration of race in its calculation. The National Kidney Foundation???s eGFR Task Force developed new recommendations for the estimation of the glomerular filtration rate in the [place] They recommend immediate implementation of the new equation refit without the race variable in all laboratories because the calculation does not include race. In addition to not including race in the calculation and reporting, it included diversity in its development, and has acceptable performance characteristics and potential consequences that do not disproportionately affect any one group of individuals. Performed By: #### L [id number] #### [facility] ([facility]) [address] [place] [address] Glucose [Mass/Vol] 91 mg/dL Normal 70-[address] [facility] Comment on above: Performed By: #### L [id number] #### [facility] ([facility]) [address] [place] [address] Potassium [Moles/Vol] 4.0 mmol/L Normal 3.5-5.1 [facility] Comment on above: Performed By: #### L [id number] #### [facility] ([facility]) [address] [place] [address] Protein [Mass/Vol] 7.2 g/dL Normal 6.0-8.[address] [facility] Comment on above: Performed By: #### L [id number] #### [facility] ([facility]) [address] [place] [address] Sodium [Moles/Vol] 135 mmol/L Low 136-[address] [facility] Comment on above: Performed By: #### L [id number] #### [facility] ([facility]) [address] [place] [address] Urea nitrogen [Mass/Vol] 9 mg/dL Normal 7-25 [facility] Comment on above: Performed By: #### L [id number] #### [facility] ([facility]) [address] [place] [address] UREA NITROGEN/CREATININE (MASS RATIO) IN SER/PLAS 15.5 Normal [facility] Comment on above: Performed By: #### L [id number] #### [facility] ([facility]) [address] [place] [address] CONSULTon 08-11-2024 CONSULT -- Attestation signed by Julio Allison MD at 08/11/2024 2:26 PM The patient was seen and examined. Agree with the assessment and plan. The patient was transferred from another institution with a complaint of abdominal pain, choledocholithiasis and abnormal liver function test. She is scheduled for ERCP for common bile duct stone removal today August 11, 2024. Initial Gastroenterology/Hepat ology Consultation Note IDENTIFYING DATA PATIENT: Samantha Solis ADMIT DATE: 08/11/2024 TIME OF EVALUATION: 08/11/2024 10:53 AM Reason for Consult: choledolithiasis Admitting Physician: Joyce Aguila MD HISTORY OF PRESENT ILLNESS Samantha Solis is a 28 y.o. female who was transferred to our hospital from [facility] due to concerns of possible choledocholithiasis for possible ERCP. The patient mentioned that 1 week ago she started to complain of right upper quadrant pain associated with nausea and vomiting. The pain was exacerbated by eating and drinking. It was radiating to the right shoulder. Patient presented to [facility]. Workup there showed an elevated liver enzymes of ALT 515, total bili 2.5, alk phos 327. CTAP done and showed a 3 mm stone in the distal CBD. Therefore, the patient was transferred to us for possible ERCP. Upon my assessment: Patient was resting comfortably in bed. Afebrile and hemodynamically stable. Endorses right upper quadrant pain. Labs showed AST 98, ALT 314, alk phos 246, total bili 1.4. CBC unremarkable. GI HISTORY SUMMARY TABLE Last EGD Last colonoscopy Primary GI physician PAST MEDICAL, SURGICAL, FAMILY, and SOCIAL HISTORY Past Medical History: Past Medical History: Diagnosis Date PCOS (polycystic ovarian syndrome) Past Surgical History: Past Surgical History: Procedure Laterality Date APPENDECTOMY Family History: No family history on file. Social History: Social History Tobacco Use Smoking status: Never Smokeless tobacco: Never Vaping Use Vaping status: Never Used Substance Use Topics Alcohol use: Not Currently Drug use: Never Allergies: No Known Allergies MEDICATIONS Home Medications: Prior to Admission medications Medication Sig Start Date End Date Taking? Authorizing Provider metFORMIN, OSM, (Fortamet) 500 mg 24 hr tablet Take 500 mg by mouth daily with evening meal. Do not crush, chew, or split. Historical Provider, Current Medications: PRNs: HYDROmorphone, 0.5 mg, q6h PRN sodium chloride, 10 mL, q8h PRN REVIEW OF SYSTEMS See HPI, otherwise ROS negative as below CONSTITUTIONAL: negative HEENT: negative RESPIRATORY: negative CARDIOVASCULAR: negative GASTROINTESTINAL: as in HPI GENITOURINARY: negative OBJECTIVE DATA Vitals: BP 111/65 (BP Location: Right arm, Patient Position: Lying) Pulse 83 Temp 36.4 ???C (97.5 ???F) (Oral) Resp 16 Ht 1.626 m (5' 4 ) Wt 93.3 kg (205 lb 11 oz) LMP 07/17/2024 (Approximate) SpO2 99% BMI 35.31 kg/m??? GEN: Alert and oriented x3, NAD HEENT: Atraumatic, normocephalic CV: Regular rate and rhythm PULM: Breathing comfortably ABD: Soft, non-tender, non-distended NEURO: Moves all 4 extremities spontaneously LABS AND IMAGING CBC: Results from last 7 days Lab Units 08/11/24 0453 WBC AUTO 10*3/uL 7.82 RBC AUTO 10*6/uL 4.39 HEMOGLOBIN g/dL 13.0 HEMATOCRIT % 39.2 MCV fL 89.3 RDW % 13.2 PLATELETS AUTO 10*3/uL 238 PT/INR BMP: Results from last 7 days Lab Units 08/11/24 0453 SODIUM mmol/L 135* POTASSIUM mmol/L 4.0 CHLORIDE mmol/L 108* BUN mg/dL 9 CREATININE mg/dL 0.58* EGFR mL/min/1.73m*2 125.6 GLUCOSE mg/dL 91 LFTs: Results from last 7 days Lab Units 08/11/24 0453 BILIRUBIN TOTAL mg/dL 1.4* ALK PHOS U/L 246* AST U/L 98* ALT U/L 314* ALBUMIN g/dL 3.9 TOTAL PROTEIN g/dL 7.2 B12/Folate/Iron studies: No results found for: [id number] , FOLATE , IRON , TIBC , UIBC , IRONSAT , FERRITIN Viral Hepatitis No results found for: HEPAIGM , HAV , HEPBSAG , HEPBSAB , HEPBEAB , HEPBIGM , HEPBCAB , HEPBCOREAB , HBVNAT , HCVSCR , HEPCAB , HCVNAT , HCVPCR , HCVTMA Liver workup No results found for: PEBBLES , SMOOTHMUSCAB , CERULOPLSM , [id number] , TTGA , IGA , TSH , FREET4 , AFP Pancreatitis Lab Results Component Value Date CALCIUM 8.2 (L) 08/11/2024 IMAGING: CTAP with IV contrast. Report is in the paper chart showed 3 mm stone in the distal CBD. ASSESSMENT AND PLAN Samantha Solis is a 28 y.o. female who was transferred to our hospital from [facility] due to concerns of possible choledocholithiasis for possible ERCP. The patient mentioned that 1 week ago she started to complain of right upper quadrant pain associated with nausea and vomiting. The pain was exacerbated by ea (more content not included)... Normal [facility] CONSULT -- Attestation signed by Elena Hubbard MD at 08/11/2024 5:23 PM Patient was seen by resident staff. I reviewed with resident staff overnight events, exam and laboratory findings, assessment and management plan. Elena Hubbard MD [facility] General Surgery CONSULTATION Reason for Consult: Choledocholithiasis History of Present Illness: Samantha Solis is a 28 y.o. female with a PMH of PCOS and unspecified rheumatologic disease and PSH of appendectomy on 06/17/24 who presents as a transfer from an OSH due to choledocholithiasis and need for ERCP. General surgery consulted for cholecystectomy Patient endorses a history consistent with symptomatic cholelithiasis. Still having right upper quadrant pain. Denies any nausea, vomiting, fevers, or chills. Review of Systems Constitutional: Negative for activity change, appetite change, chills, fatigue and fever. Respiratory: Negative for cough, chest tightness, shortness of breath and stridor. Cardiovascular: Negative for chest pain, palpitations and leg swelling. Gastrointestinal: Positive for abdominal pain. Negative for abdominal distention, constipation, diarrhea, nausea and vomiting. Skin: Negative for color change, pallor and rash. Past Medical History: Diagnosis Date PCOS (polycystic ovarian syndrome) Past Surgical History: Procedure Laterality Date APPENDECTOMY No Known Allergies Current Facility-Administered Medications: HYDROmorphone (Dilaudid) injection 0.5 mg, 0.5 mg, intravenous, q6h PRN, Josh Fountain MD sodium chloride 0.9 % with KCl 20 mEq/L infusion, 80 mL/hr, intravenous, Continuous, Josh Fountain MD, Last Rate: 80 mL/hr at 08/11/24 0632, 80 mL/hr at 08/11/24 0632 Insert peripheral IV, , , Once AND Saline lock IV, , , Once AND sodium chloride flush 10 mL, 10 mL, intravenous, q8h PRN, Josh Fountain MD Social History Socioeconomic History Marital status: Spouse name: Not on file Number of children: Not on file Years of education: Not on file Highest education level: Not on file Occupational History Not on file Tobacco Use Smoking status: Never Smokeless tobacco: Never Vaping Use Vaping status: Never Used Substance and Sexual Activity Alcohol use: Not Currently Drug use: Never Sexual activity: Defer Other Topics Concern Not on file Social History Narrative Not on file Social Determinants of Health Financial Resource Strain: High Risk (08/11/2024) Overall Financial Resource Strain (CARDIA) Difficulty of Paying Living Expenses: Very hard Food Insecurity: Food Insecurity Present (08/11/2024) Hunger Vital Sign Worried About Running Out of Food in the Last Year: Often true Ran Out of Food in the Last Year: Not on file Transportation Needs: No Transportation Needs (08/11/2024) Transportation Lack of Transportation (Medical): No Lack of Transportation (Non-Medical): Not on file Physical Activity: Not on file Stress: Not on file Social Connections: Not on file Intimate Partner Violence: Unknown (08/11/2024) Humiliation, Afraid, Rape, and Kick questionnaire Fear of Current or Ex-Partner: No Emotionally Abused: Not on file Physically Abused: Not on file Sexually Abused: Not on file Housing Stability: Low Risk (08/11/2024) Housing Stability Vital Sign Unable to Pay for Housing in the Last Year: No Number of Times Moved in the Last Year: Not on file Homeless in the Last Year: No No family history on file. Physical Exam Constitutional: General: She is not in acute distress. Appearance: Normal appearance. She is obese. Cardiovascular: Rate and Rhythm: Normal rate. Pulmonary: Effort: Pulmonary effort is normal. No respiratory distress. Abdominal: General: Abdomen is flat. There is no distension. Palpations: Abdomen is soft. Tenderness: There is abdominal tenderness (RUQ). There is no guarding or rebound. Neurological: General: No focal deficit present. Mental Status: She is alert and oriented to person, place, and time. Vital Signs: Blood pressure 111/65, pulse 83, temperature 36.4 ???C (97.5 ???F), temperature source Oral, resp. rate 16, height 1.626 m (5' 4 ), weight 93.3 kg (205 lb 11 oz), last menstrual period 07/17/2024, SpO2 99%. Admission Weight: Weight: 87.7 kg (193 lb 6.4 oz) Labs: Lab Results Component Value Date WBC 7.82 08/11/2024 HGB 13.0 08/11/2024 HCT 39.2 08/11/2024 MCV 89.3 08/11/2024 PLT 238 08/11/2024 Lab Results Component Value Date CALCIUM 8.2 (L) 08/11/2024 NA 135 (L) 08/11/2024 K 4.0 08/11/2024 CO2 21 08/11/2024 CL 108 (H) 08/11/2024 BUN 9 08/11/2024 CREATININE 0.58 (L) 08/11/2024 No results found for: AMYLASE No results found for: LIPASE Lab Results Component Value Date ALT 314 (H) 08/11/2024 AST 9 (more content not included)... Normal [facility] CONSULT -- Attestation signed by Tatiana Wynn MD at 08/13/2024 11:08 AM Using the attestations below, the signing clinician agrees that I have read and verified that I have personally reviewed the documentation and ensure that the documentation accurately reflects the encounter. GC: I saw this patient on the day of the encounter, performed the power portion(s) of the service participated in the management, and confirmed the resident's documentation. Please note that I may need additional personal documentation. Rheumatology Consult Note Patient - Samantha Solis Age - 28 y.o. - 1995 Date of Admission - 08/11/2024 3:20 AM Reason for Consult Reported elevated PEBBLES History of Present Illness Samantha Solis is a 28 y.o. female admitted on 08/11/2024 as transfer from [facility] to [facility] for choledocholithiasis and need for urgent ERCP. Rheumatology was consulted for positive PEBBLES with reported titers above 1000 with speckled pattern with reported symptoms of sun exposed facial rash, myalgias, arthralgias, dry eyes, and dry mouth. CT ABD/Pelvis w/ contrast from 08/04/2024 demonstrated evidence of 0.3 cm stone in distal common bile duct otherwise without surrounding evidence of inflammation. Upon discussion with patient she reports for the past two years continuous with episodic 'flare ups' of mostly bilateral hip and lower back pain with aching sensation that can become so severe as to be debilitating. She reports pain has been presents for 2 years with flares ups lasting 1-2 weeks at a time. She additionally reports generalized pain and stiffness throughout her body, but this is worse in her back and hips. She reports morning stiffness all over her body worse in her entire without any obvious joint swelling, pain, or redness. She has tried ibuprofen in the past without relief. She reports she has been following with a chiropractor which have helped her manage her symptoms. She reports she may have some skin flushing in sun exposed areas of her skin (face, arms, legs) with prolonged sun exposure, but denies any iqra sun sensitivity orburning sensation with acute rash with sun exposure even in summer months. She additionally reports generalized myalgias. She also reports generalized hair loss and thinning since of her 3rd child 1 year ago, no bald spots. She has had 1 miscarriage at approximately 6 weeks or so, unclear timing, otherwise has had 3 term pregnancies without issue. She reportedly has had sensation of swollen lymph nodes in her arms, axilla, and neck, which reportedly were evaluated via ultrasound previously w/o concerning abnormalities reported. She denies any dry eyes, dry mouth, oral sores, trouble swallowing, joint swelling, other hair/skin/nail changes, history of blood clots, Raynaud's, skin thickening of the digits, urinary changes, fevers, or chills. Positive labs: 08/11/2024: AST 98, ALT 312, Alk Phos 246 Negative/normal labs: 08/10/2024: CBC w/ diff, CMP, and lactate otherwise wnl Imaging: CT ABD/Pelvis w/ contrast from 08/04/2024 demonstrated evidence of 0.3 cm stone in distal common bile duct otherwise without surrounding evidence of inflammation. Family History: Social: Patient works - work: Non-smoker/no alcohol use/no recreational drugs PMH: Patient has a past medical history of PCOS (polycystic ovarian syndrome). PSH: Patient has a past surgical history that includes Appendectomy. SH: Patient reports that she has never smoked. She has never used smokeless tobacco. She reports that she does not currently use alcohol. She reports that she does not use drugs. Alc/Tobacco/Drug: Patient reports that she does not currently use alcohol. reports that she has never smoked. She has never used smokeless tobacco. reports no history of drug use. Medications: Patient Current Facility-Administered Medications: HYDROmorphone (Dilaudid) injection 0.5 mg, 0.5 mg, intravenous, q6h PRN, Josh Fountain MD sodium chloride 0.9 % with KCl 20 mEq/L infusion, 80 mL/hr, intravenous, Continuous, Josh Fountain MD, Last Rate: 80 mL/hr at 08/11/24 0445, 80 mL/hr at 08/11/24 0445 Insert peripheral IV, , , Once AND Saline lock IV, , , Once AND sodium chloride flush 10 mL, 10 mL, intravenous, q8h PRN, Josh Fountain MD Allergies: Patient Patient has no known allergies. Family history: Patient family history is not on file. Review of Systems: Review of Systems Constitutional: Positive for fatigue. Negative for activity change, appetite change, chills, diaphoresis, fever and unexpected weight change. HENT: Negative for congestion, dental problem, trouble swallowing and voice change. Eyes: Negative for pain, discharge, redness and itching. (more content not included)... Normal [facility] MANUAL DIFFERENTIALon 2023 BASOPHILS (10*3/UL) IN BLOOD BY CALCULATION 0.05 10*3/uL Normal 0.00-0.20 [facility] Comment on above: Performed By: #### L [id number] ####[facility] ([facility])[address] [place] [address] BASOPHILS/100 LEUKOCYTES IN BLOOD BY AUTOMATED COUNT 0.6 % Normal 0.0-1.0 [facility] Comment on above: Performed By: #### L [id number] ####[facility] ([facility])[address] [place] [address] EOSINOPHILS (10*3/UL) IN BLOOD BY CALCULATION 0.11 10*3/uL Normal 0.00-0.50 [facility] Comment on above: Performed By: #### L [id number] ####[facility] ([facility])[address] [place] [address] EOSINOPHILS/100 LEUKOCYTES IN BLOOD BY AUTOMATED COUNT 1.4 % Normal 0.0-6.0 [facility] Comment on above: Performed By: #### L [id number] ####[facility] ([facility])[address] [place] [address] IMMATURE GRANULOCYTES (10*3/UL) IN BLOOD BY CALCULATION 0.02 10*3/uL Normal 0.00-0.20 [facility] Comment on above: Performed By: #### L [id number] ####[facility] ([facility])[address] [place] [address] IMMATURE GRANULOCYTES/100 LEUKOCYTES IN BLOOD BY AUTOMATED COUNT 0.3 % Normal 0.0-1.0 [facility] Comment on above: Performed By: #### L [id number] ####[facility] ([facility])[address] [place] [address] LYMPHOCYTES (10*3/UL) IN BLOOD BY CALCULATION 1.19 10*3/uL Low 1.20-4.00 [facility] Comment on above: Performed By: #### L [id number] ####[facility] ([facility])[address] [place] [address] LYMPHOCYTES/100 LEUKOCYTES IN BLOOD BY AUTOMATED COUNT 15.2 % Low 20.0-45.0 [facility] Comment on above: Performed By: #### L [id number] ####[facility] ([facility])[address] [place] [address] MONOCYTES (10*3/UL) IN BLOOD BY CALCUATION 0.41 10*3/uL Normal 0.10-1.00 [facility] Comment on above: Performed By: #### L [id number] ####[facility] ([facility])[address] [place] [address] MONOCYTES/100 LEUKOCYTES IN BLOOD BY AUTOMATED COUNT 5.2 % Normal 5.0-12.0 [facility] Comment on above: Performed By: #### L [id number] ####[facility] ([facility])[address] [place] [address] NEUTROPHILS (10*3/UL) IN BLOOD BY CALCULATION 6.0 10*3/uL Normal 1.6-7.6 [facility] Comment on above: Performed By: #### L [id number] ####[facility] ([facility])[address] [place] [address] NEUTROPHILS/100 LEUKOCYTES IN BLOOD BY AUTOMATED COUNT 77.3 % High 40.0-72.0 [facility] Comment on above: Performed By: #### L [id number] ####[facility] ([facility])[address] [place] [address] POCT GLUCOSE METER UNSOLICIT ED RESULTSon 08-11-2024 Glucose [Mass/Vol] 83 mg/dL Normal 70-[address] [facility] Comment on above: Order Comment: Waive d Testing in the ED is performed under the ED CLIA certificate #[id number]. Result Comment: [email or web address] Performed By: #### L [id number] #### [facility] ([facility]) [address] [place] [address] Glucose [Mass/Vol] 78 mg/dL Normal 70-[address] [facility] Comment on above: Order Comment: Waive d Testing in the ED is performed under the ED CLIA certificate #[id number]. Result Comment: [email or web address] Performed By: #### L [id number] #### [facility] ([facility]) [address] [place] [address] Glucose [Mass/Vol] 80 mg/dL Normal 70-[address] [facility] Comment on above: Order Comment: Waive d Testing in the ED is performed under the ED CLIA certificate #[id number]. Result Comment: [email or web address] Performed By: #### L [id number] #### [facility] ([facility]) [address] [place] [address] ANTINUCLEAR ANTIBODIES, IFAo n 07-12-2024 ANTINUCLEAR ANTIBODIES, IFA Positive Abnormal . [facility] Comment on above: Negative <1:80 Borderline 1:80 Positive >1:80 CENTRIOLE PATTERN TNP . [facility] CENTROMERE PATTERN TNP . [facility] HOMOGENEOUS PATTERN TNP . [facility] Interpretation and review of laboratory results Abnormal [facility] MIDBODY PATTERN TNP . [facility] NOTE: Comment . [facility] Comment on above: Pattern Potential Di sease Association Homogeneous Systemic Lupus Erythematosus, Drug Induced Systemic Lupus Erythematosus, Chronic Autoimmune hepatitis, Juvenile Idiopathic Arthritis Speckled Sjogren Syndrome, Systemic Lupus Erythematosus, Subacute Cutaneous Lupus, Lupus, Congenital Heart Block, Mixed Connective Tissue Disease, Scleroderma-diffuse, Scleroderma-Autoimmune Myositis Overlap Syndrome, Systemic Lupus Edblqwobsnahq-Wsdrmlxgaoa-Cgozbfgkoj Myositis Overlap Syndrome, Systemic Autoimmune Rheumatic Disease, [...] Cytopenias, Linear Scleroderma, Antiphospholipid Syndrome Performed at: [address] [id number] [employer] Sewing Machine Operator: David Dietz PhD, Phone: [phone] NUCLEAR DOT PATTERN TNP . [facility] NUCLEAR MEMBRANE PATTERN TNP . [facility] NUCLEOLAR PATTERN TNP . [facility] PCNA PATTERN TNP . [facility] SPECKLED PATTERN >1:1280 Abnormal . [facility] Comment on above: ICAP nomenclature: A C-2,4,5,29 SPINDLE APPARATUS PATTERN TNP . [facility] URINE CULTURE, ROUTINEon Bacteria identified Cx Nom (U) Urine Culture, Routine [facility] Bacteria identified Cx Nom (U) Mixed urogenital cynthia [facility] Bacteria identified Cx Nom (U) Less than 10,000 colonies/mL [facility] Bacteria identified Cx Nom (U) Performed at: [facility] Bacteria identified Cx Nom (U) [address] [place] [phone] [facility] Bacteria identified Cx Nom (U) [employer] Sewing Machine Operator: David Dietz PhD, Phone: [phone] [facility] Healthcare Jose Raul 06-17-2024 L Specimen: [id number] Received: 06/19/24 Status: DELROY Gray Num: [id number] Spec Type: Surgical Subm Dr: Holli Lemus DO Tissues: A Appendix - Other than Incidental (APPENDIX) Procedures: HE/2, Gross/Micro L3 Age/ Patient Sex Location Account Attending Physician Samantha Solis Y 28/F [place] [id number] Shaikh Jc MD SPEC NUM: [id number] RECD: 06/19/24 STATUS: DELROY GRAY NUM: [id number] KATE: 06/17/[address] [facility] [address]: Holli Lemus DO ENTERED: 06/19/[address] [facility] [address]: Gaby Aponte MD SPEC TYPE: Surgical DEPT: [facility] ENTERED BY: [id number] RECV BY: [id number] ORDERED: HE/2, Gross/Micro L3 ORDERED: HE/2, Gross/Micro [...] The lumen is filled with purulent debris. Nurse Transplant sections are submitted as follows: A1 proximal margin and cross-section A2 distal tip bisected CPT Codes 59888 ---- ---- Specimen: [id number] Received: 06/19/24-1323 Status: DELROY Gray Num: [id number] Spec Type: Surgical Subm Dr: Holli Lemus DO Tissues: A Appendix - Other than Incidental (APPENDIX) Procedures: HE/2, Gross/Micro L3 ---- Patient: Samantha Solis [id number] (Continued) ---- Signed (signature on file) Dario Alejo MD 06/20/24 1517 Normal [facility] ALL CBC WITH AUTO DIFFon BASOPHILS ABSOLUTE AUTO 0.1 [facility] Basophils/100 WBC (Bld) 0.6 % 0.2 - 2.0 % [facility] Healthcare Eosinophils/100 WBC (Bld) 2.4 % 0.9 - 7.0 % [facility] Erythrocyte distribution width (RBC) [Ratio] 13.2 % 11.0 - 15.0 % [facility] Hematocrit (Bld) [Volume fraction] 42.4 % 36.0 - 48.0 % [facility] Hemoglobin (Bld) [Mass/Vol] 14.7 g/dL 12.0 - 16.0 g/dL [facility] IMMATURE GRANULOCYTES ABS AUTO 0.02 [facility] Immature granulocytes/100 WBC (Bld) 0.2 % 0.0 - 0.5 % [facility] Interpretation and review of laboratory results Abnormal [facility] LYMPHOCYTES ABSOLUTE AUTO 1.8 [facility] Lymphocytes/100 WBC (Bld) 18.2 % Low 20.5 - 60.0 % [facility] MCH (RBC) [Entitic mass] 29.7 pg 26.7 - 34.0 pg [facility] MCHC (RBC) [Mass/Vol] 34.7 g/dL 29.9 - 35.2 g/dL [facility] MCV (RBC) [Entitic vol] 85.7 fL 81.0 - 99.0 fL [facility] MONOCYTES ABSOLUTE AUTO 0.4 [facility] Monocytes/100 WBC (Bld) 4.0 % 1.7 - 12.0 % [facility] NEUTROPHILS ABSOLUTE AUTO 7.3 High [facility] Neutrophils/100 WBC (Bld) 74.6 % 43.0 - 75.0 % [facility] Platelet mean volume (Bld) [Entitic vol] 8.8 fL Low 9.5 - 13.5 fL [facility] TBH EO # 0.2 [facility]H PLT 386 [facility] RBC 4.95 [facility] WBC 9.8 [facility] CLINISYNC [facility] XR FOOT GUANAKITO MIN 3 VIEWSon [...] PATRICIA KELLEY Date: 2022-12-15 12:37 Normal [facility] CBC AUTO DIFFon 03-02-2022 BASO # 0.1 103/ul Normal 0.0-0.1 [facility] Comment on above: Performed By: #### C BC #### [facility] [address] [address] [address] Mike Nails Basophils/100 WBC (Bld) 0.7 % Normal 0.2-2.0 [facility] Comment on above: Performed By: #### C BC #### [facility] [address] [address] [address] Mike Nails EO # 0.6 103/ul Normal 0.0-0.7 [facility] Comment on above: Performed By: #### C BC #### [facility] [address] [place] [address] Dr. Mike Nails Eosinophils/100 WBC (Bld) 5.7 % Normal 0.9-7.0 [facility] Comment on above: Performed By: #### C BC #### [facility] [address] [place] [address] Dr. Mike Nails Erythrocyte distribution width (RBC) [Ratio] 13.2 % Normal 11.0-15.0 [facility] Comment on above: Performed By: #### C BC #### [facility] [address] [place] [address] Dr. Mike Nails Hematocrit (Bld) [Volume fraction] 41.6 % Normal 36.0-48.0 [facility] Comment on above: Performed By: #### C BC #### [facility] [address] [place] [address] Dr. Mike Nails Hemoglobin (Bld) [Mass/Vol] 13.7 g/dL Normal 12.0-16.0 [facility] Comment on above: Performed By: #### C BC #### [facility] [address] [place] [address] Dr. Mike Nails IG # 0.02 10e3/ul Normal 0.00-0.03 [facility] Comment on above: Performed By: #### C BC #### [facility] [address] [place] [address] Dr. Mike Nails IG % 0.2 % Normal 0.0-0.5 [facility] Comment on above: Performed By: #### C BC #### [facility] [address] [place] [address] Dr. Mike Nails LYMPH # 2.6 103/ul Normal 1.2-3.8 [facility] Comment on above: Performed By: #### C BC #### [facility] [address] [place] [address] Dr. Mike Nails Lymphocytes/100 WBC (Bld) 26.3 % Normal 20.5-60.0 [facility] Comment on above: Performed By: #### C BC #### [facility] [address] [place] [address] Dr. Mike Nails MANUAL DIFF REQ NO Normal [facility] Comment on above: Performed By: #### C BC #### [facility] [address] [place] [address] Dr. Mike Nails MCH (RBC) [Entitic mass] 28.7 pg Normal 26.7-34.0 [facility] Comment on above: Performed By: #### C BC #### [facility] [address] [place] [address] Dr. Mike Nails MCHC (RBC) [Mass/Vol] 32.9 g/dL Normal 29.9-35.2 [facility] Comment on above: Performed By: #### C BC #### [facility] [address] [place] [address] Dr. Mike Nails MCV (RBC) [Entitic vol] 87.0 fL Normal 81.0-99.0 [facility] Comment on above: Performed By: #### C BC #### [facility] [address] [place] [address] Dr. Mike Nails MONO # 0.5 103/ul Normal 0.3-0.8 [facility] Comment on above: Performed By: #### C BC #### [facility] [address] [place] [address] Dr. Mike Nails Monocytes/100 WBC (Bld) 5.5 % Normal 1.7-12.0 [facility] Comment on above: Performed By: #### C BC #### [facility] [address] [place] [address] Dr. Mike Nails NEUT # 6.0 103/ul Normal 1.4-6.5 [facility] Comment on above: Performed By: #### C BC #### [facility] [address] [place] [address] Dr. Mike Nails Neutrophils/100 WBC (Bld) 61.6 % Normal 43.0-75.0 [facility] Comment on above: Performed By: #### C BC #### [facility] [address] [address] [address] Mike Nails Platelet mean volume (Bld) [Entitic vol] 8.7 fL Critically low 9.5-13.5 [facility] Comment on above: Performed By: #### C BC #### [facility] [address] [address] [address] Mike Nails PLT 369 103/ul Normal 150-450 [facility] Comment on above: Performed By: #### C BC #### [facility] [address] [address] [address] Mike Nails RBC 4.78 106/ul Normal 4.20-5.40 [facility] Comment on above: Performed By: #### C BC #### [facility] [address] [address] [address] Mike Nails WBC 9.7 103/ul Normal 4.0-11.0 [facility] Comment on above: Performed By: #### C BC #### [facility] [address] [place] [address] Dr. Mike Nails GLYCOHEMOGLOBIN A1Con 2021 ADA RECOMMENDATION SEE BELOW Normal [facility] Comment on above: Result Comment: ADA RECOMMENDED LIMIT 4.0 - 6.0 ADA THERAPEUTIC TARGET < 7.0 ACTION SUGGESTED > 7.0 Performed By: #### A 1C #### [facility] [address] [place] [address] Dr. Mike Nails Glucose [Mass/Vol] 105 mg/dL Normal [facility] Comment on above: Performed By: #### A 1C #### [facility] [address] [place] [address] Dr. Mike Nails HbA1c (Bld) [Mass fraction] 5.3 % Normal 4.5-6.2 [facility] Comment on above: Performed By: #### A 1C #### [facility] [address] [address] [address] Mike Nails LIPID PROFILEon 03-02-2022 CHOL-HDL RATIO NORM SEE BELOW Normal [facility] Comment on above: Result Comment: 3.3 - 4.4 LOW RISK 4.4 - 7.1 AVERAGE RISK 7.1 - 11.0 MODERATE RISK >11.0 HIGH RISK Performed By: #### B MP, LIPID, TSH, LIVER #### [facility] [address] [address] [address] Mike Nails Cholesterol [Mass/Vol] 198 mg/dL Normal <=200 [facility] Comment on above: Performed By: #### B MP, LIPID, TSH, LIVER #### [facility] [address] [place] [address] Dr. Mike Nails Cholesterol in HDL [Mass/Vol] 48 mg/dL Normal 40-60 [facility] Comment on above: Performed By: #### B MP, LIPID, TSH, LIVER #### [facility] [address] [place] [address] Dr. Mike Nails Cholesterol in LDL [Mass/Vol] 136.6 mg/dL Normal [facility] Comment on above: Performed By: #### B MP, LIPID, TSH, LIVER #### [facility] [address] [place] [address] Dr. Mike Nails Cholesterol.total/Cho lesterol in HDL [Mass ratio] 4.1 {ratio} Normal [facility] Comment on above: Performed By: #### B MP, LIPID, TSH, LIVER #### [facility] [address] [place] [address] Dr. Mike Nails HDL NORMAL > or = 60 mg/dl - LO W CARDIOVASCULAR RISK <40 mg/dl - HIGH CARDIOVASCULAR RISK Normal [facility] Comment on above: Performed By: #### B MP, LIPID, TSH, LIVER #### [facility] [address] [place] [address] Dr. Mike Nails LDL CALC NORMAL SEE BELOW Normal [facility] Comment on above: Result Comment: <100 mg/dl OPTIMAL 100 - 129 mg/dl NEAR OR ABOVE OPTIMAL 130 - 159 mg/dl BORDERLINE HIGH 160 - 189 mg/dl HIGH >190 mg/dl VERY HIGH Performed By: #### B MP, LIPID, TSH, LIVER #### [facility] [address] [address] [address] Mike Nails Triglyceride [Mass/Vol] 67 mg/dL Normal <=150 [facility] Comment on above: Performed By: #### B MP, LIPID, TSH, LIVER #### [facility] [address] [address] [address] Mike Nails VLDL CALC 13.4 mg/dL Normal [facility] Comment on above: Performed By: #### B MP, LIPID, TSH, LIVER #### [facility] [address] [address] [address] Mike Nails LIVER PROFILEon 03-02-2022 Albumin [Mass/Vol] 3.7 g/dL Normal 3.4-5.0 [facility] Comment on above: Performed By: #### B MP, LIPID, TSH, LIVER #### [facility] [address] [place] [address] Dr. Mike Nails Albumin/Globulin [Mass ratio] 0.8 {ratio} Normal [facility] Comment on above: Performed By: #### B MP, LIPID, TSH, LIVER #### [facility] [address] [place] [address] Dr. Mike Nails ALP [Catalytic activity/Vol] 87 U/L Normal 46-116 [facility] Comment on above: Performed By: #### B MP, LIPID, TSH, LIVER #### [facility] [address] [place] [address] Dr. Mike Nails ALT [Catalytic activity/Vol] 9 U/L Critically low 14-59 [facility] Comment on above: Performed By: #### B MP, LIPID, TSH, LIVER #### [facility] [address] [place] [address] Dr. Mike Nails AST [Catalytic activity/Vol] 17 U/L Normal 15-37 [facility] Comment on above: Performed By: #### B MP, LIPID, TSH, LIVER #### [facility] [address] [place] [address] Dr. Mike Nails BILI, CONJUGATED 0.1 mg/dL Normal 0.0-0.2 [facility] Comment on above: Performed By: #### B MP, LIPID, TSH, LIVER #### [facility] [address] [place] [address] Dr. Mike Nails Bilirubin [Mass/Vol] 0.4 mg/dL Normal 0.2-1.0 [facility] Comment on above: Performed By: #### B MP, LIPID, TSH, LIVER #### [facility] [address] [place] [address] Dr. Mike Nails Globulin (S) [Mass/Vol] 4.9 g/dL Normal [facility] Comment on above: Performed By: #### B MP, LIPID, TSH, LIVER #### [facility] [address] [place] [address] Dr. Mike Nails Protein [Mass/Vol] 8.6 g/dL Critically high 6.4-8.2 [facility] Comment on above: Performed By: #### B MP, LIPID, TSH, LIVER #### [facility] [address] [place] [address] Dr. Mike Nails PROF CHEM 8 (BAS METB)on Anion gap [Moles/Vol] 11.4 mmol/L Normal [facility] Comment on above: Performed By: #### B MP, LIPID, TSH, LIVER #### [facility] [address] [place] [address] Dr. Mike Nails Calcium [Mass/Vol] 9.2 mg/dL Normal 8.5-10.1 [facility] Comment on above: Performed By: #### B MP, LIPID, TSH, LIVER #### [facility] [address] [place] [address] Dr. Mike Nails Chloride [Moles/Vol] 104 mmol/L Normal 98-107 [facility] Comment on above: Performed By: #### B MP, LIPID, TSH, LIVER #### [facility] [address] [place] [address] Dr. Mike Nails CO2 [Moles/Vol] 28.7 mmol/L Normal 21.0-32.0 [facility] Comment on above: Performed By: #### B MP, LIPID, TSH, LIVER #### [facility] [address] [place] [address] Dr. Mike Nails Creatinine [Mass/Vol] 0.80 mg/dL Normal 0.55-1.02 [facility] Comment on above: Performed By: #### B MP, LIPID, TSH, LIVER #### [facility] [address] [address] [address] Mike Nails EGFR-AF ECUADOREAN >60 Normal >=60 [facility] Comment on above: Performed By: #### B MP, LIPID, TSH, LIVER #### [facility] [address] [place] [address] Dr. Mike Nails EGFR-NON AF ECUADOREAN >60 Normal >=60 [facility] Comment on above: Performed By: #### B MP, LIPID, TSH, LIVER #### [facility] [address] [place] [address] Dr. Mike Nails Glucose [Mass/Vol] 88 mg/dL Normal 74-106 [facility] Comment on above: Performed By: #### B MP, LIPID, TSH, LIVER #### [facility] [address] [place] [address] Dr. Mike Nails Potassium [Moles/Vol] 4.1 mmol/L Normal 3.5-5.1 [facility] Comment on above: Performed By: #### B MP, LIPID, TSH, LIVER #### [facility] [address] [place] [address] Dr. Mike Nails Sodium [Moles/Vol] 140 mmol/L Normal 136-145 [facility] Comment on above: Performed By: #### B MP, LIPID, TSH, LIVER #### [facility] [address] [place] [address] Dr. Mike Nails Urea nitrogen [Mass/Vol] 15.0 mg/dL Normal 7.0-18.0 [facility] Comment on above: Performed By: #### B MP, LIPID, TSH, LIVER #### [facility] [address] [place], [place] [address] Dr. Mike Nails Urea nitrogen/Creatinine [Mass ratio] 18.8 mg/mg Normal [facility] Comment on above: Performed By: #### B MP, LIPID, TSH, LIVER #### [facility] [address] [place], [place] [address] Dr. Mike Nails TSHon 03-02-2022 TSH 1.489 uIU/mL Normal 0.358-3.740 [facility] Comment on above: Performed By: #### B MP, LIPID, TSH, LIVER #### [facility] [address] [place], [place] [address] Dr. Mike Nails XR FOOT LT MIN [...] by: RHODA CARPENTER Date: 2022-03-02 15:24 Normal [facility] Vital Signs Date Time Vital Sign Value Performing Clinician Faci lity 08-16-2024 11:050 Body height 162.6 cm Brian Jacobs MD Work Phone: [facility] 08-16-2024 11:13-050 Body mass index (BMI) [Ratio] 32.79 kg/m2 Brian Jacobs MD Work Phone: [facility] 08-16-2024 11:13-050 Body temperature 97.3 [degF] Brian Jacobs MD Work Phone: [facility] 08-16-2024 11:13050 Body weight 86.64 kg Brian Jacobs MD Work Phone: [facility] 08-16-2024 11:13-0500 Diastolic blood pressure 70 mm[Hg] Brian Jacobs MD Work Phone: [facility] 08-16-2024 11:13-0500 Heart rate 84 /min Brian Jacobs MD Work Phone: [facility] 08-16-2024 11:13-0500 Respiratory rate 20 /min Brian Jacobs MD Work Phone: [facility] 08-16-2024 11:13-0500 SaO2% (BldA) [Mass fraction] 98 % Brian Jacobs MD Work Phone: [facility] 08-16-2024 11:13-0500 Systolic blood pressure 124 mm[Hg] Brian Jacobs MD Work Phone: [facility] 07-06-2024 11:22-0400 Body height 162.6 cm Brian Jacobs MD Work Phone: [facility] 07-06-2024 11:22-0400 Body mass index (BMI) [Ratio] 33.3 kg/m2 Brian Jacobs MD Work Phone: [facility] 07-06-2024 11:22-0400 Body temperature 96.4 [degF] Brian Jacobs MD Work Phone: [facility] 07-06-2024 11:22-0400 Body weight 88 kg Brian Jacobs MD Work Phone: [facility] 07-06-2024 11:22-0400 Diastolic blood pressure 76 mm[Hg] Brian Jacobs MD Work Phone: [facility] 07-06-2024 11:22-0400 Heart rate 96 /min Brian Jacobs MD Work Phone: [facility] 07-06-2024 11:22-0400 Respiratory rate 20 /min Brian Jacobs MD Work Phone: [facility] 07-06-2024 11:22-0400 SaO2% (BldA) [Mass fraction] 98 % Brian Jacobs MD Work Phone: [facility] 07-06-2024 11:22-0400 Systolic blood pressure 130 mm[Hg] Brian Jacobs MD Work Phone: [facility] 06-26-2024 10:06-0400 Diastolic blood pressure 72 mm[Hg] Holli Lemus DO Work Phone: [facility] 06-26-2024 10:06-0400 Systolic blood pressure 108 mm[Hg] Holli Lemus DO Work Phone: [facility] 06-13-2024 10:36-0400 Body height 162.6 cm Brian Jacobs MD Work Phone: [facility] 06-13-2024 10:36-0400 Body mass index (BMI) [Ratio] 33.64 kg/m2 Brian Jacobs MD Work Phone: [facility] 06-13-2024 10:36-0400 Body temperature 97.5 [degF] Brian Jacobs MD Work Phone: [facility] 06-13-2024 10:36-0400 Body weight 88.91 kg Brian Jacobs MD Work Phone: [facility] 06-13-2024 10:36-0400 Diastolic blood pressure 80 mm[Hg] Brian Jacobs MD Work Phone: [facility] 06-13-2024 10:36-0400 Heart rate 91 /min Brian Jacobs MD Work Phone: [facility] 06-13-2024 10:36-0400 Respiratory rate 20 /min Brian Jacobs MD Work Phone: [facility] 06-13-2024 10:36-0400 SaO2% (BldA) [Mass fraction] 98 % Brian Jacobs MD Work Phone: [facility] 06-13-2024 10:36-0400 Systolic blood pressure 124 mm[Hg] Brian Jacobs MD Work Phone: [facility] Encounters Encounter Date Encounter Type Care Provider Facility Start: 08-30-2024 End: 08-30-2024 ambulatory Jairo Mccrary Facility:[facility] Start: 08-24-2024 End: 08-24-2024 ambulatory JULIO [facility] Start: 08-16-2024 End: 08-16-2024 Bamboo flowsheet Brian Jacobs MD Work Phone: [facility] Start: 08-16-2024 End: 08-16-2024 Bamboo flowsheet Brian Jacobs MD Work Phone: [facility] Start: 08-16-2024 End: 08-16-2024 Office outpatient visit 15 minutes Brian Jacobs MD Work Phone: [facility] Comment on above: Choledocholithiasis (Primary Dx); Calculus of gallbladder without cholecystitis without obstruction Start: 08-12-2024 Evaluation and manag ement of inpatient JOYCE AGUILA [facility] Start: 08-11-2024 Evaluation and manag ement of inpatient [facility] Start: 08-11-2024 Evaluation and manag ement of inpatient [facility] Start: 08-11-2024 End: 08-12-2024 Evaluation and management of inpatient JOSE FRANCISCO MEYERS [facility] Start: 08-10-2024 End: 08-14-2024 Clinisync Result Encounter Generic External Data Provider [facility] Department Unsolicited Start: 08-10-2024 End: 08-14-2024 Clinisync Result Encounter Generic External Data Provider [facility] Unsolicited Start: 07-12-2024 End: 07-12-2024 Orders Only Brian Jacobs MD Work Phone: [facility] Comment on above: Positive PEBBLES (antinu clear antibody) (Primary Dx); Arthralgia, unspecified joint Start: 07-10-2024 End: 07-12-2024 Clinisync Result Encounter Brian Jacobs MD Work Phone: [facility] Unsolicited Start: 07-10-2024 End: 07-12-2024 Clinisync Result Encounter Brian Jacobs MD Work Phone: [facility] Unsolicited Start: 07-06-2024 End: 07-06-2024 [...] Start: 06-17-2024 End: 06-17-2024 ambulatory Shaikh Jc [facility] Work Phone: Start: 06-17-2024 End: 06-17-2024 Departed Referred MD Shaikh Greene Work Phone: [facility] Start: 06-16-2024 End: 06-19-2024 Clinisync Result [...] (polycystic ovarian syndrome); Obesity (BMI 30-39.9); Thyromegaly ([facility]) Start: 06-13-2024 End: 06-13-2024 ambulatory BRIAN JACOBS Not Available Start: 12-15-2022 End: 12-16-[address] BRIAN JACOBS Facility:[facility] Start: 04-20-2022 End: 05-02-[address] BRIAN JACOBS Facility:[facility] Start: 04-07-2022 End: 04-07-2022 Patient encounter procedure DPM Sb Lopez Work Phone: [facility] Start: 03-04-2022 Encounter for genera l adult medical examination without abnormal findings DR BRIAN JACOBS [facility] Start: 03-02-2022 End: 03-03-2022 Encounter for general adult medical examination without abnormal findings DR BRIAN JACOBS Facility:[facility] Start: 03-02-2022 End: 03-03-[address] BRIAN JACOBS Facility:[facility] Procedures Date Procedure Procedure Detail Performing Clinician Start: 08-10-2024 BLOOD CULTURE 2 Generic External Data Provider Start: 08-10-2024 BLOOD CULTURE 1 Generic External Data Provider Start: 07-10-2024 ANTINUCLEAR ANTIBODI ES, IFA Brian Jacobs MD Work Phone: Start: 06-16-2024 Bacteria identified in Urine by Culture Generic External Data Provider Start: 06-13-2024 ALL CBC WITH AUTO DIFF Brian Jacobs MD Work Phone: History of appendectomy S/P appendectomy Holli Lemus DO Work Phone: Plan of Treatment Date Care Activity Detail Author Start: 08-16-2024 End: 08-16-2025 US Abdomen limited US RUQ Imaging Routine Calculus of gallbladder without cholecystitis without obstruction Expected: 08/16/2024, Expires: 08/16/2025 [facility] Work Phone: Comment on above: Expected: 08/16/2024 , Expires: 08/16/2025 Start: 08-16-2024 End: 08-16-2024 Patient encounter procedure [facility] Comment on above: Arrived Start: 07-06-2024 End: 07-06-2025 US Pelvis US Pelvis w/ TV Imaging Routine PCOS (polycystic ovarian syndrome) Expected: 07/06/2024, Expires: 07/06/2025 [facility] Work Phone: Comment on above: Expected: 07/06/2024 , Expires: 07/06/2025 Start: 07-06-2024 End: 07-06-2024 Patient encounter procedure 07/06/2024 11:15 AM EDT [facility] [address] [place] [id number] Brian Jacobs MD [address] [place] [id number] Arrived [facility] Comment on above: Arrived Start: 06-26-2024 End: 06-26-2024 Patient encounter procedure 06/26/2024 10:00 AM EDT Office Visit [facility] [address] [place] [id number] Holli Lemus DO [address] [place] [id number] Arrived [facility] Comment on above: Arrived Start: 06-13-2024 End: 06-13-2025 PEBBLES BY IFA W/REFLEX ([facility]) PEBBLES BY IFA W/REFLEX ([facility]) Lab Routine Arthralgia, unspecified joint Expected: 06/13/2024 (Approximate), Expires: 06/13/2025 [facility] Comment on above: Expected: 06/13/2024 (Approximate), Expires: 06/13/2025 Start: 06-13-2024 End: 06-13-2025 Basic metabolic 1998 panel - Serum or Plasma Basic metabolic panel Lab Routine PCOS (polycystic ovarian syndrome) Expected: 06/13/2024 (Approximate), Expires: 06/13/2025 [facility] Comment on above: Expected: 06/13/2024 (Approximate), Expires: 06/13/2025 Start: 06-13-2024 End: 06-13-2025 C reactive protein [Mass/volume] in Serum or Plasma C-reactive protein Lab Routine Arthralgia, unspecified joint Expected: 06/13/2024 (Approximate), Expires: 06/13/2025 [facility] Comment on above: Expected: 06/13/2024 (Approximate), Expires: 06/13/2025 Start: 06-13-2024 End: 06-13-2025 CBC W Auto Differential panel - Blood CBC and differential Lab Routine Arthralgia, unspecified joint PCOS (polycystic ovarian syndrome) Expected: 06/13/2024 (Approximate), Expires: 06/13/2025 [facility] Comment on above: Expected: 06/13/2024 (Approximate), Expires: 06/13/2025 Start: 06-13-2024 End: 06-13-2025 Erythrocyte sedimentation rate Sedimentation rate, automated Lab Routine Arthralgia, unspecified joint Expected: 06/13/2024 (Approximate), Expires: 06/13/2025 [facility] Comment on above: Expected: 06/13/2024 (Approximate), Expires: 06/13/2025 Start: 06-13-2024 End: 06-13-2025 Hemoglobin A1c/Hemoglobin.total in Blood Hemoglobin A1c Lab Routine PCOS (polycystic ovarian syndrome) Expected: 06/13/2024 (Approximate), Expires: 06/13/2025 [facility] Comment on above: Expected: 06/13/2024 (Approximate), Expires: 06/13/2025 Start: 06-13-2024 End: 06-13-2025 Insulin, fasting Insulin, fasting Lab Routine PCOS (polycystic ovarian syndrome) Expected: 06/13/2024 (Approximate), Expires: 06/13/2025 [facility] Comment on above: Expected: 06/13/2024 (Approximate), Expires: 06/13/2025 Start: 06-13-2024 End: 06-13-2025 Rheumatoid factor [Units/volume] in Serum or Plasma Rheumatoid factor Lab Routine Arthralgia, unspecified joint Expected: 06/13/2024 (Approximate), Expires: 06/13/2025 [facility] Comment on above: Expected: 06/13/2024 (Approximate), Expires: 06/13/2025 Start: 06-13-2024 End: 06-13-2025 Thyroglobulin Thyroglobulin Lab Routine Fatigue, unspecified type Hair loss Expected: 06/13/2024 (Approximate), Expires: 06/13/2025 [facility] Comment on above: Expected: 06/13/2024 (Approximate), Expires: 06/13/2025 Start: 06-13-2024 End: 06-13-2025 Thyroid peroxidase antibody Thyroid peroxidase antibody Lab Routine Fatigue, unspecified type Hair loss Expected: 06/13/2024 (Approximate), Expires: 06/13/2025 [facility] Comment on above: Expected: 06/13/2024 (Approximate), Expires: 06/13/2025 Start: 06-13-2024 End: 06-13-2025 Thyroid stimulating immunoglobulin Thyroid stimulating immunoglobulin Lab Routine Fatigue, unspecified type Hair loss Expected: 06/13/2024 (Approximate), Expires: 06/13/2025 [facility] Comment on above: Expected: 06/13/2024 (Approximate), Expires: 06/13/2025 Start: 06-13-2024 End: 06-13-2025 Thyrotropin [Units/volume] in Serum or Plasma TSH Lab Routine Fatigue, unspecified type Hair loss Obesity (BMI 30-39.9) Expected: 06/13/2024 (Approximate), Expires: 06/13/2025 [facility] Work Phone: Comment on above: Expected: 06/13/2024 (Approximate), Expires: 06/13/2025 Start: 06-13-2024 End: 06-13-2025 Thyroxine (T4) free [Mass/volume] in Serum or Plasma T4, free Lab Routine Fatigue, unspecified type Hair loss Expected: 06/13/2024 (Approximate), Expires: 06/13/2025 [facility] Comment on above: Expected: 06/13/2024 (Approximate), Expires: 06/13/2025 Start: 06-13-2024 End: 06-13-2025 Triiodothyronine (T3) Free [Mass/volume] in Serum or Plasma T3, free Lab Routine Fatigue, unspecified type Hair loss Expected: 06/13/2024 (Approximate), Expires: 06/13/2025 [facility] Comment on above: Expected: 06/13/2024 (Approximate), Expires: 06/13/2025 Start: 06-13-2024 End: 06-13-2025 US Thyroid gland US thyroid Imaging Routine Thyromegaly ([facility]) Expected: 06/13/2024, Expires: 06/13/2025 [facility] Comment on above: Expected: 06/13/2024 , Expires: 06/13/2025 Start: 06-13-2024 End: 06-13-2024 Patient encounter procedure 06/13/2024 10:30 AM EDT Office Visit [facility] [address] [place] [id number] Brian Jacobs MD [address] [place] [phone] Arrived [facility] Comment on above: Arrived Start: 05-14-2024 Influenza vaccination Influenza Vacc ine (#1) [facility] BLOOD CULTURE 1 BLOOD CULTURE 1 Lab Routine 08/10/2024 9:04 PM EST [facility] BLOOD CULTURE 2 BLOOD CULTURE 2 Lab Routine 08/10/2024 9:20 PM EST [facility] Payers Date Payer Category Payer Self-pay 2020 [facility] BCBS Memb er Subscriber Plan / Payer (Effective 2020-Present) Name: Samantha Solis Relation to Subscriber: Spouse Name: YARELIS SOLIS Date of : 1995 Address: [address] [place] [address] Payer ID: Not on file Type: Not on file Address: [address] [place] [id number] 2020 Unknown BCBS BCBS xxxxxx [id number] 2020-Present [phone] [address] [place] [address] [id number] 1994 Unknown [id number] 1994 Unknown [id number] [id number] 1994 Unknown [id number] [id number] 1994 Unknown [id number] [id number] 1994 Unknown [id number] [id number] 1994 Unknown [id number] [id number] 1959 Unknown [id number] Unknown [id number] [id number] Unknown [id number] [id number] Social History Date Type Detail Facility Tobacco smoking status NHIS Unknown if ever smoked [facility] Work Phone: Start: 1995 Sex Assigned At Female F [facility] Tobacco smoking status NHIS Tobacco smoking consumption unknown [facility] Start: 1995 Sex assigned at Not on file [facility] Start: 06-13-2024 End: 08-16-2024 Gender identity Not on file [facility] Start: 06-13-2024 Tobacco smoking status INIS Never smoked tobacco [facility] Start: 06-13-2024 Tobacco use and exposure Smokeless tobacco non-user [facility] Start: 06-13-2024 End: 08-16-2024 History of Social function [facility] Start: 06-26-2024 Gender identity Identifies as female gender (finding) [facility] Medical Equipment Procedure Code Equipment Code Equipment Origin al Text Equipment Identifier Dates 1 each by In Vit ro route Daily [id number] Start: 07-26-2024 Clinical Notes 06-13-2024 to 08-16-2024 Brian Jacobs MD - 08/16/2024 12:17 PM Donna Jacobs MD - 08/16/2024 12:16 PM Donna Jacobs MD - 08/16/2024 11:15 AM Donna Jacobs MD - 07/06/2024 12:31 PM EDT Note Date & Type Note Facility 08-16-2024 History of Present illness Narrative Associated Problem(s): Calculus of gallbladder without cholecystitis without obstruction Stones in gallbladder and check US. Doesn't want to have surgery. Discussed risks including pancreatitis from impacted stone. Will monitor symptoms and continue low fat diet. Associated Problem(s): Choledocholithiasis Recent ERCP and stent placed. Doing well and follow up with GI for stent removal. Images from the original note were not included. Subjective Patient ID: Samantha Solis is a 28 y.o. female who presents for Follow-up ([facility] er f/up transferred to [facility]). Hospital follow up from 08/11-08/12 for choledocholithiasis. Developed abdominal pain for several weeks. Initially to ER 08/[address] showed gallstones and stone in CBD. Discharged home and told follow with surgeon. Continued pain and nausea. Not able to eat or drink. Severe pain and abdomen distended. To ER 08/10 and transferred to [facility]. ERCP performed 08/11 and stent placed and removed stone. Feels better today. Mild discomfort in abdomen. On low fat diet and tolerating well. Not sure that she wants to have gallbladder removed. Review of Systems Respiratory: Negative for cough, [...] Assessment/Plan Problem List Items Addressed This Visit Choledocholithiasis - Primary Recent ERCP and stent placed. Doing well and follow up with GI for stent removal. Calculus of gallbladder without cholecystitis without obstruction Stones in gallbladder and check US. Doesn't want to have surgery. Discussed risks including pancreatitis from impacted stone. Will monitor symptoms and continue low fat diet. Relevant Orders US RUQ documented in this encounter [facility] 08-12-2024 Note Hospital Medicine Discharge Summary Final Discharge Diagnosis: #Choledocholithiasis #Transaminitis #Right upper quadrant pain Admission Diagnosis: Abdominal pain [R10.9] Hospital course: 28-year-old female with past medical history significant for recent appendectomy, patient was transferred from [facility] due to concern for choledocholithiasis resulting into transaminitis and need for ERCP. Patient reported that she started having symptoms 1 week prior to her presentation with right upper quadrant pain associated with nausea and vomiting. Upon evaluation in [facility], she was found to have transaminitis with total bilirubin being 2.5. CT abdomen and pelvis was done which was showing 3 mm stone in the distal CBD. Patient was transferred to [facility] on 08/11 and she was seen by gastroenterology team. ERCP done on 08/11 showing single small CBD stone which was removed with balloon sweep after biliary sphincterectomy was performed. Single pigtail pancreatic stent with no internal flap was replaced. Patient was monitored overnight and her symptoms were improving, she was started on low-fat diet and she was tolerating that well. Plan of care discussed with gastroenterology on the day of discharge, no objection for discharge from their standpoint, patient will need to have abdominal x-ray done in 1 week. General surgery were consulted, lap cholecystectomy was offered for the patient but the patient declined, she would rather arranging that as an outpatient with her primary care physician and surgeon in [place]. Patient was noted to be tachycardic on the day of the discharge, she seems to be dehydrated and she was given IV fluids, she responded well to that. EKG showed sinus tachycardia with no other arrhythmias. Patient is being discharged home in stable condition on 08/12/2024. Surgical, Invasive or Diagnostic Procedures Done During Admission: ERCP Consultations During Admission: Gastroenterology and General Surgery Dear Dr. Reynaldo MD, Analyssia is advised to follow up with you within 1-2 weeks. Items to follow up in ambulatory setting: x-ray abdomen in 1 week. Follow-up with: Gastroenterology and General Surgery Scheduled appointments: No future appointments. Your medication list START taking these medications Instructions Last Dose Given Next Dose Due ondansetron ODT 4 mg disintegrating tablet Commonly known as: Zofran-ODT Take 1 tablet (4 mg) by mouth every 8 (eight) hours if needed for nausea or vomiting for up to 7 days. oxyCODONE 5 mg immediate release tablet Commonly known as: Roxicodone Take 1 tablet (5 mg) by mouth every 4 (four) hours if needed for moderate pain (4-7 pain score) for up to 4 days. CONTINUE taking these medications Instructions Last Dose Given Next Dose Due metFORMIN (OSM) 500 mg 24 hr tablet Commonly known as: Fortamet Where to Get Your Medications These medications were sent to [facility] - [place], [place] - [address] [place] [address] [place] [address], [facility] [address] ondansetron ODT 4 mg disintegrating tablet oxyCODONE 5 mg immediate release tablet Analyssia has No Known Allergies. Disposition: Home or Self Care () Discharge Condition: Stable Code Status: Full Code Diagnostic Results Hematology: Results from last 7 days Lab Units 08/11/24 0453 WBC AUTO 10*3/uL 7.82 HEMOGLOBIN g/dL 13.0 HEMATOCRIT % 39.2 MCV fL 89.3 PLATELETS AUTO 10*3/uL 238 Chemistry: Results from last 7 days Lab Units 08/12/24 0513 08/11/24 0453 SODIUM mmol/L 134* 135* POTASSIUM mmol/L 4.0 4.0 CHLORIDE mmol/L 104 108* CO2 mmol/L 22 21 BUN mg/dL 9 9 CREATININE mg/dL 0.51* 0.58* GLUCOSE mg/dL 71 91 CALCIUM mg/dL 8.5* 8.2* Results from last 7 days Lab Units 08/12/24 0513 08/11/24 0453 AST U/L 74* 98* ALT U/L 256* 314* ALK PHOS U/L 223* 246* BILIRUBIN TOTAL mg/dL 1.2* 1.4* Test Results Pending At Discharge: Pending Labs Order Current Status C-reactive protein In process Diet at the time of discharge: regular diet Nutrition Screen Activity: Normal activity as tolerated Objective Blood pressure (!) 107/49, pulse 82, temperature 37.6 ???C (99.7 ???F), temperature source Oral, resp. rate 16, height 1.626 m (5' 4 ), weight 93.3 kg (205 lb 11 oz), last menstrual period 07/17/2024, SpO2 100%. Cardiology: Normal rate, regular rhythm. Lungs: Clear to auscultation, no wheezes, rales or rhonchi, symmetric air entry. Abdomen: Soft, non tender, non distended. Total time for discharge - review of data, exam, discussion with providers and care-team, med-rec and orders, arranging follow up, counseling of patient and/or family and documentation was 40 minutes. Signed Joyce Aguila MD [facility] 08/12/2024 1:49 PM CC: MD Reynaldo [facility] 08-12-2024 Note ---- Attestation signed by Elena Hubbard MD at 08/12/2024 1:10 PM Attending attestation: GC: I personally saw this patient on the day of the encounter, performed the power portion(s) of the service and participated in the management and confirm the resident's documentation. Please note there may be an additional personal documentation from me. Additional Comments: Choledocholithiasis s/p ercp, improved with no abd pain, awaiting first PO intake. Plan for outpatient cholecystectomy in [place] closer to patient's home. Ok to dc home if tolerate diet ---- [facility] General Surgery DAILY PROGRESS NOTE Subjective Patient seen and examined at bedside. No acute events overnight. Patient denies fevers, chills, nausea, vomiting. Does not want to pursue laparoscopic cholecystectomy this admission. Objective Vitals: Vitals: 08/12/24 0603 BP: 127/78 Pulse: 76 Resp: 17 Temp: 37.5 ???C (99.5 ???F) SpO2: 100% I/O last 3 completed shifts: In: 162.7 (1.7 mL/kg) [I.V.:162.7 (1.7 mL/kg)] Out: - (0 mL/kg) Weight: 93.3 kg No intake/output data recorded. Physical Exam Physical Exam Constitutional: General: She is not in acute distress. Appearance: She is not ill-appearing. HENT: Head: Normocephalic. Right Ear: External ear normal. Nose: Nose normal. Mouth/Throat: Mouth: Mucous membranes are moist. Eyes: Extraocular Movements: Extraocular movements intact. Cardiovascular: Rate and Rhythm: Normal rate. Pulses: Normal pulses. Pulmonary: Effort: Pulmonary effort is normal. No respiratory distress. Abdominal: General: Abdomen is flat. There is no distension. Palpations: Abdomen is soft. Tenderness: There is no abdominal tenderness. There is no guarding or rebound. Musculoskeletal: General: Normal range of motion. Cervical back: Normal range of motion. Skin: General: Skin is warm. Neurological: General: No focal deficit present. Mental Status: She is alert and oriented to person, place, and time. Labs: Results from last 7 days Lab Units 08/11/24 0453 WBC AUTO 10*3/uL 7.82 HEMOGLOBIN g/dL 13.0 HEMATOCRIT % 39.2 PLATELETS AUTO 10*3/uL 238 Results from last 7 days Lab Units 08/12/24 0513 08/11/24 0453 SODIUM mmol/L 134* 135* POTASSIUM mmol/L 4.0 4.0 CO2 mmol/L 22 21 BUN mg/dL 9 9 CREATININE mg/dL 0.51* 0.58* Medications: Imaging: FL in OR Narrative: Clinical information: 40. TECHNIQUE: This dictation is made to confirm the use of fluoroscopy by the primary service. Fluoroscopy: Fluoroscopy time:40, air kerma Radiation dose 40 mGy, and 40 images. Images obtained in the different phase of the ERCP and bile catheter placement Impression: Please refer to the operative note for clinical correlation. Electronically signed: Hazel Criss. ERCP w/ Sphinctorotomy Endoscopic Retrograde Cholangiopancreatography (ERCP) Procedure Note Procedure: ERCP with Common bile duct stone removal, stent placement and sphincterotomy Indications: The patient was transferred from another institution with a complaint of abdominal pain, choledocholithiasis and abnormal liver function test. She is scheduled for ERCP for common bile duct stone removal today August 11, 2024. 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 Risks of pancreatitis, infection, perforation, hemorrhage, adverse drug reaction and aspiration were discussed. The patient was placed in the left lateral decubitus position. The patient was monitored continuously with ECG tracing, pulse oximetry, blood pressure monitoring, and direct observations. The duodenoscope was inserted into the mouth and advanced to the third portion of the duodenum; findings and interventions are described below. The patient tolerated the procedure well, and there were no immediate complications. She was taken to the recovery area in stable condition. Findings: The examination of the duodenum revealed bulging major papilla. The Rx 44 sphincterotome loaded with a 0.035 in guidewire was used to cannulate the common bile duct. The guidewire entered the pancreatic duct 1st and the wire was left within the pancreatic duct. A 2nd guidewire was then used through the sphincterotome and the common bile duct was cannulated selectively. Contrast was injected and a single small filling defect was noted within the common bile duct. Biliary sphincterotomy was performed and the sphincterotome was then removed over the guidewire. A 9-12 mm injecting below retrieval balloon catheter was then advanced over the guidewire into the common bile duct. The common bile duct was swept and a single stone was removed from the common bile duct. Final (more content not included)... [facility] 08-11-2024 Note Patient: Samantha mcallister Procedure Summary Date: 08/11/24 Room / Location: [facility] Main Operating Room Anesthesia Start: 1701 Anesthesia Stop: 1810 Procedure: ENDOSCOPIC RETROGRADE CHOLANGIOPANCREATOGRAPHY Diagnosis: Abdominal pain Choledocholithiasis Scheduled Providers: Julio Allison MD Responsible Provider: Enrique Franco MD Anesthesia Type: general ASA Status: 2 Anesthesia Type: general Vitals Value Taken Time BP 130/86 08/11/241849 Temp 36.7 ???C (98.1 ???F) 08/11/24 182 Pulse 80 08/11/24 1850 Resp 17 08/11/24 1850 SpO2 97 % 08/11/241849 Vitals shown include unfiled device data. Anesthesia Post Evaluation Patient location during evaluation: PACU Patient participation: complete - patient participated Level of consciousness: awake and alert Pain score: 0 Pain management: adequate Multimodal analgesia pain management approach Airway patency: patent Two or more strategies used to mitigate risk of obstructive sleep apnea Cardiovascular status: hemodynamically stable, acceptable and stable Respiratory status: acceptable, room air, spontaneous ventilation and nonlabored ventilation Hydration status: acceptable Patient is hemodynamically stable and is able to be discharged from PACU per anesthesia protocol. No notable events documented. [facility] 08-11-2024 Note Airway Date/Time: 08/11/2024 5:07 PM Urgency: elective Airway not difficult General Information and Staff Patient location during procedure: OR Anesthesiologist: Enrique Franco MD Resident/CHAINSTITCH HEMMER/CAA: Tung Marrero MD Performed: resident/CHAINSTITCH HEMMER/CAA Indications and Patient Condition Indications for airway management: anesthesia Spontaneous Ventilation: absent Sedation level: deep Preoxygenated: yes Patient position: sniffing Mask difficulty assessment: 1 - vent by mask Planned trial extubation Final Airway Details Final airway type: endotracheal airway Successful airway: ETT Cuffed: yes Successful intubation technique: video laryngoscopy Facilitating devices/methods: intubating stylet Endotracheal tube insertion site: oral Blade: Casiano Blade size: #3 ETT size (mm): 7.5 Cormack-Lehane Classification: grade I - full view of glottis Placement verified by: chest auscultation and capnometry Measured from: lips ETT to lips (cm): 21 Number of attempts at approach: 1 [facility] 08-11-2024 Note Patient: Samantha mcallister Procedure Information Date/Time: 08/11/24 1700 Procedure: ENDOSCOPIC RETROGRADE CHOLANGIOPANCREATOGRAPHY Location: [facility] Main Operating Room Relevant Problems No relevant active problems Clinical information reviewed: Tobacco Allergies Meds Problems Med Hx Surg Hx OB Status Fam Hx Soc Hx Physical Exam Airway Mallampati: I TM distance: >3 FB Neck ROM: full Cardiovascular - normal exam Rhythm: regular Rate: normal Dental - normal exam Pulmonary Abdominal (+) obese Other findings: Never smoked; PCOS with insulin resistance. Anesthesia Plan ASA 2 general The patient is not a current smoker. Patient was previously instructed to abstain from smoking on day of procedure. Patient did not smoke on day of procedure. intravenous induction Anesthetic plan and risks discussed with patient and spouse. Plan discussed with resident. Additional Equipment Requests [facility] 08-11-2024 Note Hospital Medicine History and Physical 08/11/2024 4:02 AM THE HOSPITALIST TEAM PREFERS TO USE [employer] FOR NON-URGENT COMMUNICATION 7AM-7PM. IF I DO NOT RESPOND WITHIN 20 MINUTES OR URGENT MATTERS, PLEASE CALL THROUGH THE HOSPITAL CLEANER. FROM 7PM-7AM, PLEASE PAGE [phone](COVR). Chief Complaint No chief complaint on file. History of Present Illness Samantha Solis is an 28 y.o. female transferred from [facility] where she was seen for nonresolving right upper quadrant pain initially severe radiating to her back associated with nausea and some chills patient was seen there on August 04, 2024 and was diagnosed with cholecystitis and Christina Lithiasis the time the workup done shows normal WBC hemoglobin 15 ALT was 49 total bilirubin was 0.2 and alkaline phosphatase 193 she was given pain medications treated in the ER and sent home but returned back with worsening of the pain requiring parenteral pain medications and workup included a CBC which showed normal WBC 9.4 hemoglobin 15.3 hematocrit 45 MCV 87 platelet count 439 the blood chemistry showed bicarb of 26.7 potassium 3.3 BUN 9 creatinine 0.79 GFR more than 60 lactate of 1.3 bilirubin 2.5 ALT 515 alkaline phosphatase of 327 and lipase of 37, had a CT scan of the abdomen done showing 3 mm stone in distal common bile duct. And enlarged portacaval lymph nodes in the ER at [facility] because of chills she was started on IV Zosyn and was given IV fluids and pain medications and GI were consulted by phone who recommended patient to have ERCP so was transferred to [facility]. Patient has a history of prediabetes though her A1c last reviewed was 5 hide has been on metformin and her blood sugars usually peaks at 110 she recently had appendectomy done, and she had workup done for lupus due to symptoms of dry eyes dry mouth nonspecific arthralgias sun exposed malar rash and nonspecific backaches had PEBBLES was done by her PCP which was speckled and titers were elevated above around 1500 she denies any weight loss weight gain anemia and urine renal issues. She is 4 and para 3. She denies history of hepatitis tobacco alcohol dependency Review of System and Physical Exam Temp: [36.7 ???C (98.1 ???F)] 36.7 ???C (98.1 ???F) Heart Rate: [80] 80 Resp: [17] 17 BP: (115)/(75) 115/75 Physical Exam Vitals reviewed. Constitutional: Appearance: Normal appearance. She is obese. HENT: Head: Normocephalic and atraumatic. Right Ear: Tympanic membrane, ear canal and external ear normal. Left Ear: Tympanic membrane, ear canal and external ear normal. Nose: Nose normal. Mouth/Throat: Mouth: Mucous membranes are moist. Pharynx: Oropharynx is clear. Eyes: Extraocular Movements: Extraocular movements intact. Conjunctiva/sclera: Conjunctivae normal. Pupils: Pupils are equal, round, and reactive to light. Cardiovascular: Rate and Rhythm: Normal rate and regular rhythm. Pulses: Normal pulses. Heart sounds: Normal heart sounds. Pulmonary: Effort: Pulmonary effort is normal. Breath sounds: Normal breath sounds. Abdominal: General: Abdomen is flat. Bowel sounds are normal. Palpations: Abdomen is soft. Comments: Mild tenderness right hypochondrium no guarding liver edge palpable subcostal smooth soft nt bs normoactive Musculoskeletal: General: Normal range of motion. Cervical back: Normal range of motion and neck supple. Comments: No active synovitis Skin: General: Skin is warm and dry. Capillary Refill: Capillary refill takes less than 2 seconds. Neurological: Mental Status: She is alert. Mental status is at baseline. Psychiatric: Behavior: Behavior normal. Review of Systems Constitutional: Positive for chills. Negative for activity change, appetite change, diaphoresis, fatigue, fever and unexpected weight change. HENT: Negative. Eyes: Negative. Respiratory: Negative. Cardiovascular: Negative. Gastrointestinal: Upper abdominal pain dyspepsia nausea pain radiates back increase post prandial no change in bowels Endocrine: Negative. Genitourinary: Negative. Musculoskeletal: Positive for arthralgias and back pain. Negative for gait problem, joint swelling and myalgias. Allergic/Immunologic: Negative. Neurological: Negative. Hematological: Negative. Psychiatric/Behavioral: Negative. Problem List Principal Problem: Abdominal pain Assessment and Plan Biliary colic with labs suggestive of obstructive pathology Transaminases/bilirubinemia/elevated alkaline phosphatase Hypokalemia Choledocholithiasis Prediabetes Concern for lupus the patient request to see rheumatology N.p.o. IV fluids for 10 hours because of IV fluid shortage blood sugar check sliding scale every 6 hours pain control and repeat labs in the morning will hold antibiotics GI were consulted monitor LFTs will hold further workup till seen by gastroenterology, GI planning for ERCP Per patient request rheumatology to (more content not included)... [facility] 07-06-2024 History of Present illness Narrative Associated Problem(s): PCOS (polycystic ovarian [...] 24 hr tablet documented in this encounter [facility] 06-26-2024 History of Present illness Narrative General Surgery H&P Samantha Solis [...] Bea Lemus DO documented in this encounter [facility] 06-13-2024 History of Present illness Narrative Associated Problem(s): Arthralgia Pain in [...] in this encounter [facility]: Evaluation note Diagnosis Fatigue, unspecified type- Primary Hair loss Unspecified alopecia Arthralgia, unspecified joint PCOS (polycystic ovarian syndrome) Polycystic ovaries Obesity (BMI 30-39.9) Thyromegaly (CMS/HCC) Goiter, unspecified [facility] Diagnosis Fatigue, unspecified type- Primary Hair loss Unspecified alopecia Arthralgia, unspecified joint PCOS (polycystic ovarian syndrome) Polycystic ovaries Obesity (BMI 30-39.9) Thyromegaly (CMS/HCC) Goiter, unspecified S/P appendectomy- Primary Other postprocedural status [facility] Diagnosis Fatigue, unspecified type- Primary Hair loss Unspecified alopecia Arthralgia, unspecified joint PCOS (polycystic ovarian syndrome) Polycystic ovaries Obesity (BMI 30-39.9) Thyromegaly (CMS/HCC) Goiter, unspecified Insulin resistance- Primary Other abnormal glucose PCOS (polycystic ovarian syndrome) Polycystic ovaries [facility] Diagnosis Fatigue, unspecified type- Primary Hair loss Unspecified alopecia Arthralgia, unspecified joint PCOS (polycystic ovarian syndrome) Polycystic ovaries Obesity (BMI 30-39.9) Thyromegaly (CMS/HCC) Goiter, unspecified Insulin resistance- Primary Other abnormal glucose PCOS (polycystic ovarian syndrome) Polycystic ovaries Positive PEBBLES (antinuclear antibody)- Primary Other and unspecified nonspecific immunological findings Arthralgia, unspecified joint [facility] Diagnosis Fatigue, unspecified type- Primary Hair loss Unspecified alopecia Arthralgia, unspecified joint PCOS (polycystic ovarian syndrome) Polycystic ovaries Obesity (BMI 30-39.9) Thyromegaly (CMS/HCC) Goiter, unspecified Insulin resistance- Primary Other abnormal glucose PCOS (polycystic ovarian syndrome) Polycystic ovaries Choledocholithiasis- Primary Calculus of bile duct without mention of cholecystitis or obstruction Calculus of gallbladder without cholecystitis without obstruction documented in this encounter [facility] Chief Complaint and Reason for Visit Chief Complaint M79.672 Chief Complaint Unknown Advance Directives No Advanced Directives Records Found [...] Lopez DPM MS Attending Provider Active Special Diet Cook Relationship Specialty Start Date End Date Brian Jacobs MD [address] [place] [phone] PCP - General Family Medicine 06/13/24 Special Diet Cook Relationship Specialty Start Date End Date Brian Jacobs MD [address] [place] [phone] PCP - General Family Medicine 06/13/24 Special Diet Cook Relationship Specialty Start Date End Date Brian Jacobs MD [address] [place] [phone] PCP - General Family Medicine 06/13/24 Special Diet Cook Relationship Specialty Start Date End Date Brian Jacobs MD [address] [place] [phone] PCP - General Family Medicine 06/13/24 Team Status: Inactive Member Role Status Dates Shaikh Jc MD Attending Provider Active Sta rt: June 17, 2024 End: June 17, 2024 Special Diet Cook Relationship Specialty Start Date End Date Brian Jacobs MD [address] [place] [address] PCP - General Family Medicine 06/13/24 Special Diet Cook Relationship Specialty Start Date End Date Brian Jacobs MD [address] [place] [address] PCP - General Family Medicine 06/13/24 Special Diet Cook Relationship Specialty Start Date End Date Brian Jacobs MD [address] [place] [address] PCP - General Family Medicine 06/13/24 Special Diet Cook Relationship Specialty Start Date End Date Brian Jacobs MD [address] [place] [address] PCP - General Family Medicine 06/13/24 Special Diet Cook Relationship Specialty Start Date End Date Brian Jacbos MD [address] [place] [address] PCP - General Family Medicine 06/13/24 Special Diet Cook Relationship Specialty Start Date End Date Brian Jacobs MD [address] [place] [address] PCP - General Family Medicine 06/13/24 Special Diet Cook Relationship Specialty Start Date End Date Brian Jacobs MD [address] [place] [address] PCP - General Family Medicine 06/13/24 Special Diet Cook Relationship Specialty Start Date End Date Brian Jacobs MD [address] [place] [address] PCP - General Family Medicine 06/13/24 Goals (unrecognized section and content) Goals may be documented in a n alternate sectionGoals may be documented in an alternate section INFORMATION SOURCE (unrecogn ized section and content) DATE CREATED AUTHOR 12/17/2022 [facility] DATE CREATED AUTHOR AUTHOR'S ORGANIZ ATION 06/27/2024 [facility] EPIC DATE CREATED AUTHOR AUTHOR'S ORGANIZ ATION 08/27/2024 [facility] DATE CREATED AUTHOR AUTHOR'S ORGANIZ ATION 09/05/2024 [facility] Reason for Visit (unrecogniz ed section and [...] clear. Reason Comments Follow-up [facility] Reason Comments Follow-up [facility] er f/up transfer red to [facility] FOR RECORDS PERTAINING TO PATIENTS WHO ARE [...] BE BASED ON THE PRIMARY CLINICAL RECORDS. [employer] provides no warranty or guarantee of the accuracy or completeness of information in this document.
--- NOTE | 2024-09-14 14:00 | US_ITS ---
[facility] [place] [id number] Patient Name: FLYNN SOLIS MRN: [id number] date: 1995 Sex: F Assigned Patient Location: US Current Patient Location: US Accession/Order Number: [id number] Exam Date: 09/14/2024 14:01 Report Date: 09/14/2024 14:52 At the request of: VLADIMIR JACOBS Procedure: US right upper quadrant EXAM: US right upper quadrant HISTORY: Abdominal Pain COMPARISON: None. TECHNIQUE: Grayscale and color FINDINGS: The liver is normal in size, contour and echotexture measuring 15.4 cm in length. No focal hepatic mass. Hepatopedal flow in the main portal vein. The gallbladder is normal in size. The wall measures 1.4 mm, normal. Echogenic material layering dependently, sludge and cholelithiasis. No pericholecystic fluid. The common bile duct measures 3 mm, normal. The visualized pancreas is normal The right kidney is normal measuring 11.6 x 5.7 x 5.3 cm. US/US right upper quadrant IMPRESSION: Cholelithiasis and gallbladder sludge without evidence of acute cholecystitis Electronically authenticated by: BROOKS LO Date: 09/14/2024 14:52
== END 2024-09-14 13:55 | disposition home or self-care (01) ==
LOC: US 13:54
PROVIDERS: PCP Family Medicine; Visit Provider Family Medicine
DX: K80.20 Calculus of gallbladder without cholecystitis without obstruction (principal)
CPT/HCPCS: 76705

== ENCOUNTER 2024-11-03 11:55 | Outpatient (OUT) | payer BC, SELFPAY ==
--- OUTSIDE RECORDS SUMMARY | 2024-11-03 12:08 | XMS_ITS | CCD ---
Author Organization [facility] Care Team Providers Care Neuro Ophthalmologist Name Role Phone GABBIE Lopez Attending Provider REYNALDO, DR BRIAN Akins Primary Care Unavailable HIGHLANDER, SB Tsai Admitting Unavailable HIGHLANDER, SB Tsai Attending Unavailable ZIEBER, DR PATRICIA [...] Unavailable NADERER, DR BRIAN Akins Admitting Unavailable Schneble, Rhoda Consulting Unavailable NADERER, DR BRIAN Akins Primary Care Unavailable HIGHLANDER, SB Tsai Admitting Unavailable HIGHLANDER, SB Tsai Attending Unavailable Brian Jacobs MD Primary Care Provider [phone] MD Donovan Greene Attending Provider [phone] MARKER, JOSE FRANCISCO Natarajan Referring Unavailable HORANI, KARMA Admitting Unavailable AYLA, BABSMED Attending Unavailable NAWRAS, ALI Referring Unavailable AYLA, JOYCE Referring Unavailable NAWRAS, JULIO Referring Unavailable NAWRAS, JULIO Referring Unavailable Shaikh Greene Attending Unavailable Shaikh Greene Admitting Unavailable MccraryJairo Attending Unavailable Demetra, Jairo Admitting Unavailable NADEREAlexis, BRIAN Attending Unavailable HOLLI LEMUS Attending Unavailable ANIKETEREAlexis, BRIAN Attending Unavailable BRIAN JACOBS Attending Unavailable BRIAN JACOBS Attending Unavailable KRYSTAL BENAVIDEZ Attending Unavailable BRIAN JACOBS Referring Unavailable BRIAN JACOBS Primary Care Unavailable Brian Jacobs MD Primary Care Provider [phone] Medications Current Medications Medication Drug Class(es) Dates Sig (Normalized) Sig (Original) aspirin 81 mg delayed release oral tablet (4 sources) Platelet Aggregation Inhibitor, Nonsteroidal Anti-inflammatory Drug take 1 tablet by mouth once daily aspirin 81 MG EC tablet Take 81 mg by mouth Daily Active Blood Glucose Monitoring Suppl (Blood Glucose Monitor System) w/Device kit (7 sources) Start: 07-26-2024 Blood Glucose Monitoring Suppl (Blood Glucose Monitor System) w/Device kit Indications: Insulin resistance 1 each Daily 1 kit 07/26/2024 Active 24 hr metFORMIN hydrochloride 500 mg extended release oral tablet (12 sources) Biguanide Start: 08-02-2024 take 1 tablet by mouth once daily at mealtime metFORMIN XR (GLUCOPHAGE XR) 500 mg 24 hr tablet TAKE 1 TABLET BY MOUTH EVERY DAY EVENING WITH MEALS 08/02/2024 Active Start: 07-06-2024 End: 09-27-2024 take 1 tablet by mouth every twenty-four hours at mealtime metFORMIN XR (Glucophage-XR) 500 MG 24 hr tablet Indications: Insulin resistance , PCOS (polycystic ovarian syndrome) Take 1 tablet (500 mg) by mouth in the evening. Take with meals Do not crush, chew, or split. 30 tablet 5 07/06/2024 09/27/2024 Discontinued Problems Active Problems Problem Classification Problem Date Documented Da te Episodic/Chronic Abdominal pain (14 sources) Unspecified abdominal pain; Translations: [Epigastric pain] Onset: 4 Episodic Biliary tract disease (20 sources) Common bile duct calculus; Translations: [Calculus of bile duct without cholangitis or cholecystitis without obstruction] Onset: 4 08-16-2024 Episodic Gastrointestinal hemorrhage (8 sources) Blood-tinged feces; Translations: [Melena] Onset: 5 09-27-2024 Episodic Immunizations and screening for infectious disease (11 sources) Anti-nuclear factor positive; Translations: [Other specified abnormal immunological findings in serum] Onset: 4 07-12-2024 Episodic Other acquired deformities (1 source) Contracture, left ankle; Translations: [CONTRACTURE LEFT ANKLE] Onset: 2 Chronic Other endocrine disorders (20 sources) Polycystic ovary syndrome; Translations: [Polycystic ovarian syndrome] Onset: 4 06-13-2024 Chronic Other gastrointestinal disorders (1 source) Other specified symptoms and signs involving the digestive system and abdomen; Translations: [Other specified symptoms and signs involving the digestive system and abdomen] Onset: 5 Episodic Other gastrointestinal disorders (1 source) Gastrointestinal symptom; Translations: [Other specified symptoms and signs involving the digestive system and abdomen] 10-30-2024 Episodic Other liver diseases (1 source) Abnormal levels of other serum enzymes; Translations: [Abnormal levels of other serum enzymes] Onset: 5 Episodic Other liver diseases (1 source) Elevated liver enzymes level; Translations: [Abnormal levels of other serum enzymes] 10-30-2024 Episodic Other nutritional; endocrine; and metabolic disorders (20 sources) Body mass index 30+ - obesity; Translations: [Obesity, unspecified] Onset: 4 06-13-2024 Chronic Other nutritional; endocrine; and metabolic disorders (20 sources) Insulin resistance; Translations: [Insulin resistance] Onset: 4 06-15-2024 Chronic Residual codes; unclassified (1 source) Other specified postprocedural states; Translations: [Other specified postprocedural states] Onset: 5 Episodic Residual codes; unclassified (1 source) Past history of procedure; Translations: [Other specified postprocedural states] 10-30-2024 Episodic Unclassified (1 source) New Patient Onset: 5 Past or Other Problems Problem Classification Problem Date Documented Date Episodic/Chronic Malaise and fatigue (20 sources) Fatigue; Translations: [Other fatigue] Onset: 06-13-2024 06-13-2024 Episodic Neoplasms of unspecified nature or uncertain behavior (19 sources) Thrombocytosis; Translations: [Thrombocythemia] Onset: 06-13-2024 Resolved: [...] GAIT AND MOBILITY] Onset: 04-24-2022 Episodic Other non-traumatic joint disorders (20 sources) Joint pain; Translations: [Pain in unspecified joint] Onset: 06-13-2024 06-13-2024 Episodic Other skin disorders (20 sources) Loss of hair; Translations: [Nonscarring hair loss, unspecified] Onset: 06-13-2024 06-13-2024 Episodic Thyroid disorders (20 sources) Goiter; Translations: [Iodine-deficiency related diffuse (endemic) goiter] Onset: 06-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 [facility] Comment on above: Result Comment: [...] , Note 1 Comment Normal . [facility] Comment on above: Result Comment: Hailey an Potential Disease Association Homogeneous Systemic Lupus Erythematosus, Drug Induced Systemic Lupus Erythematosus, Chronic Autoimmune hepatitis, Juvenile Idiopathic Arthritis Speckled Sjogren Syndrome, Systemic Lupus Erythematosus, Subacute Cutaneous Lupus, Lupus, Congenital Heart Block, Mixed Connective Tissue Disease, Scleroderma-diffuse, Scleroderma-Autoimmune Myositis Overlap Syndrome, Systemic Lupus Lcgqflrjacudq-Rlgotstpenn-Tgfikctkoa Myositis Overlap Syndrome, Systemic Autoimmune Rheumatic Disease, [...] Cytopenias, Linear Scleroderma, Antiphospholipid Syndrome Performed at: [address] [id number] Desktop Support Associate: David Dietz PhD, Phone: [phone] Performed By: #### M ITOM2, CH50, PEBBLES, THYGLOB AB, C4, CHROMATIN, C3, TPO, SMAB #### [facility] , Speckled Pattern 1 High . [facility] Comment on above: Result Comment: ICAP nomenclature: [id number] Performed By: #### M ITOM2, CH50, PEBBLES, THYGLOB AB, C4, CHROMATIN, C3, TPO, SMAB #### [facility] , Aldolaseon 08-30-2024 Aldolase 3.4 U/L Normal 3.3-10.3 [facility] Comment on above: Result Comment: Perf ormed at: - [facility] [address] [id number] Desktop Support Associate: David Dietz PhD, Phone: [phone] PERFORMED BY: [address] [place] [address] PATHOLOGIST CORPORATE SERVICES MANAGER DARIO ALEJO M.D. Performed By: #### M ITOM2, CH50, PEBBLES, THYGLOB AB, C4, CHROMATIN, C3, TPO, SMAB #### [facility] , Antithyroglobulin Abon 08-30 Antithyroglobulin Ab <1.0 Normal 0.0-0.9 [facility] Comment on above: Result Comment: Thyr oglobulin Antibody measured by [facility] [place] Methodology It should be noted that the presence of thyroglobulin antibodies may not be pathogenic nor diagnostic, especially at very low levels. The assay round corner cutter operator has found that four percent of individuals without evidence of thyroid disease or autoimmunity will have positive TgAb levels up to 4 IU/mL. Performed By: #### M ITOM2, CH50, PEBBLES, THYGLOB AB, C4, CHROMATIN, C3, TPO, SMAB #### [facility] , C-Reactive Proteinon 024 C-Reactive Protein 0.6 mg/dL High 0.0-0.5 [facility] Comment on above: Performed By: #### M ITOM2, CH50, PEBBLES, THYGLOB AB, C4, CHROMATIN, C3, TPO, SMAB #### [facility] , Chromatin Antibodyon Chromatin Antibody <0.2 Normal 0.0-0.9 [facility] Comment on above: Result Comment: Perf ormed at: [facility] [id number] Desktop Support Associate: David Dietz PhD, Phone: [phone] PERFORMED BY: [address] [place] [address] PATHOLOGIST CORPORATE SERVICES MANAGER DARIO ALEJO M.D. Performed By: #### M ITOM2, CH50, PEBBLES, THYGLOB AB, C4, CHROMATIN, C3, TPO, SMAB #### [facility] , Coagulation Profileon 2023 aPTT Coag (Bld) [Time] 32.5 s Normal 25.1-36.5 [facility] Comment on above: Result Comment: A he matocrit value greater than 55% may lead to inaccurate results in coagulation testing. Patients having hematocrit values >55% require a special collection tube for coagulation studies. Please contact the laboratory at [phone] for redraw instructions. PERFORMED BY: [address] [address] PATHOLOGIST CORPORATE SERVICES MANAGER DARIO ALEJO M.D. Performed By: #### M ITOM2, CH50, PEBBLES, THYGLOB AB, C4, CHROMATIN, C3, TPO, SMAB #### [facility] , INR Coag (PPP) [Relative time] 1.0 {INR} Normal [facility] Comment on above: Result Comment: [...] (PPP) [Time] 11.7 s Normal 9.0-12.9 [facility] Comment on above: Result Comment: A he matocrit value greater than 55% may lead to inaccurate results in coagulation testing. Patients having hematocrit values >55% require a special collection tube for coagulation studies. Please contact the laboratory at [phone] for redraw instructions. Performed By: #### M ITOM2, CH50, PEBBLES, THYGLOB AB, C4, CHROMATIN, C3, TPO, SMAB #### [facility] , Complement C3on 08-30-2024 Complement C3 181 mg/dL High 82-167 [facility] Comment on above: Result Comment: Perf ormed at: [facility] [id number] Desktop Support Associate: David Dietz PhD, Phone: [phone] Performed By: #### M ITOM2, CH50, PEBBLES, THYGLOB AB, C4, CHROMATIN, C3, TPO, SMAB #### [facility] , Complement C4on 08-30-2024 Complement C4 34 mg/dL Normal 12-38 [facility] Comment on above: Performed By: #### M ITOM2, CH50, PEBBLES, THYGLOB AB, C4, CHROMATIN, C3, TPO, SMAB #### [facility] , Complement Total (CH50)on Complement Total (CH50) >60 Normal >41 [facility] Comment on above: Result Comment: [...] determine out of range values. Performed at: [facility] [id number] Desktop Support Associate: David Dietz PhD, Phone: [phone] PERFORMED BY: [facility] [place] [address] PATHOLOGIST CORPORATE SERVICES MANAGER DARIO ALEJO M.D. Performed By: #### M ITOM2, CH50, PEBBLES, THYGLOB AB, C4, CHROMATIN, C3, TPO, SMAB #### [facility] , Complete Blood Count Auto Di ffon 08-30-2024 Basophils (Bld) [#/Vol] 0.1 10*3/uL Normal 0.0-0.2 [facility] Comment on above: Performed By: #### M ITOM2, CH50, PEBBLES, THYGLOB AB, C4, CHROMATIN, C3, TPO, SMAB #### [facility] , Basophils/100 WBC (Bld) 1.1 % Normal . [facility] Comment on above: Performed By: #### M ITOM2, CH50, PEBBLES, THYGLOB AB, C4, CHROMATIN, C3, TPO, SMAB #### [facility] , Eosinophils (Bld) [#/Vol] 0.2 10*3/uL Normal 0.0-0.45 [facility] Comment on above: Performed By: #### M ITOM2, CH50, PEBBLES, THYGLOB AB, C4, CHROMATIN, C3, TPO, SMAB #### [facility] , Eosinophils/100 WBC (Bld) 2.0 % Normal . [facility] Comment on above: Performed By: #### M ITOM2, CH50, PEBBLES, THYGLOB AB, C4, CHROMATIN, C3, TPO, SMAB #### [facility] , Erythrocyte distribution width (RBC) [Ratio] 13.2 % Normal 11.9-15.3 [facility] Comment on above: Performed By: #### M ITOM2, CH50, PEBBLES, THYGLOB AB, C4, CHROMATIN, C3, TPO, SMAB #### [facility] , Hematocrit (Bld) [Volume fraction] 39.5 % Normal 34.0-46.4 [facility] Comment on above: Performed By: #### M ITOM2, CH50, PEBBLES, THYGLOB AB, C4, CHROMATIN, C3, TPO, SMAB #### [facility] , Hemoglobin (Bld) [Mass/Vol] 13.6 g/dL Normal 11.8-15.4 [facility] Comment on above: Performed By: #### M ITOM2, CH50, PEBBLES, THYGLOB AB, C4, CHROMATIN, C3, TPO, SMAB #### [facility] , Lymphocytes (Bld) [#/Vol] 2.4 10*3/uL Normal 1.00-4.8 [facility] Comment on above: Performed By: #### M ITOM2, CH50, PEBBLES, THYGLOB AB, C4, CHROMATIN, C3, TPO, SMAB #### [facility] , Lymphocytes/100 WBC (Bld) 19.1 % Normal . [facility] Comment on above: Performed By: #### M ITOM2, CH50, PEBBLES, THYGLOB AB, C4, CHROMATIN, C3, TPO, SMAB #### [facility] , MCH (RBC) [Entitic mass] 30.1 pg Normal 24.7-34.3 [facility] Comment on above: Performed By: #### M ITOM2, CH50, PEBBLES, THYGLOB AB, C4, CHROMATIN, C3, TPO, SMAB #### [facility] , MCV (RBC) [Entitic vol] 87.7 fL Normal 80-100 [facility] Comment on above: Performed By: #### M ITOM2, CH50, PEBBLES, THYGLOB AB, C4, CHROMATIN, C3, TPO, SMAB #### [facility] , Mean Corpuscular HGB Conc 34.3 g/dL Normal 32.0-35.0 [facility] Comment on above: Performed By: #### M ITOM2, CH50, PEBBLES, THYGLOB AB, C4, CHROMATIN, C3, TPO, SMAB #### [facility] , Monocytes (Bld) [#/Vol] 0.4 10*3/uL Normal 0.0-0.8 [facility] Comment on above: Performed By: #### M ITOM2, CH50, PEBBLES, THYGLOB AB, C4, CHROMATIN, C3, TPO, SMAB #### [facility] , Monocytes/100 WBC (Bld) 2.8 % Normal . [facility] Comment on above: Performed By: #### M ITOM2, CH50, PEBBLES, THYGLOB AB, C4, CHROMATIN, C3, TPO, SMAB #### [facility] , Neutrophils (Bld) [#/Vol] 9.5 10*3/uL High 1.8-7.7 [facility] Comment on above: Performed By: #### M ITOM2, CH50, PEBBLES, THYGLOB AB, C4, CHROMATIN, C3, TPO, SMAB #### [facility] , Neutrophils/100 WBC (Bld) 75.0 % Normal . [facility] Comment on above: Performed By: #### M ITOM2, CH50, PEBBLES, THYGLOB AB, C4, CHROMATIN, C3, TPO, SMAB #### [facility] , NRBC% 0.1 /100{WBC} Normal 0-0.5 [facility] Comment on above: Performed By: #### M ITOM2, CH50, PEBBLES, THYGLOB AB, C4, CHROMATIN, C3, TPO, SMAB #### [facility] , Platelet mean volume (Bld) [Entitic vol] 7.9 fL Normal 6.3-10.7 [facility] Comment on above: Performed By: #### M ITOM2, CH50, PEBBLES, THYGLOB AB, C4, CHROMATIN, C3, TPO, SMAB #### [facility] , Platelets (Bld) [#/Vol] 435 10*3/uL Normal 150-450 [facility] Comment on above: Performed By: #### M ITOM2, CH50, PEBBLES, THYGLOB AB, C4, CHROMATIN, C3, TPO, SMAB #### [facility] , RBC (Bld) [#/Vol] 4.51 10*6/uL Normal 3.60-5.00 [facility] Comment on above: Performed By: #### M ITOM2, CH50, PEBBLES, THYGLOB AB, C4, CHROMATIN, C3, TPO, SMAB #### [facility] , WBC (Bld) [#/Vol] 12.7 10*3/uL High 3.8-11.6 [facility] Comment on above: Performed By: #### M ITOM2, CH50, PEBBLES, THYGLOB AB, C4, CHROMATIN, C3, TPO, SMAB #### [facility] , Comprehensive Metabolic Pane jose raul 08-30-2024 Albumin [Mass/Vol] 4.5 g/dL Normal 3.5-5.7 [facility] Comment on above: Performed By: #### M ITOM2, CH50, PEBBLES, THYGLOB AB, C4, CHROMATIN, C3, TPO, SMAB #### [facility] , Albumin/Globulin [Mass ratio] 1.3 {ratio} Normal [facility] Comment on above: Performed By: #### M ITOM2, CH50, PEBBLES, THYGLOB AB, C4, CHROMATIN, C3, TPO, SMAB #### [facility] , ALP [Catalytic activity/Vol] 91 U/L Normal 34-104 [facility] Comment on above: Performed By: #### M ITOM2, CH50, PEBBLES, THYGLOB AB, C4, CHROMATIN, C3, TPO, SMAB #### [facility] , ALT [Catalytic activity/Vol] 20 U/L Normal 7-52 [facility] Comment on above: Performed By: #### M ITOM2, CH50, PEBBLES, THYGLOB AB, C4, CHROMATIN, C3, TPO, SMAB #### [facility] , Anion gap [Moles/Vol] 12.7 mmol/L Normal 6.0-15.0 [facility] Comment on above: Performed By: #### M ITOM2, CH50, PEBBLES, THYGLOB AB, C4, CHROMATIN, C3, TPO, SMAB #### [facility] , AST [Catalytic activity/Vol] 15 U/L Normal 13-39 [facility] Comment on above: Performed By: #### M ITOM2, CH50, PEBBLES, THYGLOB AB, C4, CHROMATIN, C3, TPO, SMAB #### [facility] , Bilirubin [Mass/Vol] 0.6 mg/dL Normal 0.3-1.0 [facility] Comment on above: Performed By: #### M ITOM2, CH50, PEBBLES, THYGLOB AB, C4, CHROMATIN, C3, TPO, SMAB #### [facility] , Calcium [Mass/Vol] 9.6 mg/dL Normal 8.6-10.3 [facility] Comment on above: Performed By: #### M ITOM2, CH50, PEBBLES, THYGLOB AB, C4, CHROMATIN, C3, TPO, SMAB #### [facility] , Chloride [Moles/Vol] 102 mmol/L Normal 98-107 [facility] Comment on above: Performed By: #### M ITOM2, CH50, PEBBLES, THYGLOB AB, C4, CHROMATIN, C3, TPO, SMAB #### [facility] , CO2 [Moles/Vol] 27.1 mmol/L Normal 21.0-31.0 [facility] Comment on above: Performed By: #### M ITOM2, CH50, PEBBLES, THYGLOB AB, C4, CHROMATIN, C3, TPO, SMAB #### [facility] , Creatinine [Mass/Vol] 0.61 mg/dL Normal 0.60-1.20 [facility] Comment on above: Performed By: #### M ITOM2, CH50, PEBBLES, THYGLOB AB, C4, CHROMATIN, C3, TPO, SMAB #### [facility] , GFR/1.73 sq M.predicted MDRD (S/P/Bld) [Vol rate/Area] mL/min/{1.73_m2} Normal [facility] Comment on above: Performed By: #### M ITOM2, CH50, PEBBLES, THYGLOB AB, C4, CHROMATIN, C3, TPO, SMAB #### [facility] , Globulin (S) [Mass/Vol] 3.5 g/dL Normal [facility] Comment on above: Performed By: #### M ITOM2, CH50, PEBBLES, THYGLOB AB, C4, CHROMATIN, C3, TPO, SMAB #### [facility] , Glucose [Mass/Vol] 102 mg/dL High 70-100 [facility] Comment on above: Result Comment: [place] Glucose Reference Range is dependent on time and content of last meal. Glucose of more than 200 mg/dL in a nonstressed, ambulatory subject supports the diagnosis of Diabetes Mellitus. ADA recommended reference range Performed By: #### M ITOM2, CH50, PEBBLES, THYGLOB AB, C4, CHROMATIN, C3, TPO, SMAB #### [facility] , Potassium [Moles/Vol] 3.8 mmol/L Normal 3.5-5.1 [facility] Comment on above: Performed By: #### M ITOM2, CH50, PEBBLES, THYGLOB AB, C4, CHROMATIN, C3, TPO, SMAB #### [facility] , Protein [Mass/Vol] 8.0 g/dL Normal 6.4-8.9 [facility] Comment on above: Performed By: #### M ITOM2, CH50, PEBBLES, THYGLOB AB, C4, CHROMATIN, C3, TPO, SMAB #### [facility] , Sodium [Moles/Vol] 138 mmol/L Normal 136-145 [facility] Comment on above: Performed By: #### M ITOM2, CH50, PEBBLES, THYGLOB AB, C4, CHROMATIN, C3, TPO, SMAB #### [facility] , Urea nitrogen [Mass/Vol] 9 mg/dL Normal 7-25 [facility] Comment on above: Performed By: #### M ITOM2, CH50, PEBBLES, THYGLOB AB, C4, CHROMATIN, C3, TPO, SMAB #### [facility] , Creatine Kinaseon 08-30-2024 CK [Catalytic activity/Vol] 40 U/L Normal 30-223 [facility] Comment on above: Result Comment: PERF ORMED BY: [place] [address] PATHOLOGIST CORPORATE SERVICES MANAGER DARIO ALEJO M.D. Performed By: #### I FE,URINE, SPE, RPR W RFX, KAJAL SERUM, UPE RAND, ALDOLASE #### [facility] , #### T4F, CK, CRP, CBC, TSH3, ADDONUAPLUS, CMP, ESR #### [address] Dipstick and Microscopicon 10-31-2023 Appearance (U) Clear Normal Clear [facility] Comment on above: Order Comment: Name Collection Type:: Clean-Voided Midstream Performed By: #### M ITOM2, CH50, PEBBLES, THYGLOB AB, C4, CHROMATIN, C3, TPO, SMAB #### [facility] , Bacteria,Urine None Seen Normal None Seen [facility] Comment on above: Order Comment: Name Collection Type:: Clean-Voided Midstream Result Comment: PERF ORMED BY: [place] [id number] PATHOLOGIST CORPORATE SERVICES MANAGER DARIO ALEJO M.D. Performed By: #### M ITOM2, CH50, PEBBLES, THYGLOB AB, C4, CHROMATIN, C3, TPO, SMAB #### [facility] , Bilirubin,Urine Negative Normal Negative [facility] Comment on above: Order Comment: Name Collection Type:: Clean-Voided Midstream Performed By: #### M ITOM2, CH50, PEBBLES, THYGLOB AB, C4, CHROMATIN, C3, TPO, SMAB #### [facility] , Color (U) Light-Yellow Normal Yellow [facility] Comment on above: Order Comment: Name Collection Type:: Clean-Voided Midstream Performed By: #### M ITOM2, CH50, PEBBLES, THYGLOB AB, C4, CHROMATIN, C3, TPO, SMAB #### [facility] , Glucose Ql (U) Normal Normal Normal [facility] Comment on above: Order Comment: Name Collection Type:: Clean-Voided Midstream Performed By: #### M ITOM2, CH50, PEBBLES, THYGLOB AB, C4, CHROMATIN, C3, TPO, SMAB #### [facility] , Ketones Ql (U) Negative Normal Negative [facility] Comment on above: Order Comment: Name Collection Type:: Clean-Voided Midstream Performed By: #### M ITOM2, CH50, PEBBLES, THYGLOB AB, C4, CHROMATIN, C3, TPO, SMAB #### [facility] , Leukocyte esterase Test strip Ql (U) Negative Normal Negative [facility] Comment on above: Order Comment: Name Collection Type:: Clean-Voided Midstream Performed By: #### M ITOM2, CH50, PEBBLES, THYGLOB AB, C4, CHROMATIN, C3, TPO, SMAB #### [facility] , Nitrite,Urine Negative Normal Negative [facility] Comment on above: Order Comment: Name Collection Type:: Clean-Voided Midstream Performed By: #### M ITOM2, CH50, PEBBLES, THYGLOB AB, C4, CHROMATIN, C3, TPO, SMAB #### [facility] , Occult Blood,Urine Negative Normal Negative [facility] Comment on above: Order Comment: Name Collection Type:: Clean-Voided Midstream Performed By: #### M ITOM2, CH50, PEBBLES, THYGLOB AB, C4, CHROMATIN, C3, TPO, SMAB #### [facility] , pH (U) 5.5 [pH] Normal 5.0-9.0 [facility] Comment on above: Order Comment: Name Collection Type:: Clean-Voided Midstream Performed By: #### M ITOM2, CH50, PEBBLES, THYGLOB AB, C4, CHROMATIN, C3, TPO, SMAB #### [facility] , Protein,Urine Negative Normal Negative [facility] Comment on above: Order Comment: Name Collection Type:: Clean-Voided Midstream Performed By: #### M ITOM2, CH50, PEBBLES, THYGLOB AB, C4, CHROMATIN, C3, TPO, SMAB #### [facility] , RBC,Urine 0 [HPF] Normal 0-4 [facility] Comment on above: Order Comment: Name Collection Type:: Clean-Voided Midstream Performed By: #### M ITOM2, CH50, PEBBLES, THYGLOB AB, C4, CHROMATIN, C3, TPO, SMAB #### [facility] , Specificy Java,Urine 1.014 Normal 1.001-1.030 [facility] Comment on above: Order Comment: Name Collection Type:: Clean-Voided Midstream Performed By: #### M ITOM2, CH50, PEBBLES, THYGLOB AB, C4, CHROMATIN, C3, TPO, SMAB #### [facility] , Squamous Epithelial Cell,Urine 1 [HPF] Normal 0-2 [facility] Comment on above: Order Comment: Name Collection Type:: Clean-Voided Midstream Performed By: #### M ITOM2, CH50, PEBBLES, THYGLOB AB, C4, CHROMATIN, C3, TPO, SMAB #### [facility] , Urobilinogen,Urine Normal Normal Normal [facility] Comment on above: Order Comment: Name Collection Type:: Clean-Voided Midstream Performed By: #### M ITOM2, CH50, PEBBLES, THYGLOB AB, C4, CHROMATIN, C3, TPO, SMAB #### [facility] , WBC,Urine 3 [HPF] Normal 0-4 [facility] Comment on above: Order Comment: Name Collection Type:: Clean-Voided Midstream Performed By: #### M ITOM2, CH50, PEBBLES, THYGLOB AB, C4, CHROMATIN, C3, TPO, SMAB #### [facility] , Erythrocyte Sedimentation Ra joy 08-30-2024 ESR (Bld) [Velocity] 34 mm/h High 0-19 [facility] Comment on above: Result Comment: PERF ORMED BY: [facility] [place] [address] PATHOLOGIST CORPORATE SERVICES MANAGER DARIO ALEJO M.D. Performed By: #### M ITOM2, CH50, PEBBLES, THYGLOB AB, C4, CHROMATIN, C3, TPO, SMAB #### [facility] , Free T4 (Free Thyroxine)on 1 10-31-2023 Free T4 [Mass/Vol] 0.88 ng/dL Normal 0.61-1.12 [facility] Comment on above: Performed By: #### M ITOM2, CH50, PEBBLES, THYGLOB AB, C4, CHROMATIN, C3, TPO, SMAB #### [facility] , Immunofixation, (KAJAL), Urine on 08-30-2024 Immunofixation, (KAJAL), Urine Comment Normal . [facility] Comment on above: Result Comment: No m onoclonality detected. Performed at: [address] [id number] Desktop Support Associate: Dvaid Dietz PhD, Phone: [phone] Performed By: #### M ITOM2, CH50, PEBBLES, THYGLOB AB, C4, CHROMATIN, C3, TPO, SMAB #### [facility] , Immunofixation,Serumon 08-30 Immunofixation, Serum Comment Normal . [facility] Comment on above: Result Comment: No m onoclonality detected. Performed By: #### M ITOM2, CH50, PEBBLES, THYGLOB AB, C4, CHROMATIN, C3, TPO, SMAB #### [facility] , Immunoglobulin A, Serum 159 mg/dL Normal 87-352 [facility] Comment on above: Performed By: #### M ITOM2, CH50, PEBBLES, THYGLOB AB, C4, CHROMATIN, C3, TPO, SMAB #### [facility] , Immunoglobulin G 1829 mg/dL High 586-1602 [facility] Comment on above: Performed By: #### M ITOM2, CH50, PEBBLES, THYGLOB AB, C4, CHROMATIN, C3, TPO, SMAB #### [facility] , Immunoglobulin M, Serum 115 mg/dL Normal 26-217 [facility] Comment on above: Result Comment: Perf ormed at: - [facility] [id number] Desktop Support Associate: David Dietz PhD, Phone: [phone] Performed By: #### M ITOM2, CH50, PEBBLES, THYGLOB AB, C4, CHROMATIN, C3, TPO, SMAB #### [facility] , Lupus Anticoagulant Compon 1 10-31-2023 Dilute Prothrombin Time (dPt) 31.9 Normal 0.0-47.6 [facility] Comment on above: Performed By: #### M ITOM2, CH50, PEBBLES, THYGLOB AB, C4, CHROMATIN, C3, TPO, SMAB #### [facility] , dPT Confirm Ratio 1.04 Normal 0.00-1.34 [facility] Comment on above: Performed By: #### M ITOM2, CH50, PEBBLES, THYGLOB AB, C4, CHROMATIN, C3, TPO, SMAB #### [facility] , DRVVT Lupus 30.0 Normal 0.0-47.0 [facility] Comment on above: Performed By: #### M ITOM2, CH50, PEBBLES, THYGLOB AB, C4, CHROMATIN, C3, TPO, SMAB #### [facility] , Interpretation Comment: Normal . [facility] Comment on above: Result Comment: No l upus anticoagulant was detected. Performed at: - [facility] [id number] Desktop Support Associate: Tirso Cummings MD, Phone: [phone] PERFORMED BY: [facility] [place] [address] PATHOLOGIST CORPORATE SERVICES MANAGER DARIO ALEJO M.D. Performed By: #### M ITOM2, CH50, PEBBLES, THYGLOB AB, C4, CHROMATIN, C3, TPO, SMAB #### [facility] , PTT-LA 33.6 Normal 0.0-43.5 [facility] Comment on above: Performed By: #### M ITOM2, CH50, PEBBLES, THYGLOB AB, C4, CHROMATIN, C3, TPO, SMAB #### [facility] , Thrombin Time 18.1 Normal 0.0-23.0 [facility] Comment on above: Performed By: #### M ITOM2, CH50, PEBBLES, THYGLOB AB, C4, CHROMATIN, C3, TPO, SMAB #### [facility] , Mitochondrial (M2) Antibodyo n 08-30-2024 Mitochondrial (M2) Antibody 122.2 High 0.0-20.0 [facility] Comment on above: Result Comment: Nega tive 0.0 - 20.0 Equivocal 20.1 - 24.9 Positive >24.9 Mitochondrial (M2) Antibodies are found in 90-96% of patients with primary biliary cirrhosis. Performed at: [address] [id number] Desktop Support Associate: David Dietz PhD, Phone: [phone] Performed By: #### M ITOM2, CH50, PEBBLES, THYGLOB AB, C4, CHROMATIN, C3, TPO, SMAB #### [facility] , Protein Electro, Random Urin ronda 08-30-2024 Albumin, Urine 58.3 % Normal . [facility] Comment on above: Performed By: #### M ITOM2, CH50, PEBBLES, THYGLOB AB, C4, CHROMATIN, C3, TPO, SMAB #### [facility] , Ndwty-9-Sonjjhea, Urine 2.0 % Normal . [facility] Comment on above: Performed By: #### M ITOM2, CH50, PEBBLES, THYGLOB AB, C4, CHROMATIN, C3, TPO, SMAB #### [facility] , Pifbj-9-Oszxlcff, Urine 6.7 % Normal . [facility] Comment on above: Performed By: #### M ITOM2, CH50, PEBBLES, THYGLOB AB, C4, CHROMATIN, C3, TPO, SMAB #### [facility] , Beta Globulin, Urine 16.4 % Normal . [facility] Comment on above: Performed By: #### M ITOM2, CH50, PEBBLES, THYGLOB AB, C4, CHROMATIN, C3, TPO, SMAB #### [facility] , Gamma Globulin, Urine 16.6 % Normal . [facility] Comment on above: Performed By: #### M ITOM2, CH50, PEBBLES, THYGLOB AB, C4, CHROMATIN, C3, TPO, SMAB #### [facility] , M-Vargas % Not Observed Normal Not Observed [facility] Comment on above: Performed By: #### M ITOM2, CH50, PEBBLES, THYGLOB AB, C4, CHROMATIN, C3, TPO, SMAB #### [facility] , Please Note: Comment Normal . [facility] Comment on above: Result Comment: Prot ein electrophoresis scan will follow via computer, mail, or bander hand delivery. Protein electrophoresis scan will follow via computer, mail, or bander hand delivery. Performed at: [address] [id number] Desktop Support Associate: David Dietz PhD, Phone: [phone] --- 09/04/24 1061 --- Please Note: previously reported as: Comment Protein electrophoresis scan will follow via computer, mail, or bander hand delivery. PERFORMED BY: [address] [place] [address] PATHOLOGIST CORPORATE SERVICES MANAGER DARIO ALEJO M.D. Performed By: #### M ITOM2, CH50, PEBBLES, THYGLOB AB, C4, CHROMATIN, C3, TPO, SMAB #### [facility] , Protein (U) [Mass/Vol] 5.4 mg/dL Normal Not Estab. [facility] Comment on above: Performed By: #### M ITOM2, CH50, PEBBLES, THYGLOB AB, C4, CHROMATIN, C3, TPO, SMAB #### [facility] , Protein Electrophoresis, Ser on 08-30-2024 Albumin [Mass/Vol] 3.9 g/dL Normal 2.9-4.4 [facility] Comment on above: Performed By: #### M ITOM2, CH50, PEBBLES, THYGLOB AB, C4, CHROMATIN, C3, TPO, SMAB #### [facility] , Albumin/Globulin [Mass ratio] 0.8 {ratio} Normal 0.7-1.7 [facility] Comment on above: Performed By: #### M ITOM2, CH50, PEBBLES, THYGLOB AB, C4, CHROMATIN, C3, TPO, SMAB #### [facility] , Mtywu-6-Hxicokci 0.3 g/dL Normal 0.0-0.4 [facility] Comment on above: Performed By: #### M ITOM2, CH50, PEBBLES, THYGLOB AB, C4, CHROMATIN, C3, TPO, SMAB #### [facility] , Vzbrp-3-Izlcyjfh 1.0 g/dL Normal 0.4-1.0 [facility] Comment on above: Performed By: #### M ITOM2, CH50, PEBBLES, THYGLOB AB, C4, CHROMATIN, C3, TPO, SMAB #### [facility] , Beta Globulin 1.4 g/dL High 0.7-1.3 [facility] Comment on above: Performed By: #### M ITOM2, CH50, PEBBLES, THYGLOB AB, C4, CHROMATIN, C3, TPO, SMAB #### [facility] , Gamma Globulin 2.0 g/dL High 0.4-1.8 [facility] Comment on above: Performed By: #### M ITOM2, CH50, PEBBLES, THYGLOB AB, C4, CHROMATIN, C3, TPO, SMAB #### [facility] , Globulin (S) [Mass/Vol] 4.7 g/dL High 2.2-3.9 [facility] Comment on above: Performed By: #### M ITOM2, CH50, PEBBLES, THYGLOB AB, C4, CHROMATIN, C3, TPO, SMAB #### [facility] , M-Vargas Not Observed Normal Not Observed [facility] Comment on above: Performed By: #### M ITOM2, CH50, PEBBLES, THYGLOB AB, C4, CHROMATIN, C3, TPO, SMAB #### [facility] , Protein [Mass/Vol] 8.6 g/dL High 6.0-8.5 [facility] Comment on above: Performed By: #### M ITOM2, CH50, PEBBLES, THYGLOB AB, C4, CHROMATIN, C3, TPO, SMAB #### [facility] , SPE-Note Comment Normal . [facility] Comment on above: Result Comment: Prot ein electrophoresis scan will follow via computer, mail, or bander hand delivery. Performed at: [employer] [id number] Desktop Support Associate: David Dietz PhD, Phone: [phone] Performed By: #### M ITOM2, CH50, PEBBLES, THYGLOB AB, C4, CHROMATIN, C3, TPO, SMAB #### [facility] , RPR w/rfx to Quant TP Abson 08-30-2024 RPR, Rfx Quant RPR Non-Reactive Normal Non Reactive Th e [facility] Comment on above: Result Comment: Perf ormed at: [facility] [employer] [id number] Desktop Support Associate: David Dietz PhD, Phone: [phone] PERFORMED BY: [facility] [address] [address] PATHOLOGIST CORPORATE SERVICES MANAGER DARIO ALEJO M.D. Performed By: #### M ITOM2, CH50, PEBBLES, THYGLOB AB, C4, CHROMATIN, C3, TPO, SMAB #### [facility] , Smooth Muscle Antibodyon Smooth Muscle Antibody 10 Normal 0-19 [facility] Comment on above: Result Comment: [...] Peroxidase Antibodies 11 [IU]/mL Normal 0-34 [facility] Comment on above: Result Comment: Perf ormed at: - [facility] [address] [id number] Desktop Support Associate: David Dietz PhD, Phone: [phone] Performed By: #### M ITOM2, CH50, PEBBLES, THYGLOB AB, C4, CHROMATIN, C3, TPO, SMAB #### [facility] , Thyroid Stimulating Hormoneo n 08-30-2024 TSH Qn 1.37 m[IU]/L Normal 0.45-5.33 [facility] Comment on above: Result Comment: PERF ORMED BY: [address] [address] PATHOLOGIST CORPORATE SERVICES MANAGER DARIO ALEJO M.D. Performed By: #### M [...] facility with appropriate resources Outcome: Progressing Normal [facility] COMPREHENSIVE METABOLIC PANE Jose Raul 08-12-2024 Albumin [Mass/Vol] 3.8 g/dL Normal 3.5-5.7 [facility] Comment on above: Performed By: #### L [id number] ####[facility] ([facility])[address] [place] [address] ALP [Catalytic activity/Vol] 223 U/L High 34-104 [facility] Comment on above: Performed By: #### L [id number] ####[facility] ([facility])[address] [place] [address] ALT [Catalytic activity/Vol] 256 U/L High 7-52 [facility] Comment on above: Performed By: #### L [id number] ####[facility] ([facility])[address] [place] [address] Anion gap [Moles/Vol] 12 mmol/L Normal 7-20 [facility] Comment on above: Performed By: #### L [id number] ####[facility] ([facility])[address] [place] [address] AST [Catalytic activity/Vol] 74 U/L High 13-39 [facility] Comment on above: Performed By: #### L [id number] ####[facility] ([facility])[address] [place] [address] Bilirubin [Mass/Vol] 1.2 mg/dL High 0.3-1.0 [facility] Comment on above: Performed By: #### L [id number] ####[facility] [place] [address] Calcium [Mass/Vol] 8.5 mg/dL Low 8.6-10.3 [facility] Comment on above: Performed By: #### L [id number] ####[facility] ([facility] [place] [address] Chloride [Moles/Vol] 104 mmol/L Normal 98-107 [facility] Comment on above: Performed By: #### L [id number] ####[facility] [place] [address] CO2 [Moles/Vol] 22 mmol/L Normal 21-31 [facility] Comment on above: Performed By: #### L [id number] ####[facility] ([facility])[address] [place] [address] Creatinine [Mass/Vol] 0.51 mg/dL Low 0.60-1.20 [facility] Comment on above: Performed By: #### L [id number] ####[facility] ([facility])[address] [place] [address] GLOMERULAR FILTRATION RATE ML/MIN/1.73 SQ M.PREDICTED 129.5 mL/min/1.73m*2 Normal >60.0 [facility] Comment on above: Result Comment: [facility]???s estimated glomerular filtration rate (eGFR) will no [...] of individuals. Performed By: #### L [id number] ####[facility] ([facility])[address] [place] [address] Glucose [Mass/Vol] 71 mg/dL Normal 70-100 [facility] Comment on above: Performed By: #### L [id number] ####[facility] [place] [address] Potassium [Moles/Vol] 4.0 mmol/L Normal 3.5-5.1 [facility] Comment on above: Performed By: #### L [id number] ####[facility] ([facility])[address] [place] [address] Protein [Mass/Vol] 7.2 g/dL Normal 6.0-8.3 [facility] Comment on above: Performed By: #### L [id number] ####[facility] ([facility])[address] [place] [address] Sodium [Moles/Vol] 134 mmol/L Low 136-145 [facility] Comment on above: Performed By: #### L [id number] ####[facility] ([facility])[address] [place] [address] Urea nitrogen [Mass/Vol] 9 mg/dL Normal 7-25 [facility] Comment on above: Performed By: #### L [id number] ####[facility] ([facility])[address] [place] [address] UREA NITROGEN/CREATININE (MASS RATIO) IN SER/PLAS 17.6 Normal [facility] Comment on above: Performed By: #### L [id number] ####[facility] ([facility])[address] [place] [address] POCT GLUCOSE METER UNSOLICIT ED RESULTSon 08-12-2024 Glucose [Mass/Vol] 128 mg/dL High 70-105 [facility] Comment on above: Order Comment: Waive d Testing in the ED is performed under the ED CLIA certificate #[id number]. Result Comment: [email or web address] Performed By: #### L [id number] #### [facility] ([facility]) [address] [place] [address] Glucose [Mass/Vol] 204 mg/dL High 70-105 [facility] Comment on above: Order Comment: Waive d Testing in the ED is performed under the ED CLIA certificate #[id number]. Result Comment: elac umsky Performed By: #### L [id number] ####[facility] ([facility])[address] [place] [address] Glucose [Mass/Vol] 70 mg/dL Normal 70-105 [facility] Comment on above: Order Comment: Waive d Testing in the ED is performed under the ED CLIA certificate #[id number]. Result Comment: [email or web address] [email or web address] Performed By: #### L [id number] #### [facility] ([facility]) [address] [place] [address] 30on 08-11-2024 30 The patient is Moderately [...] reassessments, pain medication administration as ordered. Normal [facility] C-REACTIVE PROTEINon 024 C REACTIVE PROTEIN (MG/L) IN SER/PLAS 7.5 mg/L High <=5.0 [facility] Comment on above: Result Comment: Test ing performed using a new methodology, turbidimetry. Normal ranges have been updated. Old normal range was <8 mg/L. Performed By: #### L [id number] #### [facility] ([facility]) [address] [place] [address] CBC WITH AUTO DIFFERENTIALon 08-11-2024 Erythrocyte distribution width (RBC) [Ratio] 13.2 % Normal 11.5-15.0 [facility] Comment on above: Performed By: #### L [id number] #### [facility] ([facility]) [address] [place] [address] ERYTHROCYTE MEAN CORPUSCULAR HEMOGLOBIN CONCENTRATION (G/DL) BY AUTOMATED 33.2 g/dL Normal 32.0-35.0 [facility] Comment on above: Performed By: #### L [id number] #### [facility] ([facility]) [address] [place] [address] Hematocrit (Bld) [Volume fraction] 39.2 % Normal 36.0-48.0 [facility] Comment on above: Performed By: #### L [id number] #### [facility] [address] [place] [address] Hemoglobin (Bld) [Mass/Vol] 13.0 g/dL Normal 12.0-15.0 [facility] Comment on above: Performed By: #### L [id number] #### [facility] [address] [place] [address] IMMATURE PLATELET FRACTION % 6.2 % Normal 0.8-6.3 [facility] Comment on above: Performed By: #### L [id number] #### [facility] [address] [place] [address] MCH (RBC) [Entitic mass] 29.6 pg Normal 27.0-33.0 [facility] Comment on above: Performed By: #### L [id number] #### [facility] [address] [place] [address] MCV (RBC) [Entitic vol] 89.3 fL Normal 82.0-98.0 [facility] Comment on above: Performed By: #### L [id number] #### [facility] ([facility]) [address] [place] [address] NRBC (PER 100 WBCS) BY AUTOMATED COUNT 0.0 % Normal 0 [facility] Comment on above: Performed By: #### L [id number] #### [facility] [address] [place] [address] PLATELETS (10*3/UL) IN BLOOD AUTOMATED COUNT 238 10*3/uL Normal 150-400 [facility] Comment on above: Performed By: #### L [id number] #### [facility] [address] [place] [address] RBC (Bld) [#/Vol] 4.39 10*6/uL Normal 3.80-5.00 [facility] Comment on above: Performed By: #### L [id number] #### [facility] ([facility] [address] [place] [address] WBC (Bld) [#/Vol] 7.82 10*3/uL Normal 4.00-10.60 [facility] Comment on above: Performed By: #### L [id number] #### [facility] [address] [place] [address] COMPREHENSIVE METABOLIC PANE Jose Raul 08-11-2024 Albumin [Mass/Vol] 3.9 g/dL Normal 3.5-5.7 [facility] Comment on above: Performed By: #### L [id number] #### [facility] [address] [place] [address] ALP [Catalytic activity/Vol] 246 U/L High 34-104 [facility] Comment on above: Performed By: #### L [id number] #### [facility] [address] [place] [address] ALT [Catalytic activity/Vol] 314 U/L High 7-52 [facility] Comment on above: Performed By: #### L [id number] #### [facility] [address] [place] [address] Anion gap [Moles/Vol] 10 mmol/L Normal 7-20 [facility] Comment on above: Performed By: #### L [id number] #### [facility] [address] [place] [address] AST [Catalytic activity/Vol] 98 U/L High 13-39 [facility] Comment on above: Performed By: #### L [id number] #### [facility] [address] [place] [address] Bilirubin [Mass/Vol] 1.4 mg/dL High 0.3-1.0 [facility] Comment on above: Performed By: #### L [id number] #### [facility] [address] [place] [address] Calcium [Mass/Vol] 8.2 mg/dL Low 8.6-10.3 [facility] Comment on above: Performed By: #### L [id number] #### [facility] ([facility]) [address] [place] [address] Chloride [Moles/Vol] 108 mmol/L High 98-107 [facility] Comment on above: Performed By: #### L [id number] #### [facility]) [address] [place] [address] CO2 [Moles/Vol] 21 mmol/L Normal 21-31 [facility] Comment on above: Performed By: #### L [id number] #### [facility] [address] [place] [address] Creatinine [Mass/Vol] 0.58 mg/dL Low 0.60-1.20 [facility] Comment on above: Performed By: #### L [id number] #### [facility] ([facility]) [address] [place] [address] GLOMERULAR FILTRATION RATE ML/MIN/1.73 SQ M.PREDICTED 125.6 mL/min/1.73m*2 Normal >60.0 [facility] Comment on above: Result Comment: [facility]???s estimated glomerular filtration rate (eGFR) will no [...] individuals. Performed By: #### L [id number] #### [facility] ([facility]) [address] [place] [address] Glucose [Mass/Vol] 91 mg/dL Normal 70-100 [facility] Comment on above: Performed By: #### L [id number] #### [facility] ([facility]) [address] [place] [address] Potassium [Moles/Vol] 4.0 mmol/L Normal 3.5-5.1 [facility] Comment on above: Performed By: #### L [id number] #### [facility] [address] [place] [address] Protein [Mass/Vol] 7.2 g/dL Normal 6.0-8.3 [facility] Comment on above: Performed By: #### L [id number] #### [facility] [address] [place] [address] Sodium [Moles/Vol] 135 mmol/L Low 136-145 [facility] Comment on above: Performed By: #### L [id number] #### [facility] [address] [place] [address] Urea nitrogen [Mass/Vol] 9 mg/dL Normal 7-25 [facility] Comment on above: Performed By: #### L [id number] #### [facility] ([facility]) [address] [place] [address] UREA NITROGEN/CREATININE (MASS RATIO) IN SER/PLAS 15.5 Normal [facility] Comment on above: Performed By: #### L [id number] #### [facility] ([facility] [address] [place] [address] CONSULTon 08-11-2024 CONSULT -- Attestation signed by [...] Reason for Consult: choledolithiasis Admitting Physician: Joyce Tubbs MD HISTORY OF PRESENT ILLNESS Samantha Solis is a 28 y.o. female who was transferred to our hospital from [facility] due to concerns of possible choledocholithiasis for possible ERCP. The patient mentioned that 1 week ago she started to complain of right upper quadrant pain associated with nausea and vomiting. The pain was exacerbated by eating and drinking. It was radiating to the right shoulder. Patient presented to [facility]. Workup there showed an elevated liver [...] 7.2 B12/Folate/Iron studies: No results found for: [id number] , FOLATE , IRON , TIBC , UIBC , IRONSAT , FERRITIN Viral Hepatitis No results found for: HEPAIGM , HAV , HEPBSAG , HEPBSAB , HEPBEAB , HEPBIGM , HEPBCAB , HEPBCOREAB , HBVNAT , HCVSCR , HEPCAB , HCVNAT , HCVPCR , HCVTMA Liver workup No results found for: PEBBLES , SMOOTHMUSCAB , CERULOPLSM , [id number] , TTGA , IGA , TSH , FREET4 , AFP Pancreatitis Lab Results Component Value Date CALCIUM 8.2 (L) 08/11/2024 IMAGING: CTAP with IV contrast. Report is in the paper chart showed 3 mm stone in the distal CBD. ASSESSMENT AND PLAN Samantha Solis is a 28 y.o. female who was transferred to our hospital from [facility] due to concerns of possible choledocholithiasis for possible ERCP. The patient mentioned that 1 week ago she started to complain of right upper quadrant pain associated with nausea and vomiting. The pain was exacerbated by ea (more content not included)... Normal [facility] CONSULT -- Attestation signed by Elena Hubbard MD at 08/11/2024 5:23 PM Patient was seen by resident staff. I reviewed with resident staff overnight events, exam and laboratory findings, assessment and management plan. Elena Hubbard MD [facility] General Surgery CONSULTATION Reason for Consult: Choledocholithiasis [...] AST 9 (more content not included)... Normal [facility] CONSULT -- Attestation signed by Tatiana Wynn [...] female admitted on 08/11/2024 as transfer from [facility] to [facility] for choledocholithiasis and need for urgent [...] and itching. (more content not included)... Normal [facility] MANUAL DIFFERENTIALon 2023 BASOPHILS (10*3/UL) IN BLOOD BY CALCULATION 0.05 10*3/uL Normal 0.00-0.20 [facility] Comment on above: Performed By: #### L [id number] ####[facility] ([facility])[address] [place] [address] BASOPHILS/100 LEUKOCYTES IN BLOOD BY AUTOMATED COUNT 0.6 % Normal 0.0-1.0 [facility] Comment on above: Performed By: #### L [id number] ####[facility] ([facility])[address] [place] [address] EOSINOPHILS (10*3/UL) IN BLOOD BY CALCULATION 0.11 10*3/uL Normal 0.00-0.50 [facility] Comment on above: Performed By: #### L [id number] ####[facility] ([facility])[address] [place] [address] EOSINOPHILS/100 LEUKOCYTES IN BLOOD BY AUTOMATED COUNT 1.4 % Normal 0.0-6.0 [facility] Comment on above: Performed By: #### L [id number] ####[facility] ([facility])[address] [place] [address] IMMATURE GRANULOCYTES (10*3/UL) IN BLOOD BY CALCULATION 0.02 10*3/uL Normal 0.00-0.20 [facility] Comment on above: Performed By: #### L [id number] ####[facility] ([facility])[address] [place] [address] IMMATURE GRANULOCYTES/100 LEUKOCYTES IN BLOOD BY AUTOMATED COUNT 0.3 % Normal 0.0-1.0 [facility] Comment on above: Performed By: #### L [id number] ####[facility] ([facility])[address] [place] [address] LYMPHOCYTES (10*3/UL) IN BLOOD BY CALCULATION 1.19 10*3/uL Low 1.20-4.00 [facility] Comment on above: Performed By: #### L [id number] ####[facility] ([facility])[address] [place] [address] LYMPHOCYTES/100 LEUKOCYTES IN BLOOD BY AUTOMATED COUNT 15.2 % Low 20.0-45.0 [facility] Comment on above: Performed By: #### L [id number] ####[facility] ([facility])[address] [place], [place] [address] MONOCYTES (10*3/UL) IN BLOOD BY CALCUATION 0.41 10*3/uL Normal 0.10-1.00 [facility] Comment on above: Performed By: #### L [id number] ####[facility] ([facility])[address] [place] [address] MONOCYTES/100 LEUKOCYTES IN BLOOD BY AUTOMATED COUNT 5.2 % Normal 5.0-12.0 [facility] Comment on above: Performed By: #### L [id number] ####[facility] ([facility])[address] [place], [place] [address] NEUTROPHILS (10*3/UL) IN BLOOD BY CALCULATION 6.0 10*3/uL Normal 1.6-7.6 [facility] Comment on above: Performed By: #### L [id number] ####[facility] ([facility])[address] [place] [address] NEUTROPHILS/100 LEUKOCYTES IN BLOOD BY AUTOMATED COUNT 77.3 % High 40.0-72.0 [facility] Comment on above: Performed By: #### L [id number] ####[facility] ([facility])[address] [place] [address] POCT GLUCOSE METER UNSOLICIT ED RESULTSon 08-11-2024 Glucose [Mass/Vol] 83 mg/dL Normal 70-105 [facility] Comment on above: Order Comment: Waive d Testing in the ED is performed under the ED CLIA certificate #[id number]. Result Comment: [email or web address] Performed By: #### L [id number] #### [facility] ([facility]) [address] [place] [address] Glucose [Mass/Vol] 78 mg/dL Normal 70-105 [facility] Comment on above: Order Comment: Waive d Testing in the ED is performed under the ED CLIA certificate #[id number]. Result Comment: [email or web address] Performed By: #### L [id number] #### [facility] ([facility]) [address] [place] [address] Glucose [Mass/Vol] 80 mg/dL Normal 70-105 [facility] Comment on above: Order Comment: Waive d Testing in the ED is performed under the ED CLIA certificate #[id number]. Result Comment: [email or web address] Performed By: #### L [id number] #### [facility] ([facility]) [address] [place] [address] ANTINUCLEAR ANTIBODIES, IFAo n 07-12-2024 ANTINUCLEAR ANTIBODIES, IFA Positive Abnormal . [facility] Comment on above: Negative <1:80 Borderline 1:80 Positive >1:80 CENTRIOLE PATTERN TNP . [facility] CENTROMERE PATTERN TNP . [facility] HOMOGENEOUS PATTERN TNP . [facility] Interpretation and review of laboratory results Abnormal [facility] MIDBODY PATTERN TNP . [facility] NOTE: Comment . [facility] Comment on above: Pattern Potential Di sease Association Homogeneous Systemic Lupus Erythematosus, Drug Induced Systemic Lupus Erythematosus, Chronic Autoimmune hepatitis, Juvenile Idiopathic Arthritis Speckled Sjogren Syndrome, Systemic Lupus Erythematosus, Subacute Cutaneous Lupus, Lupus, Congenital Heart Block, Mixed Connective Tissue Disease, Scleroderma-diffuse, Scleroderma-Autoimmune Myositis Overlap Syndrome, Systemic Lupus Ztzczlapquyqm-Mdrlphloqjd-Wbolyezvtk Myositis Overlap Syndrome, Systemic Autoimmune Rheumatic Disease, [...] Cytopenias, Linear Scleroderma, Antiphospholipid Syndrome Performed at: [facility] [address] [place] [id number] Desktop Support Associate: David Dietz PhD, Phone: [phone] NUCLEAR DOT PATTERN TNP . [facility] [...] Bacteria identified Cx Nom (U) Performed at: [facility] Bacteria identified Cx Nom (U) [address] [place], [place] [id number] [facility] Bacteria identified Cx Nom (U) Desktop Support Associate: David Dietz PhD, Phone: [phone] [facility] Jose Raul 06-17-2024 L Specimen: [id number] Received: 06/19/24 Status: DELROY Gray Num: [id number] Spec Type: Surgical Subm Dr: Holli Lemus DO Tissues: A Appendix - Other than Incidental (APPENDIX) Procedures: HE/2, Gross/Micro L3 Age/ Patient Sex Location Account Attending Physician Samantha Solis Y 28/F [facility] [id number] Shaikh Jc MD SPEC NUM: [id number] RECD: 06/19/24 STATUS: DELROY GRAY NUM: [id number] KATE: 06/17/[address]: Holli Lemus DO ENTERED: 06/19/[address] [facility] [address]: Gaby Aponte MD SPEC TYPE: Surgical DEPT: [facility] ENTERED BY: [id number] RECV BY: [id number] ORDERED: , Gross/Micro L3 ORDERED: , Gross/Micro L3 Pathological Diagnosis Appendix, appendectomy: Acute [...] The lumen is filled with purulent debris. Rn Staff sections are submitted as follows: A1 proximal margin and cross-section A2 distal tip bisected CPT Codes 18920 ---- ---- Specimen: [id number] Received: 06/19/24 Status: DELROY Isaac Num: [id number] Spec Type: Surgical Subm Dr: Holli Lemus DO Tissues: A Appendix - Other than Incidental (APPENDIX) Procedures: , Gross/Micro L3 ---- Patient: Samantha Solis [id number] (Continued) ---- Signed (signature on file) Dario Alejo MD 06/20/24 1517 Normal [facility] ALL CBC WITH AUTO DIFFon BASOPHILS ABSOLUTE AUTO 0.1 [facility] Basophils/100 WBC (Bld) 0.6 % 0.2 - 2.0 % [facility] Eosinophils/100 WBC (Bld) 2.4 % 0.9 - 7.0 % [facility] Erythrocyte distribution width (RBC) [Ratio] 13.2 % 11.0 - 15.0 % [facility] Hematocrit (Bld) [Volume fraction] 42.4 % 36.0 - 48.0 % [facility] Hemoglobin (Bld) [Mass/Vol] 14.7 g/dL 12.0 - 16.0 g/dL [facility] IMMATURE GRANULOCYTES ABS AUTO 0.02 [facility] Immature granulocytes/100 WBC (Bld) 0.2 % 0.0 - 0.5 % [facility] Interpretation and review of laboratory results Abnormal [facility] LYMPHOCYTES ABSOLUTE AUTO 1.8 [facility] Lymphocytes/100 WBC (Bld) 18.2 % Low 20.5 - 60.0 % [facility] MCH (RBC) [Entitic mass] 29.7 pg 26.7 - 34.0 pg [facility] MCHC (RBC) [Mass/Vol] 34.7 g/dL 29.9 - 35.2 g/dL [facility] MCV (RBC) [Entitic vol] 85.7 fL 81.0 - 99.0 fL [facility] MONOCYTES ABSOLUTE AUTO [facility] Monocytes/100 WBC (Bld) 4.0 % 1.7 - 12.0 % [facility] NEUTROPHILS ABSOLUTE AUTO 7.3 High [facility] Neutrophils/100 WBC (Bld) 74.6 % 43.0 - 75.0 % [facility] Platelet mean volume (Bld) [Entitic vol] 8.8 fL Low 9.5 - 13.5 fL [facility] # 0.2 [facility] TBH PLT 386 [facility] RBC 4.95 [facility] WBC 9.8 [facility] XR FOOT GUANAKITO MIN 3 VIEWSon XR [...] PATRICIA KELLEY Date: 2022-12-15 12:37 Normal [facility] CBC AUTO DIFFon 03-02-2022 BASO # 0.1 103/ul Normal 0.0-0.1 [facility] Comment on above: Performed By: #### C BC #### [facility] [address] [place] [address] Dr. Mike Nails Basophils/100 WBC (Bld) 0.7 % Normal 0.2-2.0 [facility] Comment on above: Performed By: #### C BC #### [facility] [address] [address] [address] Mike Nails EO # 0.6 103/ul Normal 0.0-0.7 [facility] Comment on above: Performed By: #### C BC #### [facility] [address] [place] [address] Dr. Mike Nails Eosinophils/100 WBC (Bld) 5.7 % Normal 0.9-7.0 [facility] Comment on above: Performed By: #### C BC #### [facility] [address] [place] [address] Dr. Mike Nails Erythrocyte distribution width (RBC) [Ratio] 13.2 % Normal 11.0-15.0 [facility] Comment on above: Performed By: #### C BC #### [facility] [address] [place] [address] Dr. Mike Nails Hematocrit (Bld) [Volume fraction] 41.6 % Normal 36.0-48.0 [facility] Comment on above: Performed By: #### C BC #### [facility] [address] [place] [address] Dr. Mike Nails Hemoglobin (Bld) [Mass/Vol] 13.7 g/dL Normal 12.0-16.0 [facility] Comment on above: Performed By: #### C BC #### [facility] [address] [place] [address] Dr. Mike Nails IG # 0.02 10e3/ul Normal 0.00-0.03 [facility] Comment on above: Performed By: #### C BC #### [facility] [address] [place] [address] Dr. Mike Nails IG % 0.2 % Normal 0.0-0.5 [facility] Comment on above: Performed By: #### C BC #### [facility] [address] [place] [address] Dr. Mike Nails LYMPH # 2.6 103/ul Normal 1.2-3.8 [facility] Comment on above: Performed By: #### C BC #### [facility] [address] [place] [address] Dr. Mike Nails Lymphocytes/100 WBC (Bld) 26.3 % Normal 20.5-60.0 [facility] Comment on above: Performed By: #### C BC #### [facility] [address] [place] [address] Dr. Mike Nails MANUAL DIFF REQ NO Normal [facility] Comment on above: Performed By: #### C BC #### [facility] [address] [place] [address] Dr. Mike Nails MCH (RBC) [Entitic mass] 28.7 pg Normal 26.7-34.0 [facility] Comment on above: Performed By: #### C BC #### [facility] [address] [place] [address] Dr. Mike Nails MCHC (RBC) [Mass/Vol] 32.9 g/dL Normal 29.9-35.2 [facility] Comment on above: Performed By: #### C BC #### [facility] [address] [place] [address] Dr. Mike Nails MCV (RBC) [Entitic vol] 87.0 fL Normal 81.0-99.0 [facility] Comment on above: Performed By: #### C BC #### [facility] [address] [place] [address] Dr. Mike Nails MONO # 0.5 103/ul Normal 0.3-0.8 [facility] Comment on above: Performed By: #### C BC #### [facility] [address] [place] [address] Dr. Mike Nails Monocytes/100 WBC (Bld) 5.5 % Normal 1.7-12.0 [facility] Comment on above: Performed By: #### C BC #### [facility] [address] [place] [address] Dr. Mike Nails NEUT # 6.0 103/ul Normal 1.4-6.5 [facility] Comment on above: Performed By: #### C BC #### [facility] [address] [place] [address] Dr. Mike Nails Neutrophils/100 WBC (Bld) 61.6 % Normal 43.0-75.0 [facility] Comment on above: Performed By: #### C BC #### [facility] [address] [place] [address] Dr. Mike Nails Platelet mean volume (Bld) [Entitic vol] 8.7 fL Critically low 9.5-13.5 [facility] Comment on above: Performed By: #### C BC #### [facility] [address] [place] [address] Dr. Mike Nails PLT 369 103/ul Normal 150-450 [facility] Comment on above: Performed By: #### C BC #### [facility] [address] [address] [address] Mike Nails RBC 4.78 106/ul Normal 4.20-5.40 [facility] Comment on above: Performed By: #### C BC #### [facility] [address] [address] [address] Mike Nails WBC 9.7 103/ul Normal 4.0-11.0 [facility] Comment on above: Performed By: #### C BC #### [facility] [address] [place] [address] Dr. Mike Nails GLYCOHEMOGLOBIN A1Con 2021 ADA RECOMMENDATION SEE BELOW Normal [facility] Comment on above: Result Comment: ADA RECOMMENDED LIMIT 4.0 - 6.0 ADA THERAPEUTIC TARGET < 7.0 ACTION SUGGESTED > 7.0 Performed By: #### A 1C #### [facility] [address] [place] [address] Dr. Mike Nails Glucose [Mass/Vol] 105 mg/dL Normal [facility] Comment on above: Performed By: #### A 1C #### [facility] [address] [place] [address] Dr. Mike Nails HbA1c (Bld) [Mass fraction] 5.3 % Normal 4.5-6.2 [facility] Comment on above: Performed By: #### A 1C #### [facility] [address] [place] [address] Dr. Mike Nails LIPID PROFILEon 03-02-2022 CHOL-HDL RATIO NORM SEE BELOW Normal [facility] Comment on above: Result Comment: 3.3 - 4.4 LOW RISK 4.4 - 7.1 AVERAGE RISK 7.1 - 11.0 MODERATE RISK >11.0 HIGH RISK Performed By: #### B MP, LIPID, TSH, LIVER #### [facility] [address] [place] [address] Dr. Mike Nails Cholesterol [Mass/Vol] 198 mg/dL Normal <=200 [facility] Comment on above: Performed By: #### B MP, LIPID, TSH, LIVER #### [facility] [address] [address] [address] Mike Nails Cholesterol in HDL [Mass/Vol] 48 mg/dL Normal 40-60 [facility] Comment on above: Performed By: #### B MP, LIPID, TSH, LIVER #### [facility] [address] [address] [address] Mike Nails Cholesterol in LDL [Mass/Vol] 136.6 mg/dL Normal [facility] Comment on above: Performed By: #### B MP, LIPID, TSH, LIVER #### [facility] [address] [place] [address] Dr. Mike Nails Cholesterol.total/Cho lesterol in HDL [Mass ratio] 4.1 {ratio} Normal [facility] Comment on above: Performed By: #### B MP, LIPID, TSH, LIVER #### [facility] [address] [address] [address] Mike Nails HDL NORMAL > or = 60 mg/dl - LO W CARDIOVASCULAR RISK <40 mg/dl - HIGH CARDIOVASCULAR RISK Normal [facility] Comment on above: Performed By: #### B MP, LIPID, TSH, LIVER #### [facility] [address] [place] [address] Dr. Mike Nails LDL CALC NORMAL SEE BELOW Normal [facility] Comment on above: Result Comment: <100 mg/dl OPTIMAL 100 - 129 mg/dl NEAR OR ABOVE OPTIMAL 130 - 159 mg/dl BORDERLINE HIGH 160 - 189 mg/dl HIGH >190 mg/dl VERY HIGH Performed By: #### B MP, LIPID, TSH, LIVER #### [facility] [address] [address] [address] Mike Nails Triglyceride [Mass/Vol] 67 mg/dL Normal <=150 [facility] Comment on above: Performed By: #### B MP, LIPID, TSH, LIVER #### [facility] [address] [address] [address] Mike Nails VLDL CALC 13.4 mg/dL Normal [facility] Comment on above: Performed By: #### B MP, LIPID, TSH, LIVER #### [facility] [address] [place] [address] Dr. Mike Nails LIVER PROFILEon 03-02-2022 Albumin [Mass/Vol] 3.7 g/dL Normal 3.4-5.0 [facility] Comment on above: Performed By: #### B MP, LIPID, TSH, LIVER #### [facility] [address] [place] [address] Dr. Mike Nails Albumin/Globulin [Mass ratio] 0.8 {ratio} Normal [facility] Comment on above: Performed By: #### B MP, LIPID, TSH, LIVER #### [facility] [address] [place] [address] Dr. Mike Nails ALP [Catalytic activity/Vol] 87 U/L Normal 46-116 [facility] Comment on above: Performed By: #### B MP, LIPID, TSH, LIVER #### [facility] [address] [place] [address] Dr. Mike Nails ALT [Catalytic activity/Vol] 9 U/L Critically low 14-59 [facility] Comment on above: Performed By: #### B MP, LIPID, TSH, LIVER #### [facility] [address] [place] [address] Dr. Mike Nails AST [Catalytic activity/Vol] 17 U/L Normal 15-37 [facility] Comment on above: Performed By: #### B MP, LIPID, TSH, LIVER #### [facility] [address] [place] [address] Dr. Mike Nails BILI, CONJUGATED 0.1 mg/dL Normal 0.0-0.2 [facility] Comment on above: Performed By: #### B MP, LIPID, TSH, LIVER #### [facility] [address] [place] [address] Dr. Mike Nails Bilirubin [Mass/Vol] 0.4 mg/dL Normal 0.2-1.0 [facility] Comment on above: Performed By: #### B MP, LIPID, TSH, LIVER #### [facility] [address] [place] [address] Dr. Mike Nails Globulin (S) [Mass/Vol] 4.9 g/dL Normal [facility] Comment on above: Performed By: #### B MP, LIPID, TSH, LIVER #### [facility] [address] [place] [address] Dr. Mike Nails Protein [Mass/Vol] 8.6 g/dL Critically high 6.4-8.2 [facility] Comment on above: Performed By: #### B MP, LIPID, TSH, LIVER #### [facility] [address] [place] [address] Dr. Mike Nails PROF CHEM 8 (BAS METB)on Anion gap [Moles/Vol] 11.4 mmol/L Normal [facility] Comment on above: Performed By: #### B MP, LIPID, TSH, LIVER #### [facility] [address] [place] [address] Dr. Mike Nails Calcium [Mass/Vol] 9.2 mg/dL Normal 8.5-10.1 [facility] Comment on above: Performed By: #### B MP, LIPID, TSH, LIVER #### [facility] [address] [place] [address] Dr. Mike Nails Chloride [Moles/Vol] 104 mmol/L Normal 98-107 [facility] Comment on above: Performed By: #### B MP, LIPID, TSH, LIVER #### [facility] [address] [place] [address] Dr. Mike Nails CO2 [Moles/Vol] 28.7 mmol/L Normal 21.0-32.0 [facility] Comment on above: Performed By: #### B MP, LIPID, TSH, LIVER #### [facility] [address] [place] [address] Dr. Mike Nails Creatinine [Mass/Vol] 0.80 mg/dL Normal 0.55-1.02 [facility] Comment on above: Performed By: #### B MP, LIPID, TSH, LIVER #### [facility] [address] [place] [address] Dr. Mike Nails EGFR-AF JORDANIAN >60 Normal >=60 [facility] Comment on above: Performed By: #### B MP, LIPID, TSH, LIVER #### [facility] [address] [place] [address] Dr. Mike Nails EGFR-NON AF JORDANIAN >60 Normal >=60 [facility] Comment on above: Performed By: #### B MP, LIPID, TSH, LIVER #### [facility] [address] [place] [address] Dr. Mike Nials Glucose [Mass/Vol] 88 mg/dL Normal 74-106 [facility] Comment on above: Performed By: #### B MP, LIPID, TSH, LIVER #### [facility] [address] [place] [address] Dr. Mike Nails Potassium [Moles/Vol] 4.1 mmol/L Normal 3.5-5.1 [facility] Comment on above: Performed By: #### B MP, LIPID, TSH, LIVER #### [facility] [address] [place] [address] Dr. Mike Nails Sodium [Moles/Vol] 140 mmol/L Normal 136-145 [facility] Comment on above: Performed By: #### B MP, LIPID, TSH, LIVER #### [facility] [address] [place] [address] Dr. Mike Nails Urea nitrogen [Mass/Vol] 15.0 mg/dL Normal 7.0-18.0 [facility] Comment on above: Performed By: #### B MP, LIPID, TSH, LIVER #### [facility] [address] [place] [address] Dr. Mike Nails Urea nitrogen/Creatinine [Mass ratio] 18.8 mg/mg Normal [facility] Comment on above: Performed By: #### B MP, LIPID, TSH, LIVER #### [facility] [address] [place] [address] Dr. Mike Nails TSHon 03-02-2022 TSH 1.489 uIU/mL Normal 0.358-3.740 [facility] Comment on above: Performed By: #### B MP, LIPID, TSH, LIVER #### [facility] [address] [address] [address] Mike Nails XR FOOT LT MIN [...] by: RHODA CARPENTER Date: 2022-03-02 15:24 Normal [facility] Vital Signs Date Time Vital Sign Value Performing Clinician Facility 10-30-2024 09:32-0500 Body height 162.6 cm Krystal Shell MD Work Phone: [facility] 10-30-2024 09:32-0500 Body mass index (BMI) [Ratio] 33.47 kg/m2 Krystal Shell MD Work Phone: [facility] 10-30-2024 09:32-0500 Body weight 88.45 kg Krystal Shell MD Work Phone: [facility] Comment on above: patient reports 10-30-2024 09:32-0500 Diastolic blood pressure 76 mm[Hg] Krystal Shell MD Work Phone: [facility] 10-30-2024 09:32-0500 Systolic blood pressure 108 mm[Hg] Krystal Shell MD Work Phone: [facility] 09-27-2024 08:52-0500 Body height 162.6 cm Brian Jacobs MD Work Phone: [facility] 09-27-2024 08:52-0500 Body mass index (BMI) [Ratio] 33.3 kg/m2 Brian Jacobs MD Work Phone: [facility] 09-27-2024 08:52-0500 Body temperature 97.81 [degF] Brian Jacobs MD Work Phone: [facility] 09-27-2024 08:52-0500 Body weight 88 kg Brian Jacobs MD Work Phone: [facility] 09-27-2024 08:52-0500 Diastolic blood pressure 70 mm[Hg] Brian Jacobs MD Work Phone: [facility] 09-27-2024 08:52-0500 Heart rate 95 /min Brian Jacobs MD Work Phone: [facility] 09-27-2024 08:52-0500 Respiratory rate 22 /min Brian Jacobs MD Work Phone: [facility] 09-27-2024 08:52-0500 SaO2% (BldA) [Mass fraction] 99 % Brian Jacobs MD Work Phone: [facility] 09-27-2024 08:52-0500 Systolic blood pressure 124 mm[Hg] Brian Jacobs MD Work Phone: [facility] 08-16-2024 11:13-0500 Body height 162.6 cm Brian Jacobs MD Work Phone: [facility] 08-16-2024 11:13-0500 Body mass index (BMI) [Ratio] 32.79 kg/m2 Brian Jacobs MD Work Phone: [facility] 08-16-2024 11:13-0500 Body temperature 97.3 [degF] Brian Jacobs MD Work Phone: [facility] 08-16-2024 11:13-0500 Body weight 86.64 kg Brian Jacobs MD Work Phone: [facility] 08-16-2024 11:13-0500 Diastolic blood pressure 70 mm[Hg] Brian Jacobs MD Work Phone: [facility] 08-16-2024 11:13-0500 Heart rate 84 /min Brian Jacobs MD Work Phone: [facility] 08-16-2024 11:13-0500 Respiratory rate 20 /min Brian Jacobs MD Work Phone: [facility] 08-16-2024 11:13-0500 SaO2% (BldA) [Mass fraction] 98 % Brian Jacobs MD Work Phone: [facility] 08-16-2024 11:13-0500 Systolic blood pressure 124 mm[Hg] Brian Jacobs MD Work Phone: [facility] 07-06-2024 11:22-0400 Body height 162.6 cm Brian Jacobs MD Work Phone: [facility] 07-06-2024 11:22-0400 Body mass index (BMI) [Ratio] 33.3 kg/m2 Brian Jacobs MD Work Phone: [facility] 07-06-2024 11:22-0400 Body temperature 96.4 [degF] Brian Jacobs MD Work Phone: [facility] 07-06-2024 11:22-0400 Body weight 88 kg Brian Jacobs MD Work Phone: [facility] 07-06-2024 11:22-0400 Diastolic blood pressure 76 mm[Hg] Brian Jacobs MD Work Phone: [facility] 07-06-2024 11:22-0400 Heart rate 96 /min Brian Jacobs MD Work Phone: [facility] 07-06-2024 11:22-0400 Respiratory rate 20 /min Brian Jacobs MD Work Phone: [facility] 07-06-2024 11:22-0400 SaO2% (BldA) [Mass fraction] 98 % Brian Jacobs MD Work Phone: [facility] 07-06-2024 11:22-0400 Systolic blood pressure 130 mm[Hg] Brian Jacobs MD Work Phone: [facility] 06-26-2024 10:06-0400 Diastolic blood pressure 72 mm[Hg] Holli Lemus DO Work Phone: [facility] 06-26-2024 10:06-0400 Systolic blood pressure 108 mm[Hg] Holli Lemus DO Work Phone: [facility] 06-13-2024 10:36-0400 Body height 162.6 cm Brian Jacobs MD Work Phone: [facility] 06-13-2024 10:36-0400 Body mass index (BMI) [Ratio] 33.64 kg/m2 Brian Jacobs MD Work Phone: [facility] 06-13-2024 10:36-0400 Body temperature 97.5 [degF] Brian Jacobs MD Work Phone: [facility] 06-13-2024 10:36-0400 Body weight 88.91 kg Brian Jacobs MD Work Phone: [facility] 06-13-2024 10:36-0400 Diastolic blood pressure 80 mm[Hg] Brian Jacobs MD Work Phone: [facility] 06-13-2024 10:36-0400 Heart rate 91 /min Brian Jacobs MD Work Phone: [facility] 06-13-2024 10:36-0400 Respiratory rate 20 /min Brian Jacobs MD Work Phone: [facility] 06-13-2024 10:36-0400 SaO2% (BldA) [Mass fraction] 98 % Brian Jacobs MD Work Phone: [facility] 06-13-2024 10:36-0400 Systolic blood pressure 124 mm[Hg] Brian Jacobs MD Work Phone: [facility] Healthcare Encounters Encounter Date Encounter Type Care Provider Facility Start: 10-30-2024 End: 10-30-2024 Office outpatient new 45 minutes Krystal Shell MD Work Phone: [facility] Comment on above: Choledocholithiasis (Primary Dx); Epigastric pain; History of ERCP; Elevated liver enzymes; GI symptoms Start: 10-30-2024 End: 10-30-2024 ambulatory KRYSTAL SHELL [facility] Start: 09-27-2024 End: 09-27-2024 Bamboo flowsheet Brian Jacobs MD Work Phone: [facility] Start: 09-27-2024 End: 09-27-2024 Bamboo flowsheet Brian Jacobs MD Work Phone: [facility] Start: 09-27-2024 End: 09-27-2024 Office outpatient visit 25 minutes Brian Jacobs MD Work Phone: [facility] Comment on above: Epigastric pain (Kathy lito Dx); Hematochezia; Calculus of gallbladder without cholecystitis without obstruction; Insulin resistance Start: 09-27-2024 End: 09-27-2024 ambulatory BRIAN JACOBS Not Available Start: 08-30-2024 End: 08-30-2024 ambulatory Jairo Mccrary Facility:[facility] Start: 08-24-2024 End: 08-24-[address] [facility] Start: 08-16-2024 End: 08-16-2024 Bamboo flowsheet Brian Jacobs MD Work Phone: [facility] Start: 08-16-2024 End: 08-16-2024 Bamboo flowsheet Brian Jacobs MD Work Phone: [facility] Start: 08-16-2024 End: 08-16-2024 Office outpatient visit 15 minutes Brian Jacobs MD Work Phone: [facility] Comment on above: Choledocholithiasis (Primary Dx); Calculus of gallbladder without cholecystitis without obstruction Start: 08-16-2024 End: 08-16-2024 ambulatory BRIAN JACOBS Not Available Start: 08-12-2024 Evaluation and manag ement of inpatient [facility] Start: 08-11-2024 Evaluation and manag ement of inpatient [facility] Start: 08-11-2024 Evaluation and manag ement of inpatient [facility] Start: 08-11-2024 End: 08-12-2024 Evaluation and management of inpatient JOSE FRANCISCO MEYERS [facility] Start: 08-10-2024 End: 08-14-2024 Clinisync Result Encounter [...] Primary Dx); PCOS (polycystic ovarian syndrome) Start: 07-06-2024 End: 07-06-2024 ambulatory BRIAN JACOBS Not Available Start: 06-26-2024 End: 06-26-2024 Bamboo flowsheet Holli Allan DO Work Phone: [facility] Start: 06-26-2024 End: 06-26-2024 Bamboo flowsheet Holli Lemus DO Work Phone: [facility] Start: 06-26-2024 End: 06-26-2024 Postop follow up visit related to original px Holli Lemus DO Work Phone: [facility] Comment on above: S/P appendectomy (Pr imary Dx) Start: 06-26-2024 End: 06-26-2024 ambulatory HOLLI LEMUS Not Available Start: 06-17-2024 End: 06-17-2024 ambulatory [facility] Work Phone: Start: 06-17-2024 End: 06-17-2024 Departed Referred MD Shaikh Greene Work Phone: [facility]-LAB [facility] Start: 06-16-2024 End: 06-19-2024 Clinisync Result [...] 04-07-2022 End: 04-07-2022 Patient encounter procedure DPMark Lopez Work Phone: [facility] Start: 03-04-2022 Encounter for genera l adult medical examination without abnormal findings DR BRIAN JACOBS [facility] Start: 03-02-2022 End: 03-03-2022 Encounter for [...] History of appendectomy S/P appendectomy Holli Lemus Work Phone: Plan of Treatment Date Care Activity Detail Author Start: 10-30-2025 Adult BMI Screening Adult BMI Screening [facility] Start: 10-30-2025 Tobacco Screening Tobacco Screening [facility] Start: 01-04-2025 End: 01-04-2025 Patient encounter procedure 01/04/2025 10:45 AM EDT Office Visit [facility] [address] [place] [id number] Brian Jacobs MD [address] [place] [address] [facility] Start: 11-27-2024 End: 11-27-2024 Patient encounter procedure 11/27/2024 9:00 AM EDT Office Visit [facility] [address] [place] [address] Krystal Benavidez MD [address] [place] [address] [facility] Start: 10-30-2024 End: 10-30-2025 CT Abdomen and Pelvis WO and W contrast IV CT abdomen and pelvis with and without contrast Imaging Routine Epigastric pain Expected: 10/30/2024, Expires: 10/30/2025 [facility] Comment on above: Expected: 10/30/2024, Expires: Start: 10-30-2024 End: 10-30-2025 NM Stomach Views for gastric emptying solid phase W radionuclide PO NM gastric emptying solid Imaging Routine Epigastric pain Expected: 10/30/2024, Expires: 10/30/2025 [facility] Comment on above: Expected: 10/30/2024, Expires: Start: 10-30-2024 End: 10-30-2025 US.doppler Abdominal vessels limited Ultrasound abdomen limited with duplex Imaging Routine Epigastric pain Choledocholithiasis Expected: 10/30/2024, Expires: 10/30/2025 [facility] Comment on above: Expected: 10/30/2024, Expires: Start: 09-27-2024 End: 09-27-2025 Basic metabolic 1998 panel - Serum or Plasma Basic metabolic panel Lab Routine Insulin resistance Expected: 09/27/2024 (Approximate), Expires: 09/27/2025 [facility] Comment on above: Expected: 09/27/2024 (Approximate), Expi res: 09/27/2025 Start: 09-27-2024 End: 09-27-2025 Hemoglobin A1c/Hemoglobin.total in Blood Hemoglobin A1c Lab Routine Insulin resistance Expected: 09/27/2024 (Approximate), Expires: 09/27/2025 [facility] Comment on above: Expected: 09/27/2024 (Approximate), Expi res: 09/27/2025 Start: 09-27-2024 End: 09-27-2025 Insulin, fasting Insulin, fasting Lab Routine Insulin resistance Expected: 09/27/2024 (Approximate), Expires: 09/27/2025 [facility] Work Phone: Comment on above: Expected: 09/27/2024 (Approximate), Expi res: 09/27/2025 Start: 09-27-2024 End: 09-27-2024 Patient encounter procedure 09/27/2024 8:45 AM EST Office Visit [facility] [address] [place] [phone] Brian Jacobs MD [address] [place] [id number] Arrived [facility] Comment on above: Arrived Start: 08-16-2024 End: 08-16-2025 US Abdomen limited US RUQ Imaging Routine Calculus of gallbladder without cholecystitis without obstruction Expected: 08/16/2024, Expires: 08/16/2025 [facility] Work Phone: Comment on above: Expected: 08/16/2024, Expires: Start: 08-16-2024 End: 08-16-2024 Patient encounter procedure [facility] Comment on above: Arrived Start: 07-06-2024 End: 07-06-2025 US Pelvis US Pelvis w/ TV Imaging Routine PCOS (polycystic ovarian syndrome) Expected: 07/06/2024, Expires: 07/06/2025 [facility] Work Phone: Comment on above: Expected: 07/06/2024, Expires: Start: 07-06-2024 End: 07-06-2024 Patient encounter procedure 07/06/2024 11:15 AM EDT Office Visit [facility] [address] [place] [address] Brian Jacobs MD [address] [place] [phone] Arrived [facility] Comment on above: Arrived Start: 06-26-2024 End: 06-26-2024 Patient encounter procedure 06/26/2024 10:00 AM EDT Office Visit [facility] [address] [place] [address] Holli Lemus DO [address] [place] [address] Arrived [facility] Comment on above: Arrived Start: 06-13-2024 End: 06-13-2025 PEBBLES BY IFA W/REFLEX ([facility]) PEBBLES BY IFA W/REFLEX ([facility]) Lab Routine Arthralgia, unspecified joint Expected: 06/13/2024 (Approximate), Expires: 06/13/2025 [facility] Comment on above: Expected: 06/13/2024 (Approximate), Expi res: 06/13/2025 Start: 06-13-2024 End: 06-13-2025 Basic metabolic 1998 panel - Serum or Plasma Basic metabolic panel Lab Routine PCOS (polycystic ovarian syndrome) Expected: 06/13/2024 (Approximate), Expires: 06/13/2025 [facility] Healthcare Comment on above: Expected: 06/13/2024 (Approximate), Expi res: 06/13/2025 Start: 06-13-2024 End: 06-13-2025 C reactive protein [Mass/volume] in Serum or Plasma C-reactive protein Lab Routine Arthralgia, unspecified joint Expected: 06/13/2024 (Approximate), Expires: 06/13/2025 [facility] Comment on above: Expected: 06/13/2024 (Approximate), Expi res: 06/13/2025 Start: 06-13-2024 End: 06-13-2025 CBC W Auto Differential panel - Blood CBC and differential Lab Routine Arthralgia, unspecified joint PCOS (polycystic ovarian syndrome) Expected: 06/13/2024 (Approximate), Expires: 06/13/2025 [facility] Comment on above: Expected: 06/13/2024 (Approximate), Expi res: 06/13/2025 Start: 06-13-2024 End: 06-13-2025 Erythrocyte sedimentation rate Sedimentation rate, automated Lab Routine Arthralgia, unspecified joint Expected: 06/13/2024 (Approximate), Expires: 06/13/2025 [facility] Comment on above: Expected: 06/13/2024 (Approximate), Expi res: 06/13/2025 Start: 06-13-2024 End: 06-13-2025 Hemoglobin A1c/Hemoglobin.total in Blood Hemoglobin A1c Lab Routine PCOS (polycystic ovarian syndrome) Expected: 06/13/2024 (Approximate), Expires: 06/13/2025 [facility] Comment on above: Expected: 06/13/2024 (Approximate), Expi res: 06/13/2025 Start: 06-13-2024 End: 06-13-2025 Insulin, fasting Insulin, fasting Lab Routine PCOS (polycystic ovarian syndrome) Expected: 06/13/2024 (Approximate), Expires: 06/13/2025 [facility] Comment on above: Expected: 06/13/2024 (Approximate), Expi res: 06/13/2025 Start: 06-13-2024 End: 06-13-2025 Rheumatoid factor [Units/volume] in Serum or Plasma Rheumatoid factor Lab Routine Arthralgia, unspecified joint Expected: 06/13/2024 (Approximate), Expires: 06/13/2025 [facility] Comment on above: Expected: 06/13/2024 (Approximate), Expi res: 06/13/2025 Start: 06-13-2024 End: 06-13-2025 Thyroglobulin Thyroglobulin Lab Routine Fatigue, unspecified type Hair loss Expected: 06/13/2024 (Approximate), Expires: 06/13/2025 [facility] Comment on above: Expected: 06/13/2024 (Approximate), Expi res: 06/13/2025 Start: 06-13-2024 End: 06-13-2025 Thyroid peroxidase antibody Thyroid peroxidase antibody Lab Routine Fatigue, unspecified type Hair loss Expected: 06/13/2024 (Approximate), Expires: 06/13/2025 [facility] Comment on above: Expected: 06/13/2024 (Approximate), Expi res: 06/13/2025 Start: 06-13-2024 End: 06-13-2025 Thyroid stimulating immunoglobulin Thyroid stimulating immunoglobulin Lab Routine Fatigue, unspecified type Hair loss Expected: 06/13/2024 (Approximate), Expires: 06/13/2025 [facility] Comment on above: Expected: 06/13/2024 (Approximate), Expi res: 06/13/2025 Start: 06-13-2024 End: 06-13-2025 Thyrotropin [Units/volume] in Serum or Plasma TSH Lab Routine Fatigue, unspecified type Hair loss Obesity (BMI 30-39.9) Expected: 06/13/2024 (Approximate), Expires: 06/13/2025 [facility] Work Phone: Comment on above: Expected: 06/13/2024 (Approximate), Expi res: 06/13/2025 Start: 06-13-2024 End: 06-13-2025 Thyroxine (T4) free [Mass/volume] in Serum or Plasma T4, free Lab Routine Fatigue, unspecified type Hair loss Expected: 06/13/2024 (Approximate), Expires: 06/13/2025 [facility] Comment on above: Expected: 06/13/2024 (Approximate), Expi res: 06/13/2025 Start: 06-13-2024 End: 06-13-2025 Triiodothyronine (T3) Free [Mass/volume] in Serum or Plasma T3, free Lab Routine Fatigue, unspecified type Hair loss Expected: 06/13/2024 (Approximate), Expires: 06/13/2025 [facility] Comment on above: Expected: 06/13/2024 (Approximate), Expi res: 06/13/2025 Start: 06-13-2024 End: 06-13-2025 US Thyroid gland US thyroid Imaging Routine Thyromegaly (CMS/HCC) Expected: 06/13/2024, Expires: 06/13/2025 [facility] Healthcare Comment on above: Expected: 06/13/2024, Expires: Start: 06-13-2024 End: 06-13-2024 Patient encounter procedure 06/13/2024 10:30 AM EDT Office Visit [facility] [address] [place] [address] Brian Jacobs MD [address] [place] [address] Arrived [facility] Comment on above: Arrived Start: 05-14-2024 Influenza vaccination [facility] Start: 11-23-2015 Screening for malignant neoplasm of cervix Pap Smear [facility] Start: 2013 DTaP,Tdap and Td Vaccines (1 - Tdap) DTaP,Tdap and Td Vaccines (1 - Tdap) [facility] Start: 2012 Adult BMI Follow Up Plan Adult BMI Follow Up Plan [facility] Start: 2006 Depression Screening Depression Screening [facility] End: 10-30-2025 Alpha fetoprotein Alpha fetoprotein Lab Routine Epigastric pain Choledocholithiasis 1 Occurrences starting 10/30/2024 until 10/30/2025 [facility] Comment on above: 1 Occurrences starting 10/30/2024 until 10/30/2025 End: 10-30-2025 [id number] Phenotype [id number] Phenotype Lab Routine Epigastric pain Choledocholithiasis 1 Occurrences starting 10/30/2024 until 10/30/2025 [facility] Comment on above: 1 Occurrences starting 10/30/2024 until 10/30/2025 End: 10-30-2025 PEBBLES Screen w/ Reflex PEBBLES Screen w/ Reflex Lab Routine Epigastric pain Choledocholithiasis 1 Occurrences starting 10/30/2024 until 10/30/2025 [facility] Comment on above: 1 Occurrences starting 10/30/2024 until 10/30/2025 BLOOD CULTURE 1 BLOOD CULTURE 1 Lab Routine 08/10/2024 9:04 PM EST [facility] BLOOD CULTURE 2 BLOOD CULTURE 2 Lab Routine 08/10/2024 9:20 PM EST [facility] End: 10-30-2025 Celiac disease serology cascade Celiac disease serology cascade Lab Routine Epigastric pain Choledocholithiasis 1 Occurrences starting 10/30/2024 until 10/30/2025 [facility] Comment on above: 1 Occurrences starting 10/30/2024 until 10/30/2025 End: 10-30-2025 Ceruloplasmin Ceruloplasmin Lab Routine Epigastric pain Choledocholithiasis 1 Occurrences starting 10/30/2024 until 10/30/2025 [facility] Comment on above: 1 Occurrences starting 10/30/2024 until 10/30/2025 End: 10-30-2025 Comprehensive metabolic 2000 panel - Serum or Plasma Comprehensive metabolic panel Lab Routine Epigastric pain Choledocholithiasis 1 Occurrences starting 10/30/2024 until 10/30/2025 [facility] Comment on above: 1 Occurrences starting 10/30/2024 until 10/30/2025 End: 10-30-2025 Ferritin [Mass/volume] in Serum or Plasma Ferritin Lab Routine Epigastric pain Choledocholithiasis 1 Occurrences starting 10/30/2024 until 10/30/2025 [facility] Comment on above: 1 Occurrences starting 10/30/2024 until 10/30/2025 End: 10-30-2025 Hepatitis B core antibody, total Hepatitis B core antibody, total Lab Routine Epigastric pain Choledocholithiasis 1 Occurrences starting 10/30/2024 until 10/30/2025 [facility] Comment on above: 1 Occurrences starting 10/30/2024 until 10/30/2025 End: 10-30-2025 Hepatitis panel, acute Hepatitis panel, acute Lab Routine Epigastric pain Choledocholithiasis 1 Occurrences starting 10/30/2024 until 10/30/2025 [facility] Comment on above: 1 Occurrences starting 10/30/2024 until 10/30/2025 End: 10-30-2025 Immunoglobulins Immunoglobulins Lab Routine Epigastric pain Choledocholithiasis 1 Occurrences starting 10/30/2024 until 10/30/2025 [facility] Comment on above: 1 Occurrences starting 10/30/2024 until 10/30/2025 End: 10-30-2025 Iron and TIBC Iron and TIBC Lab Routine Epigastric pain Choledocholithiasis 1 Occurrences starting 10/30/2024 until 10/30/2025 [facility] Comment on above: 1 Occurrences starting 10/30/2024 until 10/30/2025 End: 10-30-2025 Liver/Kidney Microsome Type 1 Ab, S Liver/Kidney Microsome Type 1 Ab, S Lab Routine Epigastric pain Choledocholithiasis 1 Occurrences starting 10/30/2024 until 10/30/2025 [facility]: 1 Occurrences starting 10/30/2024 until 10/30/2025 End: 10-30-2025 Mitochondrial AB (M2) Mitochondrial AB (M2) Lab Routine Epigastric pain Choledocholithiasis 1 Occurrences starting 10/30/2024 until 10/30/2025 [facility] Comment on above: 1 Occurrences starting 10/30/2024 until 10/30/2025 POCT Hydrogen Breath Test POCT Hydrogen Breath Test Point of Care Testing Routine Epigastric pain Ordered: 10/30/2024 [facility] Comment on above: Ordered: 10/30/2024 End: 10-30-2025 Protime & INR Protime & INR Lab Routine Epigastric pain Choledocholithiasis 1 Occurrences starting 10/30/2024 until 10/30/2025 [facility] Comment on above: 1 Occurrences starting 10/30/2024 until 10/30/2025 End: 10-30-2025 Smooth Muscle AB Smooth Muscle AB Lab Routine Epigastric pain Choledocholithiasis 1 Occurrences starting 10/30/2024 until 10/30/2025 [facility] Comment on above: 1 Occurrences starting 10/30/2024 until 10/30/2025 End: 10-30-2025 TSH with Reflex TSH with Reflex Lab Routine Epigastric pain Choledocholithiasis 1 Occurrences starting 10/30/2024 until 10/30/2025 [employer] Work Phone: Comment on above: 1 Occurrences starting 10/30/2024 until 10/30/2025 Payers Date Payer Category Payer Self-pay 2020 [employer] [place] BCBS [id number] 2020 Blue Cross Blue [facility] Managed Care - Other [employer] [id number] 2020 Unknown BCBS BCBS xxxxxx [id number] 2020-Present [phone] [address] [place], [place] [address] [id number] 1994 Unknown [id number]. 2.593 1994 Unknown [id number] [id number]. 2.593 1994 Unknown [id number] [id number]. 2.593 1994 Unknown [id number] [id number]. 2.593 1994 Unknown [id number] 2.16.840.1.254108.3.579. 2.1259 1994 Unknown [id number] [id number]. 2.1259 1994 Unknown [id number] [id number]. 2.1259 1994 Unknown [id number] [id number]. 2.1259 1994 Unknown [id number] [id number]. 2.1259 1994 Unknown [id number] [id number]. 2.1286 1959 Unknown [id number] Unknown [id number] [id number]. 2.531 Unknown [id number] [id number]. 2.531 Social History Date Type Detail Facility Tobacco smoking stat [facility] Unknown if ever smoked [facility] Work Phone: Start: 1995 Sex Assigned At Female F [facility] Tobacco smoking stat [facility] Tobacco smoking consumption unknown [facility] Start: 1994 Sex assigned at Not on file [facility] Start: 06-13-2024 End: 10-30-2024 Gender identity Not on file [facility] Start: 06-13-2024 End: 09-28-2024 Tobacco smoking status NHIS Never smoked tobacco [facility] Start: 06-13-2024 End: 09-28-2024 Tobacco use and exposure Smokeless tobacco non-user [facility] Start: 06-13-2024 End: 10-30-2024 History of Social function [facility] Start: 06-26-2024 Gender identity Identifies as female gender (finding) [facility] How often do you nee d to have someone help you when you read instructions, pamphlets, or other written material from your doctor or pharmacy [SILS] Never [facility] Are you now , , , , never or living with a partner? [facility] How often to you hav e a drink containing alcohol? Never [facility] How hard is it for y ou to pay for the very basics like food, housing, medical care, and heating Hard [facility] Do you feel stress - tense, restless, nervous, or anxious, or unable to sleep at night because your mind is troubled all the time - these days [OSQ] To some extent [facility] (I/We) worried wheth er (my/our) food would run out before (I/we) got money to buy more. Sometimes true [facility] In the past 12 month s, was there a time when you were not able to pay the mortgage or rent on time? No [facility] Start: 10-30-2024 Alcoholic beverage intake Ex-drinker (finding) [facility] Start: 09-28-2024 Sex Female (finding) [facility] Medical Equipment Procedure Code Equipment Code Equipment Origin al Text Equipment Identifier Dates 1 each by In Vit ro route Daily [id number] Start: 07-26-2024 Clinical Notes 06-13-2024 to 10-30-2024 Krystal Shell MD - 10/30/2024 9:30 AM Donna Jacobs MD - 09/27/2024 9:51 AM Donna Jacobs MD - 09/27/2024 9:51 AM Donna Jacobs MD - 09/27/2024 9:51 AM EST Note Date & Type Note Facility 10-30-2024 History of Present illness Narrative Images from the original note were not included. [facility] New Patient Visit Chief Complaint Patient presents with New Patient Abdominal Pain She reports RUQ pain and on the left side that has been going on for a couple months. Abdominal distention. HISTORY OF PRESENT ILLNESS: Samantha Solis is a 28 y.o. female who has a past medical history of Arthralgia (06/13/2024), Calculus of gallbladder without cholecystitis without obstruction (08/16/2024), Choledocholithiasis (08/16/2024), Epigastric pain (09/27/2024), Fatigue (06/13/2024), Hair loss (06/13/2024), Hematochezia (09/27/2024), Insulin resistance (06/15/2024), Obesity (BMI 30-39.9) (06/13/2024), PCOS (polycystic ovarian syndrome) (06/13/2024), and Positive PEBBLES (antinuclear antibody) (07/12/2024). referred for further evaluation/management of multiple GI complaints. The patient has a history of appendicitis with appendectomy several months ago. She also has a history of abdominal pain secondary to choledocholithiasis where she had ERCP performed with stenting. According to the patient that was done at [facility]. She passed the stent according to her. Today she is complaining of general symptoms. Brain fog fatigue generalized abdominal pain extremity edema. No nausea no vomiting. No coffee-ground emesis no hematemesis. No melena no hematochezia. No unintentional weight loss. Patient had equivocal antimitochondrial antibody. She has been follow up with Rheumatology. They have not reached a diagnosis yet. 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 The following portions of the patient's history were reviewed and updated as appropriate: Patient Care Team: Brian Jacobs MD as PCP - General (Family Medicine) She has a past medical history of Arthralgia (06/13/2024), Calculus of gallbladder without cholecystitis without obstruction (08/16/2024), Choledocholithiasis (08/16/2024), Epigastric pain (09/27/2024), Fatigue (06/13/2024), Hair loss (06/13/2024), Hematochezia (09/27/2024), Insulin resistance (06/15/2024), Obesity (BMI 30-39.9) (06/13/2024), PCOS (polycystic ovarian syndrome) (06/13/2024), and Positive PEBBLES (antinuclear antibody) (07/12/2024). She has a past surgical history that includes Appendectomy and ERCP. Her family history is not on file. She reports that she has never smoked. She has never used smokeless tobacco. She reports that she does not currently use alcohol. She reports that she does not use drugs. PREVIOUS ENDOSCOPIC PROCEDURES: As noted in the HPI Past Surgical History Past Surgical History: Procedure Laterality Date APPENDECTOMY ERCP Current Medications: Current Outpatient Medications: metFORMIN XR (GLUCOPHAGE XR) 500 mg 24 hr tablet, TAKE 1 TABLET BY MOUTH EVERY DAY EVENING WITH MEALS, Disp: , Rfl: I reviewed and reconciled this patient's medication list today. The list included in this note is the most up to date list that I can attest to at this time based on the information that the patient has provided me and the electronic medical record. ALLERGIES: Patient has no known allergies. SOCIAL HISTORY: Social History Tobacco Use Smoking status: Never Smokeless tobacco: Never Vaping Use Vaping status: Never Used Substance Use Topics Alcohol use: Not Currently Drug use: Never FAMILY HISTORY: History reviewed. No pertinent family history. ASSESSMENTS: REVIEW OF SYSTEMS: See HPI, otherwise ROS as below CONSTITUTIONAL: negative HEENT: negative RESPIRATORY: negative CARDIOVASCULAR: negative GASTROINTESTINAL: As in HPI GENITOURINARY: negative INTEGUMENT/BREAST: negative HEMATOLOGIC/LYMPHATIC: negative ALLERGIC/IMMUNOLOGIC: negative ENDOCRINE: negative MUSCULOSKELETAL: negative NEUROLOGICAL: negative BEHAVIOR/PSYCH: negative PHYSICAL EXAM: Vitals: 10/30/24 0932 BP: 108/76 Weight: 88.5 kg (195 lb) Height: 162.6 cm (5' 4 ) Body mass index is 33.47 kg/m . CONSTITUTIONAL: awake, alert and no apparent distress LUNGS: No increased work of breathing, good air exchange, clear to auscultation bilaterally, no crackles or wheezing CARDIOVASCULAR: regular rate and rhythm, normal S1 and S2 ABDOMEN: normal bowel sounds, soft, non-distended and non-tender NEURO: no focal deficits, moves all 4 extremities spontaneously RADIOLOGICAL DATA: No results found. US RIGHT UPPER QUADRANT 09/14/2024 [id number] Final DATA: CBC: No results found for: WBC , RBC , HGB , HCT , MCV , RDW , PLT CMP: No results found for: NA , K , CL , CO2 , BUN , GLU , PROT , ALB , CA ASSESSMENT AND PLAN: Samantha was seen today for new patient and abdominal pain. Diagnoses and all orders for this visit: Choledocholithiasis - TSH with Reflex; Future - Hepatitis B core antibody, total; Future - Hepatitis panel, acute; Future - Immunoglobulins; Future - Celiac disease serology cascade; Future - Ultrasound abdomen limited with duplex; Future - Iron and TIBC; Future - Ferritin; Future - Mitochondrial AB (M2); Future - Alpha fetoprotein; Future - Smooth Muscle AB; Future - PEBBLES Screen w/ Reflex; Future - Gbpnt-8-Vtkgcgrmntl Phenotype; Future - Liver/Kidney Microsome Type 1 Ab, S; Future - Protime & INR; Future - Ceruloplasmin; Future - Comprehensive metabolic panel; Future Epigastric pain - [facility] - TSH with Reflex; Future - Hepatitis B core antibody, total; Future - Hepatitis panel, acute; Future - Immunoglobulins; Future - Celiac disease serology cascade; Future - Ultrasound abdomen limited with duplex; Future - Iron and TIBC; Future - Ferritin; Future - Mitochondrial AB (M2); Future - Alpha fetoprotein; Future - Smooth Muscle AB; Future - PEBBLES Screen w/ Reflex; Future - Izjni-3-Flmvcmdzqmb Phenotype; Future - Liver/Kidney Microsome Type 1 Ab, S; Future - Protime & INR; Future - Ceruloplasmin; Future - Comprehensive metabolic panel; Future - NM gastric emptying solid; Future - POCT Hydrogen Breath Test - CT abdomen and pelvis with and without contrast; Future Hematochezia - [facility] History of ERCP Elevated liver enzymes GI symptoms Discussed with the patient extensively regarding further workup to be performed. Discussed with the patient the importance of having cholecystectomy taking into account she had history of choledocholithiasis with ERCP and stenting. She is adamantly refusing a cholecystectomy. She has also adamantly refusing any other workup that I would recommend including SIBO testing EGD colonoscopy gastric emptying testing. She wants to do blood work today. We will have it done regarding equivocal antimitochondrial antibody that was positive. We will repeat liver enzymes today. Follow up in a month. Symptoms could be multifactorial including disorder of gut brain interaction. Thank you for allowing me to participate in this pleasant patient s care. Please do not hesitate to call my office for any questions/concerns. This note is dictated with the use of navigaya, a computer voice recognition software. Quite often unanticipated grammatical, syntax, homophones, and other interpretive errors are inadvertently transcribed by the computer software. Please disregard these errors and please excuse any errors that have escaped final proofreading. Krystal Shell MD, MPH Gastroenterology & Hepatology Converter Operator [facility] [address], [address] [place] [address] PH: [phone] documented in this encounter [facility] 09-27-2024 History of Present illness Narrative Associated Problem(s): Hematochezia Frequent blood in stool and likely need colonoscopy. Refer to GI. Associated Problem(s): Calculus of gallbladder without cholecystitis without obstruction Stones in gallbladder and check US. Doesn't want to have surgery. Discussed risks including pancreatitis from impacted stone. Will monitor symptoms and continue low fat diet. Associated Problem(s): Epigastric pain Continued pain and positive anti-mitochondrial antibodies. Need evaluation for PBC and refer to GI. Images from the original note were not included. Subjective Patient ID: Samantha Solis is a 28 y.o. female who presents for Follow-up (Go over labs. /questions). Follow up abdominal pain and review results. Continues to have abdominal pain and GI symptoms. Stones and sludge in gallbladder but doesn't want surgery if possible. Changed diet and avoiding triggers. Continues to have pain and feels like liver swollen off and on. Previously concerned of inflammation and auto-immune disease. PEBBLES positive and sent to rheumatology. More labs drawn and positive mitochondrial antibodies. Follow up scheduled in October. Worried about PBC and effects on liver. Still frequent GI symptoms including blood in stool off and on. Requests referral to GI. Review of Systems Respiratory: Negative for cough, [...] Assessment/Plan Problem List Items Addressed This Visit Insulin resistance Relevant Orders Insulin, fasting Basic metabolic panel Hemoglobin A1c Calculus of gallbladder without cholecystitis without obstruction Stones in gallbladder and check US. Doesn't want to have surgery. Discussed risks including pancreatitis from impacted stone. Will monitor symptoms and continue low fat diet. Epigastric pain - Primary Continued pain and positive anti-mitochondrial antibodies. Need evaluation for PBC and refer to GI. Relevant Orders Ambulatory referral to Gastroenterology Hematochezia Frequent blood in stool and likely need colonoscopy. Refer to GI. Relevant Orders Ambulatory referral to Gastroenterology documented in this encounter [facility] 08-16-2024 History of Present illness Narrative Associated [...] 28 y.o. female who presents for Follow-up ([facility] er f/up transferred [facility]). Hospital follow up from 08/11-08/12 for choledocholithiasis. Developed abdominal pain for several weeks. Initially to ER 08/[address] showed gallstones and stone in CBD. Discharged home and told follow with surgeon. Continued pain and nausea. Not able to eat or drink. Severe pain and abdomen distended. To ER 08/10 and transferred to [facility]. ERCP performed 08/11 and stent placed [...] Orders US RUQ documented in this encounter [facility] 08-12-2024 Note Hospital Medicine Discharge Summary Final Discharge Diagnosis: #Choledocholithiasis #Transaminitis #Right upper quadrant pain Admission Diagnosis: Abdominal pain [R10.9] Hospital course: 28-year-old female with past medical history significant for recent appendectomy, patient was transferred from [facility] due to concern for choledocholithiasis resulting into transaminitis and need for ERCP. Patient reported that she started having symptoms 1 week prior to her presentation with right upper quadrant pain associated with nausea and vomiting. Upon evaluation in [facility], she was found to have transaminitis with total bilirubin being 2.5. CT abdomen and pelvis was done which was showing 3 mm stone in the distal CBD. Patient was transferred to [facility] on 08/11 and she was seen [...] her primary care physician and surgeon in [place]. Patient was noted to be tachycardic on [...] Medications These medications were sent to [facility] [address] [place] [address], [facility] [address] ondansetron ODT 4 mg disintegrating tablet oxyCODONE [...] and documentation was 40 minutes. Signed Joyce Tubbs MD [facility] 08/12/2024 1:49 PM CC: MD Reynaldo [facility] 08-12-2024 Note ---- Attestation signed by Elena [...] PO intake. Plan for outpatient cholecystectomy in [place] closer to patient's home. Ok to dc home if tolerate diet ---- [facility] General Surgery DAILY PROGRESS NOTE Subjective Patient [...] note for clinical correlation. Electronically signed: Hazel Kahn. ERCP w/ Sphinctorotomy Endoscopic Retrograde Cholangiopancreatography (ERCP) Procedure Note Procedure: ERCP with Common bile duct stone removal, stent placement and sphincterotomy Indications: The patient was transferred from another institution with a complaint of abdominal pain, choledocholithiasis and abnormal liver function test. She is scheduled for ERCP for common bile duct stone removal today August 11, 2024. 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 Final (more content not included)... [facility] 08-11-2024 Note Patient: Samantha mcallister Procedure Summary Date: 08/11/24 Room / Location: [facility] Main Operating Room Anesthesia Start: 1701 Anesthesia Stop: 1810 Procedure: ENDOSCOPIC RETROGRADE CHOLANGIOPANCREATOGRAPHY Diagnosis: Abdominal pain Choledocholithiasis Scheduled Providers: Julio Allison MD Responsible Provider: Enrique Franco MD Anesthesia Type: general ASA Status: 2 Anesthesia Type: general Vitals Value Taken Time BP 130/86 08/11/241849 Temp 36.7 ???C (98.1 ???F) 08/11/24 182 Pulse 80 08/11/240 Resp 17 08/11/241849 SpO2 97 % 08/11/241849 Vitals shown include [...] per anesthesia protocol. No notable events documented. [facility] 08-11-2024 Note Airway Date/Time: 08/11/2024 5:07 PM Urgency: elective Airway not difficult General Information and Staff Patient location during procedure: OR Anesthesiologist: Enrique Franco MD Resident/HEALTH OFFICER/CAA: Tung Marrero MD Performed: resident/HEALTH OFFICER/CAA Indications and Patient Condition Indications for airway [...] 21 Number of attempts at approach: 1 [facility] 08-11-2024 Note Patient: Samantha mcallister Procedure Information Date/Time: 08/11/24 170 Procedure: ENDOSCOPIC RETROGRADE CHOLANGIOPANCREATOGRAPHY Location: [facility] Main Operating Room Relevant Problems No [...] Plan discussed with resident. Additional Equipment Requests [facility] 08-11-2024 Note Hospital Medicine History and Physical 08/11/2024 4:02 AM THE HOSPITALIST TEAM PREFERS TO USE [employer] FOR NON-URGENT COMMUNICATION 7AM-7PM. IF I DO NOT RESPOND WITHIN 20 MINUTES OR URGENT MATTERS, PLEASE CALL THROUGH THE [employer]CRAFT [employer] UPHOLSTERER. FROM 7PM-7AM, PLEASE PAGE [phone](COVR). Chief Complaint No chief complaint on file. History of Present Illness Samantha Solis is an 28 y.o. female transferred from [facility] where she was seen for nonresolving [...] portacaval lymph nodes in the ER at [facility] because of chills she was started on IV Zosyn and was given IV fluids and pain medications and GI were consulted by phone who recommended patient to have ERCP so was transferred to [facility]. Patient has a history of prediabetes though her A1c last reviewed was 5 hide has been on metformin and her blood sugars usually peaks at 110 she recently had appendectomy done, and she had workup done for lupus due to symptoms of dry eyes dry mouth nonspecific arthralgias sun exposed malar rash and nonspecific backaches had EPBBLES was done by her PCP which was [...] request rheumatology to (more content not included)... [facility] 07-06-2024 History of Present illness Narrative Associated [...] 24 hr tablet documented in this encounter [facility] 06-26-2024 History of Present illness Narrative General [...] Bea Lemus DO documented in this encounter [facility] 06-13-2024 History of Present illness Narrative Associated [...] Orders US thyroid documented in this encounter [facility] Evaluation note No assessment information [facility] Work Phone: Evaluation note Diagnosis Fatigue, unspecified [...] cholecystitis without obstruction documented in this encounter [facility] HealthcareEvaluation note* Diagnosis Fatigue, unspecified type- Primary Hair loss Unspecified alopecia Arthralgia, unspecified joint PCOS (polycystic ovarian syndrome) Polycystic ovaries Obesity (BMI 30-39.9) Thyromegaly (CMS/HCC) Goiter, unspecified Insulin resistance- Primary Other abnormal glucose PCOS (polycystic ovarian syndrome) Polycystic ovaries Choledocholithiasis- Primary Calculus of bile duct without mention of cholecystitis or obstruction Calculus of gallbladder without cholecystitis without obstruction Epigastric pain- Primary Abdominal pain, epigastric Hematochezia Blood in stool Calculus of gallbladder without cholecystitis without obstruction Insulin resistance Other abnormal glucose documented in this encounter [facility] HealthcareEvaluation note* Diagnosis Choledocholithiasis- Primary Calculus of bile duct without mention of cholecystitis or obstruction Epigastric pain Abdominal pain, epigastric History of ERCP Elevated liver enzymes Other nonspecific abnormal serum enzyme levels GI symptoms Other symptoms involving digestive system [facility] Chief Complaint and Reason for Visit Chief [...] Sb Lopez DPM MS Attending Provider Active Neuro Ophthalmologist Relationship Specialty Start Date End Date Brian Jacobs MD [address] [place] [address] PCP - General Family Medicine 06/13/24 Neuro Ophthalmologist Relationship Specialty Start Date End Date Brian Jacobs MD [address] [place] [address] PCP - General Family Medicine 06/13/24 Neuro Ophthalmologist Relationship Specialty Start Date End Date Brian Jacobs MD [address] [place] [address] PCP - General Family Medicine 06/13/24 Neuro Ophthalmologist Relationship Specialty Start Date End Date Brian Jacobs MD [address] [place] [address] PCP - General Family Medicine 06/13/24 Team Status: Inactive Member Role Status Dates Shaikh Jc MD Attending Provider Active Sta rt: June 17, 2024 End: June 17, 2024 Neuro Ophthalmologist Relationship Specialty Start Date End Date Brian Jacobs MD [address] [place] [address] PCP - General Family Medicine 06/13/24 Neuro Ophthalmologist Relationship Specialty Start Date End Date Brian Jacobs MD [address] [place] [address] PCP - General Family Medicine 06/13/24 Neuro Ophthalmologist Relationship Specialty Start Date End Date Brian Jacobs MD [address] [place] [address] PCP - General Family Medicine 06/13/24 Neuro Ophthalmologist Relationship Specialty Start Date End Date Brian Jacobs MD [address] [place] [address] PCP - General Family Medicine 06/13/24 Neuro Ophthalmologist Relationship Specialty Start Date End Date Brian Jacobs MD [address] [place] [address] PCP - General Family Medicine 06/13/24 Neuro Ophthalmologist Relationship Specialty Start Date End Date Brian Jacobs MD [address] [place] [address] PCP - General Family Medicine 06/13/24 Neuro Ophthalmologist Relationship Specialty Start Date End Date Brian Jacobs MD [address] [place] [address] PCP - General [facility] Medicine 06/13/24 Neuro Ophthalmologist Relationship Specialty Start Date End Date Brian Jacobs MD [address] [place] [address] PCP - General Family Medicine 06/13/24 Neuro Ophthalmologist Relationship Specialty Start Date End Date Brian Jacobs MD [address] [place] [address] PCP - General Family Medicine 06/13/24 Neuro Ophthalmologist Relationship Specialty Start Date End Date Brian Jacobs MD [address] [place] [address] PCP - General Family Medicine 06/13/24 Neuro Ophthalmologist Relationship Specialty Start Date End Date Brian Jacobs MD [address] [place] [address] PCP - General Family Medicine 06/13/24 Goals (unrecognized section and content) Goals may be documented in a n alternate sectionGoals may be documented in an alternate sectionNot on filedocumented as of this encounter INFORMATION SOURCE (unrecogn ized section and content) DATE CREATED AUTHOR 12/17/2022 [facility] DATE CREATED AUTHOR AUTHOR'S ORGANIZ ATION 08/27/2024 [facility] DATE CREATED AUTHOR AUTHOR'S ORGANIZ ATION 09/05/2024 [facility] DATE CREATED AUTHOR AUTHOR'S ORGANIZ ATION 09/30/2024 [facility] EPIC DATE CREATED AUTHOR AUTHOR'S ORGANIZ ATION 10/31/2024 [facility] Reason for Visit (unrecogniz ed section and [...] Follow-up GO OVER LABS Reason Comments Follow-up [facility] er f/up transfer red to [facility] Reason Comments Follow-up Go over labs. questi ons Reason Comments New Patient Abdominal Pain She reports RUQ pain and on the left side that has been going on for a couple months. Abdominal distention. Specialty Diagnoses / Procedures Referred By Gema donnelly Referred To Contact Gastroenterology Diagnoses Epigastric pain Hematochezia Brian Jacobs MD [address] [place] [address] Phone: tel: fax: Krystal Benavidez MD [address] [place] [address] Phone: tel: fax: Referral ID Status Reason Start Date Expiration Date Visits Requested Visits Authorized [id number] Pending Review Specialty Services Required 09/28/2024 09/28/2025 1 1 FOR RECORDS PERTAINING TO PATIENTS WHO ARE [...] BE BASED ON THE PRIMARY CLINICAL RECORDS. [facility]. provides no warranty or guarantee of the accuracy or completeness of information in this document.
[2024-11-03 13:13] LABS: INR 1.02; Prothrombin Time 10.8 sec (9.0-11.6)
[2024-11-03 14:04] LABS: Alanine Aminotransferase 23 U/L (14-59); Albumin Globulin Ratio 0.8; Albumin Level 3.9 g/dL (3.4-5.0); Alkaline Phosphatase 77 U/L (46-116); Anion Gap 12.2; Aspartate Amino Transferase 9 U/L (15-37); BUN Creatinine Ratio 14.5; Bilirubin Total 0.6 mg/dL (0.2-1.0); Calcium 9.4 mg/dL (8.5-10.1); Carbon Dioxide 26.7 mmol/L (21.0-32.0); Chloride 103 mmol/L (98-107); Estimated GFR (African America >60 (>=60 mL/min/1.73m^2); Estimated GFR (Non-African Ame >60 (>=60 mL/min/1.73m^2); Globulin 4.7 g/dL; Glucose 84 mg/dL (74-106); Potassium 3.9 mmol/L (3.5-5.1); Sodium 138 mmol/L (136-145); Total Protein 8.6 g/dL (6.4-8.2)
[2024-11-03 14:05] LABS: Percent Iron Saturation 23.4 %
[2024-11-04 04:07] LABS: AFP, Serum, Tumor Marker <1.8 ng/mL (0.0-4.7)
[2024-11-04 06:08] LABS: HBsAg Screen Negative (Negative); HCV Ab Non Reactive (Non Reactive); Hep A Ab, IgM Negative (Negative); Hep B Core Ab, IgM Negative (Negative); Immunoglobulin M, Q 107 mg/dL (26-217)
[2024-11-04 07:07] LABS: Hep B Core Ab, Tot Negative (Negative)
[2024-11-04 10:08] LABS: Ceruloplasmin 31.7 mg/dL (19.0-39.0); Immunoglobulin G, Qn 1961 mg/dL (586-1602)
[2024-11-05 15:07] LABS: Actin (Smooth Muscle) Antibody 12 Units (0-19)
[2024-11-06 13:08] LABS: ANA Direct Negative (Negative)
[2024-11-07 07:07] LABS: Deamidated Gliadin Abs, IgA 4 units (0-19); Deamidated Gliadin Abs, IgG 3 units (0-19); Endomysial Antibody IgA Negative (Negative); Immunoglobulin A, Qn, Serum 149 mg/dL (87-352); t-Transglutaminase (tTG) IgA <2 U/mL (0-3); t-Transglutaminase (tTG) IgG 5 U/mL (0-5)
== END 2024-11-03 11:56 | disposition home or self-care (01) ==
LOC: LAB 11:57
PROVIDERS: PCP Family Medicine
DX: R10.13 Epigastric pain (principal); K80.50 Calculus of bile duct without cholangitis or cholecystitis without obstruction
CPT/HCPCS: 36415; 80053; 80074; 82103; 82104; 82105; 82390; 82728; 82784; 82785; 83516; 83540; 83550; 84443; 85610; 86038; 86231; 86258; 86364; 86376; 86381; 86704

== ENCOUNTER 2025-01-04 11:55 | Outpatient (OUT) | payer BC, SELFPAY ==
[2025-01-04 12:24] LABS: Basophils Absolute Auto 0.1 10^3/uL (0.0-0.1); Basophils Percent Auto 0.6 % (0.2-2.0); Eosinophils Absolute Auto 0.2 10^3/uL (0.0-0.7); Eosinophils Percent Auto 1.8 % (0.9-7.0); Hematocrit 42.7 % (36.0-48.0); Hemoglobin 14.2 g/dL (12.0-16.0); Immature Granulocytes Abs Auto 0.01 10^3/uL (0.00-0.03); Immature Granulocytes Pct Auto 0.1 % (0.0-0.5); Lymphocytes Percent Auto 16.2 % (20.5-60.0); Mean Corpuscular HGB Conc 33.3 g/dL (29.9-35.2); Mean Corpuscular Hemoglobin 29.1 pg (26.7-34.0); Mean Corpuscular Volume 87.5 fL (81.0-99.0); Monocytes Absolute Auto 0.7 10^3/uL (0.3-0.8); Monocytes Percent Auto 5.2 % (1.7-12.0); Neutrophils Absolute Auto 9.6 10^3/uL (1.4-6.5); Neutrophils Percent Auto 76.1 % (43.0-75.0); Platelet Count 341 10^3/uL (150-450); Red Blood Count 4.88 10^6/uL (4.20-5.40); Red Cell Distribution Width 13.4 % (11.0-15.0); White Blood Count 12.6 10^3/uL (4.0-11.0)
[2025-01-04 12:46] LABS: Estimated Average Glucose 100 mg/dL; Glycohemoglobin A1C 5.1 % (4.5-6.2)
[2025-01-04 12:57] LABS: Alanine Aminotransferase 23 U/L (14-59); Albumin Globulin Ratio 0.8; Albumin Level 3.5 g/dL (3.4-5.0); Alkaline Phosphatase 71 U/L (46-116); Anion Gap 8.8; Aspartate Amino Transferase 14 U/L (15-37); BUN Creatinine Ratio 15.8; Bilirubin Total 0.4 mg/dL (0.2-1.0); C Reactive Protein 0.79 mg/dL (<=0.50); Carbon Dioxide 30.1 mmol/L (21.0-32.0); Chloride 106 mmol/L (98-107); Estimated GFR (African America >60 (>=60 mL/min/1.73m^2); Estimated GFR (Non-African Ame >60 (>=60 mL/min/1.73m^2); Globulin 4.2 g/dL; Glucose 94 mg/dL (74-106); Potassium 3.9 mmol/L (3.5-5.1); Sodium 141 mmol/L (136-145); TSH W/ REFLEX FT4 1.534 uIU/mL (0.358-3.740); Total Protein 7.7 g/dL (6.4-8.2)
[2025-01-05 04:09] LABS: Vitamin B12 675 pg/mL (232-1245)
[2025-01-06 10:09] LABS: Homocyst(e)ine 10.8 umol/L (0.0-14.5)
== END 2025-01-04 11:56 | disposition home or self-care (01) ==
LOC: LAB 11:58
PROVIDERS: PCP Family Medicine
DX: Z00.00 Encounter for general adult medical examination without abnormal findings (principal); R41.89 Other symptoms and signs involving cognitive functions and awareness; R53.83 Other fatigue; M25.50 Pain in unspecified joint
CPT/HCPCS: 36415; 80053; 82306; 82607; 83036; 83090; 84443; 85025; 86140

== ENCOUNTER 2025-03-01 10:00 | Outpatient (OUT) | payer BC, SELFPAY ==
--- NOTE | 2025-03-01 | US_ITS ---
The [address] [address] Patient Name: FLYNN SOLIS MRN: [id number] date: 1995 Sex: F Assigned Patient Location: US Current Patient Location: US Accession/Order Number: [id number] Exam Date: 03/01/2025 10:19 Report Date: 03/01/2025 10:28 At the request of: VLADIMIR JACOBS MD Procedure: US soft tissue head and neck LIMITED ULTRASOUND-left neck COMPARISON: None CLINICAL DATA: Superficial lump at the left neck for several years. Real-time ultrasound evaluation of the site of palpable concern in the left supraclavicular region was performed. There is a subcutaneous, well-defined heterogeneously hypoechoic nodule measuring 9 x 7 x 9 mm. Through transmission is visualized. There is no obvious fatty hilus. There is no intraluminal blood flow. The appearance is nonspecific. US/US soft tissue head and neck IMPRESSION: NONSPECIFIC HYPOECHOIC SUBCUTANEOUS NODULE AT THE SITE OF PALPABLE CONCERN. AN ABNORMAL LYMPH NODE IS IN THE DIFFERENTIAL. CLINICAL CORRELATION IS RECOMMENDED. THIS WOULD BE AMENABLE TO ULTRASOUND-GUIDED BIOPSY, IF CLINICALLY WARRANTED. Impression dictated by: Paula Melgar M.D. 03/01/2025 10:28 AM Dictation Location: [place] [address] Electronically authenticated by: [id number] Y Date: 03/01/2025 10:28
--- OUTSIDE RECORDS SUMMARY | 2025-03-01 10:22 | XMS_ITS | CCD ---
Author Organization [facility] Care Team Providers Care Lab Technologist Name Role Phone GABBIE Lopez Attending Provider [...] Unavailable Brian Jacobs MD Primary Care Provider MD Donovan Greene Attending Provider MARKER, JOSE FRANCISCO J Referring Unavailable HORANIKARMA Admitting Unavailable AYLAJOYCE Attending Unavailable NAWRAS, ALI Referring Unavailable AYLA, JOYCE Referring Unavailable NAWRAS, JULIO Referring Unavailable NAWRAS, JULIO Referring Unavailable Shaikh Greene Attending Unavailable Shaikh Greene Admitting Unavailable Jairo Mccrary Attending Unavailable Jairo Mccrary Admitting Unavailable KRYSTAL BENAVIDEZ Attending Unavailable BRIAN JACOBS Referring Unavailable BRIAN JACOBS Primary Care Unavailable Brian Jacobs MD Primary Care Provider Brian Jacobs MD Unavailable Morris Krause Attending Unavail able KRYSTAL BENAVIDEZ Attending Unavailable BRIAN JACOBS Referring Unavailable BRIAN JACOBS Primary Care Unavailable BRIAN JACOBS Attending Unavailable BRIAN JACOBS Attending Unavailable HOLLI LEMUS Attending Unavailable BRIAN JACOBS Attending Unavailable BRIAN JACOBS Attending Unavailable BRIAN JACOBS Attending Unavailable Medications Current Medications Medication Drug Class(es) Dates Sig (Normalized) Sig (Original) aspirin 81 mg delayed release oral tablet (4 sources) Platelet Aggregation Inhibitor, Nonsteroidal Anti-inflammatory Drug take 1 tablet by mouth once daily aspirin 81 MG EC tablet Take 81 mg by mouth Daily Active Blood Glucose Monitoring Suppl (Blood Glucose Monitor System) w/Device kit (12 sources) Start: 07-26-2024 Blood Glucose Monitoring Suppl (Blood Glucose Monitor System) w/Device kit Indications: Insulin resistance 1 each Daily 1 kit 07/26/2024 Active 24 hr metFORMIN hydrochloride 500 mg extended release oral tablet (14 sources) Biguanide Start: 08-02-2024 take 1 tablet [...] split. 30 tablet 5 07/06/2024 09/27/2024 Discontinued methylPREDNISolone (3 sources) Corticosteroid Start: 01-04-2025 End: 01-11-2025 methylPREDNISolone (Medrol Dospak) 4 MG tablets Indications: Arthralgia, unspecified joint Follow schedule on package instructions 21 tablet 01/04/2025 01/11/2025 Active Problems Active Problems Problem Classification Problem Date Documented Da te Episodic/Chronic Abdominal pain (20 sources) Unspecified abdominal pain; Translations: [Epigastric pain] Onset: 4 Episodic Other acquired deformities (1 source) Contracture, [...] and abdomen] 10-30-2024 Episodic Other liver diseases (2 sources) Abnormal levels of other serum enzymes; Translations: [Abnormal levels of other serum enzymes] Onset: 5 Episodic Other liver diseases (4 sources) Elevated liver enzymes level; Translations: [Abnormal levels of other serum enzymes] Onset: 5 10-30-2024 Episodic Other nutritional; endocrine; and metabolic disorders (20 sources) Body mass index 30+ - obesity; Translations: [Obesity, unspecified] Onset: 4 06-13-2024 Chronic Other nutritional; endocrine; and metabolic disorders (20 sources) Insulin resistance; Translations: [Insulin resistance] Onset: 4 06-15-2024 Chronic Other screening for suspected conditions (not mental disorders or infectious disease) (1 source) Mitochondrial antibodies positive 11-27-2024 Episodic Residual codes; unclassified (2 sources) Other specified postprocedural states; Translations: [Other specified postprocedural states] Onset: 5 Episodic Residual codes; unclassified (4 sources) Past history of procedure; Translations: [Other specified postprocedural states] Onset: 5 10-30-2024 Episodic Unclassified (1 source) New Patient Onset: 5 Past or Other Problems Problem Classification Problem Date Documented Da te Episodic/Chronic Biliary tract disease (20 sources) Common bile duct calculus; Translations: [Calculus of bile duct without cholangitis or cholecystitis without obstruction] Onset: 08-11-2024 08-16-2024 Episodic Gastrointestinal hemorrhage (17 sources) Blood-tinged feces; Translations: [Melena] Onset: 09-27-2024 09-27-2024 Episodic Immunizations and screening for infectious disease (20 sources) Anti-nuclear factor positive; Translations: [Other specified abnormal immunological findings in serum] Onset: 07-12-2024 07-12-2024 Episodic Malaise and fatigue (20 sources) Fatigue; Translations: [Other fatigue] Onset: 06-13-2024 06-13-2024 Episodic Neoplasms of unspecified nature or uncertain behavior (20 sources) Thrombocytosis; Translations: [Thrombocythemia] Onset: 06-13-2024 Resolved: [...] WITH AUTO DIFFon BASOPHILS ABSOLUTE AUTO 0.1 [facility] Basophils/100 WBC (Bld) 0.6 % 0.2 - 2.0 % [facility] Eosinophils/100 WBC (Bld) 1.8 % 0.9 - 7.0 % [facility] Erythrocyte distribution width (RBC) [Ratio] 13.4 % 11.0 - 15.0 % [facility] Hematocrit (Bld) [Volume fraction] 42.7 % 36.0 - 48.0 % [facility] Hemoglobin (Bld) [Mass/Vol] 14.2 g/dL 12.0 - 16.0 g/dL [facility] IMMATURE GRANULOCYTES ABS AUTO 0.01 [facility] Immature granulocytes/100 WBC (Bld) 0.1 % 0.0 - 0.5 % [facility] Interpretation and review of laboratory results Abnormal [facility] LYMPHOCYTES ABSOLUTE AUTO 2 [facility] Lymphocytes/100 WBC (Bld) 16.2 % Low 20.5 - 60.0 % [facility] MCH (RBC) [Entitic mass] 29.1 pg 26.7 - 34.0 pg [facility] MCHC (RBC) [Mass/Vol] 33.3 g/dL 29.9 - 35.2 g/dL [facility] MCV (RBC) [Entitic vol] 87.5 fL 81.0 - 99.0 fL [facility] MONOCYTES ABSOLUTE AUTO 0.7 [facility] Monocytes/100 WBC (Bld) 5.2 % 1.7 - 12.0 % [facility] NEUTROPHILS ABSOLUTE AUTO 9.6 High [facility] Neutrophils/100 WBC (Bld) 76.1 % High 43.0 - 75.0 % [facility] Platelet mean volume (Bld) [Entitic vol] 9 fL Low 9.5 - 13.5 fL [facility] EO # 0.2 [facility] PLT 341 [facility] RBC 4.88 [facility] WBC 12.6 High [facility] SRMCOH PROTHROMBIN TIME INR W/O COUMon 11-03-2024 PT Coag (PPP) [Time] 10.8 s [facility] INR 1.02 [facility] Comment on above: DESIRED INR: 2.0-3.0 CONDITIONS NOT LISTED BELOW 2.5-3.5 FOR PROSTHETIC HEART VALVE REPLACEMENT 2.5-3.5 RECURRENT THROMBOSIS [facility] PEBBLES Antinuclear Antibodieson 08-30-2024 Antinuclear Abs, IFA Positive Critically abnormal . [facility] Comment on above: Result Comment: [...] , Note 1 Comment Normal . [facility] Comment on above: Result Comment: Hailey an Potential Disease Association Homogeneous Systemic Lupus Erythematosus, Drug Induced Systemic Lupus Erythematosus, Chronic Autoimmune hepatitis, Juvenile Idiopathic Arthritis Speckled Sjogren Syndrome, Systemic Lupus Erythematosus, Subacute Cutaneous Lupus, Lupus, Congenital Heart Block, Mixed Connective Tissue Disease, Scleroderma-diffuse, Scleroderma-Autoimmune Myositis Overlap Syndrome, Systemic Lupus Gtqckeamikfay-Eheifkjeshs-Nzydoukmaj Myositis Overlap Syndrome, Systemic Autoimmune Rheumatic Disease, [...] Cytopenias, Linear Scleroderma, Antiphospholipid Syndrome Performed at: [facility] [employer] [id number] Smog Technician: David Dietz PhD, Phone: [phone] Performed By: #### M ITOM2, CH50, PEBBLES, THYGLOB AB, C4, CHROMATIN, C3, TPO, SMAB #### [facility] , Speckled Pattern 1 High . [facility] Comment on above: Result Comment: ICAP nomenclature: [id number] Performed By: #### M ITOM2, CH50, PEBBLES, THYGLOB AB, C4, CHROMATIN, C3, TPO, SMAB #### [facility] , Aldolaseon 08-30-2024 Aldolase 3.4 U/L Normal 3.3-10.3 [facility] Comment on above: Result Comment: Perf ormed at: [address] [id number] Smog Technician: David Dietz PhD, Phone: [phone] PERFORMED BY: [facility] [address] [place] [address] PATHOLOGIST COLLECTION CLERK DARIO ALEJO M.D. Performed By: #### M ITOM2, CH50, PEBBLES, THYGLOB AB, C4, CHROMATIN, C3, TPO, SMAB #### [facility] , Antithyroglobulin Abon 08-30 Antithyroglobulin Ab <1.0 Normal 0.0-0.9 [facility] Comment on above: Result Comment: Thyr oglobulin Antibody measured by Osvaldo Mary Methodology It should be noted that the presence of thyroglobulin antibodies may not be pathogenic nor diagnostic, especially at very low levels. The assay pulvi mixer operator has found that four percent of individuals without evidence of thyroid disease or autoimmunity will have positive TgAb levels up to 4 IU/mL. Performed By: #### M ITOM2, CH50, PEBBLES, THYGLOB AB, C4, CHROMATIN, C3, TPO, SMAB #### [facility] , C-Reactive Proteinon 024 C-Reactive Protein 0.6 mg/dL High 0.0-0.5 [facility] Comment on above: Performed By: #### M ITOM2, CH50, PEBBLES, THYGLOB AB, C4, CHROMATIN, C3, TPO, SMAB #### [facility] , Chromatin Antibodyon 024 Chromatin Antibody <0.2 Normal 0.0-0.9 [facility] Comment on above: Result Comment: Perf ormed at: - [facility] [address] [id number] Smog Technician: David Dietz PhD, Phone: [phone] PERFORMED BY: [address] [address] PATHOLOGIST COLLECTION CLERK DARIO ALEJO M.D. Performed By: #### M ITOM2, CH50, PEBBLES, THYGLOB AB, C4, CHROMATIN, C3, TPO, SMAB #### [facility] , Coagulation Profileon 2023 aPTT Coag (Bld) [Time] 32.5 s Normal 25.1-36.5 [facility] Comment on above: Result Comment: A he matocrit value greater than 55% may lead to inaccurate results in coagulation testing. Patients having hematocrit values >55% require a special collection tube for coagulation studies. Please contact the laboratory at [phone] for redraw instructions. PERFORMED BY: [address] [place] [address] PATHOLOGIST COLLECTION CLERK DARIO ALEJO M.D. Performed By: #### M ITOM2, CH50, PEBBLES, THYGLOB AB, C4, CHROMATIN, C3, TPO, SMAB #### [facility] , INR Coag (PPP) [Relative time] 1.0 {INR} Normal [facility] Comment on above: Result Comment: [...] (PPP) [Time] 11.7 s Normal 9.0-12.9 [facility] Comment on above: Result Comment: A he matocrit value greater than 55% may lead to inaccurate results in coagulation testing. Patients having hematocrit values >55% require a special collection tube for coagulation studies. Please contact the laboratory at [phone] for redraw instructions. Performed By: #### M ITOM2, CH50, PEBBLES, THYGLOB AB, C4, CHROMATIN, C3, TPO, SMAB #### [facility] , Complement C3on 08-30-2024 Complement C3 181 mg/dL High 82-167 [facility] Comment on above: Result Comment: Perf ormed at: - [facility] [address] [id number] Smog Technician: David Dietz PhD, Phone: [phone] Performed By: #### M ITOM2, CH50, PEBBLES, THYGLOB AB, C4, CHROMATIN, C3, TPO, SMAB #### [facility] , Complement C4on 08-30-2024 Complement C4 34 mg/dL Normal 12-38 [facility] Comment on above: Performed By: #### M ITOM2, CH50, PEBBLES, THYGLOB AB, C4, CHROMATIN, C3, TPO, SMAB #### [facility] , Complement Total (CH50)on Complement Total (CH50) >60 Normal >41 [facility] Comment on above: Result Comment: [...] determine out of range values. Performed at: [address] [id number] Smog Technician: David Dietz PhD, Phone: [phone] PERFORMED BY: [address] [address] PATHOLOGIST COLLECTION CLERK DARIO ALEJO M.D. Performed By: #### M ITOM2, CH50, PEBBLES, THYGLOB AB, C4, CHROMATIN, C3, TPO, SMAB #### [facility] , Complete Blood Count Auto Di ffon 08-30-2024 Basophils (Bld) [#/Vol] 0.1 10*3/uL Normal 0.0-0.2 [facility] Comment on above: Performed By: #### M ITOM2, CH50, PEBBLES, THYGLOB AB, C4, CHROMATIN, C3, TPO, SMAB #### [facility] , Basophils/100 WBC (Bld) 1.1 % Normal . [facility] Comment on above: Performed By: #### M ITOM2, CH50, PEBBLES, THYGLOB AB, C4, CHROMATIN, C3, TPO, SMAB #### [facility] , Eosinophils (Bld) [#/Vol] 0.2 10*3/uL Normal 0.0-0.45 [facility] Comment on above: Performed By: #### M ITOM2, CH50, PEBBLES, THYGLOB AB, C4, CHROMATIN, C3, TPO, SMAB #### [facility] , Eosinophils/100 WBC (Bld) 2.0 % Normal . [facility] Comment on above: Performed By: #### M ITOM2, CH50, PEBBLES, THYGLOB AB, C4, CHROMATIN, C3, TPO, SMAB #### [facility] , Erythrocyte distribution width (RBC) [Ratio] 13.2 % Normal 11.9-15.3 [facility] Comment on above: Performed By: #### M ITOM2, CH50, PEBBLES, THYGLOB AB, C4, CHROMATIN, C3, TPO, SMAB #### [facility] , Hematocrit (Bld) [Volume fraction] 39.5 % Normal 34.0-46.4 [facility] Comment on above: Performed By: #### M ITOM2, CH50, PEBBLES, THYGLOB AB, C4, CHROMATIN, C3, TPO, SMAB #### [facility] , Hemoglobin (Bld) [Mass/Vol] 13.6 g/dL Normal 11.8-15.4 [facility] Comment on above: Performed By: #### M ITOM2, CH50, PEBBLES, THYGLOB AB, C4, CHROMATIN, C3, TPO, SMAB #### [facility] , Lymphocytes (Bld) [#/Vol] 2.4 10*3/uL Normal 1.00-4.8 [facility] Comment on above: Performed By: #### M ITOM2, CH50, PEBBLES, THYGLOB AB, C4, CHROMATIN, C3, TPO, SMAB #### [facility] , Lymphocytes/100 WBC (Bld) 19.1 % Normal . [facility] Comment on above: Performed By: #### M ITOM2, CH50, PEBBLES, THYGLOB AB, C4, CHROMATIN, C3, TPO, SMAB #### [facility] , MCH (RBC) [Entitic mass] 30.1 pg Normal 24.7-34.3 [facility] Comment on above: Performed By: #### M ITOM2, CH50, PEBBLES, THYGLOB AB, C4, CHROMATIN, C3, TPO, SMAB #### [facility] , MCV (RBC) [Entitic vol] 87.7 fL Normal 80-100 [facility] Comment on above: Performed By: #### M ITOM2, CH50, PEBBLES, THYGLOB AB, C4, CHROMATIN, C3, TPO, SMAB #### [facility] , Mean Corpuscular HGB Conc 34.3 g/dL Normal 32.0-35.0 [facility] Comment on above: Performed By: #### M ITOM2, CH50, PEBBLES, THYGLOB AB, C4, CHROMATIN, C3, TPO, SMAB #### [facility] , Monocytes (Bld) [#/Vol] 0.4 10*3/uL Normal 0.0-0.8 [facility] Comment on above: Performed By: #### M ITOM2, CH50, PEBBLES, THYGLOB AB, C4, CHROMATIN, C3, TPO, SMAB #### [facility] , Monocytes/100 WBC (Bld) 2.8 % Normal . [facility] Comment on above: Performed By: #### M ITOM2, CH50, PEBBLES, THYGLOB AB, C4, CHROMATIN, C3, TPO, SMAB #### [facility] , Neutrophils (Bld) [#/Vol] 9.5 10*3/uL High 1.8-7.7 [facility] Comment on above: Performed By: #### M ITOM2, CH50, PEBBLES, THYGLOB AB, C4, CHROMATIN, C3, TPO, SMAB #### [facility] , Neutrophils/100 WBC (Bld) 75.0 % Normal . [facility] Comment on above: Performed By: #### M ITOM2, CH50, PEBBLES, THYGLOB AB, C4, CHROMATIN, C3, TPO, SMAB #### [facility] , NRBC% 0.1 /100{WBC} Normal 0-0.5 [facility] Comment on above: Performed By: #### M ITOM2, CH50, PEBBLES, THYGLOB AB, C4, CHROMATIN, C3, TPO, SMAB #### [facility] , Platelet mean volume (Bld) [Entitic vol] 7.9 fL Normal 6.3-10.7 [facility] Comment on above: Performed By: #### M ITOM2, CH50, PEBBLES, THYGLOB AB, C4, CHROMATIN, C3, TPO, SMAB #### [facility] , Platelets (Bld) [#/Vol] 435 10*3/uL Normal 150-450 [facility] Comment on above: Performed By: #### M ITOM2, CH50, PEBBLES, THYGLOB AB, C4, CHROMATIN, C3, TPO, SMAB #### [facility] , RBC (Bld) [#/Vol] 4.51 10*6/uL Normal 3.60-5.00 [facility] Comment on above: Performed By: #### M ITOM2, CH50, PEBBLES, THYGLOB AB, C4, CHROMATIN, C3, TPO, SMAB #### [facility] , WBC (Bld) [#/Vol] 12.7 10*3/uL High 3.8-11.6 [facility] Comment on above: Performed By: #### M ITOM2, CH50, PEBBLES, THYGLOB AB, C4, CHROMATIN, C3, TPO, SMAB #### [facility] , Comprehensive Metabolic Pane jose raul 08-30-2024 Albumin [Mass/Vol] 4.5 g/dL Normal 3.5-5.7 [facility] Comment on above: Performed By: #### M ITOM2, CH50, PEBBLES, THYGLOB AB, C4, CHROMATIN, C3, TPO, SMAB #### [facility] , Albumin/Globulin [Mass ratio] 1.3 {ratio} Normal [facility] Comment on above: Performed By: #### M ITOM2, CH50, PEBBLES, THYGLOB AB, C4, CHROMATIN, C3, TPO, SMAB #### [facility] , ALP [Catalytic activity/Vol] 91 U/L Normal 34-104 [facility] Comment on above: Performed By: #### M ITOM2, CH50, PEBBLES, THYGLOB AB, C4, CHROMATIN, C3, TPO, SMAB #### [facility] , ALT [Catalytic activity/Vol] 20 U/L Normal 7-52 [facility] Comment on above: Performed By: #### M ITOM2, CH50, PEBBLES, THYGLOB AB, C4, CHROMATIN, C3, TPO, SMAB #### [facility] , Anion gap [Moles/Vol] 12.7 mmol/L Normal 6.0-15.0 [facility] e [facility] Comment on above: Performed By: #### M ITOM2, CH50, PEBBLES, THYGLOB AB, C4, CHROMATIN, C3, TPO, SMAB #### [facility] , AST [Catalytic activity/Vol] 15 U/L Normal 13-39 [facility] Comment on above: Performed By: #### M ITOM2, CH50, PEBBLES, THYGLOB AB, C4, CHROMATIN, C3, TPO, SMAB #### [facility] , Bilirubin [Mass/Vol] 0.6 mg/dL Normal 0.3-1.0 [facility] Comment on above: Performed By: #### M ITOM2, CH50, PEBBLES, THYGLOB AB, C4, CHROMATIN, C3, TPO, SMAB #### [facility] , Calcium [Mass/Vol] 9.6 mg/dL Normal 8.6-10.3 [facility] Comment on above: Performed By: #### M ITOM2, CH50, PEBBLES, THYGLOB AB, C4, CHROMATIN, C3, TPO, SMAB #### [facility] , Chloride [Moles/Vol] 102 mmol/L Normal 98-107 [facility] Comment on above: Performed By: #### M ITOM2, CH50, PEBBLES, THYGLOB AB, C4, CHROMATIN, C3, TPO, SMAB #### [facility] , CO2 [Moles/Vol] 27.1 mmol/L Normal 21.0-31.0 [facility] Comment on above: Performed By: #### M ITOM2, CH50, PEBBLES, THYGLOB AB, C4, CHROMATIN, C3, TPO, SMAB #### [facility] , Creatinine [Mass/Vol] 0.61 mg/dL Normal 0.60-1.20 [facility] Comment on above: Performed By: #### M ITOM2, CH50, PEBBLES, THYGLOB AB, C4, CHROMATIN, C3, TPO, SMAB #### [facility] , GFR/1.73 sq M.predicted MDRD (S/P/Bld) [Vol rate/Area] mL/min/{1.73_m2} Normal [facility] Comment on above: Performed By: #### M ITOM2, CH50, PEBBLES, THYGLOB AB, C4, CHROMATIN, C3, TPO, SMAB #### [facility] , Globulin (S) [Mass/Vol] 3.5 g/dL Normal [facility] Comment on above: Performed By: #### M ITOM2, CH50, PEBBLES, THYGLOB AB, C4, CHROMATIN, C3, TPO, SMAB #### [facility] , Glucose [Mass/Vol] 102 mg/dL High 70-100 [facility] Comment on above: Result Comment: [place] Glucose Reference Range is dependent on time and content of last meal. Glucose of more than 200 mg/dL in a nonstressed, ambulatory subject supports the diagnosis of Diabetes Mellitus. ADA recommended reference range Performed By: #### M ITOM2, CH50, PEBBLES, THYGLOB AB, C4, CHROMATIN, C3, TPO, SMAB #### [facility] , Potassium [Moles/Vol] 3.8 mmol/L Normal 3.5-5.1 [facility] Comment on above: Performed By: #### M ITOM2, CH50, PEBBLES, THYGLOB AB, C4, CHROMATIN, C3, TPO, SMAB #### [facility] , Protein [Mass/Vol] 8.0 g/dL Normal 6.4-8.9 [facility] Comment on above: Performed By: #### M ITOM2, CH50, PEBBLES, THYGLOB AB, C4, CHROMATIN, C3, TPO, SMAB #### [facility] , Sodium [Moles/Vol] 138 mmol/L Normal 136-145 [facility] Comment on above: Performed By: #### M ITOM2, CH50, PEBBLES, THYGLOB AB, C4, CHROMATIN, C3, TPO, SMAB #### [facility] , Urea nitrogen [Mass/Vol] 9 mg/dL Normal 7-25 [facility] Comment on above: Performed By: #### M ITOM2, CH50, PEBBLES, THYGLOB AB, C4, CHROMATIN, C3, TPO, SMAB #### [facility] , Creatine Kinaseon 08-30-2024 CK [Catalytic activity/Vol] 40 U/L Normal 30-223 [facility] Comment on above: Result Comment: PERF ORMED BY: [place] [address] PATHOLOGIST COLLECTION CLERK DARIO ALEJO M.D. Performed By: #### I FE,URINE, SPE, RPR W RFX, KAJAL SERUM, UPE RAND, ALDOLASE #### [facility] , #### T4F, CK, CRP, CBC, TSH3, ADDONUAPLUS, CMP, ESR #### [facility] [address] [place] [address] [place] Dipstick and Microscopicon 1 10-31-2023 Appearance (U) Clear Normal Clear [facility] Comment on above: Order Comment: Name Collection Type:: Clean-Voided Midstream Performed By: #### M ITOM2, CH50, PEBBLES, THYGLOB AB, C4, CHROMATIN, C3, TPO, SMAB #### [facility] , Bacteria,Urine None Seen Normal None Seen [facility] Comment on above: Order Comment: Name Collection Type:: Clean-Voided Midstream Result Comment: PERF ORMED BY: [facility] [place] [address] PATHOLOGIST COLLECTION CLERK DARIO ALEJO M.D. Performed By: #### M ITOM2, CH50, PEBBLES, THYGLOB AB, C4, CHROMATIN, C3, TPO, SMAB #### [facility] , Bilirubin,Urine Negative Normal Negative [facility] Comment on above: Order Comment: Name Collection Type:: Clean-Voided Midstream Performed By: #### M ITOM2, CH50, PEBBLES, THYGLOB AB, C4, CHROMATIN, C3, TPO, SMAB #### [facility] , Color (U) Light-Yellow Normal Yellow [facility] Comment on above: Order Comment: Name Collection Type:: Clean-Voided Midstream Performed By: #### M ITOM2, CH50, PEBBLES, THYGLOB AB, C4, CHROMATIN, C3, TPO, SMAB #### [facility] , Glucose Ql (U) Normal Normal Normal [facility] Comment on above: Order Comment: Name Collection Type:: Clean-Voided Midstream Performed By: #### M ITOM2, CH50, PEBBLES, THYGLOB AB, C4, CHROMATIN, C3, TPO, SMAB #### [facility] , Ketones Ql (U) Negative Normal Negative [facility] Comment on above: Order Comment: Name Collection Type:: Clean-Voided Midstream Performed By: #### M ITOM2, CH50, PEBBLES, THYGLOB AB, C4, CHROMATIN, C3, TPO, SMAB #### [facility] , Leukocyte esterase Test strip Ql (U) Negative Normal Negative [facility] Comment on above: Order Comment: Name Collection Type:: Clean-Voided Midstream Performed By: #### M ITOM2, CH50, PEBBLES, THYGLOB AB, C4, CHROMATIN, C3, TPO, SMAB #### [facility] , Nitrite,Urine Negative Normal Negative [facility] Comment on above: Order Comment: Name Collection Type:: Clean-Voided Midstream Performed By: #### M ITOM2, CH50, PEBBLES, THYGLOB AB, C4, CHROMATIN, C3, TPO, SMAB #### [facility] , Occult Blood,Urine Negative Normal Negative [facility] Comment on above: Order Comment: Name Collection Type:: Clean-Voided Midstream Performed By: #### M ITOM2, CH50, PEBBLES, THYGLOB AB, C4, CHROMATIN, C3, TPO, SMAB #### [facility] , pH (U) 5.5 [pH] Normal 5.0-9.0 [facility] Comment on above: Order Comment: Name Collection Type:: Clean-Voided Midstream Performed By: #### M ITOM2, CH50, PEBBLES, THYGLOB AB, C4, CHROMATIN, C3, TPO, SMAB #### [facility] , Protein,Urine Negative Normal Negative [facility] Comment on above: Order Comment: Name Collection Type:: Clean-Voided Midstream Performed By: #### M ITOM2, CH50, PEBBLES, THYGLOB AB, C4, CHROMATIN, C3, TPO, SMAB #### [facility] , RBC,Urine 0 [HPF] Normal 0-4 [facility] Comment on above: Order Comment: Name Collection Type:: Clean-Voided Midstream Performed By: #### M ITOM2, CH50, PEBBLES, THYGLOB AB, C4, CHROMATIN, C3, TPO, SMAB #### [facility] , Specificy [place],Urine 1.014 Normal 1.001-1.030 [facility] Comment on above: Order Comment: Name Collection Type:: Clean-Voided Midstream Performed By: #### M ITOM2, CH50, PEBBLES, THYGLOB AB, C4, CHROMATIN, C3, TPO, SMAB #### [facility] , Squamous Epithelial Cell,Urine 1 [HPF] Normal 0-2 [facility] Comment on above: Order Comment: Name Collection Type:: Clean-Voided Midstream Performed By: #### M ITOM2, CH50, PEBBLES, THYGLOB AB, C4, CHROMATIN, C3, TPO, SMAB #### [facility] , Urobilinogen,Urine Normal Normal Normal [facility] Comment on above: Order Comment: Name Collection Type:: Clean-Voided Midstream Performed By: #### M ITOM2, CH50, PEBBLES, THYGLOB AB, C4, CHROMATIN, C3, TPO, SMAB #### [facility] , WBC,Urine 3 [HPF] Normal 0-4 [facility] Comment on above: Order Comment: Name Collection Type:: Clean-Voided Midstream Performed By: #### M ITOM2, CH50, PEBBLES, THYGLOB AB, C4, CHROMATIN, C3, TPO, SMAB #### [facility] , Erythrocyte Sedimentation Ra joy 08-30-2024 ESR (Bld) [Velocity] 34 mm/h High 0-19 [facility] Comment on above: Result Comment: PERF ORMED BY: [address] [place] [address] PATHOLOGIST COLLECTION CLERK DARIO ALEJO M.D. Performed By: #### M ITOM2, CH50, PEBBLES, THYGLOB AB, C4, CHROMATIN, C3, TPO, SMAB #### [facility] , Free T4 (Free Thyroxine)on 1 10-31-2023 Free T4 [Mass/Vol] 0.88 ng/dL Normal 0.61-1.12 [facility] Comment on above: Performed By: #### M ITOM2, CH50, PEBBLES, THYGLOB AB, C4, CHROMATIN, C3, TPO, SMAB #### [facility] , Immunofixation, (KAJAL), Urine on 08-30-2024 Immunofixation, (KAJAL), Urine Comment Normal . [facility] Comment on above: Result Comment: No m onoclonality detected. Performed at: [address] [id number] Smog Technician: David Dietz PhD, Phone: [phone] Performed By: #### M ITOM2, CH50, PEBBLES, THYGLOB AB, C4, CHROMATIN, C3, TPO, SMAB #### [facility] , Immunofixation,Serumon 08-30 Immunofixation, Serum Comment Normal . [facility] Comment on above: Result Comment: No m onoclonality detected. Performed By: #### M ITOM2, CH50, PEBBLES, THYGLOB AB, C4, CHROMATIN, C3, TPO, SMAB #### [facility] , Immunoglobulin A, Serum 159 mg/dL Normal 87-352 [facility] Comment on above: Performed By: #### M ITOM2, CH50, PEBBLES, THYGLOB AB, C4, CHROMATIN, C3, TPO, SMAB #### [facility] , Immunoglobulin G 1829 mg/dL High 586-1602 [facility] Comment on above: Performed By: #### M ITOM2, CH50, PEBBLES, THYGLOB AB, C4, CHROMATIN, C3, TPO, SMAB #### [facility] , Immunoglobulin M, Serum 115 mg/dL Normal 26-217 [facility] Comment on above: Result Comment: Perf ormed at: [address] [id number] Smog Technician: David Dietz PhD, Phone: [phone] Performed By: #### M ITOM2, CH50, PEBBLES, THYGLOB AB, C4, CHROMATIN, C3, TPO, SMAB #### [facility] , Lupus Anticoagulant Compon 1 10-31-2023 Dilute Prothrombin Time (dPt) 31.9 Normal 0.0-47.6 [facility] Comment on above: Performed By: #### M ITOM2, CH50, PEBBLES, THYGLOB AB, C4, CHROMATIN, C3, TPO, SMAB #### [facility] , dPT Confirm Ratio 1.04 Normal 0.00-1.34 [facility] Comment on above: Performed By: #### M ITOM2, CH50, PEBBLES, THYGLOB AB, C4, CHROMATIN, C3, TPO, SMAB #### [facility] , DRVVT Lupus 30.0 Normal 0.0-47.0 [facility] Comment on above: Performed By: #### M ITOM2, CH50, PEBBLES, THYGLOB AB, C4, CHROMATIN, C3, TPO, SMAB #### [facility] , Interpretation Comment: Normal . [facility] Comment on above: Result Comment: No l upus anticoagulant was detected. Performed at: [facility] [id number] Smog Technician: Tirso Cummings MD, Phone: [phone] PERFORMED BY: [address] [address] PATHOLOGIST COLLECTION CLERK DARIO ALEJO M.D. Performed By: #### M ITOM2, CH50, PEBBLES, THYGLOB AB, C4, CHROMATIN, C3, TPO, SMAB #### [facility] , PTT-LA 33.6 Normal 0.0-43.5 [facility] Comment on above: Performed By: #### M ITOM2, CH50, PEBBLES, THYGLOB AB, C4, CHROMATIN, C3, TPO, SMAB #### [facility] , Thrombin Time 18.1 Normal 0.0-23.0 [facility] Comment on above: Performed By: #### M ITOM2, CH50, PEBBLES, THYGLOB AB, C4, CHROMATIN, C3, TPO, SMAB #### [facility] , Mitochondrial (M2) Antibodyo n 08-30-2024 Mitochondrial (M2) Antibody 122.2 High 0.0-20.0 [facility] Comment on above: Result Comment: Nega tive 0.0 - 20.0 Equivocal 20.1 - 24.9 Positive >24.9 Mitochondrial (M2) Antibodies are found in 90-96% of patients with primary biliary cirrhosis. Performed at: [address] [id number] Smog Technician: David Dietz PhD, Phone: [phone] Performed By: #### M ITOM2, CH50, PEBBLES, THYGLOB AB, C4, CHROMATIN, C3, TPO, SMAB #### [facility] , Protein Electro, Random Urin ronda 08-30-2024 Albumin, Urine 58.3 % Normal . [facility] Comment on above: Performed By: #### M ITOM2, CH50, PEBBLES, THYGLOB AB, C4, CHROMATIN, C3, TPO, SMAB #### [facility] , Rlqmz-8-Wpopkuez, Urine 2.0 % Normal . [facility] Comment on above: Performed By: #### M ITOM2, CH50, PEBBLES, THYGLOB AB, C4, CHROMATIN, C3, TPO, SMAB #### [facility] , Mfagz-2-Imdnwnbk, Urine 6.7 % Normal . [facility] Comment on above: Performed By: #### M ITOM2, CH50, PEBBLES, THYGLOB AB, C4, CHROMATIN, C3, TPO, SMAB #### [facility] , Beta Globulin, Urine 16.4 % Normal . [facility] Comment on above: Performed By: #### M ITOM2, CH50, PEBBLES, THYGLOB AB, C4, CHROMATIN, C3, TPO, SMAB #### [facility] , Gamma Globulin, Urine 16.6 % Normal . [facility] Comment on above: Performed By: #### M ITOM2, CH50, PEBBLES, THYGLOB AB, C4, CHROMATIN, C3, TPO, SMAB #### [facility] , M-Vargas % Not Observed Normal Not Observed [facility] Comment on above: Performed By: #### M ITOM2, CH50, PEBBLES, THYGLOB AB, C4, CHROMATIN, C3, TPO, SMAB #### [facility] , Please Note: Comment Normal . The [facility] Comment on above: Result Comment: Prot ein electrophoresis scan will follow via computer, mail, or resource management planner delivery. Protein electrophoresis scan will follow via computer, mail, or resource management planner delivery. Performed at: [address] [id number] Smog Technician: David Dietz PhD, Phone: [phone] --- 09/04/24 6844 --- Please Note: previously reported as: Comment Protein electrophoresis scan will follow via computer, mail, or resource management planner delivery. PERFORMED BY: [address] [place] [address] PATHOLOGIST COLLECTION CLERK DARIO ALEJO M.D. Performed By: #### M ITOM2, CH50, PEBBLES, THYGLOB AB, C4, CHROMATIN, C3, TPO, SMAB #### [facility] , Protein (U) [Mass/Vol] 5.4 mg/dL Normal Not Estab. [facility] Comment on above: Performed By: #### M ITOM2, CH50, PEBBLES, THYGLOB AB, C4, CHROMATIN, C3, TPO, SMAB #### [facility] , Protein Electrophoresis, Ser umon 08-30-2024 Albumin [Mass/Vol] 3.9 g/dL Normal 2.9-4.4 [facility] Comment on above: Performed By: #### M ITOM2, CH50, PEBBLES, THYGLOB AB, C4, CHROMATIN, C3, TPO, SMAB #### [facility] , Albumin/Globulin [Mass ratio] 0.8 {ratio} Normal 0.7-1.7 [facility] Comment on above: Performed By: #### M ITOM2, CH50, PEBBLES, THYGLOB AB, C4, CHROMATIN, C3, TPO, SMAB #### [facility] , Fezmr-5-Fltwsmii 0.3 g/dL Normal 0.0-0.4 [facility] Comment on above: Performed By: #### M ITOM2, CH50, PEBBLES, THYGLOB AB, C4, CHROMATIN, C3, TPO, SMAB #### [facility] , Kmuut-7-Ylfckfyv 1.0 g/dL Normal 0.4-1.0 [facility] Comment on above: Performed By: #### M ITOM2, CH50, PEBBLES, THYGLOB AB, C4, CHROMATIN, C3, TPO, SMAB #### [facility] , Beta Globulin 1.4 g/dL High 0.7-1.3 [facility] Comment on above: Performed By: #### M ITOM2, CH50, PEBBLES, THYGLOB AB, C4, CHROMATIN, C3, TPO, SMAB #### [facility] , Gamma Globulin 2.0 g/dL High 0.4-1.8 [facility] Comment on above: Performed By: #### M ITOM2, CH50, PEBBLES, THYGLOB AB, C4, CHROMATIN, C3, TPO, SMAB #### [facility] , Globulin (S) [Mass/Vol] 4.7 g/dL High 2.2-3.9 [facility] Comment on above: Performed By: #### M ITOM2, CH50, PEBBLES, THYGLOB AB, C4, CHROMATIN, C3, TPO, SMAB #### [facility] , M-Vargas Not Observed Normal Not Observed [facility] Comment on above: Performed By: #### M ITOM2, CH50, PEBBLES, THYGLOB AB, C4, CHROMATIN, C3, TPO, SMAB #### [facility] , Protein [Mass/Vol] 8.6 g/dL High 6.0-8.5 [facility] Comment on above: Performed By: #### M ITOM2, CH50, PEBBLES, THYGLOB AB, C4, CHROMATIN, C3, TPO, SMAB #### [facility] , SPE-Note Comment Normal . [facility] Comment on above: Result Comment: Prot ein electrophoresis scan will follow via computer, mail, or resource management planner delivery. Performed at: [address] [id number] Smog Technician: David Dietz PhD, Phone: [phone] Performed By: #### M ITOM2, CH50, PEBBLES, THYGLOB AB, C4, CHROMATIN, C3, TPO, SMAB #### [facility] , RPR w/rfx to Quant TP Abson 08-30-2024 RPR, Rfx Quant RPR Non-Reactive Normal Non Reactive Th e [facility] Comment on above: Result Comment: Perf ormed at: [address] [id number] Smog Technician: David Dietz PhD, Phone: [phone] PERFORMED BY: [address] [place] [address] PATHOLOGIST COLLECTION CLERK DARIO ALEJO M.D. Performed By: #### M ITOM2, CH50, PEBBLES, THYGLOB AB, C4, CHROMATIN, C3, TPO, SMAB #### [facility] , Smooth Muscle Antibodyon Smooth Muscle Antibody 10 Normal 0-19 [facility] Comment on above: Result Comment: [...] Peroxidase Antibodies 11 [IU]/mL Normal 0-34 [facility] Comment on above: Result Comment: Perf ormed at: [address] [id number] Smog Technician: David Dietz PhD, Phone: [phone] Performed By: #### M ITOM2, CH50, PEBBLES, THYGLOB AB, C4, CHROMATIN, C3, TPO, SMAB #### [facility] , Thyroid Stimulating Hormoneo n 08-30-2024 TSH Qn 1.37 m[IU]/L Normal 0.45-5.33 [facility] Comment on above: Result Comment: PERF ORMED BY: [facility] [address] [place] [address] PATHOLOGIST COLLECTION CLERK DARIO ALEJO M.D. Performed By: #### M [...] facility with appropriate resources Outcome: Progressing Normal [facility] COMPREHENSIVE METABOLIC PANE Jose Raul 08-12-2024 Albumin [Mass/Vol] 3.8 g/dL Normal 3.5-5.7 [facility] Comment on above: Performed By: #### L [id number] ####[facility] ([facility]AKER)[address] [place] [address] ALP [Catalytic activity/Vol] 223 U/L High 34-104 [facility] Comment on above: Performed By: #### L [id number] ####[facility] ([facility])[address] [place] [address] ALT [Catalytic activity/Vol] 256 U/L High 7-52 [facility] Comment on above: Performed By: #### L [id number] ####[facility] ([facility])[address] [place] [address] Anion gap [Moles/Vol] 12 mmol/L Normal 7-20 [facility] Comment on above: Performed By: #### L [id number] ####[facility] ([facility])[address] [place] [address] AST [Catalytic activity/Vol] 74 U/L High 13-39 [facility] Comment on above: Performed By: #### L [id number] ####[facility] ([facility])[address] [place] [address] Bilirubin [Mass/Vol] 1.2 mg/dL High 0.3-1.0 [facility] Comment on above: Performed By: #### L [id number] ####[facility] ([facility])[address] [place] [address] Calcium [Mass/Vol] 8.5 mg/dL Low 8.6-10.3 [facility] Comment on above: Performed By: #### L [id number] ####[facility] ([facility])[address] [place] [address] Chloride [Moles/Vol] 104 mmol/L Normal 98-107 [facility] Comment on above: Performed By: #### L [id number] ####[facility] ([facility])[address] [place] [address] CO2 [Moles/Vol] 22 mmol/L Normal 21-31 [facility] Comment on above: Performed By: #### L [id number] ####[facility] ([facility])[address] [place] [address] Creatinine [Mass/Vol] 0.51 mg/dL Low 0.60-1.20 [facility] Comment on above: Performed By: #### L [id number] ####[facility] ([facility])[address] [place] [address] GLOMERULAR FILTRATION RATE ML/MIN/1.73 SQ M.PREDICTED 129.5 mL/min/1.73m*2 Normal >60.0 [facility] Comment on above: Result Comment: The [facility]???s estimated glomerular filtration rate (eGFR) will [...] of individuals. Performed By: #### L [id number] ####[facility] ([facility])[address] [place] [address] Glucose [Mass/Vol] 71 mg/dL Normal 70-100 [facility] Comment on above: Performed By: #### L [id number] ####[facility] ([facility])[address] [place] [address] Potassium [Moles/Vol] 4.0 mmol/L Normal 3.5-5.1 [facility] Comment on above: Performed By: #### L [id number] ####[facility] ([facility])[address] [place] [address] Protein [Mass/Vol] 7.2 g/dL Normal 6.0-8.3 [facility] Comment on above: Performed By: #### L [id number] ####[facility] ([facility])[address] [place] [address] Sodium [Moles/Vol] 134 mmol/L Low 136-145 [facility] Comment on above: Performed By: #### L [id number] ####[facility] ([facility])[address] [place] [address] Urea nitrogen [Mass/Vol] 9 mg/dL Normal 7-25 [facility] Comment on above: Performed By: #### L [id number] ####[facility] ([facility])[address] [place] [address] UREA NITROGEN/CREATININE (MASS RATIO) IN SER/PLAS 17.6 Normal [facility] Comment on above: Performed By: #### L [id number] ####[facility] ([facility])[address] [place] [address] POCT GLUCOSE METER UNSOLICIT ED RESULTSon 08-12-2024 Glucose [Mass/Vol] 128 mg/dL High 70-105 [facility] Comment on above: Order Comment: Waive d Testing in the ED is performed under the ED CLIA certificate #[id number]. Result Comment: msan Performed By: #### L [id number] #### [facility] ([facility]) [address] [place] [address] Glucose [Mass/Vol] 204 mg/dL High 70-105 [facility] Comment on above: Order Comment: Waive d Testing in the ED is performed under the ED CLIA certificate #[id number]. Result Comment: elac umsky Performed By: #### L [id number] ####[facility] ([facility])[address] [place] [address] Glucose [Mass/Vol] 70 mg/dL Normal 70-105 [facility] Comment on above: Order Comment: Waive d Testing in the ED is performed under the ED CLIA certificate #[id number]. Result Comment: [email or web address] Performed By: #### L [id number] #### [facility] ([facility]) [address] [place] [address] 30on 08-11-2024 30 The patient is Moderately [...] reassessments, pain medication administration as ordered. Normal [facility] C-REACTIVE PROTEINon 024 C REACTIVE PROTEIN (MG/L) IN SER/PLAS 7.5 mg/L High <=5.0 [facility] Comment on above: Result Comment: Test ing performed using a new methodology, turbidimetry. Normal ranges have been updated. Old normal range was <8 mg/L. Performed By: #### L [id number] #### [facility] ([facility]) [address] [place] [address] CBC WITH AUTO DIFFERENTIALon 08-11-2024 Erythrocyte distribution width (RBC) [Ratio] 13.2 % Normal 11.5-15.0 [facility] Comment on above: Performed By: #### L [id number] #### [facility] ([facility]) [address] [place] [address] ERYTHROCYTE MEAN CORPUSCULAR HEMOGLOBIN CONCENTRATION (G/DL) BY AUTOMATED 33.2 g/dL Normal 32.0-35.0 [facility] Comment on above: Performed By: #### L [id number] #### [facility] ([facility]) [address] [place] [address] Hematocrit (Bld) [Volume fraction] 39.2 % Normal 36.0-48.0 [facility] Comment on above: Performed By: #### L [id number] #### [facility] ([facility]) [address] [place] [address] Hemoglobin (Bld) [Mass/Vol] 13.0 g/dL Normal 12.0-15.0 [facility] Comment on above: Performed By: #### L [id number] #### [facility] ([facility]) [address] [place] [address] IMMATURE PLATELET FRACTION % 6.2 % Normal 0.8-6.3 [facility] Comment on above: Performed By: #### L [id number] #### [facility] ([facility]) [address] [place] [address] MCH (RBC) [Entitic mass] 29.6 pg Normal 27.0-33.0 [facility] Comment on above: Performed By: #### L [id number] #### [facility] ([facility] [address] [place] [address] MCV (RBC) [Entitic vol] 89.3 fL Normal 82.0-98.0 [facility] Comment on above: Performed By: #### L [id number] #### [facility] ([facility]) [address] [place] [address] NRBC (PER 100 WBCS) BY AUTOMATED COUNT 0.0 % Normal 0 [facility] Comment on above: Performed By: #### L [id number] #### [facility] ([facility]) [address] [place] [address] PLATELETS (10*3/UL) IN BLOOD AUTOMATED COUNT 238 10*3/uL Normal 150-400 [facility] Comment on above: Performed By: #### L [id number] #### [facility] ([facility]) [address] [place] [address] RBC (Bld) [#/Vol] 4.39 10*6/uL Normal 3.80-5.00 [facility] Comment on above: Performed By: #### L [id number] #### [facility] ([facility]) [address] [place] [address] WBC (Bld) [#/Vol] 7.82 10*3/uL Normal 4.00-10.60 [facility] Comment on above: Performed By: #### L [id number] #### [facility] ([facility]) [address] [place] [address] COMPREHENSIVE METABOLIC PANE Jose Raul 08-11-2024 Albumin [Mass/Vol] 3.9 g/dL Normal 3.5-5.7 [facility] Comment on above: Performed By: #### L [id number] #### [facility] ([facility]) [address] [place] [address] ALP [Catalytic activity/Vol] 246 U/L High 34-104 [facility] Comment on above: Performed By: #### L [id number] #### [facility] ([facility]) [address] [place] [address] ALT [Catalytic activity/Vol] 314 U/L High 7-52 [facility] Comment on above: Performed By: #### L [id number] #### [facility] ([facility]) [address] [place] [address] Anion gap [Moles/Vol] 10 mmol/L Normal 7-20 [facility] Comment on above: Performed By: #### L [id number] #### [facility] ([facility]) [address] [place] [address] AST [Catalytic activity/Vol] 98 U/L High 13-39 [facility] Comment on above: Performed By: #### L [id number] #### [facility] ([facility]) [address] [place] [address] Bilirubin [Mass/Vol] 1.4 mg/dL High 0.3-1.0 [facility] Comment on above: Performed By: #### L [id number] #### [facility] ([facility]) [address] [place] [address] Calcium [Mass/Vol] 8.2 mg/dL Low 8.6-10.3 [facility] Comment on above: Performed By: #### L [id number] #### [facility] ([facility]) [address] [place] [address] Chloride [Moles/Vol] 108 mmol/L High 98-107 [facility] Comment on above: Performed By: #### L [id number] #### [facility] ([facility]) [address] [place] [address] CO2 [Moles/Vol] 21 mmol/L Normal 21-31 [facility] Comment on above: Performed By: #### L [id number] #### [facility] ([facility]) [address] [place] [address] Creatinine [Mass/Vol] 0.58 mg/dL Low 0.60-1.20 [facility] Comment on above: Performed By: #### L [id number] #### [facility] ([facility]) [address] [place] [address] GLOMERULAR FILTRATION RATE ML/MIN/1.73 SQ M.PREDICTED 125.6 mL/min/1.73m*2 Normal >60.0 [facility] Comment on above: Result Comment: [facility]???s estimated glomerular filtration rate (eGFR) will [...] individuals. Performed By: #### L [id number] #### [facility] ([facility]) [address] [place] [address] Glucose [Mass/Vol] 91 mg/dL Normal 70-100 [facility] Comment on above: Performed By: #### L [id number] #### [facility] ([facility]) [address] [place] [address] Potassium [Moles/Vol] 4.0 mmol/L Normal 3.5-5.1 [facility] Comment on above: Performed By: #### L [id number] #### [facility] ([facility]) [address] [place] [address] Protein [Mass/Vol] 7.2 g/dL Normal 6.0-8.3 [facility] Comment on above: Performed By: #### L [id number] #### [facility] ([facility]) [address] [place] [address] Sodium [Moles/Vol] 135 mmol/L Low 136-145 [facility] Comment on above: Performed By: #### L [id number] #### [facility] ([facility]) [address] [place] [address] Urea nitrogen [Mass/Vol] 9 mg/dL Normal 7-25 [facility] Comment on above: Performed By: #### L [id number] #### [facility] ([facility]) [address] [place] [address] UREA NITROGEN/CREATININE (MASS RATIO) IN SER/PLAS 15.5 Normal [facility] Comment on above: Performed By: #### L [id number] #### [facility] [place]) [address] [place] [address] CONSULTon 08-11-2024 CONSULT -- Attestation signed by [...] who was transferred to our hospital from [facility] due to concerns of possible choledocholithiasis for possible ERCP. The patient mentioned that 1 week ago she started to complain of right upper quadrant pain associated with nausea and vomiting. The pain was exacerbated by eating and drinking. It was radiating to the right shoulder. Patient presented to [facility]. Workup there showed an elevated liver enzymes [...] 7.2 B12/Folate/Iron studies: No results found for: [id number] , FOLATE , IRON , TIBC , UIBC , IRONSAT , FERRITIN Viral Hepatitis No results found for: HEPAIGM , HAV , HEPBSAG , HEPBSAB , HEPBEAB , HEPBIGM , HEPBCAB , HEPBCOREAB , HBVNAT , HCVSCR , HEPCAB , HCVNAT , HCVPCR , HCVTMA Liver workup No results found for: PEBBLES , SMOOTHMUSCAB , CERULOPLSM , [id number] , TTGA , IGA , TSH , FREET4 , AFP Pancreatitis Lab Results Component Value Date CALCIUM 8.2 (L) 08/11/2024 IMAGING: CTAP with IV contrast. Report is in the paper chart showed 3 mm stone in the distal CBD. ASSESSMENT AND PLAN Samantha Solis is a 28 y.o. female who was transferred to our hospital from [facility] due to concerns of possible choledocholithiasis for possible ERCP. The patient mentioned that 1 week ago she started to complain of right upper quadrant pain associated with nausea and vomiting. The pain was exacerbated by ea (more content not included)... Normal [facility] CONSULT -- Attestation signed by Elena Hubbard MD at 08/11/2024 5:23 PM Patient was seen by resident staff. I reviewed with resident staff overnight events, exam and laboratory findings, assessment and management plan. Elena Hubbard MD [facility] General Surgery CONSULTATION Reason for Consult: [...] AST 9 (more content not included)... Normal [facility] CONSULT -- Attestation signed by Tatiana [...] female admitted on 08/11/2024 as transfer from [facility] to [facility] for choledocholithiasis and need [...] and itching. (more content not included)... Normal [facility] MANUAL DIFFERENTIALon 2023 BASOPHILS (10*3/UL) IN BLOOD BY CALCULATION 0.05 10*3/uL Normal 0.00-0.20 [facility] Comment on above: Performed By: #### L [id number] ####[facility] ([facility])[address] [place] [address] BASOPHILS/100 LEUKOCYTES IN BLOOD BY AUTOMATED COUNT 0.6 % Normal 0.0-1.0 [facility] Comment on above: Performed By: #### L [id number] ####[facility] ([facility])[address] [place] [address] EOSINOPHILS (10*3/UL) IN BLOOD BY CALCULATION 0.11 10*3/uL Normal 0.00-0.50 [facility] Comment on above: Performed By: #### L [id number] ####[facility] ([facility])[address] [place] [address] EOSINOPHILS/100 LEUKOCYTES IN BLOOD BY AUTOMATED COUNT 1.4 % Normal 0.0-6.0 [facility] Comment on above: Performed By: #### L [id number] ####[facility] ([facility])[address] [place] [address] IMMATURE GRANULOCYTES (10*3/UL) IN BLOOD BY CALCULATION 0.02 10*3/uL Normal 0.00-0.20 [facility] Comment on above: Performed By: #### L [id number] ####[facility] ([facility])[address] [place] [address] IMMATURE GRANULOCYTES/100 LEUKOCYTES IN BLOOD BY AUTOMATED COUNT 0.3 % Normal 0.0-1.0 [facility] Comment on above: Performed By: #### L [id number] ####[facility] ([facility])[address] [place] [address] LYMPHOCYTES (10*3/UL) IN BLOOD BY CALCULATION 1.19 10*3/uL Low 1.20-4.00 [facility] Comment on above: Performed By: #### L [id number] ####[facility] ([facility])[address] [place] [address] LYMPHOCYTES/100 LEUKOCYTES IN BLOOD BY AUTOMATED COUNT 15.2 % Low 20.0-45.0 [facility] Comment on above: Performed By: #### L [id number] ####[facility] ([facility])[address] [place] [address] MONOCYTES (10*3/UL) IN BLOOD BY CALCUATION 0.41 10*3/uL Normal 0.10-1.00 [facility] Comment on above: Performed By: #### L [id number] ####[facility] ([facility])[address] [place] [address] MONOCYTES/100 LEUKOCYTES IN BLOOD BY AUTOMATED COUNT 5.2 % Normal 5.0-12.0 [facility] Comment on above: Performed By: #### L [id number] ####[facility] ([facility])[address] [place] [address] NEUTROPHILS (10*3/UL) IN BLOOD BY CALCULATION 6.0 10*3/uL Normal 1.6-7.6 [facility] Comment on above: Performed By: #### L [id number] ####[facility] ([facility])[address] [place] [address] NEUTROPHILS/100 LEUKOCYTES IN BLOOD BY AUTOMATED COUNT 77.3 % High 40.0-72.0 [facility] Comment on above: Performed By: #### L [id number] ####[facility] ([facility])[address] [place] [address] POCT GLUCOSE METER UNSOLICIT ED RESULTSon 08-11-2024 Glucose [Mass/Vol] 83 mg/dL Normal 70-105 [facility] Comment on above: Order Comment: Waive d Testing in the ED is performed under the ED CLIA certificate #[id number]. Result Comment: [email or web address] Performed By: #### L [id number] #### [facility] ([facility]) [address] [place] [address] Glucose [Mass/Vol] 78 mg/dL Normal 70-105 [facility] Comment on above: Order Comment: Waive d Testing in the ED is performed under the ED CLIA certificate #[id number]. Result Comment: [email or web address] Performed By: #### L [id number] #### [facility] ([facility]) [address] [place] [address] Glucose [Mass/Vol] 80 mg/dL Normal 70-105 [facility] Comment on above: Order Comment: Waive d Testing in the ED is performed under the ED CLIA certificate #[id number]. Result Comment: [email or web address] Performed By: #### L [id number] #### [facility] ([facility]) [address] [place] [address] ANTINUCLEAR ANTIBODIES, IFAo n 07-12-2024 ANTINUCLEAR ANTIBODIES, IFA Positive Abnormal . [facility] Comment on above: Negative <1:80 Borderline 1:80 Positive >1:80 CENTRIOLE PATTERN TNP . [facility] CENTROMERE PATTERN TNP . [facility] HOMOGENEOUS PATTERN TNP . [facility] Interpretation and review of laboratory results Abnormal [facility] MIDBODY PATTERN TNP . [facility] NOTE: Comment . [facility] Comment on above: Pattern Potential Di sease Association Homogeneous Systemic Lupus Erythematosus, Drug Induced Systemic Lupus Erythematosus, Chronic Autoimmune hepatitis, Juvenile Idiopathic Arthritis Speckled Sjogren Syndrome, Systemic Lupus Erythematosus, Subacute Cutaneous Lupus, Lupus, Congenital Heart Block, Mixed Connective Tissue Disease, Scleroderma-diffuse, Scleroderma-Autoimmune Myositis Overlap Syndrome, Systemic Lupus Jjtqobuuexvqt-Jhpyghbygvd-Humvwmvwgi Myositis Overlap Syndrome, Systemic Autoimmune Rheumatic Disease, [...] Cytopenias, Linear Scleroderma, Antiphospholipid Syndrome Performed at: [facility] [employer] [id number] Smog Technician: David Dietz PhD, Phone: [phone] NUCLEAR DOT PATTERN TNP . [facility] NUCLEAR MEMBRANE PATTERN TNP . [facility] NUCLEOLAR PATTERN TNP . [facility] PCNA PATTERN TNP . [facility] SPECKLED PATTERN >1:1280 Abnormal . [facility] Comment on above: ICAP nomenclature: A C-2,4,5,29 SPINDLE APPARATUS PATTERN TNP . [facility] URINE CULTURE, ROUTINEon Bacteria identified Cx Nom (U) Urine Culture, Routine [facility] Bacteria identified Cx Nom (U) Mixed urogenital cynthia [facility] Bacteria identified Cx Nom (U) Less than 10,000 colonies/mL [facility] Bacteria identified Cx Nom (U) Performed at: [facility] Bacteria identified Cx Nom (U) [address] [place], [place] [id number] [facility] Healthcare Bacteria identified Cx Nom (U) Smog Technician: David Dietz PhD, Phone: [phone] [facility] Jose Raul 06-17-2024 L Specimen: [id number] Received: 06/19/24 Status: DELROY Gray Num: [id number] Spec Type: Surgical Subm Dr: Holli Lemus DO Tissues: A Appendix - Other than Incidental (APPENDIX) Procedures: HE/2, Gross/Micro L3 Age/ Patient Sex Location Account Attending Physician SolisBarba Y 28/F [place] [id number] Shaikh Jc MD SPEC NUM: [id number] RECD: 06/19/24 STATUS: DELROY GRYA NUM: [id number] KATE: 06/17/[address]: Holli Lemus DO ENTERED: 06/19/[address]: Gaby Aponte MD SPEC TYPE: Surgical DEPT: [facility] ENTERED BY: [id number] RECV BY: [id number] ORDERED: HE/2, Gross/Micro L3 ORDERED: HE/2, Gross/Micro [...] The lumen is filled with purulent debris. Services Program Manager sections are submitted as follows: A1 proximal margin and cross-section A2 distal tip bisected CPT Codes 40190 ---- ---- Specimen: [id number] Received: 06/19/24-132 Status: DELROY Gray Num: [id number] Spec Type: Surgical Subm Dr: Holli Lemus DO Tissues: A Appendix - Other than Incidental (APPENDIX) Procedures: HE/2, Gross/Micro L3 ---- Patient: Samantha Solis [id number] (Continued) ---- Signed (signature on file) Dario Alejo MD 06/20/24 1517 Normal [facility] ALL CBC WITH AUTO DIFFon BASOPHILS ABSOLUTE AUTO 0.1 [facility] Basophils/100 WBC (Bld) 0.6 % 0.2 - 2.0 % [facility] Eosinophils/100 WBC (Bld) 2.4 % 0.9 - 7.0 % [facility] Erythrocyte distribution width (RBC) [Ratio] 13.2 % 11.0 - 15.0 % [facility] Hematocrit (Bld) [Volume fraction] 42.4 % 36.0 - 48.0 % [facility] Hemoglobin (Bld) [Mass/Vol] 14.7 g/dL 12.0 - 16.0 g/dL [facility] IMMATURE GRANULOCYTES ABS AUTO 0.02 [facility] Immature granulocytes/100 WBC (Bld) 0.2 % 0.0 - 0.5 % [facility] Interpretation and review of laboratory results Abnormal [facility] LYMPHOCYTES ABSOLUTE AUTO 1.8 [facility] Lymphocytes/100 WBC (Bld) 18.2 % Low 20.5 - 60.0 % [facility] MCH (RBC) [Entitic mass] 29.7 pg 26.7 - 34.0 pg [facility] MCHC (RBC) [Mass/Vol] 34.7 g/dL 29.9 - 35.2 g/dL [facility] MCV (RBC) [Entitic vol] 85.7 fL 81.0 - 99.0 fL [facility] MONOCYTES ABSOLUTE AUTO 0.4 [facility] Monocytes/100 WBC (Bld) 4.0 % 1.7 - 12.0 % [facility] NEUTROPHILS ABSOLUTE AUTO 7.3 High [facility] Neutrophils/100 WBC (Bld) 74.6 % 43.0 - 75.0 % [facility] Platelet mean volume (Bld) [Entitic vol] 8.8 fL Low 9.5 - 13.5 fL [facility] TBH EO # 0.2 [facility] PLT 386 [facility] RBC 4.95 [facility] WBC 9.8 [facility] XR FOOT GUANAKITO MIN 3 VIEWSon XR [...] PATRICIA KELLEY Date: 2022-12-15 12:37 Normal [facility] CBC AUTO DIFFon 03-02-2022 BASO # 0.1 103/ul Normal 0.0-0.1 [facility] Comment on above: Performed By: #### C BC #### [facility] [address] [place] [address] Dr. Mike Nails Basophils/100 WBC (Bld) 0.7 % Normal 0.2-2.0 [facility] Comment on above: Performed By: #### C BC #### [facility] [address] [place] [address] Dr. Mike Nails EO # 0.6 103/ul Normal 0.0-0.7 [facility] Comment on above: Performed By: #### C BC #### [facility] [address] [place] [address] Dr. Mike Nails Eosinophils/100 WBC (Bld) 5.7 % Normal 0.9-7.0 [facility] Comment on above: Performed By: #### C BC #### [facility] [address] [place] [address] Dr. Mike Nails Erythrocyte distribution width (RBC) [Ratio] 13.2 % Normal 11.0-15.0 [facility] Comment on above: Performed By: #### C BC #### [facility] [address] [place] [address] Dr. Mike Nails Hematocrit (Bld) [Volume fraction] 41.6 % Normal 36.0-48.0 [facility] Comment on above: Performed By: #### C BC #### [facility] [address] [place] [address] Dr. Mike Nails Hemoglobin (Bld) [Mass/Vol] 13.7 g/dL Normal 12.0-16.0 [facility] Comment on above: Performed By: #### C BC #### [facility] [address] [place] [address] Dr. Mike Nails IG # 0.02 10e3/ul Normal 0.00-0.03 [facility] Comment on above: Performed By: #### C BC #### [facility] [address] [place] [address] Dr. Mike Nails IG % 0.2 % Normal 0.0-0.5 [facility] Comment on above: Performed By: #### C BC #### [facility] [address] [address] [address] Mike Nails LYMPH # 2.6 103/ul Normal 1.2-3.8 [facility] Comment on above: Performed By: #### C BC #### [facility] [address] [address] [address] Mike Nails Lymphocytes/100 WBC (Bld) 26.3 % Normal 20.5-60.0 [facility] Comment on above: Performed By: #### C BC #### [facility] [address] [place] [address] Dr. Mike Nails MANUAL DIFF REQ NO Normal [facility] Comment on above: Performed By: #### C BC #### [facility] [address] [place] [address] Dr. Mike Nails MCH (RBC) [Entitic mass] 28.7 pg Normal 26.7-34.0 [facility] Comment on above: Performed By: #### C BC #### [facility] [address] [place] [address] Dr. Mike Nails MCHC (RBC) [Mass/Vol] 32.9 g/dL Normal 29.9-35.2 [facility] Comment on above: Performed By: #### C BC #### [facility] [address] [place] [address] Dr. Mike Nails MCV (RBC) [Entitic vol] 87.0 fL Normal 81.0-99.0 [facility] Comment on above: Performed By: #### C BC #### [facility] [address] [place] [address] Dr. Mike Nails MONO # 0.5 103/ul Normal 0.3-0.8 [facility] Comment on above: Performed By: #### C BC #### [facility] [address] [place] [address] Dr. Mike Nails Monocytes/100 WBC (Bld) 5.5 % Normal 1.7-12.0 [facility] Comment on above: Performed By: #### C BC #### [facility] [address] [address] [address] Mike Nails NEUT # 6.0 103/ul Normal 1.4-6.5 [facility] Comment on above: Performed By: #### C BC #### [facility] [address] [address] [address] Mike Nails Neutrophils/100 WBC (Bld) 61.6 % Normal 43.0-75.0 [facility] Comment on above: Performed By: #### C BC #### [facility] [address] [address] [address] Mike Nails Platelet mean volume (Bld) [Entitic vol] 8.7 fL Critically low 9.5-13.5 [facility] Comment on above: Performed By: #### C BC #### [facility] [address] [place] [address] Dr. Mike Nails PLT 369 103/ul Normal 150-450 [facility] Comment on above: Performed By: #### C BC #### [facility] [address] [place] [address] Dr. Mike Nails RBC 4.78 106/ul Normal 4.20-5.40 [facility] Comment on above: Performed By: #### C BC #### [facility] [address] [address] [address] Mike Nails WBC 9.7 103/ul Normal 4.0-11.0 [facility] Comment on above: Performed By: #### C BC #### [facility] [address] [place] [address] Dr. Mike Nails GLYCOHEMOGLOBIN A1Con 2021 ADA RECOMMENDATION SEE BELOW Normal [facility] Comment on above: Result Comment: ADA RECOMMENDED LIMIT 4.0 - 6.0 ADA THERAPEUTIC TARGET < 7.0 ACTION SUGGESTED > 7.0 Performed By: #### A 1C #### [facility] [address] [place] [address] Dr. Mike Nails Glucose [Mass/Vol] 105 mg/dL Normal [facility] Comment on above: Performed By: #### A 1C #### [facility] [address] [place] [address] Dr. Mike Nails HbA1c (Bld) [Mass fraction] 5.3 % Normal 4.5-6.2 [facility] Comment on above: Performed By: #### A 1C #### [facility] [address] [place] [address] Dr. Mike Nails LIPID PROFILEon 03-02-2022 CHOL-HDL RATIO NORM SEE BELOW Normal [facility] Comment on above: Result Comment: 3.3 - 4.4 LOW RISK 4.4 - 7.1 AVERAGE RISK 7.1 - 11.0 MODERATE RISK >11.0 HIGH RISK Performed By: #### B MP, LIPID, TSH, LIVER #### [facility] [address] [place] [address] Dr. Mike Nails Cholesterol [Mass/Vol] 198 mg/dL Normal <=200 [facility] Comment on above: Performed By: #### B MP, LIPID, TSH, LIVER #### [facility] [address] [place] [address] Dr. Mike Nails Cholesterol in HDL [Mass/Vol] 48 mg/dL Normal 40-60 [facility] Comment on above: Performed By: #### B MP, LIPID, TSH, LIVER #### [facility] [address] [place] [address] Dr. Mike Nails Cholesterol in LDL [Mass/Vol] 136.6 mg/dL Normal [facility] Comment on above: Performed By: #### B MP, LIPID, TSH, LIVER #### [facility] [address] [place] [address] Dr. Mike Nails Cholesterol.total/Cho lesterol in HDL [Mass ratio] 4.1 {ratio} Normal [facility] Comment on above: Performed By: #### B MP, LIPID, TSH, LIVER #### [facility] [address] [place] [address] Dr. Mike Nails HDL NORMAL > or = 60 mg/dl - LO W CARDIOVASCULAR RISK <40 mg/dl - HIGH CARDIOVASCULAR RISK Normal [facility] Comment on above: Performed By: #### B MP, LIPID, TSH, LIVER #### [facility] [address] [address] [address] Mike Nails LDL CALC NORMAL SEE BELOW Normal [facility] Comment on above: Result Comment: <100 mg/dl OPTIMAL 100 - 129 mg/dl NEAR OR ABOVE OPTIMAL 130 - 159 mg/dl BORDERLINE HIGH 160 - 189 mg/dl HIGH >190 mg/dl VERY HIGH Performed By: #### B MP, LIPID, TSH, LIVER #### [facility] [address] [address] [address] Mike Nails Triglyceride [Mass/Vol] 67 mg/dL Normal <=150 [facility] Comment on above: Performed By: #### B MP, LIPID, TSH, LIVER #### [facility] [address] [address] [address] Mike Nails VLDL CALC 13.4 mg/dL Normal [facility] Comment on above: Performed By: #### B MP, LIPID, TSH, LIVER #### [facility] [address] [place] [address] Dr. Mike Nails LIVER PROFILEon 03-02-2022 Albumin [Mass/Vol] 3.7 g/dL Normal 3.4-5.0 [facility] Comment on above: Performed By: #### B MP, LIPID, TSH, LIVER #### [facility] [address] [place] [address] Dr. Mike Nails Albumin/Globulin [Mass ratio] 0.8 {ratio} Normal [facility] Comment on above: Performed By: #### B MP, LIPID, TSH, LIVER #### [facility] [address] [place] [address] Dr. Mike Nails ALP [Catalytic activity/Vol] 87 U/L Normal 46-116 [facility] Comment on above: Performed By: #### B MP, LIPID, TSH, LIVER #### [facility] [address] [place] [address] Dr. Mike Nails ALT [Catalytic activity/Vol] 9 U/L Critically low 14-59 [facility] Comment on above: Performed By: #### B MP, LIPID, TSH, LIVER #### [facility] [address] [place] [address] Dr. Mike Nails AST [Catalytic activity/Vol] 17 U/L Normal 15-37 [facility] Comment on above: Performed By: #### B MP, LIPID, TSH, LIVER #### [facility] [address] [place] [address] Dr. Mike Nails BILI, CONJUGATED 0.1 mg/dL Normal 0.0-0.2 [facility] Comment on above: Performed By: #### B MP, LIPID, TSH, LIVER #### [facility] [address] [place] [address] Dr. Mike Nails Bilirubin [Mass/Vol] 0.4 mg/dL Normal 0.2-1.0 [facility] Comment on above: Performed By: #### B MP, LIPID, TSH, LIVER #### [facility] [address] [place] [address] Dr. Mike Nails Globulin (S) [Mass/Vol] 4.9 g/dL Normal [facility] Comment on above: Performed By: #### B MP, LIPID, TSH, LIVER #### [facility] [address] [place] [address] Dr. Mike Nails Protein [Mass/Vol] 8.6 g/dL Critically high 6.4-8.2 [facility] Comment on above: Performed By: #### B MP, LIPID, TSH, LIVER #### [facility] [address] [place] [address] Dr. Mike Nails PROF CHEM 8 (BAS METB)on Anion gap [Moles/Vol] 11.4 mmol/L Normal [facility] Comment on above: Performed By: #### B MP, LIPID, TSH, LIVER #### [facility] [address] [place] [address] Dr. Mike Nails Calcium [Mass/Vol] 9.2 mg/dL Normal 8.5-10.1 [facility] Comment on above: Performed By: #### B MP, LIPID, TSH, LIVER #### [facility] [address] [place] [address] Dr. Mike Nails Chloride [Moles/Vol] 104 mmol/L Normal 98-107 [facility] Comment on above: Performed By: #### B MP, LIPID, TSH, LIVER #### [facility] [address] [address] [address] Mike Nails CO2 [Moles/Vol] 28.7 mmol/L Normal 21.0-32.0 [facility] Comment on above: Performed By: #### B MP, LIPID, TSH, LIVER #### [facility] [address] [place] [address] Dr. Mike Nails Creatinine [Mass/Vol] 0.80 mg/dL Normal 0.55-1.02 [facility] Comment on above: Performed By: #### B MP, LIPID, TSH, LIVER #### [facility] [address] [place] [address] Dr. Mike Nails EGFR-AF CAMBODIAN >60 Normal >=60 [facility] Comment on above: Performed By: #### B MP, LIPID, TSH, LIVER #### [facility] [address] [place] [address] Dr. Mike Nails EGFR-NON AF CAMBODIAN >60 Normal >=60 [facility] Comment on above: Performed By: #### B MP, LIPID, TSH, LIVER #### [facility] [address] [place] [address] Dr. Mike Nails Glucose [Mass/Vol] 88 mg/dL Normal 74-106 [facility] Comment on above: Performed By: #### B MP, LIPID, TSH, LIVER #### [facility] [address] [address] [address] Mike Nails Potassium [Moles/Vol] 4.1 mmol/L Normal 3.5-5.1 [facility] Comment on above: Performed By: #### B MP, LIPID, TSH, LIVER #### [facility] [address] [place] [address] Dr. Mike Nails Sodium [Moles/Vol] 140 mmol/L Normal 136-145 [facility] Comment on above: Performed By: #### B MP, LIPID, TSH, LIVER #### [facility] [address] [place] [address] Dr. Mike Nails Urea nitrogen [Mass/Vol] 15.0 mg/dL Normal 7.0-18.0 [facility] Comment on above: Performed By: #### B MP, LIPID, TSH, LIVER #### [facility] [address] [place], [place] [address] Dr. Mike Nails Urea nitrogen/Creatinine [Mass ratio] 18.8 mg/mg Normal [facility] Comment on above: Performed By: #### B MP, LIPID, TSH, LIVER #### [facility] [address] [place], [place] [address] Dr. Mike Nails TSHon 03-02-2022 TSH 1.489 uIU/mL Normal 0.358-3.740 [facility] Comment on above: Performed By: #### B MP, LIPID, TSH, LIVER #### [facility] [address] [place], [place] [address] Dr. Mike Nails XR FOOT LT MIN [...] 15:24 Normal [facility] Vital Signs Date Time Vital Sign Value Performing Clinician Facility 01-04-2025 11:01-0400 Body height 162.6 cm Brian Jacobs MD Work Phone: [facility] 01-04-2025 11:010400 Body mass index (BMI) [Ratio] 33.33 kg/m2 Brian Jacobs MD Work Phone: [facility] 01-04-2025 11:01-0400 Body temperature 97.5 [degF] Brian Jacobs MD Work Phone: [facility] 01-04-2025 11:01-0400 Body weight 88.09 kg Brian Jacobs MD Work Phone: [facility] 01-04-2025 11:01-0400 Diastolic blood pressure 78 mm[Hg] Brian Jacobs MD Work Phone: [facility] 01-04-2025 11:01-0400 Heart rate 111 /min Brian Jacobs MD Work Phone: [facility] 01-04-2025 11:01-0400 Respiratory rate 22 /min Brian Jacobs MD Work Phone: [facility] 01-04-2025 11:01-0400 SaO2% (BldA) [Mass fraction] 98 % Brian Jacobs MD Work Phone: [facility] 01-04-2025 11:01-0400 Systolic blood pressure 122 mm[Hg] Brian Jacobs MD Work Phone: [facility] 11-27-2024 08:54-0400 Body height 162.6 cm Krystal Shell MD Work Phone: [facility] 11-27-2024 08:54-0400 Body mass index (BMI) [Ratio] 33.3 kg/m2 Krystal Shell MD Work Phone: [facility] 11-27-2024 08:54-0400 Body weight 88 kg Krystal Shell MD Work Phone: [facility] Comment on above: patient reports 11-27-2024 08:54-0400 Diastolic blood pressure 82 mm[Hg] Krystal Shell MD Work Phone: [facility] 11-27-2024 08:54-0400 Systolic blood pressure 110 mm[Hg] Krystal Shell MD Work Phone: [facility] 10-30-2024 09:32-0500 Body height 162.6 cm Krystal Shell MD Work Phone: [facility] 10-30-2024 09:32-0500 Body mass index (BMI) [Ratio] 33.47 kg/m2 Krystal Shell MD Work Phone: [facility] 10-30-2024 09:32-0500 Body weight 88.45 kg Krystal Shell MD Work Phone: [facility] Comment on above: patient reports 10-30-2024 09:32-0500 Diastolic blood pressure 76 mm[Hg] Krystal Shell MD Work Phone: [facility] 10-30-2024 09:32-0500 Systolic blood pressure 108 mm[Hg] Krystal Shell MD Work Phone: [facility] 09-27-2024 08:52-0500 Body height 162.6 cm Brian Jacobs MD Work Phone: [facility] 09-27-2024 08:52-0500 Body mass index (BMI) [Ratio] 33.3 kg/m2 Brian Jacobs MD Work Phone: [facility] 09-27-2024 08:52-0500 Body temperature 97.81 [degF] Brian Jacobs MD Work Phone: [facility] 09-27-2024 08:52-0500 Body weight 88 kg Brian Jacobs MD Work Phone: [facility] 09-27-2024 08:52-0500 Diastolic blood pressure 70 mm[Hg] Brian Jacobs MD Work Phone: [facility] 09-27-2024 08:52-0500 Heart rate 95 /min Brian Jacobs MD Work Phone: [facility] 09-27-2024 08:52-0500 Respiratory rate 22 /min Brian Jacobs MD Work Phone: [facility] 09-27-2024 08:52-0500 SaO2% (BldA) [Mass fraction] 99 % Biran Jacobs MD Work Phone: [facility] 09-27-2024 08:52-0500 Systolic blood pressure 124 mm[Hg] Brian Jacobs MD Work Phone: [facility] 08-16-2024 11:13-0500 Body height 162.6 cm Brian Jacobs MD Work Phone: [facility] 08-16-2024 11:13-0500 Body mass index (BMI) [Ratio] 32.79 kg/m2 Brian Jacobs MD Work Phone: [facility] 08-16-2024 11:13-0500 Body temperature 97.3 [degF] Brian Jacobs MD Work Phone: [facility] 08-16-2024 11:13-0500 Body weight 86.64 kg Brian Jacobs MD Work Phone: [facility] 08-16-2024 11:13-0500 Diastolic blood pressure 70 mm[Hg] Brian Jacobs MD Work Phone: [facility] 08-16-2024 11:13-0500 Heart rate 84 /min Brian Jacobs MD Work Phone: [facility] 08-16-2024 11:13-0500 Respiratory rate 20 /min Brian Jacobs MD Work Phone: [facility] 08-16-2024 11:13-0500 SaO2% (BldA) [Mass fraction] 98 % Brian Jacobs MD Work Phone: [facility] 08-16-2024 11:13-0500 Systolic blood pressure 124 mm[Hg] Brian Jacobs MD Work Phone: [facility] 07-06-2024 11:22-0400 Body height 162.6 cm Brian Jacobs MD Work Phone: [facility] 07-06-2024 11:22-0400 Body mass index (BMI) [Ratio] 33.3 kg/m2 Brian Jacobs MD Work Phone: [facility] 07-06-2024 11:22-0400 Body temperature 96.4 [degF] Brian Jacobs MD Work Phone: [facility] 07-06-2024 11:22-0400 Body weight 88 kg Brian Jacobs MD Work Phone: [facility] 07-06-2024 11:22-0400 Diastolic blood pressure 76 mm[Hg] Brian Jacobs MD Work Phone: [facility] 07-06-2024 11:22-0400 Heart rate 96 /min Brian Jacobs MD Work Phone: [facility] 07-06-2024 11:22-0400 Respiratory rate 20 /min Brian Jacobs MD Work Phone: [facility] 07-06-2024 11:22-0400 SaO2% (BldA) [Mass fraction] 98 % Brian Jacobs MD Work Phone: [facility] 07-06-2024 11:22-0400 Systolic blood pressure 130 mm[Hg] Brian Jacobs MD Work Phone: [facility] 06-26-2024 10:06-0400 Diastolic blood pressure 72 mm[Hg] Holli Allan DO Work Phone: [facility] 06-26-2024 10:06-0400 Systolic blood pressure 108 mm[Hg] Holli Lemus Work Phone: [facility] 06-13-2024 10:36-0400 Body height 162.6 cm Brian Jacobs MD Work Phone: [facility] 06-13-2024 10:36-0400 Body mass index (BMI) [Ratio] 33.64 kg/m2 Brian Jacobs MD Work Phone: [facility] 06-13-2024 10:36-0400 Body temperature 97.5 [degF] Brian Jacobs MD Work Phone: [facility] 06-13-2024 10:36-0400 Body weight 88.91 kg Brian Jacobs MD Work Phone: [facility] 06-13-2024 10:36-0400 Diastolic blood pressure 80 mm[Hg] Brian Jacobs MD Work Phone: [facility] 06-13-2024 10:36-0400 Heart rate 91 /min Brian Jacobs MD Work Phone: [facility] 06-13-2024 10:36-0400 Respiratory rate 20 /min Brian Jacobs MD Work Phone: [facility] 06-13-2024 10:36-0400 SaO2% (BldA) [Mass fraction] 98 % Brian Jacobs MD Work Phone: [facility] 06-13-2024 10:36-0400 Systolic blood pressure 124 mm[Hg] Brian Jacobs MD Work Phone: [facility] Healthcare Encounters Encounter Date Encounter Type Care Provider Facility Start: 01-04-2025 End: 01-04-2025 Bamboo flowsheet Brian Jacobs MD Work Phone: [facility] Start: 01-04-2025 End: 01-04-2025 Bamboo flowsheet Brian Jacobs MD Work Phone: [facility] Start: 01-04-2025 End: 01-04-2025 Clinisync Result Encounter Generic External Data Provider [facility] External Department Unsolicited Start: 01-04-2025 End: 01-04-2025 ambulatory BRIAN JACOBS Not Available Start: 01-04-2025 End: 01-04-2025 Office outpatient visit 25 minutes Brian Jacobs MD Work Phone: [facility] Comment on above: Generalized abdomina l pain (Primary Dx); Arthralgia, unspecified joint; Calculus of gallbladder without cholecystitis without obstruction Start: 11-27-2024 End: 11-27-2024 Office outpatient visit 25 minutes Krystal Shell MD Work Phone: [facility] [place] Comment on above: Epigastric pain (Kathy lito Dx); Hematochezia; Choledocholithiasis; History of ERCP; Elevated liver enzymes; Antimitochondrial antibody positive; High total IgG Start: 11-27-2024 End: 11-27-2024 Orders Only Paulina Dunn [facility] Comment on above: Antimitochondrial an tibody positive (Primary Dx) Start: 11-24-2024 ambulatory Morris Pereira [employer] Facility:[facility] Start: 11-03-2024 End: 11-03-2024 Clinisync Result Encounter Generic External Data Provider [facility] External Department Unsolicited Start: 11-03-2024 End: 11-03-2024 Clinisync Result Encounter Generic External Data Provider [facility] External Department Unsolicited Start: 10-30-2024 End: 10-30-2024 Office outpatient new 45 minutes Krystal Shell MD Work Phone: [facility] Comment on above: Choledocholithiasis (Primary Dx); Epigastric pain; History of ERCP; Elevated liver enzymes; GI symptoms Start: 10-30-2024 End: 10-30-2024 ambulatory KRYSTAL SHELL [facility] Start: 09-27-2024 End: 09-27-2024 Bamboo flowsheet Brian Jacobs MD Work Phone: [facility] Start: 09-27-2024 End: 09-27-2024 Bamboo flowsheet Brian Jacobs MD Work Phone: [facility] Start: 09-27-2024 End: 09-27-2024 Office outpatient visit 25 minutes Brian Jacobs MD Work Phone: [facility] Comment on above: Epigastric pain (Kathy lito Dx); Hematochezia; Calculus of gallbladder without cholecystitis without obstruction; Insulin resistance Start: 09-27-2024 End: 09-27-2024 ambulatory BRIAN JACOBS Not Available Start: 08-30-2024 End: 08-30-2024 ambulatory Jairo Mccrary Facility:[facility] Start: 08-24-2024 End: 08-24-2024 ambulatory [facility] Start: 08-16-2024 End: 08-16-2024 Bambo flowsheet Brian Jacobs MD Work Phone: [facility] Start: 08-16-2024 End: 08-16-2024 [facility] flow[facility] Brian Jacobs MD Work Phone: [facility] Start: 08-16-2024 End: 08-16-2024 Office outpatient visit 15 minutes Brian Jacobs MD Work Phone: [facility] Comment on above: Choledocholithiasis (Primary Dx); Calculus of gallbladder without cholecystitis without obstruction Start: 08-16-2024 End: 08-16-2024 ambulatory BRIAN JACOBS Not Available Start: 08-12-2024 Evaluation and manag ement of inpatient JOY[facility] Start: 08-11-2024 Evaluation and manag ement of inpatient [facility] Start: 08-11-2024 Evaluation and manag ement of inpatient [facility] Start: 08-11-2024 End: 08-12-2024 Evaluation and management of inpatient JOSE FRANCISCO MEYERS [facility] Start: 08-10-2024 End: 08-14-2024 Clinisync Result [...] Available Start: 06-26-2024 End: 06-26-2024 Bamboo flowsheet Holliolga Lemus DO Work Phone: [facility] Start: 06-26-2024 End: 06-26-2024 Bamboo flowsheet Holli Allan DO Work Phone: [facility] Start: 06-26-2024 End: 06-26-2024 Postop follow up visit related to original px Holliolga Lemus DO Work Phone: [facility] Comment on above: S/P appendectomy (Pr imary Dx) Start: 06-26-2024 End: 06-26-2024 ambulatory HOLLI LEMUS Not Available Start: 06-17-2024 End: 06-17-2024 ambulatory Shaikh Jc [facility] Work Phone: Start: 06-17-2024 End: 06-17-2024 Departed Referred MD Shaikh Greene Work Phone: [facility] Start: 06-16-2024 End: 06-19-2024 Clinisync Result [...] (polycystic ovarian syndrome); Obesity (BMI 30-39.9); Thyromegaly ([facility]/HCC) Start: 06-13-2024 End: 06-13-2024 ambulatory BRIAN JACOBS Not Available Start: 12-15-2022 End: 12-16-[address] BRIAN JACOBS Facility:[facility] Start: 04-20-2022 End: 05-02-[address] BRIAN JACOBS Facility:[facility] Start: 04-07-2022 End: 04-07-2022 Patient encounter procedure DPM Sb Rosasstacy Work Phone: [facility] Start: 03-04-2022 Encounter for genera l adult medical examination without abnormal findings DR BRIAN JACOBS [facility] Start: 03-02-2022 End: 03-03-2022 Encounter for general adult medical examination without abnormal findings DR BRIAN JACOBS Facility:[facility] Start: 03-02-2022 End: 03-03-[address] BRIAN JACOBS Facility:[facility] Procedures Date Procedure Procedure Detail Performing Clinician Start: 01-04-2025 ALL CBC WITH AUTO DIFF Generic External Data Provider Start: 11-27-2024 Follow-up visit Follow-up KRYSTAL SHELL Start: 11-03-2024 [facility] PROTHROMBIN T JAMEEL INR W/O COUM Generic External Data Provider Start: 08-10-2024 BLOOD CULTURE 2 Generic External [...] 10-30-2025 Adult BMI Screening Adult BMI Screening [facility] Start: 10-30-2025 Tobacco Screening Tobacco Screening [facility] Start: 05-14-2025 Influenza vaccination Influenza Vaccine (Season Ended) [facility] Start: 04-03-2025 End: 04-03-2025 Patient encounter procedure 04/03/2025 10:45 AM EDT Office Visit [facility] [address] [place] [phone] Brian Jacobs MD [address] [place] [phone] [facility] Start: 01-04-2025 End: 01-04-2025 Patient encounter procedure 01/04/2025 10:45 AM EDT Office Visit [facility] [address] [place] [phone] Brian Jacobs MD [address] [place] [phone] [facility] Start: 11-27-2024 End: 11-27-2025 Guidance for percutaneous biopsy of Liver IR percutaneous biopsy liver Imaging Routine Antimitochondrial antibody positive Expected: 11/27/2024, Expires: 11/27/2025 Cued Work Phone: Comment on above: Expected: 11/27/2024, Expires: Start: 11-27-2024 End: 11-27-2024 Patient encounter procedure 11/27/2024 9:00 AM EDT Office Visit [facility] [address] [place] [phone] Krystal Benavidez MD [address] [place] [address] [facility] Start: 2024 Screening for malignant neoplasm of cervix [facility] Start: 10-30-2024 End: 10-30-2025 CT Abdomen and Pelvis WO and W contrast IV CT abdomen and pelvis with and without contrast Imaging Routine Epigastric pain Expected: 10/30/2024, Expires: 10/30[facility] on above: Expected: 10/30/2024, Expires: Start: 10-30-2024 End: 10-30-2025 NM Stomach Views for gastric emptying solid phase W radionuclide PO NM gastric emptying solid Imaging Routine Epigastric pain Expected: 10/30/2024, Expires: 10/30/2025 [facility] Comment on above: Expected: 10/30/2024, Expires: Start: 10-30-2024 End: 10-30-2025 US.doppler Abdominal vessels limited Ultrasound abdomen limited with duplex Imaging Routine Epigastric pain Choledocholithiasis Expected: 10/30/2024, Expires: 10/30/2025 [facility] Comment on above: Expected: 10/30/2024, Expires: Start: 09-27-2024 End: 09-27-2025 Basic metabolic 1998 panel - Serum or Plasma Basic metabolic panel Lab Routine Insulin resistance Expected: 09/27/2024 (Approximate), Expires: 09/27/2025 [facility] Comment on above: Expected: 09/27/2024 (Approximate), Expi [...] 09/27/2024 8:45 AM EST Office Visit [facility] [address] [place] [phone] Brian Jacobs MD [address] [place] [address] Arrived [facility] Comment on above: [...] 07/06/2024 11:15 AM EDT Office Visit [facility] [address] [place] [phone] Brian Jacobs MD [address] [place] [address] Arrived [facility] Comment on above: Arrived Start: 06-26-2024 End: 06-26-2024 Patient encounter procedure 06/26/2024 10:00 AM EDT Office Visit [facility] [address] [place] [phone] Holli Lemus DO [address] [place] [phone] Arrived [facility] Comment on above: Arrived Start: 06-13-2024 End: 06-13-2025 PEBBLES BY IFA W/REFLEX ([facility]) PEBBLES BY IFA W/REFLEX ([facility]) Lab Routine Arthralgia, unspecified joint Expected: 06/13/2024 (Approximate), Expires: 06/13/2025 [facility] Comment on above: Expected: 06/13/2024 [...] Hair loss Expected: 06/13/2024 (Approximate), Expires: 06/13/2025 [facility] Comment on above: Expected: 06/13/2024 (Approximate), Expi res: 06/13/2025 Start: 06-13-2024 End: 06-13-2025 Thyroid stimulating immunoglobulin Thyroid stimulating immunoglobulin Lab Routine Fatigue, unspecified type Hair loss Expected: 06/13/2024 (Approximate), Expires: 06/13/2025 [facility] Healthcare Comment on above: Expected: 06/13/2024 (Approximate), Expi res: 06/13/2025 Start: 06-13-2024 End: 06-13-2025 Thyrotropin [Units/volume] in Serum or Plasma TSH Lab Routine Fatigue, unspecified type Hair loss Obesity (BMI 30-39.9) Expected: 06/13/2024 (Approximate), Expires: 06/13/2025 [facility] Work Phone: Comment on above: Expected: 06/13/2024 (Approximate), Expi res: 06/13/2025 Start: 06-13-2024 End: 06-13-2025 Thyroxine (T4) free [Mass/volume] in Serum or Plasma T4, free Lab Routine Fatigue, unspecified type Hair loss Expected: 06/13/2024 (Approximate), Expires: 06/13/2025 [facility] Healthcare Comment on above: Expected: 06/13/2024 (Approximate), Expi res: 06/13/2025 Start: 06-13-2024 End: 06-13-2025 Triiodothyronine (T3) Free [Mass/volume] in Serum or Plasma T3, free Lab Routine Fatigue, unspecified type Hair loss Expected: 06/13/2024 (Approximate), Expires: 06/13/2025 [facility] Comment on above: Expected: 06/13/2024 (Approximate), Expi res: 06/13/2025 Start: 06-13-2024 End: 06-13-2025 US Thyroid gland US thyroid Imaging Routine Thyromegaly (CMS/HCC) Expected: 06/13/2024, Expires: 06/13/2025 [facility] Comment on above: Expected: 06/13/2024, Expires: Start: 06-13-2024 End: 06-13-2024 Patient encounter procedure 06/13/2024 10:30 AM EDT Office Visit [facility] [address] [place] [phone] Brian Jacobs MD [address] [place] [address] Arrived [facility] Comment on above: Arrived Start: 05-14-2024 Influenza vaccination [facility] Start: 11-23-2015 Screening for malignant neoplasm of cervix Pap Smear [facility] Start: 2013 DTaP,Tdap and Td Vaccines (1 - Tdap) DTaP,Tdap and Td Vaccines (1 - Tdap) [facility] Start: 2012 Adult BMI Follow Up Plan Adult BMI Follow Up Plan [facility] Start: 2006 Depression Screening Depression Screening [facility] End: 10-30-2025 Alpha fetoprotein Alpha fetoprotein Lab Routine Epigastric pain Choledocholithiasis 1 Occurrences starting 10/30/2024 until 10/30/2025 [facility] Comment on above: 1 Occurrences starting 10/30/2024 until 10/30/2025 End: 10-30-2025 [id number] Phenotype [id number]-[id number]-[id number] Phenotype Lab Routine Epigastric pain Choledocholithiasis 1 Occurrences starting 10/30/2024 until 10/30/2025 [facility] Comment on above: 1 Occurrences starting 10/30/2024 until 10/30/2025 End: 10-30-2025 PEBBLES Screen w/ Reflex PEBBLES Screen w/ Reflex Lab Routine Epigastric pain Choledocholithiasis 1 Occurrences starting 10/30/2024 until 10/30/2025 [facility] Comment on above: 1 Occurrences starting 10/30/2024 until 10/30/2025 BLOOD CULTURE 1 BLOOD CULTURE 1 Lab Routine 08/10/2024 9:04 PM EST [facility] BLOOD CULTURE 2 BLOOD CULTURE 2 Lab Routine 08/10/2024 9:20 PM EST [facility] End: 10-30-2025 Celiac disease serology cascade Celiac disease serology cascade Lab Routine Epigastric pain Choledocholithiasis 1 Occurrences starting 10/30/2024 until 10/30/2025 [facility] Abigail Stewart Comment on above: 1 Occurrences starting 10/30/2024 until 10/30/2025 End: 10-30-2025 Ceruloplasmin Ceruloplasmin Lab Routine Epigastric pain Choledocholithiasis 1 Occurrences starting 10/30/2024 until 10/30/2025 [facility] Abigail Stewart Comment on above: 1 Occurrences starting 10/30/2024 until 10/30/2025 End: 10-30-2025 Comprehensive metabolic 2000 panel - Serum or Plasma Comprehensive metabolic panel Lab Routine Epigastric pain Choledocholithiasis 1 Occurrences starting 10/30/2024 until 10/30/2025 [facility] Abigail Stewart Comment on above: 1 Occurrences starting 10/30/2024 until 10/30/2025 End: 10-30-2025 Ferritin [Mass/volume] in Serum or Plasma Ferritin Lab Routine Epigastric pain Choledocholithiasis 1 Occurrences starting 10/30/2024 until 10/30/20[facility]: 1 Occurrences starting 10/30/2024 until 10/30/2025 End: 10-30-2025 Hepatitis B core antibody, total Hepatitis B core antibody, total Lab Routine Epigastric pain Choledocholithiasis 1 Occurrences starting 10/30/2024 until 10/30/2025 [facility] Abigail Stewart Comment on above: 1 Occurrences starting 10/30/2024 until 10/30/2025 End: 10-30-2025 Hepatitis panel, acute Hepatitis panel, acute Lab Routine Epigastric pain Choledocholithiasis 1 Occurrences starting 10/30/2024 until 10/30/20[facility] on [facility]: 1 Occurrences starting 10/30/2024 until 10/30/2025 End: 10-30-2025 Immunoglobulins Immunoglobulins Lab Routine Epigastric pain Choledocholithiasis 1 Occurrences starting 10/30/2024 until 10/30/20[facility] on above: 1 Occurrences starting 10/30/2024 until 10/30/2025 End: 10-30-2025 Iron and TIBC Iron and TIBC Lab Routine Epigastric pain Choledocholithiasis 1 Occurrences starting 10/30/2024 until 10/30/2025 [facility] Comment on above: 1 Occurrences starting 10/30/2024 until 10/30/2025 End: 10-30-2025 Liver/Kidney Microsome Type 1 Ab, S Liver/Kidney Microsome Type 1 Ab, S Lab Routine Epigastric pain Choledocholithiasis 1 Occurrences starting 10/30/2024 until 10/30/2025 [facility] on above: 1 Occurrences starting 10/30/2024 until 10/30/2025 End: 10-30-2025 Mitochondrial AB (M2) Mitochondrial AB (M2) Lab Routine Epigastric pain Choledocholithiasis 1 Occurrences starting 10/30/2024 until 10/30/2025 [facility] Comment on above: 1 Occurrences starting 10/30/2024 until 10/30/2025 POCT Hydrogen Breath Test POCT Hydrogen Breath Test Point of Care Testing Routine Epigastric pain Ordered: 10/30/2024 Hunch Comment on above: Ordered: 10/30/2024 End: 10-30-2025 Protime & INR Protime & INR Lab Routine Epigastric pain Choledocholithiasis 1 Occurrences starting 10/30/2024 until 10/30/2025 Hunch Comment on above: 1 Occurrences starting 10/30/2024 until 10/30/2025 End: 10-30-2025 Smooth Muscle AB Smooth Muscle AB Lab Routine Epigastric pain Choledocholithiasis 1 Occurrences starting 10/30/2024 until 10/30/2025 Hunch Comment on above: 1 Occurrences starting 10/30/2024 until 10/30/2025 End: 11-27-2025 Surgical Pathology Surgical Pathology Pathology and Cytology Routine Antimitochondrial antibody positive 1 Occurrences starting 11/27/2024 until 11/27/2025 Hunch Comment on above: 1 Occurrences starting 11/27/2024 until 11/27/2025 End: 10-30-2025 TSH with Reflex TSH with Reflex Lab Routine Epigastric pain Choledocholithiasis 1 Occurrences starting 10/30/2024 until 10/30/2025 Cued Work Phone: Comment on above: 1 Occurrences starting 10/30/2024 until 10/30/2025 Payers Date Payer Category [id number] [facility] Managed Care - Other ANTHEM [id number] 2020 Unknown BCBS BCBS [id number] 2020-Present [phone] [address] [place] [address] [id number] 1994 Unknown [id number] [id number]. 2.593 1994 Unknown [id number] 2.16.840.1.497338.3.579. 2.593 1994 Unknown [id number] 2.16.840.1.136293.3.579. 2.593 1994 Unknown [id number] 2.16.840.1.026969.3.579. 2.593 1994 Unknown [id number] 2.16.840.1.656614.3.579. 2.1286 1994 Unknown [id number] 2.16.840.1.620665.3.579. 2.1286 1994 Unknown [id number] 2.16840.1.500893.3.579. 2.1259 1994 Unknown [id number] 2.16840.1.191371.3.579. 2.1259 1994 Unknown [id number] 2.16840.1.481568.3.579. 2.1259 1994 Unknown [id number] 2.16.840.1.689155.3.579. 2.1259 1994 Unknown [id number] 2.16.840.1.569606.3.579. 2.1259 1994 Unknown [id number] 2.16840.1.427773.3.579. 2.1259 1959 Unknown [id number] Unknown [id number] 2.16840.1.066295.3.579. 2.531 Unknown [id number] 2.16840.1.633311.3.579. 2.531 Social History Date Type Detail Facility Tobacco smoking stat [facility] Unknown if ever smoked [facility] Work Phone: Start: 1995 Sex [facility] At [facility] Start: 1995 Sex assigned at Not on file [facility] Start: 06-13-2024 End: 09-26-2024 Gender identity Not on file [facility] Start: 06-13-2024 End: 09-28-2024 Tobacco smoking status NHIS Never smoked tobacco [facility] Start: 06-13-2024 End: 09-28-2024 Tobacco use and exposure Smokeless tobacco non-user [facility] Start: 06-13-2024 End: 09-26-2024 History of Social function [facility] Start: [...] on time? No [facility] Start: 10-30-2024 End: 11-27-2024 Alcoholic beverage intake Ex-drinker (finding) [facility] Start: 09-28-2024 Sex Female (finding[facility] Medical Equipment Procedure Code Equipment Code Equipment Origin al Text Equipment Identifier Dates 1 each by In Vit ro route Daily [id number] Start: 07-26-2024 Clinical Notes 06-13-2024 to 01-04-2025 Brian Jacobs MD - 01/04/2025 11:30 AM Willian Jacobs MD - 01/04/2025 11:30 AM Willian Jacobs MD - 01/04/2025 11:30 AM Willian Jacobs MD - 01/04/2025 10:45 AM EDT Note Date & Type Note Facility 01-04-2025 History of Present illness Narrative Associated Problem(s): Generalized abdominal pain Continued pain and possible PBC. Follow up with GI for liver biopsy. Associated Problem(s): Calculus of gallbladder without cholecystitis without obstruction Stones and sludge in gallbladder but no obstruction. Doesn't want to have surgery. Discussed risks including pancreatitis from impacted stone. Will monitor symptoms and continue low fat diet. Associated Problem(s): Arthralgia Pain in multiple joints and likely autoimmune disease. Try medrol during one of her flares and follow with rheumatology. Images from the original note were not included. Subjective Patient ID: Samantha Solis is a 29 y.o. female who presents for Follow-up (3 f/u). Follow up abdominal pain and joint pain. Continues to have abdominal pain and GI symptoms. Stones and sludge in gallbladder but doesn't want surgery if possible. Changed diet and avoiding triggers. Continues to have pain and feels like liver swollen off and on. Frequent pain in LUQ. PEBBLES positive and sent to rheumatology. Unclear of diagnosis but positive mitochondrial antibodies. Seen by GI and concerned of possible PBC. Liver biopsy scheduled. Reports episodes of pain and inflammation. Feels like hands and feet swollen. Pain in spine and all over. Hard to get out of bed and hard to stay active. Other times feels fine and able to stay active and exercise several days a week. Feels like episodes occur more often and lasting longer. Now last several days to a week. Review of Systems Respiratory: Negative [...] Assessment/Plan Problem List Items Addressed This Visit Arthralgia Pain in multiple joints and likely autoimmune disease. Try medrol during one of her flares and follow with rheumatology. Relevant Medications methylPREDNISolone (Medrol Dospak) 4 MG tablets Calculus of gallbladder without cholecystitis without obstruction Stones and sludge in gallbladder but no obstruction. Doesn't want to have surgery. Discussed risks including pancreatitis from impacted stone. Will monitor symptoms and continue low fat diet. Generalized abdominal pain - Primary Continued pain and possible PBC. Follow up with GI for liver biopsy. documented in this encounter [facility] 11-27-2024 History of Present illness Narrative Images from the original note were not included. [facility] Follow Up Visit CHIEF COMPLAINT: Chief Complaint Patient presents with Follow-up Abdominal Pain She reports left sided abdominal pain. HISTORY OF PRESENT ILLNESS: Samantha Solis is a 29 y.o. female who has a past medical history of Arthralgia (06/13/2024), Calculus of gallbladder without cholecystitis without obstruction (08/16/2024), Choledocholithiasis (08/16/2024), Epigastric pain (09/27/2024), Fatigue (06/13/2024), Hair loss (06/13/2024), Hematochezia (09/27/2024), Insulin resistance (06/15/2024), Obesity (BMI 30-39.9) (06/13/2024), PCOS (polycystic ovarian syndrome) (06/13/2024), and Positive PEBBLES (antinuclear antibody) (07/12/2024). who presents today for a follow up visit. Patient was seen 10/30/2024 regarding multiple GI complaints. She has a history of admission to the hospital for choledocholithiasis underwent ERCP with the stenting. This was done at [facility]. She was told that stent has passed. I instructed the patient that she needs cholecystectomy in the setting of choledocholithiasis taking into account the risk of recurrence. She was adamantly refusing. I also recommended SIBO testing EGD colonoscopy gastric emptying for further workup. She had elevated liver enzymes for which she was agreeable to blood work for further evaluation. Patient currently reporting left upper quadrant under ribcage pain that is not related to movement or food intake. Not associated with nausea vomiting. Infrequent episodes of hematochezia. No unintentional weight loss. No fever no chills no night sweats. I discussed with the patient workup performed so far including mildly elevated IgG level along with positive antimitochondrial antibody. Next step would be ultrasound-guided liver biopsy. Patient agreeable to proceed. Also discussed with [facility] imaging of the abdomen including CT or MRI for evaluation of pain. REVIEW OF SYSTEMS: See HPI, otherwise ROS as below CONSTITUTIONAL: negative HEENT: negative RESPIRATORY: negative CARDIOVASCULAR: negative GASTROINTESTINAL: As in HPI GENITOURINARY: negative INTEGUMENT/BREAST: negative HEMATOLOGIC/LYMPHATIC: negative ALLERGIC/IMMUNOLOGIC: negative ENDOCRINE: negative MUSCULOSKELETAL: negative NEUROLOGICAL: negative BEHAVIOR/PSYCH: negative ALLERGIES: Patient has no known allergies. Current Medications: Current Outpatient Medications: metFORMIN XR (GLUCOPHAGE XR) 500 mg 24 hr tablet, TAKE 1 TABLET BY MOUTH EVERY DAY EVENING WITH MEALS (Patient not taking: Reported on 11/27/2024), Disp: , Rfl: I reviewed and reconciled this patient's medication list today. The list included in this note is the most up to date list that I can attest to at this time based on the information that the patient has provided me and the electronic medical record. PAST MEDICAL, SOCIAL AND FAMILY HISTORY: Past Medical History: Past Medical History: Diagnosis Date Arthralgia 06/13/2024 Calculus of gallbladder without cholecystitis without obstruction 08/16/2024 Choledocholithiasis 08/16/2024 Epigastric pain 09/27/2024 Fatigue 06/13/2024 Hair loss 06/13/2024 Hematochezia 09/27/2024 Insulin resistance 06/15/2024 Obesity (BMI 30-39.9) 06/13/2024 PCOS (polycystic ovarian syndrome) 06/13/2024 Positive PEBBLES (antinuclear antibody) 07/12/2024 Past Surgical History: Past Surgical History: Procedure Laterality Date APPENDECTOMY ERCP SOCIAL HISTORY: Social History Tobacco Use Smoking status: Never Smokeless tobacco: Never Vaping Use Vaping status: Never Used Substance Use Topics Alcohol use: Not Currently Drug use: Never PHYSICAL EXAM: BP 110/82 Ht 162.6 cm (5' 4 ) Wt 88 kg (194 lb) Comment: patient reports BMI 33.30 kg/m Body mass index is 33.3 kg/m . CONSTITUTIONAL: awake, alert and no apparent distress LUNGS: No increased work of breathing, good air exchange, clear to auscultation bilaterally, no crackles or wheezing CARDIOVASCULAR: regular rate and rhythm, normal S1 and S2 ABDOMEN: normal bowel sounds, soft, non-distended and non-tender NEURO: no focal deficits, moves all 4 extremities spontaneously DATA: CBC: No results found for: WBC , RBC , HGB , HCT , MCV , RDW , PLT CMP: No results found for: NA , K , CL , CO2 , BUN , GLU , PROT , ALB , CA FOLATE: No results found for: FOLATE HgBA1c: No results found for: HGBA1C Iron Studies: No results found for: FE , TIBC , FERRITIN PT/INR: No results found for: INR TSH: No results found for: TSH VITAMIN B12: No components found for: B12 25 Hydroxy Vitamin D Level: No components found for: VITDTOTAL DIAGNOSTIC STUDIES REVIEWED: As noted in the HPI ASSESSMENT AND PLAN: Samantha Solis is a 29 y.o. female who has a past medical history of Arthralgia (06/13/2024), Calculus of gallbladder without cholecystitis without obstruction (08/16/2024), Choledocholithiasis (08/16/2024), Epigastric pain (09/27/2024), Fatigue (06/13/2024), Hair loss (06/13/2024), Hematochezia (09/27/2024), Insulin resistance (06/15/2024), Obesity (BMI 30-39.9) (06/13/2024), PCOS (polycystic ovarian syndrome) (06/13/2024), and Positive PEBBLES (antinuclear antibody) (07/12/2024). who presents today for follow up visit. 1. Epigastric pain 2. Hematochezia 3. Choledocholithiasis 4. History of ERCP 5. Elevated liver enzymes 6. Antimitochondrial antibody positive 7. High total IgG Normal liver enzymes 10/2024 AST 9 ALT 23 total bilirubin 0.6. Antimitochondrial antibody 161 positive. Normal alkaline phosphatase 77. Previous PEBBLES positive, PEBBLES negative October 2024. Mildly elevated IgG 1960 with upper limit of normal 1602. We will set up for ultrasound-guided liver biopsy to evaluate for changes related to primary biliary cholangitis or autoimmune hepatitis. Follow up in a month. Krystal Shell MD, MPH Gastroenterology & Hepatology Video Specialist [address], [facility] [address] [place] [address] PH: [phone] documented in this encounter [facility] 10-30-2024 History of Present illness Narrative Images from the original note were not included. [facility] New Patient Visit Chief Complaint Patient presents [...] to the patient that was done at [facility]. 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 US RIGHT UPPER QUADRANT 09/14/2024 [id number] Final DATA: CBC: No results found for: [...] - PEBBLES Screen w/ Reflex; Future - Runfc-1-Wjmwlxppvnu Phenotype; Future - Liver/Kidney Microsome Type 1 Ab, S; Future - Protime & INR; Future - Ceruloplasmin; Future - Comprehensive metabolic panel; Future Epigastric pain - [facility] - TSH with Reflex; Future - Hepatitis B core antibody, total; Future - Hepatitis panel, acute; Future - Immunoglobulins; Future - Celiac disease serology cascade; Future - Ultrasound abdomen limited with duplex; Future - Iron and TIBC; Future - Ferritin; Future - Mitochondrial AB (M2); Future - Alpha fetoprotein; Future - Smooth Muscle AB; Future - PEBBLES Screen w/ Reflex; Future - Vupnb-4-Pjknduylxjc Phenotype; Future - Liver/Kidney Microsome Type 1 Ab, S; Future - Protime & INR; Future - Ceruloplasmin; Future - Comprehensive metabolic panel; Future - NM gastric emptying solid; Future - POCT Hydrogen Breath Test - CT abdomen and pelvis with and without contrast; Future Hematochezia - [facility] History of ERCP Elevated liver enzymes GI [...] note is dictated with the use of [email or web address], a computer voice recognition software. Quite often unanticipated grammatical, syntax, homophones, and other interpretive errors are inadvertently transcribed by the computer software. Please disregard these errors and please excuse any errors that have escaped final proofreading. Krystal Shell MD, MPH Gastroenterology & Hepatology Video Specialist [place] [id number] [facility], [address] [place] [address] PH: [phone] documented in this encounter [facility] 09-27-2024 History of Present illness Narrative Associated [...] referral to Gastroenterology documented in this encounter [facility] 08-16-2024 History of Present illness Narrative Associated [...] 28 y.o. female who presents for Follow-up ([facility] er f/up transferred to [facility]). Hospital follow up from 08/11-08/12 for choledocholithiasis. Developed abdominal pain for several weeks. Initially to ER 08/[address] showed gallstones and stone in CBD. Discharged home and told follow with surgeon. Continued pain and nausea. Not able to eat or drink. Severe pain and abdomen distended. To ER 08/10 and transferred to [facility]. ERCP performed 08/11 and [...] Orders US RUQ documented in this encounter [facility] 08-12-2024 Note Hospital Medicine Discharge Summary Final Discharge Diagnosis: #Choledocholithiasis #Transaminitis #Right upper quadrant pain Admission Diagnosis: Abdominal pain [R10.9] Hospital course: 28-year-old female with past medical history significant for recent appendectomy, patient was transferred from [facility] due to concern for choledocholithiasis resulting into transaminitis and need for ERCP. Patient reported that she started having symptoms 1 week prior to her presentation with right upper quadrant pain associated with nausea and vomiting. Upon evaluation in [facility], she was found to have transaminitis with total bilirubin being 2.5. CT abdomen and pelvis was done which was showing 3 mm stone in the distal CBD. Patient was transferred to [facility] on 08/11 and she [...] her primary care physician and surgeon in [place]. Patient was noted to be tachycardic on [...] Medications These medications were sent to [facility] - [place], [place] - [address] [place] [address] [place] [address], [facility] [address] ondansetron ODT 4 mg disintegrating tablet oxyCODONE [...] was 40 minutes. Signed Joyce Tubbs MD [facility] Medicine 08/12/2024 1:49 PM CC: MD Reynaldo [facility] 08-12-2024 Note ---- Attestation signed by [...] PO intake. Plan for outpatient cholecystectomy in [place] closer to patient's home. Ok to dc home if tolerate diet ---- [facility] General Surgery DAILY PROGRESS NOTE Subjective [...] note for clinical correlation. Electronically signed: [place] ERCP w/ Sphinctorotomy Endoscopic Retrograde Cholangiopancreatography (ERCP) Procedure Note Procedure: ERCP with Common bile duct stone removal, stent placement and sphincterotomy Indications: The patient was transferred from another institution with a complaint of abdominal pain, choledocholithiasis and abnormal liver function test. She is scheduled for ERCP for common bile duct stone removal today August 11, 2024. 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 Final (more content not included)... [facility] 08-11-2024 Note Patient: Samantha mcallister Procedure Summary Date: 08/11/24 Room / Location: [facility] Main Operating Room Anesthesia Start: 1701 Anesthesia Stop: 1810 Procedure: ENDOSCOPIC RETROGRADE CHOLANGIOPANCREATOGRAPHY Diagnosis: Abdominal pain Choledocholithiasis Scheduled Providers: Julio Allison MD Responsible Provider: Enrique Franco MD Anesthesia Type: general ASA Status: 2 Anesthesia Type: general Vitals Value Taken Time BP 130/86 08/11/24 1850 Temp 36.7 ???C (98.1 ???F) 08/11/24 1820 Pulse 80 08/11/24 1850 Resp 17 08/11/24 1850 SpO2 97 % 08/11/24 1850 Vitals shown include unfiled device data. Anesthesia [...] per anesthesia protocol. No notable events documented. [facility] 08-11-2024 Note Airway Date/Time: 08/11/2024 5:07 PM Urgency: elective Airway not difficult General Information and Staff Patient location during procedure: OR Anesthesiologist: Enrique Franco MD Resident/ENROLLMENT SPECIALIST/CAA: Tung Marrero MD Performed: resident/ENROLLMENT SPECIALIST/CAA Indications and Patient Condition Indications for airway [...] 21 Number of attempts at approach: 1 [facility] 08-11-2024 Note Patient: Samantha mcallister Procedure Information Date/Time: 08/11/24 1700 Procedure: ENDOSCOPIC RETROGRADE CHOLANGIOPANCREATOGRAPHY Location: [facility] Main Operating Room Relevant [...] Plan discussed with resident. Additional Equipment Requests [facility] 08-11-2024 Note Hospital Medicine History and Physical 08/11/2024 4:02 AM THE HOSPITALIST TEAM PREFERS TO USE [employer] CHAT FOR NON-URGENT COMMUNICATION 7AM-7PM. IF I DO NOT RESPOND WITHIN 20 MINUTES OR URGENT MATTERS, PLEASE CALL THROUGH THE VICE PRESIDENT [employer]. FROM 7PM-7AM, PLEASE PAGE [phone](COVR). Chief Complaint No chief complaint on file. History of Present Illness Samantha Solis is an 28 y.o. female transferred from [facility] where she was seen for nonresolving right [...] portacaval lymph nodes in the ER at [facility] because of chills she was started on IV Zosyn and was given IV fluids and pain medications and GI were consulted by phone who recommended patient to have ERCP so was transferred to [facility]. Patient has a history [...] request rheumatology to (more content not included)... [facility] 07-06-2024 History of Present illness Narrative [...] 24 hr tablet documented in this encounter [facility] 06-26-2024 History of Present illness Narrative General [...] Positives noted above. Remainder are negative per [facility] guidelines OBJECTIVE: Visit Vitals Smoking Status Never [...] Bea Lemus DO documented in this encounter [facility] 06-13-2024 History of Present illness Narrative Associated [...] [facility] Evaluation note No assessment information availa [facility] Work Phone: Evaluation note Diagnosis Fatigue, [...] cholecystitis without obstruction documented in this encounter [facility]* Diagnosis Fatigue, unspecified type- [...] Other abnormal glucose documented in this encounter [facility]* Diagnosis Choledocholithiasis- Primary Calculus of bile duct without mention of cholecystitis or obstruction Epigastric pain Abdominal pain, epigastric History of ERCP Elevated liver enzymes Other nonspecific abnormal serum enzyme levels GI symptoms Other symptoms involving digestive system [facility] Diagnosis Epigastric pain- Primary Abdominal pain, epigastric Hematochezia Blood in stool Choledocholithiasis Calculus of bile duct without mention of cholecystitis or obstruction History of ERCP Elevated liver enzymes Other nonspecific abnormal serum enzyme levels Antimitochondrial antibody positive High total IgG [facility] Diagnosis Antimitochondrial antibody positive- Primary [facility] Diagnosis Fatigue, unspecified type- Primary Hair [...] without obstruction Insulin resistance Other abnormal glucose Generalized abdominal pain- Primary Abdominal pain, generalized Arthralgia, unspecified joint Calculus of gallbladder without cholecystitis without obstruction documented [facility] filedocumented [facility] System[facility]ructionsNot on filedocumented in this [facility] SystemInstructionsNot on filedocumented in this [facility] Chief Complaint and Reason for Visit [...] Sb Lopez DPM MS Attending Provider Active Lab Technologist Relationship Specialty Start Date End Date Brian Jacobs MD [address] [place] [address] PCP - General Family Medicine 06/13/24 Lab Technologist Relationship Specialty Start Date End Date Brian Jacobs MD [address] [place] [address] PCP - General Family Medicine 06/13/24 Lab Technologist Relationship Specialty Start Date End Date Brian Jacobs MD [address] [place] [address] PCP - General Family Medicine 06/13/24 Lab Technologist Relationship Specialty Start Date End Date Brian Jacobs MD [address] [place] [address] PCP - General Family Medicine 06/13/24 Team Status: Inactive Member Role Status Dates Shaikh Jc MD Attending Provider Active Sta rt: June 17, 2024 End: June 17, 2024 Lab Technologist Relationship Specialty Start Date End Date Brian Jacobs MD [address] [place] [address] PCP - General Family Medicine 06/13/24 Lab Technologist Relationship Specialty Start Date End Date Brian Jacobs MD [address] [place] [address] PCP - General Family Medicine 06/13/24 Lab Technologist Relationship Specialty Start Date End Date Brian Jacobs MD [address] [place] [address] PCP - General [facility] Medicine 06/13/24 Lab Technologist Relationship Specialty Start Date End Date Brian Jacobs MD [address] [place] [address] PCP - General Family Medicine 06/13/24 Lab Technologist Relationship Specialty Start Date End Date Brian Jacobs MD [address] [place] [address] PCP - General Family Medicine 06/13/24 Lab Technologist Relationship Specialty Start Date End Date Brian Jacobs MD [address] [place] [address] PCP - General Family Medicine 06/13/24 Lab Technologist Relationship Specialty Start Date End Date Brian Jacobs MD [address] [place] [address] PCP - General Family Medicine 06/13/24 Lab Technologist Relationship Specialty Start Date End Date Brian Jacobs MD [address] [place] [address] PCP - General Family Medicine 06/13/24 Lab Technologist Relationship Specialty Start Date End Date Brian Jacobs MD [address] [place] [address] PCP - General Family Medicine 06/13/24 Lab Technologist Relationship Specialty Start Date End Date Brian Jacobs MD [address] [place] [address] PCP - General [facility] 06/13/24 Lab Technologist Relationship Specialty Start Date End Date Brian Jacobs MD [address] [place] [phone] PCP - General [facility] 06/13/24 Lab Technologist Relationship Specialty Start Date End Date Brian Jacobs MD [address] [place] [phone] PCP - General [facility] 06/13/24 Brian Jacobs MD [address] [place] [address] PCP [facility] 08/13/24 Lab Technologist Relationship Specialty Start Date End Date Brian Jacobs MD [address] [place] [address] PCP - General [facility] 06/13/24 Lab Technologist Relationship Specialty Start Date End Date Brian Jacobs MD [address] [place] [phone] PCP - General Family Medicine 06/13/24 Lab Technologist Relationship Specialty Start Date End Date Brian Jacobs MD [address] [place] [address] PCP - General Family Medicine 06/13/24 Brian Jacobs MD [address] [place] [phone] PCP - [facility] 08/13/24 Lab Technologist Relationship Specialty Start Date End Date Brian Jacobs MD [address] [place] [phone] PCP - General Family Medicine 06/13/24 Brian Jacobs MD [address] [place] [phone] PCP - [facility] 08/13/24 Lab Technologist Relationship Specialty Start Date End Date Brian Jacobs MD [address] [place] [phone] PCP - General Family Medicine 06/13/24 Brian Jacobs MD [address] [place] [phone] PCP - [facility] 08/13/24 Goals (unrecognized section and content) Goals may be documented in a n alternate sectionGoals may be documented in an alternate sectionNot on filedocumented as of this encounterNot on filedocumented as of this encounterNot on filedocumented as of this encounter INFORMATION SOURCE (unrecogn ized section and content) DATE CREATED AUTHOR 12/17/2022 [facility] DATE CREATED AUTHOR AUTHOR'S TOOIZ ATION 08/27/2024 [facility] DATE CREATED AUTHOR AUTHOR'S ORGANIZ ATION 09/05/2024 [facility] DATE CREATED AUTHOR AUTHOR'S ORGANIZ ATION 10/31/2024 [facility] DATE CREATED AUTHOR AUTHOR'S ORGANIZ ATION 11/27/2024 [facility] DATE CREATED AUTHOR AUTHOR'S ORGANIZ ATION 11/28/2024 [facility] DATE CREATED AUTHOR AUTHOR'S ORGANIZ ATION 01/05/2025 [facility] EPIC Reason for Visit (unrecogniz [...] Follow-up GO OVER LABS Reason Comments Follow-up [facility] er f/up transfer red to [facility] Reason Comments Follow-up Go over labs. questi ons Reason Comments New Patient Abdominal Pain She reports RUQ pain and on the left side that has been going on for a couple months. Abdominal distention. Specialty Diagnoses / Procedures Referred By Gema donnelly Referred To Contact Gastroenterology Diagnoses Epigastric pain Hematochezia Brian Jacobs MD [address] [place] [address] Phone: tel: fax: Krystal Benavidez MD [address] [place] [address] Phone: tel: fax: Referral ID Status Reason Start Date Expiration Date Visits Requested Visits Authorized [id number] Pending Review Specialty Services Required 09/28/2024 09/28/2025 1 1 Reason Comments Follow-up Abdominal Pain She reports left [facility] ed abdominal pain. Reason Comments Follow-up 3 f/u FOR RECORDS PERTAINING TO PATIENTS WHO ARE [...] BE BASED ON THE PRIMARY CLINICAL RECORDS. [facility] provides no warranty or guarantee of the accuracy or completeness of information in this document.
== END 2025-03-01 10:01 | disposition home or self-care (01) ==
LOC: US 10:00
PROVIDERS: PCP Family Medicine; Visit Provider Family Medicine
DX: M79.89 Other specified soft tissue disorders (principal); R22.1 Localized swelling, mass and lump, neck
CPT/HCPCS: 76536

== ENCOUNTER 2025-05-07 11:28 | Outpatient (OUT) | payer BC, SELFPAY ==
[2025-05-07 12:02] LABS: Hematocrit 41.7 % (36.0-48.0); Hemoglobin 14.3 g/dL (12.0-16.0); Immature Granulocytes Abs Auto 0.03 10^3/uL (0.00-0.03); Immature Granulocytes Pct Auto 0.4 % (0.0-0.5); Lymphocytes Absolute Auto 1.9 10^3/uL (1.2-3.8); Mean Corpuscular HGB Conc 34.3 g/dL (29.9-35.2); Mean Corpuscular Hemoglobin 29.7 pg (26.7-34.0); Mean Corpuscular Volume 86.7 fL (81.0-99.0); Platelet Count 343 10^3/uL (150-450); Red Blood Count 4.81 10^6/uL (4.20-5.40); White Blood Count 8.4 10^3/uL (4.0-11.0)
[2025-05-07 12:41] LABS: Alanine Aminotransferase 36 U/L (14-59); Albumin Globulin Ratio 0.7; Albumin Level 3.5 g/dL (3.4-5.0); Alkaline Phosphatase 76 U/L (46-116); Anion Gap 12.3; Aspartate Amino Transferase 21 U/L (15-37); Blood Urea Nitrogen 15.0 mg/dL (7.0-18.0); Calcium 9.5 mg/dL (8.5-10.1); Carbon Dioxide 27.7 mmol/L (21.0-32.0); Chloride 103 mmol/L (98-107); Estimated GFR (African America >60 (>=60 mL/min/1.73m^2); Estimated GFR (Non-African Ame >60 (>=60 mL/min/1.73m^2); Globulin 5.0 g/dL; Glucose 90 mg/dL (74-106); Potassium 4.0 mmol/L (3.5-5.1); Sodium 139 mmol/L (136-145); Total Protein 8.5 g/dL (6.4-8.2)
[2025-05-07 12:43] LABS: Iron 60.0 ug/dL (50.0-170.0); Percent Iron Saturation 14.1 %; Total Iron Binding Capacity 426.0 ug/dL (250.0-450.0)
[2025-05-08 17:08] LABS: Antinuclear Antibodies, IFA Positive (.)
== END 2025-05-07 11:29 | disposition home or self-care (01) ==
LOC: LAB 11:31
PROVIDERS: PCP Family Medicine; Visit Provider Family Medicine
DX: M25.50 Pain in unspecified joint (principal); R10.84 Generalized abdominal pain; R76.8 Other specified abnormal immunological findings in serum
CPT/HCPCS: 36415; 80053; 83540; 83550; 85025; 85652; 86038; 86140; 86381